=== PATIENT | male | born 1950 | race Caucasian/White ===

== ENCOUNTER → 2022-03-12 | Outpatient (CLI) | payer MEDICARE, SELFPAY ==
--- NOTE | 2022-03-12 12:45 | CDU_ITS ---
Reason For Study: Carotid Stenosis Rt. Velocities/BP Lt. Velocities/BP Prox CCA 102.3/26.2 cm/sec. Prox CCA 83.1/21.5 cm/sec. Mid CCA 81.4/20.0 cm/sec. Mid CCA 73.2/21.5 cm/sec. Dist CCA 83.9/22.5 cm/sec. Dist CCA 50.1/19.3 cm/sec. Prox ICA 40.7/15.4 cm/sec. Prox ICA 34.6/13.2 cm/sec. Mid ICA 57.2/24.2 cm/sec. Mid ICA 72.4/29.9 cm/sec. Dist ICA 77.1/28.9 cm/sec. Dist ICA 76.5/34.7 cm/sec. Rt. ICA/CCA = 0.9. Lt. ICA/CCA = 1.0. Prox ECA 96.1/20.0 cm/sec. Prox ECA 87.5/19.5 cm/sec. Rt. Vert. 18.5/5.9 cm/sec. Lt. Vert. 36.6/12.4 cm/sec. Right Extracranial There is intimal thickening but no significant atherosclerotic plaque noted in the right common carotid artery. There is heterogeneous, irregular atherosclerotic plaque noted in the right internal carotid artery. There is intimal thickening but no significant atherosclerotic plaque noted in the right external carotid artery. Antegrade flow is noted in the right vertebral artery. Left Extracranial There is intimal thickening but no significant atherosclerotic plaque noted in the left common carotid artery. There is heterogeneous, irregular atherosclerotic plaque noted in the left internal carotid artery. There is intimal thickening but no significant atherosclerotic plaque noted in the left external carotid artery. Antegrade flow is noted in the left vertebral artery. Procedure Carotid Duplex [id number]. This is a Carotid Duplex examination using B-mode, color flow and specral Doppler. The exam was diagnostic. Exam performed in department. VL/Carotid Duplex Ultrasound Interpretation Summary Mild (<50%) stenosis right extracranial internal carotid. Mild (<50%) stenosis left extracranial internal carotid. Patent and antegrade vertebrals bilaterally. Ordering Physician: Lyn Vance Referring Physician: Nori Valenzuela D.O. Performed By: Pacheco Constantino RVT
== END | disposition home or self-care (01) ==
PROVIDERS: PCP Internal Medicine; Referring Provider Nurse Practitioner Family; Visit Provider Nurse Practitioner Family
DX: I65.23 Occlusion and stenosis of bilateral carotid arteries (principal)
CPT/HCPCS: 93880

== ENCOUNTER → 2022-07-22 | Outpatient (CLI) | payer MEDICARE, SELFPAY ==
--- NOTE | 2022-07-22 14:25 | RAD_ITS ---
EXAM: XR RIGHT KNEE COMPLETE, 4 OR MORE VIEWS CLINICAL INDICATION: right knee pain TECHNIQUE: Four or more views of the right knee. This report was created using [employer] report generation technology. COMPARISON: None. FINDINGS: BONES/JOINTS: Moderate narrowing of the medial joint compartment, and mild subchondral sclerosis at the superior margin of the medial tibial plateau. Narrowing of the lateral patellofemoral joint compartment and mild lateral subluxation of the patella on the sunrise view. No acute fracture. No obviously acute-appearing subluxation. Normal alignment. No joint effusion. SOFT TISSUES: Unremarkable. No soft tissue swelling or gas. No radiopaque foreign body. RAD/Knee 4 or More Views IMPRESSION: Degenerative changes involving the medial joint compartment. Narrowing of the lateral patellofemoral joint compartment and mild lateral subluxation of the patella. Electronically Signed: Mela Og MD at 8:03 EST ,
== END | disposition home or self-care (01) ==
PROVIDERS: PCP Internal Medicine; Referring Provider Nurse Practitioner Family; Visit Provider Nurse Practitioner Family
DX: M25.561 Pain in right knee (principal)
CPT/HCPCS: 73564

== ENCOUNTER → 2025-03-06 | Outpatient (CLI) | payer MEDICARE, SELFPAY | END | disposition home or self-care (01) | LOC: LABSPEC 16:02 | PROVIDERS: PCP Internal Medicine; Referring Provider Urology; Visit Provider Urology | DX: N39.0 Urinary tract infection, site not specified (principal) | CPT/HCPCS: 87077; 87086; 87088; 87186 ==

== ENCOUNTER 2025-03-28 07:37 | Observation (INO) | payer MEDICARE, SELFPAY ==
--- NOTE | 2025-03-08 10:17 | EKG12_ITS ---
Test Reason : PREOP Blood Pressure : */* mmHG Vent. Rate : 59 BPM Atrial Rate : 59 BPM P-R Int : 196 ms QRS Dur : 94 ms QT Int : 432 ms P-R-T Axes : 53 3 57 degrees QTcB Int : 427 ms Sinus bradycardia with occasional Premature ventricular complexes and Premature atrial complexes Otherwise normal ECG Confirmed by Shadi Starr ([id number]), story editor ZHANNA ESPINAL ([id number]) on 03/09/2025 7:07:57 AM Referred By: JACKIE Confirmed By: Shadi Starr
[2025-03-08 11:04] LABS: Hematocrit 44.1 % (40-54); Hemoglobin 14.8 g/dL (13.0-16.5); Mean Corp Hgb Conc 33.6 g/dL (32-36); Mean Corpuscular Volume 91.9 fL (80-94); Mean Platelet Vol. 9.5 fl (6.2-12.0); Platelet Count 246 K/mm3 (150-450); RBC Distribution Width CV 13.2 % (11.6-14.6); RBC Distribution Width SD 44.9 fl (35.1-43.9); Red Blood Count 4.80 M/mm3 (4.6-6.2); White Blood Count 4.9 K/mm3 (4.4-11.0)
[2025-03-08 12:00] LABS: Anion Gap 10 (5-15); BUN 21 mg/dL (4-19); BUN/Creat Ratio 22.3 RATIO (10-20); Calcium,Total 9.4 mg/dL (7.6-11.0); Carbon Dioxide 24.9 mmol/L (21.0-32.0); Chloride 105 mmol/L (98-108); Glucose 102 mg/dL (70-99); Potassium 4.4 mmol/L (3.3-5.1)
[2025-03-28] VITALS (16 sets, daily range): BP systolic 103–172; BP diastolic 71–92; PULSE 56–74; RESP 16–166; TEMP 36.2–36.7; O2SAT 95–100; BMI 23.9
--- OUTSIDE RECORDS SUMMARY | 2025-03-28 06:17 | XMS RPT_ITS | CCD ---
Author Organization [facility] Care Team Providers Care Teacher Of The Hearing Impaired Name Role Phone Fast, Nori A Unavailable Unavailable Fast, Nori A Unavailable Unavailable Fast, Nori A Unavailable Unavailable Fast, Nori A Unavailable Unavailable Fast, Nori A Unavailable Unavailable Fast, Nori A Unavailable Unavailable Fast, Nori A Unavailable Unavailable Fast, Nori A Unavailable Unavailable Fast, Nori A Unavailable Unavailable Ciesa, Leola Unavailable Daljit Montano Unavailable Gmóez Harrell Unavailable Juan José Hodge Unavailable Unavailable Elva Carver Unavailable Unavailable Neila Awan Unavailable Unavailable Unavailable Unavailable Jayleena, Leola Unavailable Daljit Montano Unavailable Gómez Harrell Unavailable Nelia Awan Unavailable Unavailable Wen, Elva Unavailable Unavailable Unavailable Unavailable Juan Jsoé Hodge Unavailable Unavailable Susanna Talbot Unavailable Unavailable Juan José Hodge Unavailable Unavailable eNlia Awan Unavailable Unavailable Juan José Collazo Unavailable Unavailable Olga SEGOVIA, Leola Unavailable Charmaine , Dr. Bocanegra Unavailable Dr. Gómez Harrell MD Unavailable [phone] Gonzalez Carter Unavailable Faith Sepulveda LPN Unavailable Unavailable Juan José Collazo LPN Unavailable Unavailable Chasity Huff LPN Unavailable Unavailable Wen, Elva Unavailable Unavailable Unavailable Unavailable Ciesa, Lucille Unavailable Lyn Vance CNP Unavailable Rajiv OFFICE REP, Lyn Unavailable Slarb INSURANCE BROKER, Meseret Unavailable Unavailable Ciesa, Lucille Unavailable Unavailable Unavailable Dr. Nori Valenzuela Primary Care Provider Dr. Gonzalez Edouard Attending Provider RaulCharlieic Unavailable Rajiv OFFICE REP, Lyn Attending Unavailable Ciesa, Lucille Referring Unavailable Rajiv OFFICE REP, Lyn Consulting Unavailable Rajiv OFFICE REP, Lyn Unavailable Rajiv OFFICE REP, Lyn Unavailable Charmaine , Dr. Bocanegra Unavailable [phone] Julio Cesar BENÍTEZ, Dr. Gómez George Unavailable RaulCharlieic Unavailable Coco INSURANCE BROKER, Faith Unavailable Unavailable Slarb INSURANCE BROKER, Meseret Unavailable Unavailable Zay INSURANCE BROKER, Juan José Unavailable Unavailable Elva Carver Unavailable Unavailable Ciesa, Lucille Unavailable Unavailable Unavailable Boston Urbano Attending Unavailable Fast, Nori Primary Care Unavailable Jackie, Wild Referring Unavailable Jackie, Wild Referring Unavailable Jackie, Wild Attending Unavailable Fast, Nori Primary Care Unavailable Jackie, Wild Attending Unavailable Jackie, Wild Admitting Unavailable Fast, Nori Primary Care Unavailable Jackie, Wild Referring Unavailable Allergies Allergy Classification Reported Allergen(s) Allergy Type Date of Onset Reaction(s) Facility (20 sources) Latex; Translations: [Latex] allergy to substance [facility] Work Phone: (1 source) allergy to substance [facility] Work Phone: (1 source) allergy to substance [facility] Work Phone: (1 source) allergy to substance [facility] Work Phone: (1 source) allergy to substance [facility] Work Phone: (1 source) allergy to substance [facility] Work Phone: (1 source) allergy to substance [facility] Work Phone: (1 source) allergy to substance [facility] Work Phone: (1 source) allergy to substance [facility] Work Phone: (1 source) allergy to substance [facility] Work Phone: (1 source) allergy to substance [facility] Work Phone: (1 source) allergy to substance [facility] Work Phone: (1 source) allergy to substance [facility] Work Phone: (1 source) allergy to substance [facility] Work Phone: (1 source) allergy to substance [facility] Work Phone: (17 sources) Seasonal allergy Allergy to substance (finding) [facility] Work Phone: (17 sources) News paper ink Allergy to substance (finding) [facility] Work Phone: (1 source) Allergy to substance (finding) [facility]; [facility] Work Phone: (1 source) Allergy to substance (finding) [facility]; [facility] Work Phone: (1 source) Allergy to substance (finding) [facility]; [facility] Work Phone: (1 source) Allergy to substance (finding) [facility]; [facility] Work Phone: (1 source) Allergy to substance (finding) [facility]; [facility] Work Phone: (1 source) Allergy to substance (finding) [facility]; [facility] Work Phone: (1 source) Allergy to substance (finding) [facility]; [facility] Work Phone: (1 source) Allergy to substance (finding) [facility]; [facility] Work Phone: Medications Current Medications Medication Drug Class(es) Dates Sig (Normalized) Sig (Original) tamsulosin hydrochloride 0.4 mg oral capsule (20 sources) alpha-Adrenergic Juan Start: 03-09-2023 Start: 03-09-2023 Start: 07-22-2022 Start: 12-17-2021 take 1 capsule by mo uth once daily Tamsulosin HCl 0.4 MG Oral Capsule 1 cap Capsule qd for 90 days Quantity: 90 {Capsule} Refills: 3 Ordered: 17-Dec-2021 Rajiv JULIETTELyn Start : 17-Dec-2021 Active Start: 12-17-2020 take 1 capsule by mo uth once daily Tamsulosin HCl 0.4 MG Oral Capsule 1 cap Capsule qd for 90 days Quantity: 90 {Capsule} Refills: 3 Ordered: 17-Dec-2020 Giulianaradha JULIETTE Lucille Espinoza JULIETTE Lucille Robledo Start : 17-Dec-2020 Active Start: 07-10-2020 take 1 capsule by mo uth once daily Tamsulosin HCl 0.4 MG Oral Capsule 1 cap Capsule qd for 90 days Quantity: 90 {Capsule} Refills: 3 Ordered: 10-Jul-2020 Juan José Collazo LPN Start : 10-Jul-2020 Active Start: 11-14-2019 take 1 capsule by mo uth once daily Tamsulosin HCl 0.4 MG Oral Capsule 1 cap Capsule qd for 90 days Quantity: 90 {Capsule} Refills: 3 Ordered: 14-Nov-2019 Giulianadionneashleigh SEGOVIA Lucille Espinoza JULIETTE Lucille Robledo Start : 14-Nov-2019 Active Start: 12-13-2017 take 1 capsule by mo uth once daily Tamsulosin HCl 0.4 MG Oral Capsule 1 cap Capsule qd for 90 days Quantity: 90 {Capsule} Refills: 3 Ordered: 19-Oct-2018 Jayleenashleigh SEGOVIA Lucille Espinoza JULIETTE Lucille Robledo Start : 19-Oct-2018 Active Start: 10-22-2009 End: 09-24-2015 Start: 10-22-2009 End: 09-24-2015 take 1 capsule by mouth once daily FLOMAX, 0.4MG (Oral Capsule Extended Release 24 Hour) 1 Capsule ER 24HR qd for 0 days Quantity: 90 {Capsule_ER_24HR} Refills: 3 Ordered: 22-Oct-2009 Amy Zhou Start : 22-Oct-2009 End : 24-Sep-2015 Discontinued Comments: This order discontinued per [facility]. Comment on above: This order discontin ued per [facility]. Completed/Discontinued Medications Medication Drug Class(es) Dates Sig (Normalized) Sig (Original) [id number] 200 actuat albuterol 0.09 mg/actuat metered dose inhaler (20 sources) beta2-Adrenergic Agonist Start: 05-06-2011 End: 09-24-2015 Start: 05-06-2011 End: 09-24-2015 PROAIR HFA, 108 (90 Base)MCG /ACT (Inhalation Aerosol Solution) 2 puffs Aerosol Soln qid, prn for 0 days Quantity: 1 {Aerosol_Soln} Refills: 3 Ordered: 24-Sep-2015 Amy Zhou Start : 06-May-2011 End : 24-Sep-2015 Discontinued Start: 05-06-2011 End: 09-24-2015 PROAIR HFA, 108 (90 Base)MCG /ACT (Inhalation Aerosol Solution) 2 puffs Aerosol Soln qid, prn for 0 days Quantity: 1 {Aerosol_Soln} Refills: 3 Ordered: 24-Sep-2015 Amy Zhou Start : 06-May-2011 End : 24-Sep-2015 Discontinued End: 06-28-2007 End: 06-28-2007 take 2 puff(s) by inhalation four times daily as needed ALBUTEROL SULFATE HFA, 108MCG/ACT (Inhalation Aerosol Soln) 2 puffs qid,prn for 0 days Refills: 0 Ordered: 21-Feb-2007 Amy Zhou End : 28-Jun-2007 Discontinued End: 06-28-2007 take 2 puff(s) by inhalation four times daily as needed ALBUTEROL SULFATE HFA, 108MCG/ACT (Inhalation Aerosol Soln) 2 puffs qid,prn for 0 days Refills: 0 Ordered: 21-Feb-2007 Amy Zhou End : 28-Jun-2007 Discontinued End: 06-28-2007 take 2 puff(s) by inhalation four times daily as needed ALBUTEROL SULFATE HFA, 108MCG/ACT (Inhalation Aerosol Soln) 2 puffs qid,prn for 0 days Refills: 0 Ordered: 21-Feb-2007 Amy Zhou End : 28-Jun-2007 Discontinued End: 06-28-2007 ALBUTEROL SULFATE HFA, 108MC G/ACT (Inhalation Aerosol Soln) 2 puffs qid,prn for 0 days Refills: 0 Ordered: 21-Feb-2007 Amy Zhou End : 28-Jun-2007 Discontinued ALBUTEROL SULFATE HFA, 108MCG/ACT (Inhalation Aerosol Soln) (6 sources) End: 06-28-2007 take 2 puff(s) by inhalation four times daily as needed ALBUTEROL SULFATE HFA, 108MCG/ACT (Inhalation Aerosol Soln) 2 puffs qid,prn for 0 days Refills: 0 Ordered: 21-Feb-2007 Amy Zhou End : 28-Jun-2007 Discontinued amoxicillin 875 mg / clavulanate 125 mg oral tablet (20 sources) Penicillin-class Antibacterial Start: 05-14-2010 End: 10-28-2010 Start: 05-14-2010 End: 10-28-2010 take 1 tablet by mouth twice daily AUGMENTIN, 875-125MG (Oral Tablet) 1 Tablet bid for 0 days Quantity: 20 {Tablet} Refills: 0 Ordered: 28-Oct-2010 Mast Fallon PATRICIA Start : 14-May-2010 End : 28-Oct-2010 Discontinued cholecalciferol 0.025 mg oral capsule (20 sources) Vitamin D Start: 01-03-2020 take 1 capsule by mouth every other day Vitamin D3 25 MCG (1000 UT) Oral Capsule 1 (one) Capsule qod for 0 days Quantity: 30 {Capsule} Refills: 0 Ordered: 03-Jan-2020 Lucille Espinoza Start : 03-Jan-2020 Active Start: 10-19-2018 End: 01-12-2023 chondroitin sulfates 400 mg / glucosamine hydrochloride 500 mg oral tablet (6 sources) Start: 07-22-2022 Start: 07-22-2022 take 1 tablet by aren th once daily glucosamine-chondroitin 500-400 mg oral tablet 1 (one) tablet daily for 90 days Quantity: 90 {Tablet} Refills: 3 Ordered: 22-Jul-2022 Meseret Bender LPN Start : 22-Jul-2022 Active citalopram 20 mg oral tablet (20 sources) Serotonin Reuptake Inhibitor Start: 07-22-2022 Start: 12-17-2021 take 1 tablet by aren th once daily CeleXA 20 MG Oral Tablet 1 (one) Tablet Tablet daily for 0 days Quantity: 90 {Tablet} Refills: 3 Ordered: 17-Dec-2021 Lyn Vance CNP Start : 17-Dec-2021 Active Start: 12-17-2020 take 1 tablet by aren th once daily CeleXA 20 MG Oral Tablet 1 (one) Tablet Tablet daily for 0 days Quantity: 90 {Tablet} Refills: 3 Ordered: 17-Dec-2020 Jayleenashleigh SEGOVIA Lucille Espinoza JULIETTE Lucille Robledo Start : 17-Dec-2020 Active Start: 07-10-2020 take 1 tablet by aren th once daily CeleXA 20 MG Oral Tablet 1 (one) Tablet Tablet daily for 0 days Quantity: 90 {Tablet} Refills: 3 Ordered: 10-Jul-2020 Juan José Collazo LPN Start : 10-Jul-2020 Active Start: 11-14-2019 take 1 tablet by aren th once daily CeleXA 20 MG Oral Tablet 1 (one) Tablet Tablet daily for 0 days Quantity: 90 {Tablet} Refills: 3 Ordered: 14-Nov-2019 Giulianadionneashleigh SEGOVIA Lucille Espinoza JULIETTE Lucille Robledo Start : 14-Nov-2019 Active Start: 12-13-2017 take 1 tablet by aren th once daily CeleXA 20 MG Oral Tablet 1 (one) Tablet Tablet daily for 0 days Quantity: 90 {Tablet} Refills: 3 Ordered: 19-Oct-2018 Olga JULIETTE Lucille Angel CNP Start : 19-Oct-2018 Active Start: 04-07-2016 End: 04-07-2016 Comment on above: generic okay cyclobenzaprine hydrochlorid e 10 mg oral tablet (20 sources) Muscle Relaxant Start: 10-16-2016 End: 12-28-2016 cycloSPORINE 0.5 mg/ml ophthalmic suspension (20 sources) Calcineurin Inhibitor Immunosuppressant Start: 02-03-2018 End: 09-05-2019 Comment on above: Dr. White fexofenadine hydrochloride 1 80 mg oral tablet (20 sources) Histamine-1 Receptor Antagonist Start: 04-13-2018 End: 09-05-2019 Comment on above: This order discontin ued per [facility]. fluticasone propionate 0.05 mg/actuat metered dose nasal spray (20 sources) Corticosteroid Start: 03-10-2006 End: 03-12-2009 Start: 03-10-2006 End: 03-12-2009 FLONASE, 50MCG/ACT (Nasal Adams spension) 1 spray Suspension qd prn for 0 days Quantity: 1 {Suspension} Refills: 3 Ordered: 10-Mar-2006 Amy Zhou Start : 10-Mar-2006 End : 12-Mar-2009 Inactive lifitegrast 50 mg/ml ophthalmic solution (20 sources) Lymphocyte Function-Associated Antigen-1 Antagonist Start: 07-16-2017 End: 02-03-2018 Start: 07-16-2017 End: 02-03-2018 Xiidra 5 % Ophthalmic Soluti on 1 (one) Metric Drop both eyes daily for 30 days Quantity: 30 {Milliliter} Refills: 4 Ordered: 03-Feb-2018 Marybeth Dye Start : 16-Jul-2017 End : 03-Feb-2018 Inactive lisinopril 10 mg oral tablet (20 sources) Angiotensin Converting Enzyme Inhibitor Start: 07-22-2022 Start: 12-17-2021 take 1 tablet by aren th once daily Lisinopril 10 MG Oral Tablet 1 (one) Tablet qd for 90 days Quantity: 90 {Tablet} Refills: 3 Ordered: 17-Dec-2021 Lyn Vance CNP Start : 17-Dec-2021 Active Start: 12-17-2020 take 1 tablet by aren th once daily Lisinopril 10 MG Oral Tablet 1 (one) Tablet qd for 90 days Quantity: 90 {Tablet} Refills: 3 Ordered: 17-Dec-2020 Lucille Espinoza CNP, CNP, Mary E Start : 17-Dec-2020 Active Start: 07-10-2020 take 1 tablet by aren th once daily Lisinopril 10 MG Oral Tablet 1 (one) Tablet qd for 90 days Quantity: 90 {Tablet} Refills: 3 Ordered: 10-Jul-2020 Juan José Collazo LPN Start : 10-Jul-2020 Active Start: 11-14-2019 take 1 tablet by aren th once daily Lisinopril 10 MG Oral Tablet 1 (one) Tablet qd for 90 days Quantity: 90 {Tablet} Refills: 3 Ordered: 14-Nov-2019 Lucille Espinoza CNP, CNP, Mary E Start : 14-Nov-2019 Active Start: 12-13-2017 take 1 tablet by aren th once daily Lisinopril 10 MG Oral Tablet 1 (one) Tablet qd for 90 days Quantity: 90 {Tablet} Refills: 3 Ordered: 19-Oct-2018 Olga SEGOVIA, Lucille Espinoza CNP, Lucille Robledo Start : 19-Oct-2018 Active LORazepam 0.5 mg oral tablet (20 sources) Benzodiazepine Start: 06-28-2007 End: 03-12-2009 meclizine hydrochloride 25 m g oral tablet (15 sources) Antiemetic Start: 08-22-2020 End: 07-15-2021 mometasone furoate 0.05 mg/a ctuat metered dose nasal spray (20 sources) Corticosteroid Start: 05-04-2012 End: 05-04-2012 Start: 05-04-2012 End: 05-04-2012 NASONEX, 50MCG/ACT (Nasal Adams spension) 2 (two) Suspension qd for 0 days Quantity: 1 {Suspension} Refills: 3 Ordered: 04-May-2012 Nicolas DO, Nori A Start : 04-May-2012 End : 04-May-2012 Discontinued nabumetone 750 mg oral tablet (20 sources) Nonsteroidal Anti-inflammatory Drug Start: 03-12-2008 End: 10-28-2010 ondansetron 4 mg oral tablet (15 sources) Serotonin-3 Receptor Antagonist Start: 08-22-2020 End: 07-15-2021 ramipril 5 mg oral capsule (20 sources) Angiotensin Converting Enzyme Inhibitor Start: 03-10-2006 End: 05-27-2006 Restasis 0.05 % Ophthalmic Emulsion (7 sources) Start: 02-03-2018 End: 09-05-2019 Restasis 0.05 % Ophthalmic Emulsion 1 (one) Emulsion each eye q 12hrs for 0 days Quantity: 1 {Emulsion} Refills: 0 Ordered: 05-Sep-2019 Juan José Collazo LPN Start : 03-Feb-2018 End : 05-Sep-2019 Inactive Comments: Dr. White Comment on above: Dr. White rizatriptan 5 mg oral tablet (20 sources) Serotonin-1b and Serotonin-1d Receptor Agonist Start: 07-22-2022 Start: 03-17-2022 take 1 tablet by aren th every two hours Rizatriptan Benzoate 5 MG Oral Tablet 1 (one) Tablet at onset of MARI, may repeat q2h x2 for 90 days Quantity: 30 {Tablet} Refills: 3 Ordered: 17-Mar-2022 Lyn Vance CNP Start : 17-Mar-2022 Active Start: 07-10-2020 End: 01-20-2022 Start: 11-14-2019 Rizatriptan Be nzoate 5 MG Oral Tablet 1 Tablet PRN for 0 days Quantity: 10 {Tablet} Refills: 3 Ordered: 14-Nov-2019 Lucille Espinoza CNP, CNP, Mary E Start : 14-Nov-2019 Active Start: 12-13-2017 End: 10-19-2018 take 1 tablet by mouth every two hours Rizatriptan Benzoate 5 MG Oral Tablet 1 (one) Tablet at onset of , september repeat q2h x2 for 90 days Quantity: 27 {Tablet} Refills: 0 Ordered: 19-Oct-2018 Daniel Talbotssica Start : 25-Aug-2018 End : 19-Oct-2018 Inactive simvastatin 20 mg oral table t (20 sources) HMG-CoA Reductase Inhibitor Start: 07-22-2022 Start: 12-17-2021 take 1 tablet by aren th once daily Simvastatin 20 MG Oral Tablet 1 Tablet qd for 0 days Quantity: 90 {Tablet} Refills: 3 Ordered: 17-Dec-2021 Lyn Vance CNP Start : 17-Dec-2021 Active Start: 12-17-2020 take 1 tablet by aren th once daily Simvastatin 20 MG Oral Tablet 1 Tablet qd for 0 days Quantity: 90 {Tablet} Refills: 3 Ordered: 17-Dec-2020 Lucille Espinoza CNP, CNP, Mary E Start : 17-Dec-2020 Active Start: 07-10-2020 take 1 tablet by aren th once daily Simvastatin 20 MG Oral Tablet 1 Tablet qd for 0 days Quantity: 90 {Tablet} Refills: 3 Ordered: 10-Jul-2020 Juan José Collazo LPN Start : 10-Jul-2020 Active Start: 11-14-2019 take 1 tablet by aren th once daily Simvastatin 20 MG Oral Tablet 1 Tablet qd for 0 days Quantity: 90 {Tablet} Refills: 3 Ordered: 14-Nov-2019 Lucille Espinoza CNP, CNP, Mary E Start : 14-Nov-2019 Active Start: 12-13-2017 take 1 tablet by aren th once daily Simvastatin 20 MG Oral Tablet 1 Tablet qd for 0 days Quantity: 90 {Tablet} Refills: 3 Ordered: 19-Oct-2018 Olga JULIETTE, Lucille Espinoza JULIETTE, Lucille Robledo Start : 19-Oct-2018 Active tadalafil 10 mg oral tablet (20 sources) Phosphodiesterase 5 Inhibitor Start: 09-15-2013 End: 07-15-2021 Problems Active Problems Problem Classification Problem Date Documented Date Episodic/Chronic Allergic reactions (20 sources) Eczema; Translations: [Eczema] 04-13-2018 Episodic Anxiety disorders (20 sources) Anxiety; Translations: [Anxiety] 04-13-2018 Chronic Comment on above: he feels controlled he feels in good con trol, he feels in good con trol, just having a bad day today. no recent panic attacks. Conditions associated with dizziness or vertigo (20 sources) Benign paroxysmal positional vertigo; Translations: [BPV (benign positional vertigo)] 01-07-2021 Episodic Diabetes mellitus without complication (20 sources) Impaired fasting glucose; Translations: [Abnormal glucose level] 04-13-2018 Episodic Comment on above: diet and ex would consider metfo rmin in future diet and ex, plan he will continue diet, etc consider metformin A1c 6.0%, no medicat ion indicated at this time, continue diet and exercisewould consider metformin in future Diseases of white blood cells (20 sources) Leukopenia; Translations: [Leukopenia] 01-27-2022 Chronic Comment on above: could be transient, will recheck cbc today. if normal, yearly is appropriate Disorders of lipid metabolism (20 sources) Other and unspecified hyperlipidemia; Translations: [Hyperlipidemia] 04-13-2018 Chronic Comment on above: he needs to get back down under 70- his ldl-- he not exercising so encourage- reviewed diet on simvastatin levels are good, con tinue current medicationon simvastatin Essential hypertension (20 sources) Benign essential hypertension; Translations: [Benign essential hypertension] 04-13-2018 Chronic Comment on above: stable on lisinopril stable on lisinopril , Goal BP<130/80, at home BP 143/81 stable on lisinopril , Goal BP<130/80, at [id number] or less stable on lisinopril , Goal BP<130/80, at home 127/89 and 113/74 stable on lisinopril , Goal BP<130/80, at home diary excellent, in offie elevated stable on lisinopril , no changes stable on lisinopril , no changesBP high today but high anxiety today. Genitourinary symptoms and ill-defined conditions (20 sources) Increased frequency of urination; Translations: [Urinary frequency] Resolved: 8 10-19-2017 Episodic Headache; including migraine (20 sources) Migraine; Translations: [Migraine] 04-13-2018 Chronic Comment on above: controlled uses Maxa lt prn averaging maybe one per month, puts ice bag on his head and takes rizatriptan which is effective Hemorrhoids (20 sources) Hemorrhoids; Translations: [Hemorrhoids] 04-13-2018 Episodic Hyperplasia of prostate (20 sources) Benign prostatic hyperplasia; Translations: [Hyperplasia of prostate] 04-13-2018 Chronic Comment on above: stable on tamsulosin , psa stable Immunizations and screening for infectious disease (20 sources) Encounter for immunization; Translations: [Need for prophylactic vaccination and inoculation against influenza] Resolved: 5 04-13-2018 Episodic Nausea and vomiting (20 sources) Nausea; Translations: [Nausea] Resolved: 2 01-07-2021 Episodic Nutritional deficiencies (20 sources) Vitamin D deficiency; Translations: [Vitamin D deficiency] 04-13-2018 Chronic Occlusion or stenosis of precerebral arteries (20 sources) Occlusion and stenosis of bilateral carotid arteries; Translations: [Bilateral stenosis of carotid arteries] 04-13-2018 Chronic Comment on above: risk factor modifica tion risk factor modifica tionlast carotids 2017. some dizziness. repeat Other connective tissue disease (20 sources) Spasm; Translations: [Muscle spasm] Resolved: 8 10-19-2017 Episodic Other ear and sense organ disorders (20 sources) Hearing loss; Translations: [Hearing loss] 01-07-2021 Chronic Other ear and sense organ disorders (20 sources) Impacted cerumen; Translations: [Cerumen impaction] Resolved: 5 03-20-2015 Episodic Other eye disorders (20 sources) Dry eyes; Translations: [Dry eyes, bilateral] Resolved: 9 04-13-2018 Episodic Comment on above: on restasis Other gastrointestinal disorders (20 sources) Constipation; Translations: [Constipation] 09-05-2019 Episodic Other non-traumatic joint disorders (20 sources) Knee pain; Translations: [Pain in unspecified knee] Resolved: 9 12-02-2012 Episodic Comment on above: improved Other non-traumatic joint disorders (12 sources) Pain in right knee; Translations: [Right knee pain] 07-22-2022 Episodic Comment on above: get baseline xrays, nsaids, ice, conservative mgmt for now. high anxiety so won't do MRI ever. if conservative measures fail, do PT and send for knee injectionmedial, doubt meniscus. Other screening for suspected conditions (not mental disorders or infectious disease) (20 sources) Viral screening status; Translations: [Thyroid function tests abnormal] Resolved: 6 04-13-2018 Episodic Comment on above: will assess Tsh in 6 weeks Colonoscopy in 2016- which was normal. PSA drawn 08/18/17-2.3 WNL Other skin disorders (20 sources) Other seborrheic keratosis; Translations: [Seborrheic keratosis] Resolved: 8 10-19-2018 Episodic Comment on above: reassurance - benign - sunscreen daily Other upper respiratory disease (20 sources) Allergic rhinitis; Translations: [Allergic rhinitis] 04-13-2018 Chronic Other upper respiratory disease (20 sources) Nasal discharge; Translations: [Nasal congestion with rhinorrhea] Resolved: 8 04-13-2018 Episodic Other upper respiratory infections (15 sources) Sinusitis; Translations: [Sinusitis] 01-07-2021 Chronic Other upper respiratory infections (20 sources) Sinusitis; Translations: [Common cold] Resolved: 1 04-13-2018 Episodic Elise-; endo-; and myocarditis; cardiomyopathy (except that caused by tuberculosis or sexually transmitted disease) (20 sources) Cardiomyopathy; Translations: [Other primary cardiomyopathies] 04-13-2018 Chronic Residual codes; unclassified (20 sources) Needs influenza immunization; Translations: [Need for prophylactic vaccination and inoculation against influenza] Resolved: 5 03-20-2015 Episodic Residual codes; unclassified (20 sources) Body Mass Index between 19-24, adult; Translations: [Finding of body mass index] Resolved: 8 10-19-2017 Episodic Residual codes; unclassified (20 sources) Body mass index (BMI) 23.0-23.9, adult; Translations: [Body mass index (BMI) 22.0-22.9, adult] Resolved: 3 10-19-2017 Episodic Comment on above: Based on weight repo rted by pt due to COVID-19 pandemic Residual codes; unclassified (6 sources) Requires diphtheria, tetanus and pertussis vaccination; Translations: [Need for Tdap vaccination (Renamed from Need for [id number]-bsrm ussis (Tdap) vaccine, adult/adolescent)] 09-05-2019 Episodic Residual codes; unclassified (20 sources) Influenza vaccination declined; Translations: [Influenza vaccination declined (Renamed from Refused influenza vaccine)] 01-07-2021 Episodic Comment on above: Pneumococcal vaccina tion declined Residual codes; unclassified (20 sources) Non-smoker; Translations: [Nonsmoker] 07-10-2020 Episodic Syncope (20 sources) Syncope; Translations: [Syncope] Resolved: 9 12-02-2012 Episodic Comment on above: no more spells-- we did check his blood sugars and only one abnormal at one hour- this doesnt give him the diagnsois of dm- but needs yearly check and discussed aproppriate diagnoisis and exercise Unclassified (20 sources) Unclassified (20 sources) Carotid stenosis (433.10) Unclassified (20 sources) SCREENING FOR CANCER OF THE PROSTATE (V76.44) Unclassified (20 sources) elevating psa 04-13-2018 Unclassified (20 sources) Screening status; Translations: [Encounter for screening for malignant neoplasm of colon (Renamed from Special screening for malignant neoplasms, colon)] Resolved: 6 04-13-2018 Comment on above: Colonoscopy in 2016- which was normal. PSA drawn 08/18/17-2.3 WNL Unclassified (20 sources) Influenza vaccination declined; Translations: [Influenza vaccination declined (Renamed from Refused influenza vaccine)] 04-13-2018 Comment on above: Pneumococcal vaccina tion declined Unclassified (20 sources) Non-smoker; Translations: [Nonsmoker] 04-13-2018 Unclassified (20 sources) NONSPECIFIC FINDINGS ON EXAMINATION OF BLOOD, OTHER ABNORMAL GLUCOSE (790.29) Unclassified (20 sources) BMI 23.0-23.9, adult; Translations: [Body mass index 20-24 - normal] Resolved: 8 04-19-2019 Unclassified (20 sources) Encounter for screening for malignant neoplasm of prostate (Renamed from Screening for prostate cancer) Unclassified (20 sources) Dry eyes, bilateral Unclassified (20 sources) BMI 22.0-22.9, adult; Translations: [Body mass index 20-24 - normal] 09-05-2019 Unclassified (20 sources) 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 Unclassified (20 sources) Cerumen impaction (380.4) Unclassified (20 sources) BMI between 19-24,adult; Translations: [Finding of body mass index] Resolved: 8 10-19-2017 Unclassified (20 sources) Bilateral carotid artery stenosis Unclassified (18 sources) Screening for prostate cancer Unclassified (20 sources) Hypercholesteremia Unclassified (20 sources) BMI 24.0-24.9, adult; Translations: [Body mass index 20-24 - normal] 09-05-2019 Comment on above: Based on weight repo rted by pt due to COVID-19 pandemic Unclassified (11 sources) Abnormal TSH Unclassified (11 sources) Pre-diabetes Urinary tract infections (1 source) Urinary tract infection, site not specified; Translations: [Urinary tract infection, site not specified] Onset: 5 Episodic Past or Other Problems Problem Classification Problem Date Documented Da te Episodic/Chronic Deficiency and other anemia (11 sources) Deficiency and other anemia Occlusion or stenosis of precerebral arteries (3 sources) Bilateral carotid artery stenosis; Translations: [Bilateral carotid artery stenosis] 09-05-2019 Comment on above: risk factor modifica tion Other non-traumatic joint disorders (15 sources) Pain in unspecified knee; Translations: [Knee pain] Resolved: 03-12-2009 12-02-2012 Episodic Comment on above: improved Other skin disorders (10 sources) Senile hyperkeratosis; Translations: [Seborrheic keratosis] Resolved: 04-20-2018 04-13-2018 Episodic Comment on above: reassurance - benign - sunscreen daily Residual codes; unclassified (7 sources) Vaccination required; Translations: [Encounter for immunization] Resolved: 03-20-2015 04-02-2015 Episodic Unclassified (18 sources) SHINGLES,NEED FOR PROPHYLACTIC VACCINATION AND INOCULATION AGAINST (V05.8) Unclassified (20 sources) Family hx of CAD 04-13-2018 Unclassified (20 sources) [facility] 04-13-2018 Unclassified (20 sources) Rt leg paresthesias 04-13-2018 Unclassified (18 sources) Head cold Unclassified (18 sources) Nasal congestion with rhinorrhea Unclassified (20 sources) Annual Medicare Phyiscal WITHOUT abnormal findings (Renamed from Encounter for general adult medical examination without abnormal findings); Translations: [Patient encounter status] 04-13-2018 Unclassified (18 sources) Need for Tdap vaccination (Renamed from Need for diphtheria-tetanus- pertussis (Tdap) vaccine, adult/adolescent) Unclassified (18 sources) Seborrheic keratosis Unclassified (18 sources) Muscle spasm Unclassified (20 sources) Encounter for hepatitis C virus screening test for high risk patient; Translations: [Patient encounter status] 04-20-2018 Unclassified (20 sources) Unspecified Diagnosis 08-25-2018 Unclassified (20 sources) Patient encounter status; Translations: [Annual Medicare Phyiscal WITHOUT abnormal findings (Renamed from Encntr for general adult medical exam w/o abnormal findings)] Resolved: 03-20-2015 09-05-2019 Unclassified (11 sources) Encounter for screening for lipid disorder Unclassified (11 sources) Screening for endocrine disorder Unclassified (5 sources) BPV (benign positional vertigo) Results Test Name Value Interpretation Reference Range Facility Urine Cultureon 03-10-2025 [facility] Staphylococcus homin is hominis [place] Count >100,000 Staphylococcus hominis hominis: REACTION cefOXitin Susc Islt Doxycycline Islt URSULA <=0.5 S Clindamycin.induced Susc Islt NEG Gentamicin Islt URSULA <=0.5 S Linezolid Islt URSULA 1 S Nitrofurantoin Islt URSULA <=16 S Oxacillin Susc Islt >=4 R Tetracycline Islt URSULA 2 S TMP SMX Islt URSULA <=10 S Vancomycin Islt URSULA 1 S Normal [facility] Comment on above: Performed By: #### M 100.2200 #### [facility] [address] [place], [address] 12 Lead EKGon 03-08-2025 12 Lead EKG [facility] [address] [place] [address] 12 Lead EKG 03/08/25 1037 MR#: [id number] Acct: [id number] Name: QUEENIE ESPINOZA Rep #: [id number] : 1950 74 From: Shadi Starr MD Attending Dr: Dr. Boston Urbano MD Status: PRE IN Ordering Dr: Boston Urbano MD Date: 03/08/25 Location: [facility] Sex: M C Admitted: Test Reason : PREOP Blood Pressure : */* mmHG Vent. Rate : 59 BPM Atrial Rate : 59 BPM P-R Int : 196 ms QRS Dur : 94 ms QT Int : 432 ms P-R-T Axes : 53 3 57 degrees QTcB Int : 427 ms Sinus bradycardia with occasional Premature ventricular complexes and Premature atrial complexes Otherwise normal ECG Confirmed by Shadi Starr ([id number]), editorial assistant ZHANNA ESPINAL ([id number]) on 03/09/2025 7:07:57 AM Referred By: JACKIE Confirmed By: Shadi Starr 03/09/25 0708 Date Shadi Starr MD CC: Dr. Nori Valenzuela DO; Dr. Boston Urbano MD Signed Normal [facility] Basic Metabolic Profile (BMP )on 03-08-2025 BUN/CRE 22.3 RATIO High 03-05 [facility] Comment on above: Performed By: #### L 500.2500, L100.0500 #### [facility] [address] [place], [address] Calcium [Mass/Vol] 9.4 mg/dL Normal 7.6-11.0 [facility] Comment on above: Performed By: #### L 500.2500, L100.0500 #### [facility] [address] [place], [address] Chloride [Moles/Vol] 105 mmol/L Normal 98-108 [facility] Comment on above: Performed By: #### L 500.2500, L100.0500 #### [facility] [address] [place], [address] CO2 [Moles/Vol] 24.9 mmol/L Normal 21.0-32.0 [facility] Comment on above: Performed By: #### L 500.2500, L100.0500 #### [facility] [address] [place], [address] Creatinine [Mass/Vol] 0.92 mg/dL Normal 0.70-1.20 [facility] Comment on above: Performed By: #### L 500.2500, L100.0500 #### [facility] [address] [place], [address] GAP 10 Normal 5-15 [facility] Comment on above: Performed By: #### L 500.2500, L100.0500 #### [facility] [address] [place], [address] GFR/1.73 sq M.predicted among non-blacks MDRD (S/P/Bld) [Vol rate/Area] 89 mL/min/{1.73_m2} Normal >60 [facility] Comment on above: Result Comment: mL/m in/1.73m2 CKD-EPI Creatinine Equation (2020) Performed By: #### L 500.2500, L100.0500 #### [facility] [address] [place], [address] Glucose [Mass/Vol] 102 mg/dL High 70-99 [facility] Comment on above: Performed By: #### L 500.2500, L100.0500 #### [facility] [address] [place], [address] Potassium [Moles/Vol] 4.4 mmol/L Normal 3.3-5.1 [facility] Comment on above: Performed By: #### L 500.2500, L100.0500 #### [facility] [address] [place], [address] Sodium [Moles/Vol] 141 mmol/L Normal 133-145 [facility] Comment on above: Performed By: #### L 500.2500, L100.0500 #### [facility] [address] [place], [address] Urea nitrogen [Mass/Vol] 21 mg/dL High 4-19 [facility] Comment on above: Performed By: #### L 500.2500, L100.0500 #### [facility] [address] [place], [address] CBC-Complete Blood Cnt No Di ffon 03-08-2025 Erythrocyte distribution width (RBC) [Ratio] 13.2 % Normal 11.6-14.6 [facility] Comment on above: Performed By: #### L 500.2500, L100.0500 #### [facility] [address] [place], [address] Hematocrit (Bld) [Volume fraction] 44.1 % Normal 40-54 [facility] Comment on above: Performed By: #### L 500.2500, L100.0500 #### [facility] [address] [place], [address] Hemoglobin (Bld) [Mass/Vol] 14.8 g/dL Normal 13.0-16.5 [facility] Comment on above: Performed By: #### L 500.2500, L100.0500 #### [facility] [address] [place], [address] MCH (RBC) [Entitic mass] 30.8 pg Normal 27.0-32.0 [facility] Comment on above: Performed By: #### L 500.2500, L100.0500 #### [facility] [address] [place], [address] MCHC (RBC) [Mass/Vol] 33.6 g/dL Normal 32-36 [facility] Comment on above: Performed By: #### L 500.2500, L100.0500 #### [facility] [address] [place], [address] MCV (RBC) [Entitic vol] 91.9 fL Normal 80-94 [facility] Comment on above: Performed By: #### L 500.2500, L100.0500 #### [facility] [address] [place], [address] Platelet mean volume (Bld) [Entitic vol] 9.5 fL Normal 6.2-12.0 [facility] Comment on above: Performed By: #### L 500.2500, L100.0500 #### [facility] [address] [place], [address] Platelets (Bld) [#/Vol] 246 10*3/uL Normal 150-450 [facility] Comment on above: Performed By: #### L 500.2500, L100.0500 #### [facility] [address] [place], [address] RBC (Bld) [#/Vol] 4.80 10*6/uL Normal 4.6-6.2 [facility] Comment on above: Performed By: #### L 500.2500, L100.0500 #### [facility] [address] [place], [address] RDW SD 44.9 fl High 35.1-43.9 [facility] Comment on above: Performed By: #### L 500.2500, L100.0500 #### [facility] [address] [place], [address] WBC (Bld) [#/Vol] 4.9 10*3/uL Normal 4.4-11.0 [facility] Comment on above: Performed By: #### L 500.2500, L100.0500 #### [facility] [address] [place], [address] CALCIFEDIOL ([id number])Ordered B y: Airway Controller on 01-06-2023 25-hydroxyvitamin D [Mass/Vol] 43.7 ng/mL Normal 30.0-100.0 [facility]; [facility] Work Phone: CBC, PLATELETS & AUT DIFF ([phone])Ordered By: Airway Controller on 01-06-2023 Basophils (Bld) [#/Vol] 0.0 10*3/uL Normal 0.0-0.2 [facility]; [facility] Work Phone: Basophils/100 WBC (Bld) 1 % Normal [facility]; [facility] Work Phone: Eosinophils (Bld) [#/Vol] 0.1 10*3/uL Normal 0.0-0.4 [facility]; [facility] Work Phone: Eosinophils/100 WBC (Bld) 2 % Normal [facility]; [facility] Work Phone: Erythrocyte distribution width (RBC) [Ratio] 13.1 % Normal 11.6-15.4 [facility]; [facility] Work Phone: Hematocrit (Bld) [Volume fraction] 44.5 % Normal 37.5-51.0 [facility]; [facility] Work Phone: Hemoglobin (Bld) [Mass/Vol] 15.1 g/dL Normal 13.0-17.7 [facility]; [facility] Work Phone: Immature granulocytes (Bld) [#/Vol] 0.0 10*3/uL Normal 0.0-0.1 [facility]; [facility] Work Phone: Immature granulocytes/100 WBC (Bld) 0 % Normal [facility]; [facility] Work Phone: Lymphocytes (Bld) [#/Vol] 1.0 10*3/uL Normal 0.7-3.1 [facility]; [facility] Work Phone: Lymphocytes/100 WBC (Bld) 25 % Normal [facility]; [facility] Work Phone: MCH (RBC) [Entitic mass] 31.1 pg Normal 26.6-33.0 [facility]; [facility] Work Phone: MCHC (RBC) [Mass/Vol] 33.9 g/dL Normal 31.5-35.7 [facility] prehensive [facility]; [facility] Work Phone: MCV (RBC) [Entitic vol] 92 fL Normal 79-97 [facility]; [facility] Work Phone: Monocytes (Bld) [#/Vol] 0.4 10*3/uL Normal 0.1-0.9 [facility]; [facility] Work Phone: Monocytes/100 WBC (Bld) 9 % Normal [facility]; [facility] Work Phone: Neutrophils (Bld) [#/Vol] 2.6 10*3/uL Normal 1.4-7.0 [facility]; [facility] Work Phone: Neutrophils/100 WBC (Bld) 63 % Normal [facility]; [facility] Work Phone: Platelets (Bld) [#/Vol] 206 10*3/uL Normal 150-450 [facility]; [facility] Work Phone: RBC (Bld) [#/Vol] 4.86 10*6/uL Normal 4.14-5.80 [facility] ehensive [facility]; [facility] Work Phone: WBC (Bld) [#/Vol] 4.0 10*3/uL Normal 3.4-10.8 [facility]; [facility] Work Phone: HGB A1C ([id number])Ordered By: Ceasar ystem Bench Molder Apprentice on 01-06-2023 HbA1c (Bld) [Mass fraction] 5.8 % Abnormal 4.8-5.6 [facility]; [facility] Work Phone: LIPID PANEL ([id number])Ordered B y: Airway Controller on 01-06-2023 Cholesterol [Mass/Vol] 154 mg/dL Normal 100-199 [facility]; [facility] Work Phone: Cholesterol in HDL [Mass/Vol] 55 mg/dL Normal [facility]; [facility] Work Phone: Triglyceride [Mass/Vol] 69 mg/dL Normal 0-149 [facility]; [facility] Work Phone: LIPID PANEL ([id number]) 14 mg/dL Normal 5-40 [facility]; [facility] Work Phone: LIPID PANEL ([id number]) 85 mg/dL Normal 0-99 [facility]; [facility] Work Phone: LIPID PANEL ([id number]) 1.5 {ratio} Normal 0.0-3.6 [facility]; [facility] Work Phone: METABOLIC PANEL, COMPREHENSI VE ([phone])Ordered By: Airway Controller on 01-06-2023 Albumin [Mass/Vol] 4.7 g/dL Normal 3.9-4.9 [facility]; [facility] Work Phone: Albumin/Globulin [Mass ratio] 2.1 {ratio} Normal 1.2-2.2 [facility]; [facility] Work Phone: ALP [Catalytic activity/Vol] 42 U/L Abnormal 44-121 [facility]; [facility] Work Phone: ALT [Catalytic activity/Vol] 21 U/L Normal 0-44 [facility]; [facility] Work Phone: AST [Catalytic activity/Vol] 19 U/L Normal 0-40 [facility]; [facility] Work Phone: Bilirubin [Mass/Vol] 0.5 mg/dL Normal 0.0-1.2 [facility]; [facility] Work Phone: Calcium [Mass/Vol] 9.1 mg/dL Normal 8.6-10.2 [facility]; [facility] Work Phone: Chloride [Moles/Vol] 101 mmol/L Normal 96-106 [facility] rehensive Internal Medicine; [facility] Work Phone: CO2 [Moles/Vol] 24 mmol/L Normal 20-29 [facility]; [facility] Work Phone: Creatinine [Mass/Vol] 0.95 mg/dL Normal 0.76-1.27 [facility]; [facility] Work Phone: Globulin (S) [Mass/Vol] 2.2 g/dL Normal 1.5-4.5 [facility]; [facility] Work Phone: Glucose [Mass/Vol] 102 mg/dL Abnormal 70-99 [facility]; [facility] Work Phone: Potassium [Moles/Vol] 4.4 mmol/L Normal 3.5-5.2 [facility]; [facility] Work Phone: Protein [Mass/Vol] 6.9 g/dL Normal 6.0-8.5 [facility]; [facility] Work Phone: Sodium [Moles/Vol] 139 mmol/L Normal 134-144 [facility]; [facility] Work Phone: Urea nitrogen [Mass/Vol] 19 mg/dL Normal 8-27 [facility]; [facility] Work Phone: Urea nitrogen/Creatinine [Mass ratio] 20 mg/mg Normal 10-24 [facility]; [facility] Work Phone: METABOLIC PANEL, COMPREHENSIVE ([id number]) 86 mL/min/1.73 Normal [facility]; [facility] Work Phone: PSA (Medicare - [id number]) ([phone])Ordered By: Airway Controller on 01-06-2023 Prostate specific Ag [Mass/Vol] 3.7 ng/mL Normal 0.0-4.0 [facility]; [facility] Work Phone: TSH (THYROID STIMULATING HOR TJ) ([id number])Ordered By: Airway Controller on 01-06-2023 TSH Qn 3.430 {uIU/mL} Normal 0.450-4.500 [facility]; [facility] Work Phone: CALCIFEDIOL ([phone])Ordered B y: Airway Controller on 07-13-2022 25-hydroxyvitamin D [Mass/Vol] 46.3 ng/mL Normal 30.0-100.0 [facility]; [facility] Work Phone: Comment on above: Vitamin D deficiency has been defined by the [place] ofMedicine and an Endocrine Society practice guideline as alevel of serum 25-OH vitamin D less than 20 ng/mL (1,2).The Endocrine Society went on to further define vitamin Dinsufficiency as a level between 21 and 29 ng/mL (2).1. IOM ([place] of Medicine). 2010. Dietary reference intakes for calcium and D. [place]: The National Academies Press.2. Haider MF, Jody WAHL, Sheron MARI, et al. Evaluation, treatment, and prevention of vitamin D deficiency: an Endocrine Society clinical practice guideline. JCEM. 2010; 96(7):1911-30. PATIENT WAS FASTINGP ERFORMED BY: [employer] Systemsblin [place] [id number] CBC, PLATELETS & MANUAL DIFF ([id number])Ordered By: Airway Controller on 07-13-2022 Basophils (Bld) [#/Vol] 0.0 10*3/uL Normal 0.0-0.2 [facility]; [facility] Work Phone: Comment on above: PATIENT WAS FASTINGP ERFORMED BY: [employer] LabJackBe[address] LabsDublin [place] [id number] Basophils/100 WBC (Bld) 1 % Normal [facility]; [facility] Work Phone: Comment on above: PATIENT WAS FASTINGP ERFORMED BY: [employer] [place] [id number] Eosinophils (Bld) [#/Vol] 0.1 10*3/uL Normal 0.0-0.4 [facility]; [facility] Work Phone: Comment on above: PATIENT WAS FASTINGP ERFORMED BY: WHIT [facility] [id number] Road[address]ublin [place] [id number] Eosinophils/100 WBC (Bld) 2 % Normal [facility]; [facility] Work Phone: Comment on above: PATIENT WAS FASTINGP ERFORMED BY: CB [facility] [id number] Road[address] [place] [id number] Erythrocyte distribution width (RBC) [Ratio] 13.3 % Normal 11.6-15.4 [facility]; [facility] Work Phone: Comment on above: PATIENT WAS FASTINGP ERFORMED BY: CB [facility] [id number] Road[address]ublin [place] [id number] Hematocrit (Bld) [Volume fraction] 44.1 % Normal 37.5-51.0 [facility]; [facility] Work Phone: Comment on above: PATIENT WAS FASTINGP ERFORMED BY: CB [facility] [id number] Road[address] [place] [id number] Hemoglobin (Bld) [Mass/Vol] 14.7 g/dL Normal 13.0-17.7 [facility]; [facility] Work Phone: Comment on above: PATIENT WAS FASTINGP ERFORMED BY: CB [facility] [id number] [place] [id number] Immature granulocytes (Bld) [#/Vol] 0.0 10*3/uL Normal 0.0-0.1 [facility]; [facility] Work Phone: Comment on above: PATIENT WAS FASTINGP ERFORMED BY: CB [facility] [id number] [place] [id number] Immature granulocytes/100 WBC (Bld) 0 % Normal [facility]; [facility] Work Phone: Comment on above: PATIENT WAS FASTINGP ERFORMED BY: CB [facility] [id number]Dublin [place] [id number] Lymphocytes (Bld) [#/Vol] 0.9 10*3/uL Normal 0.7-3.1 [facility]; [facility] Work Phone: Comment on above: PATIENT WAS FASTINGP ERFORMED BY: WHIT Marc Gomez[address] [place] [id number] Lymphocytes/100 WBC (Bld) 27 % Normal [facility]; [facility] Work Phone: Comment on above: PATIENT WAS FASTINGP ERFORMED BY: WHIT [facility] Genorm[address] [place] [id number] MCH (RBC) [Entitic mass] 30.8 pg Normal 26.6-33.0 [facility]; [facility] Work Phone: Comment on above: PATIENT WAS FASTINGP ERFORMED BY: WHIT Labcoamanda PennLqkxpf[address] [facility] [place] [id number] MCHC (RBC) [Mass/Vol] 33.3 g/dL Normal 31.5-35.7 [facility] prehensive [facility]; [facility] Work Phone: Comment on above: PATIENT WAS FASTINGP ERFORMED BY: WHIT [facility] [id number] [facility] Hospital[facility] [place] [id number] MCV (RBC) [Entitic vol] 92 fL Normal 79-97 [facility]; [facility] Work Phone: Comment on above: PATIENT WAS FASTINGP ERFORMED BY: WHIT Labco[facility] PennDqiefb[address] [facility] [place] [id number] Monocytes (Bld) [#/Vol] 0.3 10*3/uL Normal 0.1-0.9 [facility]; [facility] Work Phone: Comment on above: PATIENT WAS FASTINGP ERFORMED BY: WHIT [facility] [id number] [place] [id number] Monocytes/100 WBC (Bld) 9 % Normal [facility]; [facility] Work Phone: Comment on above: PATIENT WAS FASTINGP ERFORMED BY: WHIT [facility] [id number] [place] [id number] Neutrophils (Bld) [#/Vol] 2.1 10*3/uL Normal 1.4-7.0 [facility]; [facility] Work Phone: Comment on above: PATIENT WAS FASTINGP ERFORMED BY: WHIT [facility] [id number] Road[address] [place] [id number] Neutrophils/100 WBC (Bld) 61 % Normal [facility]; [facility] Work Phone: Comment on above: PATIENT WAS FASTINGP ERFORMED BY: WHIT [facility] [id number] [place] [id number] Platelets (Bld) [#/Vol] 213 10*3/uL Normal 150-450 [facility]; [facility] Work Phone: Comment on above: PATIENT WAS FASTINGP ERFORMED BY: WHIT [facility] [id number] RoadDublin [place] [id number] RBC (Bld) [#/Vol] 4.78 10*6/uL Normal 4.14-5.80 Compr ehensive [facility]; [facility] Work Phone: Comment on above: PATIENT WAS FASTINGP ERFORMED BY: WHIT [facility] Bvuehn6584 [address] RoadDublin [place] [id number] WBC (Bld) [#/Vol] 3.5 10*3/uL Normal 3.4-10.8 [facility]pre [facility]; [facility] Work Phone: Comment on above: PATIENT WAS FASTINGP ERFORMED BY: [facility] Haffgz4650 [address] RoadDublin [place] [id number] HGB A1C (79828)Ordered By: S ystem Bench Molder Apprentice on 07-13-2022 HbA1c (Bld) [Mass fraction] 5.8 % Abnormal 4.8-5.6 [facility]; [facility] Work Phone: Comment on above: . Prediabetes: 5.7 - 6.4 Diabetes: >6.4 Glycemic control for adults with diabetes: <7.0 PATIENT WAS FASTINGP ERFORMED BY: WHIT [facility] Ityxut3367 [address] RoadDublin [place] [id number] LIPID PANEL (90907)Ordered B y: Airway Controller on 07-13-2022 Cholesterol [Mass/Vol] 160 mg/dL Normal 100-199 [facility]; [facility] Work Phone: Comment on above: PATIENT WAS FASTINGP ERFORMED BY: WHIT [facility] Afhmyk8144 [address] RoadDublin [place] [id number]; OV 3/8 Cholesterol in HDL [Mass/Vol] 53 mg/dL Normal [facility]; [facility] Work Phone: Comment on above: PATIENT WAS FASTINGP ERFORMED BY: CB [facility] Lijyzp4560 [address] RoadDublin [place] [id number]; OV 3/8 Triglyceride [Mass/Vol] 67 mg/dL Normal 0-149 [facility]; [facility] Work Phone: Comment on above: PATIENT WAS FASTINGP ERFORMED BY: WHIT [facility] Zjshea3135 [address] RoadNovant Health [facility] Centerin [place] [id number]; OV 3/8 LIPID PANEL (76967) 13 mg/dL Normal 5-40 Compr ehensive Internal Medicine; [facility] Work Phone: Comment on above: PATIENT WAS FASTINGP ERFORMED BY: WHIT [facility] Axzhhs9576 [address] Roadblin [place] [id number]; OV 3/8 LIPID PANEL (85315) 94 mg/dL Normal 0-99 Compr ensive Internal Medicine; [facility] Work Phone: Comment on above: PATIENT WAS FASTINGP ERFORMED BY: CB [facility] Afekec4786 [address] Roadblin [place] [id number]; OV 3/8 LIPID PANEL (20475) 1.8 {ratio} Normal 0.0-3.6 [facility]; [facility] Work Phone: Comment on above: LDL/HDL Ratio Men Wo men 1/2 Avg.Risk 1.0 1.5 Avg.Risk 3.6 3.2 2X Avg.Risk 6.2 5.0 3X Avg.Risk 8.0 6.1 PATIENT WAS FASTINGP ERFORMED BY: CB [facility] Ympdkk4082 [address] RoadNovant Health Franklin Medical Centerin [place] [id number]; OV 3 TSH (THYROID STIMULATING HOR TJ) (79848)Ordered By: Airway Controller on 07-13-2022 TSH Qn 3.270 {uIU/mL} Normal 0.450-4.500 [facility] Internal Medicine; [facility] Work Phone: Comment on above: PATIENT WAS FASTINGP ERFORMED BY: CB [facility] Apnjlc2204 [address] RoadNovant Health Franklin Medical Centerin [place] [id number] CBC, PLATELETS & AUT DIFF ([id number] 0578)Ordered By: Airway Controller on 01-20-2022 Basophils (Bld) [#/Vol] 0.0 10*3/uL Normal 0.0-0.2 [facility]; [facility] Work Phone: Comment on above: today; PATIENT NOT F ASTINGPERFORMED BY: WHIT [facility] Lltaok3052 Mercedes RoadNovant Health [facility] [id number] Basophils/100 WBC (Bld) 0 % Normal [facility]; [facility] Work Phone: Comment on above: today; PATIENT NOT F ASTINGPERFORMED BY: CB [facility] Xivnnp0925 [address] [facility] [id number] Eosinophils (Bld) [#/Vol] 0.1 10*3/uL Normal 0.0-0.4 [facility]; [facility] Work Phone: Comment on above: today; PATIENT NOT F ASTINGPERFORMED BY: CB [facility] Kxwqns8166 [address] RoadNovant Health Franklin [facility] Centerin [place] [id number] Eosinophils/100 WBC (Bld) 2 % Normal [facility]; [facility] Work Phone: Comment on above: today; PATIENT NOT F ASTINGPERFORMED BY: CB [facility] Ghxmmd3853 [address] [facility]in [place] [id number] Erythrocyte distribution width (RBC) [Ratio] 12.7 % Normal 11.6-15.4 [facility]; [facility] Work Phone: Comment on above: today; PATIENT NOT F ASTINGPERFORMED BY: CB [facility] Pqquqx9271 [address] RoadDublin [place] [id number] Hematocrit (Bld) [Volume fraction] 45.6 % Normal 37.5-51.0 [facility]; [facility] Work Phone: Comment on above: today; PATIENT NOT F ASTINGPERFORMED BY: CB [facility] Kkpswn4815 [address] RoadDublin [place] [id number] Hemoglobin (Bld) [Mass/Vol] 15.0 g/dL Normal 13.0-17.7 [facility]; [facility] Work Phone: Comment on above: today; PATIENT NOT F ASTINGPERFORMED BY: CB [facility] Nvsrfm9052 [address] RoadDublin [place] [id number] Immature granulocytes (Bld) [#/Vol] 0.0 10*3/uL Normal 0.0-0.1 [facility]; [facility] Work Phone: Comment on above: today; PATIENT NOT F ASTINGPERFORMED BY: CB [facility] Zwqhyo9713 [address] RoadDublin [place] [id number] Immature granulocytes/100 WBC (Bld) 0 % Normal [facility]; [facility] Work Phone: Comment on above: today; PATIENT NOT F ASTINGPERFORMED BY: CB [facility] Qqhffx7252 [address] RoadDublin [place] [id number] Lymphocytes (Bld) [#/Vol] 0.8 10*3/uL Normal 0.7-3.1 [facility]; [facility] Work Phone: Comment on above: today; PATIENT NOT F ASTINGPERFORMED BY: CB [facility] Ltipby7030 [address] RoadDublin [place] [id number] Lymphocytes/100 WBC (Bld) 16 % Normal [facility]; [facility] Work Phone: Comment on above: today; PATIENT NOT F ASTINGPERFORMED BY: CB [facility] Naznhi8432 [address] RoadDublin [place] [id number] MCH (RBC) [Entitic mass] 30.6 pg Normal 26.6-33.0 [facility]; [facility] Work Phone: Comment on above: today; PATIENT NOT F ASTINGPERFORMED BY: CB [facility] Lfhamy2261 [address] RoadDublin [place] [id number] MCHC (RBC) [Mass/Vol] 32.9 g/dL Normal 31.5-35.7 [facility] prehensive Internal Medicine; [facility] Work Phone: Comment on above: today; PATIENT NOT F ASTINGPERFORMED BY: CB [facility] Aobhoh2617 [address] RoadDublin [place] [id number] MCV (RBC) [Entitic vol] 93 fL Normal 79-97 [facility]; [facility] Work Phone: Comment on above: today; PATIENT NOT F ASTINGPERFORMED BY: CB [facility] Rnhxzr0070 [address] RoadDublin [place] [id number] Monocytes (Bld) [#/Vol] 0.4 10*3/uL Normal 0.1-0.9 [facility]; [facility] Work Phone: Comment on above: today; PATIENT NOT F ASTINGPERFORMED BY: CB [facility] Gsddny5548 [address] RoadDublin [place] [id number] Monocytes/100 WBC (Bld) 8 % Normal [facility]; [facility] Work Phone: Comment on above: today; PATIENT NOT F ASTINGPERFORMED BY: CB [facility] Pgxskd2046 [address] RoadDublin [place] [id number] Neutrophils (Bld) [#/Vol] 3.6 10*3/uL Normal 1.4-7.0 [facility]; [facility] Work Phone: Comment on above: today; PATIENT NOT F ASTINGPERFORMED BY: CB [facility] Dagrxk3823 [address] RoadDublin [place] [id number] Neutrophils/100 WBC (Bld) 74 % Normal [facility]; [facility] Work Phone: Comment on above: today; PATIENT NOT F ASTINGPERFORMED BY: CB [facility] Fwzjtt6419 [address] RoadDublin [place] [id number] Platelets (Bld) [#/Vol] 236 10*3/uL Normal 150-450 [facility]; [facility] Work Phone: Comment on above: today; PATIENT NOT F ASTINGPERFORMED BY: CB [facility] Seeyfr4027 [address] RoadDublin [place] [id number] RBC (Bld) [#/Vol] 4.90 10*6/uL Normal 4.14-5.80 Compr ensive Internal Medicine; [facility] Work Phone: Comment on above: today; PATIENT NOT F ASTINGPERFORMED BY: CB [facility] Djcokr9970 [address] RoadDuin [place] [id number] WBC (Bld) [#/Vol] 4.9 10*3/uL Normal 3.4-10.8 [facility] Internal [facility]; [facility] Work Phone: Comment on above: today; PATIENT NOT F ASTINGPERFORMED BY: CB [facility] Lpgqgj9849 Mercedes RoadDuNovant Health [facility] [id number] CBC, Platelets & Auto Diff ( [id number])Ordered By: Airway Controller on 01-06-2022 Basophils (Bld) [#/Vol] 0.0 10*3/uL Normal 0.0-0.2 [facility]; [facility] Work Phone: Comment on above: Jan 2022; PATIENT W FASTINGPERFORMED BY: CB [facility] Lujovt7898 [address] RoadDuin [place] [id number] Basophils/100 WBC (Bld) 1 % Normal [facility]; [facility] Work Phone: Comment on above: Jan 2022; PATIENT W FASTINGPERFORMED BY: CB [facility] Suyiyx8317 [address] RoadDublin [place] [id number] Eosinophils (Bld) [#/Vol] 0.1 10*3/uL Normal 0.0-0.4 [facility]; [facility] Work Phone: Comment on above: Jan 2022; PATIENT W FASTINGPERFORMED BY: CB [facility] Llepio2024 [address] RoadDublin [place] [id number] Eosinophils/100 WBC (Bld) 3 % Normal [facility]; [facility] Work Phone: Comment on above: Jan 2022; PATIENT W FASTINGPERFORMED BY: WHIT [facility] Qtsqvp9014 [address] Roadblin [place] [id number] Erythrocyte distribution width (RBC) [Ratio] 12.8 % Normal 11.6-15.4 [facility]; [facility] Work Phone: Comment on above: Jan 2022; PATIENT W FASTINGPERFORMED BY: CB [facility] Whezqk4443 [address] [facility] [place] [id number] Hematocrit (Bld) [Volume fraction] 46.2 % Normal 37.5-51.0 [facility]; [facility] Work Phone: Comment on above: Jan 2022; PATIENT W FASTINGPERFORMED BY: [facility] Hacvqq1844 [address] [facility] [id number] Hemoglobin (Bld) [Mass/Vol] 15.1 g/dL Normal 13.0-17.7 [facility]; [facility] Work Phone: Comment on above: Jan 2022; PATIENT W FASTINGPERFORMED BY: [facility] Edaxxg0204 [address] [facility] [id number] Immature granulocytes (Bld) [#/Vol] 0.0 10*3/uL Normal 0.0-0.1 [facility]; [facility] Work Phone: Comment on above: Jan 2022; PATIENT W FASTINGPERFORMED BY: [facility] Nntbkn5691 [address] RoadNovant Health [facility] Centerin [place] [id number] Immature granulocytes/100 WBC (Bld) 0 % Normal [facility]; [facility] Work Phone: Comment on above: Jan 2022; PATIENT W FASTINGPERFORMED BY: CB [facility] Xnkzrr2614 [address] [facility]in [place] [id number] Lymphocytes (Bld) [#/Vol] 0.9 10*3/uL Normal 0.7-3.1 [facility]; [facility] Work Phone: Comment on above: Jan 2022; PATIENT W FASTINGPERFORMED BY: CB [facility] Clxrnh4809 [address] RoadDublin [place] [id number] Lymphocytes/100 WBC (Bld) 29 % Normal [facility]; [facility] Work Phone: Comment on above: Jan 2022; PATIENT W FASTINGPERFORMED BY: CB [facility] Tgrlxf6210 [address] RoadDublin [place] [id number] MCH (RBC) [Entitic mass] 30.5 pg Normal 26.6-33.0 [facility] Internal Medicine; [facility] Work Phone: Comment on above: Jan 2022; PATIENT W FASTINGPERFORMED BY: CB [facility] Lhmxiq4251 [address] RoadDublin [place] [id number] MCHC (RBC) [Mass/Vol] 32.7 g/dL Normal 31.5-35.7 [facility] Internal Medicine; [facility] Work Phone: Comment on above: Jan 2022; PATIENT W FASTINGPERFORMED BY: CB [facility] Beftnh4881 [address] RoadDublin [place] [id number] MCV (RBC) [Entitic vol] 93 fL Normal 79-97 [facility]; [facility] Work Phone: Comment on above: Jan 2022; PATIENT W FASTINGPERFORMED BY: CB [facility] Lnisan4913 [address] RoadDublin [place] [id number] Monocytes (Bld) [#/Vol] 0.3 10*3/uL Normal 0.1-0.9 [facility]; [facility] Work Phone: Comment on above: Jan 2022; PATIENT W FASTINGPERFORMED BY: CB [facility] Zfldog5642 [address] RoadDublin [place] [id number] Monocytes/100 WBC (Bld) 10 % Normal [facility]; [facility] Work Phone: Comment on above: Jan 2022; PATIENT W FASTINGPERFORMED BY: CB [facility] Ytxfdh8715 [address] RoadDublin [place] [id number] Neutrophils (Bld) [#/Vol] 1.9 10*3/uL Normal 1.4-7.0 [facility]; [facility] Work Phone: Comment on above: Jan 2022; PATIENT W FASTINGPERFORMED BY: [facility] Frwnpr5025 [address] RoadDublin [place] [id number] Neutrophils/100 WBC (Bld) 57 % Normal [facility]; [facility] Work Phone: Comment on above: Jan 2022; PATIENT W FASTINGPERFORMED BY: CB [facility] Nbymhw9402 [address] RoadDublin [place] [id number] Platelets (Bld) [#/Vol] 208 10*3/uL Normal 150-450 [facility]; [facility] Work Phone: Comment on above: Jan 2022; PATIENT W FASTINGPERFORMED BY: CB [facility] Osqkgo6208 [address] RoadDublin [place] [id number] RBC (Bld) [#/Vol] 4.95 10*6/uL Normal 4.14-5.80 Compr [facility] Internal Medicine; [facility] Work Phone: Comment on above: Jan 2022; PATIENT W FASTINGPERFORMED BY: CB [facility] Ulchln0896 [address] RoadDublin [place] [id number] WBC (Bld) [#/Vol] 3.2 10*3/uL Abnormal 3.4-10.8 [facility] Internal Medicine; [facility] Work Phone: Comment on above: Jan 2022; PATIENT W FASTINGPERFORMED BY: [facility] Tqeofj[address] [facility] Hospitalbl[facility] [place] [id number] HGB A1C ([id number])Ordered By: Ceasar ystem Bench Molder Apprentice on 01-06-2022 HbA1c (Bld) [Mass fraction] 6.0 % Abnormal 4.8-5.6 [facility]; [facility] Work Phone: Comment on above: . Prediabetes: 5.7 - 6.4 Diabetes: >6.4 Glycemic control for adults with diabetes: <7.0 jan 2022; PATIENT W FASTINGPERFORMED BY: CB [facility] Xnjynr8723 [address] RoadDublin [place] [id number] LIPID PANEL (67833)Ordered B y: Airway Controller on 01-06-2022 Cholesterol [Mass/Vol] 154 mg/dL Normal 100-199 [facility]; [facility] Work Phone: Comment on above: Jan 2022; PATIENT W FASTINGPERFORMED BY: CB [facility] Ofbfta4972 [address] RoadDublin [place] [id number] Cholesterol in HDL [Mass/Vol] 56 mg/dL Normal [facility]; [facility] Work Phone: Comment on above: Jan 2022; PATIENT W FASTINGPERFORMED BY: CB [facility] Acgmqw0875 [address] RoadDublin [place] [id number] Triglyceride [Mass/Vol] 54 mg/dL Normal 0-149 [facility]; [facility] Work Phone: Comment on above: Jan 2022; PATIENT W FASTINGPERFORMED BY: CB [facility] Tathsh6724 [address] RoadDublin [place] [id number] LIPID PANEL (82949) 11 mg/dL Normal 5-40 [facility]erens[facility]; [facility] Work Phone: Comment on above: Jan 2022; PATIENT W FASTINGPERFORMED BY: CB [facility] Dwnyph4729 [address] RoadDublin [place] [id number] LIPID PANEL (06784) 87 mg/dL Normal 0-99 [facility]erens[facility]; [facility] Work Phone: Comment on above: Jan 2022; PATIENT W FASTINGPERFORMED BY: CB [facility] Fbvmis4639 [address] RoadDublin [place] [id number] LIPID PANEL (80463) 1.6 {ratio} Normal 0.0-3.6 [facility]ensive [facility]; [facility] Work Phone: Comment on above: LDL/HDL Ratio Men Wo men 1/2 Avg.Risk 1.0 1.5 Avg.Risk 3.6 3.2 2X Avg.Risk 6.2 5.0 3X Avg.Risk 8.0 6.1 Jan 2022; PATIENT W FASTINGPERFORMED BY: [employer]6370 [employer] Systemsin [place] [id number] PSA (PROSTATE SPECIFIC ANTIG EN) (V76.44)Ordered By: Airway Controller on 01-06-2022 Prostate specific Ag [Mass/Vol] 3.2 ng/mL Normal 0.0-4.0 [facility]; [facility] Work Phone: Comment on above: Cherelle ECLIA methodol ogy. .According to the [place] [employer], Serum PSA shoulddecrease and remain at undetectable levels after radicalprostatectomy. The AUA defines biochemical recurrence as an initialPSA value 0.2 ng/mL or greater followed by a subsequent confirmatoryPSA value 0.2 ng/mL or greater.Values obtained with different assay methods or kits cannot be usedinterchangeably. Results cannot be interpreted as absolute evidenceof the presence or absence of malignant disease. Jan 2022; PATIENT W FASTINGPERFORMED BY: [employer]6370 ITN Energy SystemsNovant Health [facility] [id number] TSH (THYROID STIMULATING HOR TJ) ([id number])Ordered By: Airway Controller on 01-06-2022 TSH Qn 3.240 {uIU/mL} Normal 0.450-4.500 Comprehen [facility] Internal Medicine; [facility] Work Phone: Comment on above: Jan 2022; PATIENT W FASTINGPERFORMED BY: [employer]6370 Local LabsNovant Health [facility] [id number] HGB A1C ([id number])Ordered By: S ystem Bench Molder Apprentice on 07-09-2021 HbA1c (Bld) [Mass fraction] 5.8 % Abnormal 4.8-5.6 [facility]; [facility] Work Phone: Comment on above: . Prediabetes: 5.7 - 6.4 Diabetes: >6.4 Glycemic control for adults with diabetes: <7.0 PATIENT WAS FASTINGP ERFORMED BY: [employer]6370 ITN Energy SystemsNovant Health [facility] [id number] Metabolic Panel, Comprehensi ve (30048)Ordered By: Airway Controller on 07-09-2021 Albumin [Mass/Vol] 4.7 g/dL Normal 3.8-4.8 [facility] Internal Medicine; [facility] Work Phone: Comment on above: PATIENT WAS FASTINGP ERFORMED BY: CB [facility] Sviamh7207 [address] RoadDublin [place] [id number] Albumin/Globulin [Mass ratio] 2.0 {ratio} Normal 1.2-2.2 [facility]; [facility] Work Phone: Comment on above: PATIENT WAS FASTINGP ERFORMED BY: CB [facility] Gwomjj7130 [address] RoadDublin [place] [id number] ALP [Catalytic activity/Vol] 49 U/L Normal 44-121 [facility]; [facility] Work Phone: Comment on above: PATIENT WAS FASTINGP ERFORMED BY: CB [facility] Ifxgem9691 [address] RoadDublin [place] [id number] ALT [Catalytic activity/Vol] 17 U/L Normal 0-44 [facility]; [facility] Work Phone: Comment on above: PATIENT WAS FASTINGP ERFORMED BY: CB [facility] Spgsrd8061 [address] RoadDublin [place] [id number] AST [Catalytic activity/Vol] 15 U/L Normal 0-40 [facility]; [facility] Work Phone: Comment on above: PATIENT WAS FASTINGP ERFORMED BY: CB [facility] Yeekvi6057 [address] RoadDublin [place] [id number] Bilirubin [Mass/Vol] 0.6 mg/dL Normal 0.0-1.2 [facility] Internal Medicine; [facility] Work Phone: Comment on above: PATIENT WAS FASTINGP ERFORMED BY: CB [facility] Bstbjz9383 [address] RoadDublin [place] [id number] Calcium [Mass/Vol] 9.5 mg/dL Normal 8.6-10.2 [facility] Internal Medicine; [facility] Work Phone: Comment on above: PATIENT WAS FASTINGP ERFORMED BY: CB [facility] Nxtbtl5041 [address] RoadDublin [place] [id number] Chloride [Moles/Vol] 100 mmol/L Normal 96-106 Comp rehensive Internal Medicine; [facility] Work Phone: Comment on above: PATIENT WAS FASTINGP ERFORMED BY: [facility]6370 [facility] [id number] CO2 [Moles/Vol] 25 mmol/L Normal 20-29 [facility] Internal Medicine; [facility] Work Phone: Comment on above: PATIENT WAS FASTINGP ERFORMED BY: [facility]6370 [facility] [id number] Creatinine [Mass/Vol] 0.93 mg/dL Normal 0.76-1.27 [facility] prehensive Internal Medicine; [facility] Work Phone: Comment on above: Effective July 14, 2021 [facility] will begin reporting the 2020 CKD-EPI creatinine equation that estimates kidney function without a race variable. PATIENT WAS FASTINGP ERFORMED BY: [facility]6370 [facility] [id number] GFR/1.73 sq M.predicted among blacks CKD-EPI (S/P/Bld) [Vol rate/Area] 97 mL/min/1.73 Normal [facility]; [facility] Work Phone: Comment on above: In accordance with recommendations from the NKF-ASN Task force, [facility] is in the process of updating its eGFR calculation to the 2020 CKD-EPI creatinine equation that estimates kidney function without a race variable. PATIENT WAS FASTINGP ERFORMED BY: [facility]6370 [facility] [id number] GFR/1.73 sq M.predicted among non-blacks CKD-EPI (S/P/Bld) [Vol rate/Area] 84 mL/min/1.73 Normal [facility]; [facility] Work Phone: Comment on above: PATIENT WAS FASTINGP ERFORMED BY: [facility]6370 [facility] [id number] Globulin (S) [Mass/Vol] 2.4 g/dL Normal 1.5-4.5 [facility] Internal Medicine; [facility] Work Phone: Comment on above: PATIENT WAS FASTINGP ERFORMED BY: WHIT [facility] Dyqnkq3032 [address] RoadDublin [place] [id number] Glucose [Mass/Vol] 109 mg/dL Abnormal 65-99 [facility] Internal Medicine; [facility] Work Phone: Comment on above: PATIENT WAS FASTINGP ERFORMED BY: CB [facility] Bagwxa6158 [address] RoadDublin [place] [id number] Potassium [Moles/Vol] 4.5 mmol/L Normal 3.5-5.2 [facility]ensive [facility]; [facility] Work Phone: Comment on above: PATIENT WAS FASTINGP ERFORMED BY: WHIT [facility] Oklkhb8347 [address] RoadDublin [place] [id number] Protein [Mass/Vol] 7.1 g/dL Normal 6.0-8.5 [facility] Internal Medicine; [facility] Work Phone: Comment on above: PATIENT WAS FASTINGP ERFORMED BY: WHIT [facility] Gavtbh7886 [address] RoadDublin [place] [id number] Sodium [Moles/Vol] 141 mmol/L Normal 134-144 [facility] Internal Medicine; [facility] Work Phone: Comment on above: PATIENT WAS FASTINGP ERFORMED BY: CB [facility] Zbneey9383 [address] RoadDublin [place] [id number] Urea nitrogen [Mass/Vol] 16 mg/dL Normal 8-27 [facility] Internal Medicine; [facility] Work Phone: Comment on above: PATIENT WAS FASTINGP ERFORMED BY: CB [facility] Fsfoew8658 [address] RoadDublin [place] [id number] Urea nitrogen/Creatinine [Mass ratio] 17 mg/mg Normal 10-24 [facility] Internal Medicine; [facility] Work Phone: Comment on above: PATIENT WAS FASTINGP ERFORMED BY: CB [facility] Qhxqsi4723 [address] RoadDublin [place] [id number] CBC & PLATELETS (AUTO) ([id number])Ordered By: Airway Controller on 12-18-2020 Erythrocyte distribution width (RBC) [Ratio] 12.8 % Normal 11.6-15.4 [facility]; [facility] Work Phone: Comment on above: PATIENT WAS FASTINGP ERFORMED BY: WHIT [facility] Gfhigy1554 [address] RoadDublin [place] [id number] Hematocrit (Bld) [Volume fraction] 45.5 % Normal 37.5-51.0 [facility]; [facility] Work Phone: Comment on above: PATIENT WAS FASTINGP ERFORMED BY: [facility] Ojwxkj3667 [address] RoadDublin [place] [id number] Hemoglobin (Bld) [Mass/Vol] 15.3 g/dL Normal 13.0-17.7 [facility]; [facility] Medicine Work Phone: Comment on above: PATIENT WAS FASTINGP ERFORMED BY: [facility] Rgqfmy1098 [address] Roadblin [place] [id number] MCH (RBC) [Entitic mass] 31.2 pg Normal 26.6-33.0 [facility]; [facility] Work Phone: Comment on above: PATIENT WAS FASTINGP ERFORMED BY: [facility]Co Lbtrvl5138 [address] RoadDublin [place] [id number] MCHC (RBC) [Mass/Vol] 33.6 g/dL Normal 31.5-35.7 [facility] prehensive Internal Medicine; [facility] Work Phone: Comment on above: PATIENT WAS FASTINGP ERFORMED BY: [facility] Ydjqwq3047 [address] RoadDublin [place] [id number] MCV (RBC) [Entitic vol] 93 fL Normal 79-97 [facility]; [facility] Work Phone: Comment on above: PATIENT WAS FASTINGP ERFORMED BY: [facility] Hheuce6773 [address] RoadDublin [place] [id number] Platelets (Bld) [#/Vol] 220 10*3/uL Normal 150-450 [facility]; [facility] Work Phone: Comment on above: PATIENT WAS FASTINGP ERFORMED BY: WHIT [facility] Utqqpt0846 [address] RoadDublin [place] [id number] RBC (Bld) [#/Vol] 4.90 10*6/uL Normal 4.14-5.80 [facility] Internal Medicine; [facility] Work Phone: Comment on above: PATIENT WAS FASTINGP ERFORMED BY: CB [facility] Plwaoa3[address] RoadDublin [place] [id number] WBC (Bld) [#/Vol] 5.1 10*3/uL Normal 3.4-10.8 [facility] Internal Medicine; [facility] Work Phone: Comment on above: PATIENT WAS FASTINGP ERFORMED BY: WHIT LabFred PennTrkqbd2616 [address] RoadDublin [place] [id number] LIPID PANEL (02107)Ordered B y: Airway Controller on 12-18-2020 Cholesterol [Mass/Vol] 149 mg/dL Normal 100-199 [facility]; [facility] Work Phone: Comment on above: PATIENT WAS FASTINGP ERFORMED BY: WHIT [facility] Qhqpng6015 [address] RoadDublin [place] [id number] Cholesterol in HDL [Mass/Vol] 54 mg/dL Normal [facility]; [facility] Work Phone: Comment on above: PATIENT WAS FASTINGP ERFORMED BY: WHIT [facility] Jnrqea5899 [address] RoadDublin [place] [id number] Triglyceride [Mass/Vol] 71 mg/dL Normal 0-149 [facility]; [facility] Work Phone: Comment on above: PATIENT WAS FASTINGP ERFORMED BY: WHIT [facility] Tbohvv1485 [address] RoadDublin [place] [id number] LIPID PANEL (43466) 14 mg/dL Normal 5-40 [facility]; [facility] Work Phone: Comment on above: PATIENT WAS FASTINGP ERFORMED BY: WHIT [facility] Vkxjln5441 Mercdees RoadDublin [place] [id number] LIPID PANEL (97720) 81 mg/dL Normal 0-99 Compr ehensive Internal Medicine; [facility] Work Phone: Comment on above: PATIENT WAS FASTINGP ERFORMED BY: WHIT LabCoamanda Hlbdfg1918 [address] RoadDublin [place] [id number] LIPID PANEL (56175) 1.5 {ratio} Normal 0.0-3.6 [facility] Internal Medicine; [facility] Work Phone: Comment on above: LDL/HDL Ratio Men Wo men 1/2 Avg.Risk 1.0 1.5 Avg.Risk 3.6 3.2 2X Avg.Risk 6.2 5.0 3X Avg.Risk 8.0 6.1 PATIENT WAS FASTINGP ERFORMED BY: WHIT LabCoamanda Mjwikt6119 [address] RoadDublin [place] [id number] Metabolic Panel, Comprehensi ve (40098)Ordered By: Airway Controller on 12-18-2020 Albumin [Mass/Vol] 4.4 g/dL Normal 3.8-4.8 [facility] Internal Medicine; [facility] Work Phone: Comment on above: PATIENT WAS FASTINGP ERFORMED BY: WHIT [facility] Fpcxqo0274 [address] RoadDublin [place] [id number] Albumin/Globulin [Mass ratio] 1.7 {ratio} Normal 1.2-2.2 [facility]; [facility] Work Phone: Comment on above: PATIENT WAS FASTINGP ERFORMED BY: WHIT [facility] Uczath8697 [address] RoadDublin [place] [id number] ALP [Catalytic activity/Vol] 47 U/L Abnormal 48-121 [facility]; [facility] Work Phone: Comment on above: PATIENT WAS FASTINGP ERFORMED BY: WHIT [facility] Mgzsnu6872 [address] RoadDublin [place] [id number] ALT [Catalytic activity/Vol] 11 U/L Normal 0-44 [facility]; [facility] Work Phone: Comment on above: PATIENT WAS FASTINGP ERFORMED BY: WHIT [facility] Iathgs2697 [address] RoadDublin [place] [id number] AST [Catalytic activity/Vol] 10 U/L Normal 0-40 [facility]; [facility] Work Phone: Comment on above: PATIENT WAS FASTINGP ERFORMED BY: Stephane Trxrox1510 [address] RoadNovant Health Franklin Medical Centerin [place] [id number] Bilirubin [Mass/Vol] 0.6 mg/dL Normal 0.0-1.2 [facility] rehensive Internal Medicine; [facility] Work Phone: Comment on above: PATIENT WAS FASTINGP ERFORMED BY: [facility]6[address] RoadNovant Health Franklin Medical Centerin [place] [id number] Calcium [Mass/Vol] 9.3 mg/dL Normal 8.6-10.2 [facility] Internal Medicine; [facility] Work Phone: Comment on above: PATIENT WAS FASTINGP ERFORMED BY: [facility]6[address] RoadNovant Health [facility] [id number] Chloride [Moles/Vol] 102 mmol/L Normal 96-106 [facility] rehensive Internal Medicine; [facility] Work Phone: Comment on above: PATIENT WAS FASTINGP ERFORMED BY: [facility] RoadNovant Health Franklin Medical Centerin [place] [id number] CO2 [Moles/Vol] 24 mmol/L Normal 20-29 [facility] Internal Medicine; [facility] Work Phone: Comment on above: PATIENT WAS FASTINGP ERFORMED BY: [facility]6370 [facility] [id number] Creatinine [Mass/Vol] 0.90 mg/dL Normal 0.76-1.27 [facility]ensive [facility]; [facility] Work Phone: Comment on above: PATIENT WAS FASTINGP ERFORMED BY: [facility] [facility]in [place] [id number] GFR/1.73 sq M.predicted among blacks CKD-EPI (S/P/Bld) [Vol rate/Area] 101 mL/min/1.73 Normal [facility]; [facility] Work Phone: Comment on above: [facility] currently reports eGFR in compliance with the current recommendations of the National Kidney Foundation. [facility] will update reporting as new guidelines are published from the NKF-ASN Task force. PATIENT WAS FASTINGP ERFORMED BY: [facility]6370 [facility] [id number] GFR/1.73 sq M.predicted among non-blacks CKD-EPI (S/P/Bld) [Vol rate/Area] 87 mL/min/1.73 Normal [facility]; [facility] Work Phone: Comment on above: PATIENT WAS FASTINGP ERFORMED BY: [facility]6370 [facility] [id number] Globulin (S) [Mass/Vol] 2.6 g/dL Normal 1.5-4.5 [facility]; [facility] Work Phone: Comment on above: PATIENT WAS FASTINGP ERFORMED BY: [facility]6370 [facility] [id number] Glucose [Mass/Vol] 101 mg/dL Abnormal 65-99 [facility] Internal Medicine; [facility] Work Phone: Comment on above: PATIENT WAS FASTINGP ERFORMED BY: [facility]6370 [facility] [id number] Potassium [Moles/Vol] 4.4 mmol/L Normal 3.5-5.2 [facility] prehensive Internal Medicine; [facility] Work Phone: Comment on above: PATIENT WAS FASTINGP ERFORMED BY: [facility]6370 [facility] [id number] Protein [Mass/Vol] 7.0 g/dL Normal 6.0-8.5 [facility] Internal Medicine; [facility] Work Phone: Comment on above: PATIENT WAS FASTINGP ERFORMED BY: [facility]6370 [facility] [id number] Sodium [Moles/Vol] 139 mmol/L Normal 134-144 [facility]ive [facility]; [facility] Work Phone: Comment on above: PATIENT WAS FASTINGP ERFORMED BY: [facility]allin6[address] [facility]in [place] [id number] Urea nitrogen [Mass/Vol] 16 mg/dL Normal 8-27 [facility]; [facility] Work Phone: Comment on above: PATIENT WAS FASTINGP ERFORMED BY: [facility] Kjnwkd0782 [facility] [id number] Urea nitrogen/Creatinine [Mass ratio] 18 mg/mg Normal 10-24 [facility]; [facility] Work Phone: Comment on above: PATIENT WAS FASTINGP ERFORMED BY: [facility] Rhroee4565 [facility] [id number] PSA, TOTAL - DIAGNOSTIC (841 20)Ordered By: Airway Controller on 12-18-2020 Prostate specific Ag [Mass/Vol] 3.3 ng/mL Normal 0.0-4.0 [facility] Internal Medicine; [facility] Work Phone: Comment on above: Cherelle ECLIA methodol ogy. .According to the [place] [employer], Serum PSA shoulddecrease and remain at undetectable levels after radicalprostatectomy. The AUA defines biochemical recurrence as an initialPSA value 0.2 ng/mL or greater followed by a subsequent confirmatoryPSA value 0.2 ng/mL or greater.Values obtained with different assay methods or kits cannot be usedinterchangeably. Results cannot be interpreted as absolute evidenceof the presence or absence of malignant disease. PATIENT WAS FASTINGP ERFORMED BY: [facility] Uinoem0571 [facility] [id number] TSH (THYROID STIMULATING HOR TJ) ([id number])Ordered By: Airway Controller on 12-18-2020 TSH Qn 3.040 {uIU/mL} Normal 0.450-4.500 [facility] Internal Medicine; [facility] Work Phone: Comment on above: PATIENT WAS FASTINGP ERFORMED BY: [facility] Giarzn1764 [facility] [id number] HGB A1C (43761)Ordered By: S ystem Bench Molder Apprentice on 07-03-2020 HbA1c (Bld) [Mass fraction] 5.7 % Abnormal 4.8-5.6 [facility]; [facility] Work Phone: Comment on above: . Prediabetes: 5.7 - 6.4 Diabetes: >6.4 Glycemic control for adults with diabetes: <7.Jun; PATIENT NO T FASTINGPERFORMED BY: WHIT [facility] Gzmxty28[address] pace Intelligent Technologyblin [place] [id number]; fu 2-24 [facility] CALCIFEDIOL (78743)Ordered B y: Airway Controller on 12-19-2019 25-Hydroxyvitamin D2+25-Hydroxyvitamin D3 [Mass/Vol] 65.9 ng/mL Normal 30.0-100.0 [facility] Work Phone: Comment on above: Vitamin D deficiency has been defined by the [place] ofMedicine and an Endocrine Society practice guideline as alevel of serum 25-OH vitamin D less than 20 ng/mL (1,2).The Endocrine Society went on to further define vitamin Dinsufficiency as a level between 21 and 29 ng/mL (2).1. IOM ([place] of Medicine). 2010. Dietary reference intakes for calcium and D. [place]: The National Academies Press.2. Haider MF, Jody NC, Sheron MARI, et al. Evaluation, treatment, and prevention of vitamin D deficiency: an Endocrine Society clinical practice guideline. JCEM. 2010; 96(7):1911-30. PATIENT WAS FASTINGP ERFORMED BY: Dejamor Acorlx9524 ITN Energy Systemsblin [place] [id number] CBC & PLATELETS (AUTO) (8502 7)Ordered By: Airway Controller on 12-19-2019 Erythrocyte distribution width (RBC) [Ratio] 13.2 % Normal 11.6-15.4 [facility] Work Phone: Comment on above: PATIENT WAS FASTINGP ERFORMED BY: Dejamor Xanepb6[address] pace Intelligent Technologyblin [place] [id number] Hematocrit (Bld) [Volume fraction] 46.1 % Normal 37.5-51.0 [facility] Work Phone: Comment on above: PATIENT WAS FASTINGP ERFORMED BY: [facility]6370 [address] RoadNovant [facility] [id number] Hemoglobin (Bld) [Mass/Vol] 14.9 g/dL Normal 13.0-17.7 [facility] Work Phone: Comment on above: PATIENT WAS FASTINGP ERFORMED BY: WHIT [facility] Qrttdd2204 [address] Roadblin [place] [id number] MCH (RBC) [Entitic mass] 30.8 pg Normal 26.6-33.0 [facility] Internal Medicine Work Phone: Comment on above: PATIENT WAS FASTINGP ERFORMED BY: CB [facility] Layvcv9787 [address] RoadDublin [place] [id number] MCHC (RBC) [Mass/Vol] 32.3 g/dL Normal 31.5-35.7 [facility] Internal Medicine Work Phone: Comment on above: PATIENT WAS FASTINGP ERFORMED BY: WHIT [facility] Pzwihm3910 [address] RoadDuin [place] [id number] MCV (RBC) [Entitic vol] 95 fL Normal 79-97 [facility] Internal Medicine Work Phone: Comment on above: PATIENT WAS FASTINGP ERFORMED BY: [facility] Glcteo4886 [address] RoadDublin [place] [id number] Platelets (Bld) [#/Vol] 220 {x10E3/uL} Normal 150-450 [facility] Work Phone: Comment on above: PATIENT WAS FASTINGP ERFORMED BY: [facility] Dcherw3337 [address] Roadblin [place] [id number] Platelets (Bld) [#/Vol] 220 10*3/uL Normal 150-450 [facility]; [facility] Work Phone: Comment on above: PATIENT WAS FASTINGP ERFORMED BY: CB [facility] Tfjfed3475 [address] RoadDublin [place] [id number] RBC (Bld) [#/Vol] 4.84 {x10E6/uL} Normal 4.14-5.80 [facility] Internal Medicine Work Phone: Comment on above: PATIENT WAS FASTINGP ERFORMED BY: [facility] Hcqjzh4807 [facility] [id number] RBC (Bld) [#/Vol] 4.84 10*6/uL Normal 4.14-5.80 [facility] Internal Medicine; [facility] Work Phone: Comment on above: PATIENT WAS FASTINGP ERFORMED BY: WHIT Calderón Rxbpfg1686 [facility] [id number] WBC (Bld) [#/Vol] 3.5 {x10E3/uL} Normal 3.4-10.8 [facility] Internal Medicine Work Phone: Comment on above: PATIENT WAS FASTINGP ERFORMED BY: WHIT LabMitchell Doyfoc6614 [facility] [id number] WBC (Bld) [#/Vol] 3.5 10*3/uL Normal 3.4-10.8 [facility] Internal Medicine; [facility] Work Phone: Comment on above: PATIENT WAS FASTINGP ERFORMED BY: WHIT LabFred PennHpijos0511 [facility] [id number] HGB A1C (65162)Ordered By: S ystem Bench Molder Apprentice on 12-19-2019 HbA1c (Bld) [Mass fraction] 5.7 % Abnormal 4.8-5.6 [facility] Internal Medicine Work Phone: Comment on above: . Prediabetes: 5.7 - 6.4 Diabetes: >6.4 Glycemic control for adults with diabetes: <7.0 PATIENT WAS FASTINGP ERFORMED BY: WHIT Calderón Ysrjap6218 [facility] [id number] LIPID PANEL (68070)Ordered B y: Airway Controller on 12-19-2019 Cholesterol [Mass/Vol] 167 mg/dL Normal 100-199 [facility] Work Phone: Comment on above: PATIENT WAS FASTINGP ERFORMED BY: WHIT LabMitchell Plfuqs7233 [facility] [id number] Cholesterol in HDL [Mass/Vol] 56 mg/dL Normal [facility] Work Phone: Comment on above: PATIENT WAS FASTINGP ERFORMED BY: WHIT [facility] Gnmwqx9100 [address] RoadDublin [place] [id number] Cholesterol in LDL [Mass/Vol] 97 mg/dL Normal 0-99 [facility] Work Phone: Comment on above: PATIENT WAS FASTINGP ERFORMED BY: WHIT [facility] Ulwzfl4123 [address] RoadDublin [place] [id number] Cholesterol in LDL/Cholesterol in HDL [Mass ratio] 1.7 {ratio} Normal 0.0-3.6 [facility] Work Phone: Comment on above: LDL/HDL Ratio Men Wo men 1/2 Avg.Risk 1.0 1.5 Avg.Risk 3.6 3.2 2X Avg.Risk 6.2 5.0 3X Avg.Risk 8.0 6.1 PATIENT WAS FASTINGP ERFORMED BY: WHIT LabCoamanda Fazkfg0366 [address] RoadDublin [place] [id number] Cholesterol in VLDL [Mass/Vol] 14 mg/dL Normal 5-40 [facility] Work Phone: Comment on above: PATIENT WAS FASTINGP ERFORMED BY: WHIT LabCoamanda Mittad1501 [address] RoadDublin [place] [id number] Triglyceride [Mass/Vol] 71 mg/dL Normal 0-149 [facility] Work Phone: Comment on above: PATIENT WAS FASTINGP ERFORMED BY: WHIT [facility] Lkeawt4689 [address] RoadDublin [place] [id number] Metabolic Panel, Comprehensi ve (78545)Ordered By: Airway Controller on 12-19-2019 Albumin [Mass/Vol] 4.5 g/dL Normal 3.8-4.8 [facility] Internal Medicine Work Phone: Comment on above: PATIENT WAS FASTINGP ERFORMED BY: WHIT [facility] Vdfkvl1639 [address] RoadDublin [place] [id number] Albumin/Globulin [Mass ratio] 1.9 {ratio} Normal 1.2-2.2 [facility] Work Phone: Comment on above: PATIENT WAS FASTINGP ERFORMED BY: WHIT [facility] Kgaxwm8198 [address] RoadDublin [place] [id number] ALP [Catalytic activity/Vol] 40 [iU]/L Normal 39-117 [facility] Work Phone: Comment on above: PATIENT WAS FASTINGP ERFORMED BY: [facility] Ljzknt7809 [address] RoadDublin [place] [id number] ALP [Catalytic activity/Vol] 40 U/L Normal 39-117 [facility]; [facility] Work Phone: Comment on above: PATIENT WAS FASTINGP ERFORMED BY: CB [facility] Hotcta4264 [address] RoadDublin [place] [id number] ALT [Catalytic activity/Vol] 16 [iU]/L Normal 0-44 [facility] Work Phone: Comment on above: PATIENT WAS FASTINGP ERFORMED BY: [facility] Sybrln2040 [address] RoadDublin [place] [id number] ALT [Catalytic activity/Vol] 16 U/L Normal 0-44 [facility]; [facility] Work Phone: Comment on above: PATIENT WAS FASTINGP ERFORMED BY: Lab[facility] Mkfwoj8429 [address] RoadDublin [place] [id number] AST [Catalytic activity/Vol] 14 [iU]/L Normal 0-40 [facility] Work Phone: Comment on above: PATIENT WAS FASTINGP ERFORMED BY: [facility] Fmpyvq6795 [address] RoadDublin [place] [id number] AST [Catalytic activity/Vol] 14 U/L Normal 0-40 [facility]; [facility] Work Phone: Comment on above: PATIENT WAS FASTINGP ERFORMED BY: [facility] Dfrsqk4213 [address] RoadDublin [place] [id number] Bilirubin [Mass/Vol] 0.6 mg/dL Normal 0.0-1.2 [facility] Work Phone: Comment on above: PATIENT WAS FASTINGP ERFORMED BY: [facility] Rzxtpi8034 [address] RoadDublin [place] [id number] Calcium [Mass/Vol] 9.3 mg/dL Normal 8.6-10.2 [facility] Internal Medicine Work Phone: Comment on above: PATIENT WAS FASTINGP ERFORMED BY: WHIT [facility] Xnsvbm5308 [address] RoadDublin [place] [id number] Chloride [Moles/Vol] 103 mmol/L Normal 96-106 [facility] Work Phone: Comment on above: PATIENT WAS FASTINGP ERFORMED BY: CB [facility] Dxmunl5251 [address] RoadDublin [place] [id number] CO2 [Moles/Vol] 26 mmol/L Normal 20-29 [facility] Internal Medicine Work Phone: Comment on above: PATIENT WAS FASTINGP ERFORMED BY: CB [facility] Saoyjc8254 [address] RoadDublin [place] [id number] Creatinine [Mass/Vol] 0.93 mg/dL Normal 0.76-1.27 [facility] Internal Medicine Work Phone: Comment on above: PATIENT WAS FASTINGP ERFORMED BY: CB [facility] Ritcny9490 [address] RoadDublin [place] [id number] GFR/1.73 sq M predicted among blacks CKD-EPI (S/P/Bld) [Vol rate/Area] 98 mL/min/1.73 Normal [facility] Work Phone: Comment on above: PATIENT WAS FASTINGP ERFORMED BY: WHIT [facility] Dspdtv8588 [address] RoadDublin [place] [id number] GFR/1.73 sq M predicted among non-blacks CKD-EPI (S/P/Bld) [Vol rate/Area] 85 mL/min/1.73 Normal [facility] Work Phone: Comment on above: PATIENT WAS FASTINGP ERFORMED BY: CB [facility] Rwzeoa1432 [address] RoadDublin [place] [id number] Globulin (S) [Mass/Vol] 2.4 g/dL Normal 1.5-4.5 [facility] Work Phone: Comment on above: PATIENT WAS FASTINGP ERFORMED BY: CB [facility] Lusopz0849 [address] RoadDublin [place] [id number] Glucose [Mass/Vol] 105 mg/dL Abnormal 65-99 [facility] Internal Medicine Work Phone: Comment on above: PATIENT WAS FASTINGP ERFORMED BY: CB [facility] Okrywa4094 [address] RoadDublin [place] [id number] Potassium [Moles/Vol] 4.9 mmol/L Normal 3.5-5.2 [facility] Internal Medicine Work Phone: Comment on above: PATIENT WAS FASTINGP ERFORMED BY: CB [facility] Rccfdz5205 [address] Roadblin [place] [id number] Protein [Mass/Vol] 6.9 g/dL Normal 6.0-8.5 [facility] Internal Medicine Work Phone: Comment on above: PATIENT WAS FASTINGP ERFORMED BY: CB [facility] Fkobbc2633 [address] RoadDublin [place] [id number] Sodium [Moles/Vol] 141 mmol/L Normal 134-144 [facility] Internal Medicine Work Phone: Comment on above: PATIENT WAS FASTINGP ERFORMED BY: [facility] Ewreqg8875 [address] RoadNovant Health Franklin Medical Centerin [place] [id number] Urea nitrogen [Mass/Vol] 13 mg/dL Normal 8-27 [facility] Internal Medicine Work Phone: Comment on above: PATIENT WAS FASTINGP ERFORMED BY: [facility] Fvfqgl3769 [address] [facility]in [place] [id number] Urea nitrogen/Creatinine [Mass ratio] 14 mg/mg Normal 10-24 [facility] Internal Medicine Work Phone: Comment on above: PATIENT WAS FASTINGP ERFORMED BY: [facility] Rvgoqf4163 [address] [facility]in [place] [id number] PSA (PROSTATE SPECIFIC ANTIG EN) (V76.44)Ordered By: Airway Controller on 12-19-2019 Prostate specific Ag [Mass/Vol] 2.8 ng/mL Normal 0.0-4.0 [facility] Internal Medicine Work Phone: Comment on above: Cherelle ECLIA methodol ogy. .According to the [place] U[employer], Serum PSA shoulddecrease and remain at undetectable levels after radicalprostatectomy. The AUA defines biochemical recurrence as an initialPSA value 0.2 ng/mL or greater followed by a subsequent confirmatoryPSA value 0.2 ng/mL or greater.Values obtained with different assay methods or kits cannot be usedinterchangeably. Results cannot be interpreted as absolute evidenceof the presence or absence of malignant disease. PATIENT WAS FASTINGP ERFORMED BY: [employer] Heaven6370 [employer] Systemsin [place] [id number] TSH (THYROID STIMULATING HOR TJ) (79022)Ordered By: Airway Controller on 12-19-2019 TSH Qn 3.880 {uIU/mL} Normal 0.450-4.500 [facility] Internal Medicine Work Phone: Comment on above: PATIENT WAS FASTINGP ERFORMED BY: [facility]Social Fearyd7268 Local LabsNovant [facility] [id number] CALCIFEDIOL (37460)Ordered B y: Airway Controller on 04-04-2019 25-Hydroxyvitamin D2+25-Hydroxyvitamin D3 [Mass/Vol] 57.3 ng/mL Normal 30.0-100.0 [facility] Work Phone: Comment on above: Vitamin D deficiency has been defined by the [place] ofMedicine and an Endocrine Society practice guideline as alevel of serum 25-OH vitamin D less than 20 ng/mL (1,2).The Endocrine Society went on to further define vitamin Dinsufficiency as a level between 21 and 29 ng/mL (2).1. IOM ([place] of Medicine). 2010. Dietary reference intakes for calcium and D. [place]: The National Academies Press.2. Haider MF, Jody WAHL, Sheron MARI, et al. Evaluation, treatment, and prevention of vitamin D deficiency: an Endocrine Society clinical practice guideline. JCEM. 2010; 96(7):1911-30. PATIENT WAS FASTINGP ERFORMED BY: Dejamor Etjiki5763 MercedesGrant Memorial Hospitalin [place] [id number] CBC, Platelets & Auto Diff ( 19749)Ordered By: Airway Controller on 04-04-2019 Basophils (Bld) [#/Vol] 0.0 {x10E3/uL} Normal 0.0-0.2 [facility] Work Phone: Comment on above: PATIENT WAS FASTINGP ERFORMED BY: [facility] Lpyoby6995 [address] RoadDublin [place] [id number] Basophils (Bld) [#/Vol] 0.0 10*3/uL Normal 0.0-0.2 [facility] Medicine; [facility] Work Phone: Comment on above: PATIENT WAS FASTINGP ERFORMED BY: CB [facility] Valmcf0595 [address] RoadDublin [place] [id number] Basophils/100 WBC (Bld) 0 % Normal [facility] Work Phone: Comment on above: PATIENT WAS FASTINGP ERFORMED BY: [facility] Plfbgj0453 [address] RoadDublin [place] [id number] Eosinophils (Bld) [#/Vol] 0.1 {x10E3/uL} Normal 0.0-0.4 [facility] Work Phone: Comment on above: PATIENT WAS FASTINGP ERFORMED BY: [facility] Rolffv4524 [address] RoadDublin [place] [id number] Eosinophils (Bld) [#/Vol] 0.1 10*3/uL Normal 0.0-0.4 [facility]; [facility] Work Phone: Comment on above: PATIENT WAS FASTINGP ERFORMED BY: [facility] Twozrc0212 [address] RoadDublin [place] [id number] Eosinophils/100 WBC (Bld) 1 % Normal [facility] Work Phone: Comment on above: PATIENT WAS FASTINGP ERFORMED BY: [facility] Qkeqjs9458 [address] RoadDublin [place] [id number] Erythrocyte distribution width (RBC) [Ratio] 13.9 % Normal 12.3-15.4 [facility] Work Phone: Comment on above: PATIENT WAS FASTINGP ERFORMED BY: CB [facility] Cmixkp1358 [address] RoadDublin [place] [id number] Hematocrit (Bld) [Volume fraction] 44.7 % Normal 37.5-51.0 [facility] Work Phone: Comment on above: PATIENT WAS FASTINGP ERFORMED BY: [facility] Idndqj9998 [address] RoadDublin [place] [id number] Hemoglobin (Bld) [Mass/Vol] 15.1 g/dL Normal 13.0-17.7 [facility] Work Phone: Comment on above: PATIENT WAS FASTINGP ERFORMED BY: [facility] Ffukyx0213 [address] RoadDublin [place] [id number] Immature granulocytes (Bld) [#/Vol] 0.0 {x10E3/uL} Normal 0.0-0.1 [facility] Work Phone: Comment on above: PATIENT WAS FASTINGP ERFORMED BY: [facility] Gnofzk9066 [address] RoadDublin [place] [id number] Immature granulocytes (Bld) [#/Vol] 0.0 10*3/uL Normal 0.0-0.1 [facility]; [facility] Work Phone: Comment on above: PATIENT WAS FASTINGP ERFORMED BY: [facility] Zqllxm5878 [address] RoadDublin [place] [id number] Immature granulocytes/100 WBC (Bld) 0 % Normal [facility] Work Phone: Comment on above: PATIENT WAS FASTINGP ERFORMED BY: [facility] Ygvgaj6257 [address] RoadDublin [place] [id number] Lymphocytes (Bld) [#/Vol] 1.5 {x10E3/uL} Normal 0.7-3.1 [facility] Work Phone: Comment on above: PATIENT WAS FASTINGP ERFORMED BY: [facility] Wnkhsj1923 [address] RoadDublin [place] [id number] Lymphocytes (Bld) [#/Vol] 1.5 10*3/uL Normal 0.7-3.1 [facility]; [facility] Work Phone: Comment on above: PATIENT WAS FASTINGP ERFORMED BY: [facility] Pqzdbf6109 [address] RoadD[address] [place] [id number] Lymphocytes/100 WBC (Bld) 35 % Normal [facility] Work Phone: Comment on above: PATIENT WAS FASTINGP ERFORMED BY: WHIT [facility] Isjkxj2382 [address] RoadD[address] [place] [id number] MCH (RBC) [Entitic mass] 31.5 pg Normal 26.6-33.0 [facility] Internal Medicine Work Phone: Comment on above: PATIENT WAS FASTINGP ERFORMED BY: CB [facility] Kxeurp5920 [address]blin [place] [id number] MCHC (RBC) [Mass/Vol] 33.8 g/dL Normal 31.5-35.7 [facility] Internal Medicine Work Phone: Comment on above: PATIENT WAS FASTINGP ERFORMED BY: [facility] Segzgo2239 [address] RoadDublin [place] [id number] MCV (RBC) [Entitic vol] 93 fL Normal 79-97 [facility] Internal Medicine Work Phone: Comment on above: PATIENT WAS FASTINGP ERFORMED BY: [facility] Wwavjh8346 [address] Roadblin [place] [id number] Monocytes (Bld) [#/Vol] 0.5 {x10E3/uL} Normal 0.1-0.9 [facility] Work Phone: Comment on above: PATIENT WAS FASTINGP ERFORMED BY: [facility] Ohxhoq5252 [address] RoadDublin [place] [id number] Monocytes (Bld) [#/Vol] 0.5 10*3/uL Normal 0.1-0.9 [facility] Internal Medicine; [facility] Work Phone: Comment on above: PATIENT WAS FASTINGP ERFORMED BY: [facility] Rdfzvm5425 [address] RoadDublin [place] [id number] Monocytes/100 WBC (Bld) 11 % Normal [facility] Work Phone: Comment on above: PATIENT WAS FASTINGP ERFORMED BY: [facility] Xlqyjy5928 [address] RoadDublin [place] [id number] Neutrophils (Bld) [#/Vol] 2.2 {x10E3/uL} Normal 1.4-7.0 [facility] Work Phone: Comment on above: PATIENT WAS FASTINGP ERFORMED BY: CB [facility] Efyycg8011 [address] RoadDublin [place] [id number] Neutrophils (Bld) [#/Vol] 2.2 10*3/uL Normal 1.4-7.0 [facility]; [facility] Work Phone: Comment on above: PATIENT WAS FASTINGP ERFORMED BY: CB [facility] Aolanq1807 [address] RoadDublin [place] [id number] Neutrophils/100 WBC (Bld) 53 % Normal [facility] Work Phone: Comment on above: PATIENT WAS FASTINGP ERFORMED BY: CB [facility] Paphng7438 [address] RoadDublin [place] [id number] Platelets (Bld) [#/Vol] 206 {x10E3/uL} Normal 150-450 [facility] Work Phone: Comment on above: PATIENT WAS FASTINGP ERFORMED BY: CB [facility] Fwokay5044 [address] RoadD[address] [place] [id number] Platelets (Bld) [#/Vol] 206 10*3/uL Normal 150-450 [facility]; [facility] Work Phone: Comment on above: PATIENT WAS FASTINGP ERFORMED BY: CB [facility] Feesvj3651 [address] RoadDublin [place] [id number] RBC (Bld) [#/Vol] 4.79 {x10E6/uL} Normal 4.14-5.80 [facility] Internal Medicine Work Phone: Comment on above: PATIENT WAS FASTINGP ERFORMED BY: CB [facility] Ntxyap3570 [address] RoadD[address] [place] [id number] RBC (Bld) [#/Vol] 4.79 10*6/uL Normal 4.14-5.80 [facility] Internal Medicine; [facility] Work Phone: Comment on above: PATIENT WAS FASTINGP ERFORMED BY: CB [facility] Tvwnut9936 [address] RoadDublin [place] [id number] WBC (Bld) [#/Vol] 4.2 {x10E3/uL} Normal 3.4-10.8 [facility] prehensive Internal Medicine Work Phone: Comment on above: PATIENT WAS FASTINGP ERFORMED BY: CB [facility] Cypbtc8965 [address] RoadD[address] [place] [id number] WBC (Bld) [#/Vol] 4.2 10*3/uL Normal 3.4-10.8 [facility] Internal Medicine; [facility] Work Phone: Comment on above: PATIENT WAS FASTINGP ERFORMED BY: CB [facility] Nlvfzy5745 [address] RoadD[address] [place] [id number] HGB A1C ([id number])Ordered By: S ystem Bench Molder Apprentice on 04-04-2019 HbA1c (Bld) [Mass fraction] 5.6 % Normal 4.8-5.6 [facility] Work Phone: Comment on above: . Prediabetes: 5.7 - 6.4 Diabetes: >6.4 Glycemic control for adults with diabetes: <7.0 PATIENT WAS FASTINGP ERFORMED BY: CB [facility] Grrnzk4013 [address] RoadD[address] [place] [id number] Lipid Panel ([id number])Ordered B y: Airway Controller on 04-04-2019 Cholesterol [Mass/Vol] 142 mg/dL Normal 100-199 [facility] Work Phone: Comment on above: PATIENT WAS FASTINGP ERFORMED BY: CB [facility] Tjukyq4200 [address] RoadD[address] [place] [id number] Cholesterol in HDL [Mass/Vol] 54 mg/dL Normal [facility] Work Phone: Comment on above: PATIENT WAS FASTINGP ERFORMED BY: CB [facility] Rsilfv0746 [address] RoadDublin [place] [id number] Cholesterol in LDL [Mass/Vol] 76 mg/dL Normal 0-99 [facility] Work Phone: Comment on above: PATIENT WAS FASTINGP ERFORMED BY: CB [facility] Gxrcax4603 [address] RoadD[address] [place] [id number] Cholesterol in LDL/Cholesterol in HDL [Mass ratio] 1.4 {ratio} Normal 0.0-3.6 [facility] Work Phone: Comment on above: LDL/HDL Ratio Men Wo men 1/2 Avg.Risk 1.0 1.5 Avg.Risk 3.6 3.2 2X Avg.Risk 6.2 5.0 3X Avg.Risk 8.0 6.1 PATIENT WAS FASTINGP ERFORMED BY: WHIT [facility] Brgnsc9250 [address] RoadDublin [place] [id number] Cholesterol in VLDL [Mass/Vol] 12 mg/dL Normal 5-40 [facility] Work Phone: Comment on above: PATIENT WAS FASTINGP ERFORMED BY: WHIT [facility] Uxwztz5564 [address] RoadDublin [place] [id number] Triglyceride [Mass/Vol] 58 mg/dL Normal 0-149 [facility] Work Phone: Comment on above: PATIENT WAS FASTINGP ERFORMED BY: WHIT [facility] Fjypqj6077 [address] RoadDublin [place] [id number] Metabolic Panel, Comprehensi ve ([id number])Ordered By: Airway Controller on 04-04-2019 Albumin [Mass/Vol] 4.5 g/dL Normal 3.6-4.8 [facility] Internal Medicine Work Phone: Comment on above: PATIENT WAS FASTINGP ERFORMED BY: WHIT [facility] Ngpitc3735 [address] RoadD[address] [place] [id number] Albumin/Globulin [Mass ratio] 1.9 {ratio} Normal 1.2-2.2 [facility] Work Phone: Comment on above: PATIENT WAS FASTINGP ERFORMED BY: WHIT [facility] Zwbumv7145 [address] RoadDublin [place] [id number] ALP [Catalytic activity/Vol] 40 [iU]/L Normal 39-117 [facility] Work Phone: Comment on above: PATIENT WAS FASTINGP ERFORMED BY: WHIT [facility] Kmwvrs1305 [address] RoadD[address] [place] [id number] ALP [Catalytic activity/Vol] 40 U/L Normal 39-117 [facility]; [facility] Work Phone: Comment on above: PATIENT WAS FASTINGP ERFORMED BY: WHIT [facility] Katcuz9274 [address] RoadD[place] [id number] ALT [Catalytic activity/Vol] 17 [iU]/L Normal 0-44 [facility] Work Phone: Comment on above: PATIENT WAS FASTINGP ERFORMED BY: WHIT [facility] Twjvmx4608 [address] RoadD[address] [place] [id number] ALT [Catalytic activity/Vol] 17 U/L Normal 0-44 [facility]; [facility] Work Phone: Comment on above: PATIENT WAS FASTINGP ERFORMED BY: WHIT [facility] Ppuepz7215 [address] RoadDublin [place] [id number] AST [Catalytic activity/Vol] 15 [iU]/L Normal 0-40 [facility] Work Phone: Comment on above: PATIENT WAS FASTINGP ERFORMED BY: WHIT LabFred PennDdknzw3037 [address] RoadDublin [place] [id number] AST [Catalytic activity/Vol] 15 U/L Normal 0-40 [facility]; [facility] Work Phone: Comment on above: PATIENT WAS FASTINGP ERFORMED BY: WHIT Lab[facility] PennQwytgx1079 [address] RoadD[address] [place] [id number] Bilirubin [Mass/Vol] 0.5 mg/dL Normal 0.0-1.2 [facility] Work Phone: Comment on above: PATIENT WAS FASTINGP ERFORMED BY: WHIT [facility] Quhcac6261 [address] RoadD[address] [place] [id number] Calcium [Mass/Vol] 9.4 mg/dL Normal 8.6-10.2 [facility] Internal Medicine Work Phone: Comment on above: PATIENT WAS FASTINGP ERFORMED BY: WHIT [facility] Jszglx6937 [address] RoadD[address] [place] [id number] Chloride [Moles/Vol] 103 mmol/L Normal 96-106 [facility] Work Phone: Comment on above: PATIENT WAS FASTINGP ERFORMED BY: WHIT [facility] Sxgwbs5535 [address] RoadD[address] [place] [id number] CO2 [Moles/Vol] 22 mmol/L Normal 20-29 [facility] Internal Medicine Work Phone: Comment on above: PATIENT WAS FASTINGP ERFORMED BY: [facility] Xdyqtu4000 [address] RoadD[address] [place] [id number] Creatinine [Mass/Vol] 0.95 mg/dL Normal 0.76-1.27 [facility] Internal Medicine Work Phone: Comment on above: PATIENT WAS FASTINGP ERFORMED BY: [facility] Fnanou1942 [address] RoadD[address] [place] [id number] GFR/1.73 sq M predicted among blacks CKD-EPI (S/P/Bld) [Vol rate/Area] 96 mL/min/1.73 Normal [facility] Work Phone: Comment on above: PATIENT WAS FASTINGP ERFORMED BY: [facility] Dvmwjr8037 [address] RoadDublin [place] [id number] GFR/1.73 sq M predicted among non-blacks CKD-EPI (S/P/Bld) [Vol rate/Area] 83 mL/min/1.73 Normal [facility] Work Phone: Comment on above: PATIENT WAS FASTINGP ERFORMED BY: [facility] Clubdc[address] [facility] Hospitalbl[facility] [place] [id number] Globulin (S) [Mass/Vol] 2.4 g/dL Normal 1.5-4.5 [facility] Internal Medicine Work Phone: Comment on above: PATIENT WAS FASTINGP ERFORMED BY: [facility] Bquchg[address]93 [address] [facility] ServicesDublin [place] [id number] Glucose [Mass/Vol] 104 mg/dL Abnormal 65-99 [facility] Internal Medicine Work Phone: Comment on above: PATIENT WAS FASTINGP ERFORMED BY: [facility] Flazru[address] [facility] Hospitalbl[facility] [place] [id number] Potassium [Moles/Vol] 4.9 mmol/L Normal 3.5-5.2 [facility] Internal Medicine Work Phone: Comment on above: PATIENT WAS FASTINGP ERFORMED BY: CB [facility] Rneqwf0930 [address] RoadD[address] [place] [id number] Protein [Mass/Vol] 6.9 g/dL Normal 6.0-8.5 [facility] Internal Medicine Work Phone: Comment on above: PATIENT WAS FASTINGP ERFORMED BY: CB [facility] Vkktts7094 [address] RoadDublin [place] [id number] Sodium [Moles/Vol] 141 mmol/L Normal 134-144 [facility] Internal Medicine Work Phone: Comment on above: PATIENT WAS FASTINGP ERFORMED BY: CB [facility] Lfcmvs1325 [address] RoadD[address] [place] [id number] Urea nitrogen [Mass/Vol] 16 mg/dL Normal 8-27 [facility] Internal Medicine Work Phone: Comment on above: PATIENT WAS FASTINGP ERFORMED BY: CB [facility] Pzewdz9029 [address] RoadD[address] [place] [id number] Urea nitrogen/Creatinine [Mass ratio] 17 mg/mg Normal 10-24 [facility] Work Phone: Comment on above: PATIENT WAS FASTINGP ERFORMED BY: CB [facility] Mxxchr8407 [address] RoadD[address] [place] [id number] TSH ([id number])Ordered By: Ray m Bench Molder Apprentice on 04-04-2019 TSH Qn 4.880 {uIU/mL} Abnormal 0.450-4.500 [facility] Internal Medicine Work Phone: Comment on above: PATIENT WAS FASTINGP ERFORMED BY: CB [facility] Rupyaj1587 [address] RoadD[address] [place] [id number] CALCIFEDIOL ([id number])Ordered B y: Airway Controller on 09-27-2018 25-Hydroxyvitamin D2+25-Hydroxyvitamin D3 mass conc 72.0 ng/mL Normal 30.0-100.0 [facility] Internal Medicine Work Phone: Comment on above: Vitamin D deficiency has been defined by the [place] ofMedicine and an Endocrine Society practice guideline as alevel of serum 25-OH vitamin D less than 20 ng/mL (1,2).The Endocrine Society went on to further define vitamin Dinsufficiency as a level between 21 and 29 ng/mL (2).1. IOM ([place] of Medicine). 2010. Dietary reference intakes for calcium and D. [place]: The National Academies Press.2. Haider MF, Jody WAHL, Sheron MARI, et al. Evaluation, treatment, and prevention of vitamin D deficiency: an Endocrine Society clinical practice guideline. JCEM. 2010; 96(7):1911-30. PATIENT WAS FASTINGP ERFORMED BY: [facility] Axmshr9662 [address]bl[address] [place] [id number] CBC, PLATELETS & MANUAL DIFF (00019)Ordered By: Airway Controller on 09-27-2018 Basophils #/vol (Bld) 0.0 {x10E3/uL} Normal 0.0-0.2 [facility] Work Phone: Comment on above: PATIENT WAS FASTINGP ERFORMED BY: [facility] Gihlcg7275 [address] RoadDublin [place] [id number] Basophils (Bld) [#/Vol] 0.0 10*3/uL Normal 0.0-0.2 [facility]; [facility] Work Phone: Comment on above: PATIENT WAS FASTINGP ERFORMED BY: [facility] Hzxjqx7016 [address] [facility] ServicesD[place] [id number] Basophils/100 WBC (Bld) 0 % Normal [facility] Work Phone: Comment on above: PATIENT WAS FASTINGP ERFORMED BY: [facility] Xaghrq[address] [facility] Hospitalblin [place] [id number] Eosinophils #/vol (Bld) 0.1 {x10E3/uL} Normal 0.0-0.4 [facility] Work Phone: Comment on above: PATIENT WAS FASTINGP ERFORMED BY: [facility] Kbetdg7702 [address] RoadD[address] [place] [id number] Eosinophils (Bld) [#/Vol] 0.1 10*3/uL Normal 0.0-0.4 [facility]; [facility] Work Phone: Comment on above: PATIENT WAS FASTINGP ERFORMED BY: WHIT [facility] Mijwfv4129 [address] [facility] [id number] Eosinophils/100 WBC (Bld) 2 % Normal [facility] Work Phone: Comment on above: PATIENT WAS FASTINGP ERFORMED BY: WHIT [facility] Zxdirx2680 [address] [facility] [id number] Erythrocyte distribution width Ratio (RBC) 14.2 % Normal 12.3-15.4 [facility] Work Phone: Comment on above: PATIENT WAS FASTINGP ERFORMED BY: WHIT [facility] Mdusny1569 [address] [facility] [id number] Hematocrit Volume Fraction (Bld) 46.3 % Normal 37.5-51.0 [facility] Work Phone: Comment on above: PATIENT WAS FASTINGP ERFORMED BY: WHIT [facility] Rbvhix4133 [address] [facility] [id number] Hemoglobin mass conc (Bld) 15.3 g/dL Normal 13.0-17.7 [facility] Work Phone: Comment on above: PATIENT WAS FASTINGP ERFORMED BY: WHIT [facility] Dklyov9882 [address] [facility] [id number] Immature granulocytes #/vol (Bld) 0.0 {x10E3/uL} Normal 0.0-0.1 [facility] Work Phone: Comment on above: PATIENT WAS FASTINGP ERFORMED BY: [facility] Vacwkc6218 [address] [facility] [id number] Immature granulocytes (Bld) [#/Vol] 0.0 10*3/uL Normal 0.0-0.1 [facility]; [facility] Work Phone: Comment on above: PATIENT WAS FASTINGP ERFORMED BY: WHIT [facility] Mfqfpd7548 [address] [facility] [id number] Immature granulocytes/100 WBC (Bld) 1 % Normal [facility] Work Phone: Comment on above: PATIENT WAS FASTINGP ERFORMED BY: WHIT [facility]6[address] [facility] [id number] Lymphocytes #/vol (Bld) 1.4 {x10E3/uL} Normal 0.7-3.1 [facility] Work Phone: Comment on above: PATIENT WAS FASTINGP ERFORMED BY: WHIT [facility] Jzpqkj6352 [facility] [id number] Lymphocytes (Bld) [#/Vol] 1.4 10*3/uL Normal 0.7-3.1 [facility]; [facility] Work Phone: Comment on above: PATIENT WAS FASTINGP ERFORMED BY: WHIT [facility] Pqvdkq7622 [facility] [id number] Lymphocytes/100 WBC (Bld) 28 % Normal [facility] Work Phone: Comment on above: PATIENT WAS FASTINGP ERFORMED BY: WHIT [facility] Jbwnfm4287 [facility] [id number] MCH Entitic mass (RBC) 31.2 pg Normal 26.6-33.0 [facility] Work Phone: Comment on above: PATIENT WAS FASTINGP ERFORMED BY: WHIT [facility] Ozeiva6651 [facility] [id number] MCHC mass conc (RBC) 33.0 g/dL Normal 31.5-35.7 [facility] Internal Medicine Work Phone: Comment on above: PATIENT WAS FASTINGP ERFORMED BY: WHIT [facility]6370 [facility] [id number] MCV Entitic volume (RBC) 94 fL Normal 79-97 [facility] Work Phone: Comment on above: PATIENT WAS FASTINGP ERFORMED BY: WHIT [facility] Oizfeu6486 [address] [facility]in [place] [id number] Monocytes #/vol (Bld) 0.4 {x10E3/uL} Normal 0.1-0.9 [facility] Work Phone: Comment on above: PATIENT WAS FASTINGP ERFORMED BY: [facility] Yxyefb1302 [facility] [id number] Monocytes (Bld) [#/Vol] 0.4 10*3/uL Normal 0.1-0.9 [facility]; [facility] Work Phone: Comment on above: PATIENT WAS FASTINGP ERFORMED BY: WHIT [facility] Bnxgnv6037 [address] RoadDublin [place] [id number] Monocytes/100 WBC (Bld) 8 % Normal [facility] Work Phone: Comment on above: PATIENT WAS FASTINGP ERFORMED BY: WHIT [facility] Uzpnca[address] [facility] Hospitalbl[facility] [place] [id number] Neutrophils #/vol (Bld) 3.2 {x10E3/uL} Normal 1.4-7.0 [facility] Work Phone: Comment on above: PATIENT WAS FASTINGP ERFORMED BY: WHIT [facility]Coam[facility] PennUsyexi3617 [address] [facility] [id number] Neutrophils (Bld) [#/Vol] 3.2 10*3/uL Normal 1.4-7.0 [facility]; [facility] Work Phone: Comment on above: PATIENT WAS FASTINGP ERFORMED BY: WHIT LabCoamanda PennRgegzm2135 [address] [facility]in [place] [id number] Neutrophils/100 WBC (Bld) 61 % Normal [facility] Work Phone: Comment on above: PATIENT WAS FASTINGP ERFORMED BY: WHIT [facility] Joyuay6772 [address] [facility] [id number] Platelets #/vol (Bld) 209 {x10E3/uL} Normal 150-379 [facility] Work Phone: Comment on above: Effective October 03, 2018 the reference interval for Platelets will be changing to: 0 - 7 d 140 - 396 x10E3/uL 8 - 30 d 139 - 531 x10E3/uL 31 d - 999 yrs 150 - 450 x10E3/uL PATIENT WAS FASTINGP ERFORMED BY: WHIT [facility] Jerftq6235 [address] [facility]in [place] [id number] Platelets (Bld) [#/Vol] 209 10*3/uL Normal 150-379 [facility]; [facility] Work Phone: Comment on above: Effective October 03, 2018 the reference interval for Platelets will be changing to: 0 - 7 d 140 - 396 x10E3/uL 8 - 30 d 139 - 531 x10E3/uL 31 d - 999 yrs 150 - 450 x10E3/uL PATIENT WAS FASTINGP ERFORMED BY: CB [facility] Lzuunc8210 [address] RoadD[address] [place] [id number] RBC #/vol (Bld) 4.91 {x10E6/uL} Normal 4.14-5.80 [facility] Work Phone: Comment on above: PATIENT WAS FASTINGP ERFORMED BY: CB [facility] Swlage6962 [address] RoadD[address] [place] [id number] RBC (Bld) [#/Vol] 4.91 10*6/uL Normal 4.14-5.80 [facility] Internal Medicine; [facility] Work Phone: Comment on above: PATIENT WAS FASTINGP ERFORMED BY: CB [facility] Urjjgi0951 [address] RoadD[address] [place] [id number] WBC #/vol (Bld) 5.2 {x10E3/uL} Normal 3.4-10.8 [facility] Internal Medicine Work Phone: Comment on above: PATIENT WAS FASTINGP ERFORMED BY: CB [facility] Ghinrb3326 [address] RoadD[address] [place] [id number] WBC (Bld) [#/Vol] 5.2 10*3/uL Normal 3.4-10.8 [facility]; [facility] Work Phone: Comment on above: PATIENT WAS FASTINGP ERFORMED BY: CB [facility] Fivjdi3782 [address] RoadDublin [place] [id number] LIPID PANEL ([id number])Ordered B y: Airway Controller on 09-27-2018 Cholesterol in HDL mass conc 54 mg/dL Normal [facility] Work Phone: Comment on above: PATIENT WAS FASTINGP ERFORMED BY: CB [facility] Wntycv8011 [address] RoadD[address] [place] [id number] Cholesterol in LDL mass conc 96 mg/dL Normal 0-99 [facility] Work Phone: Comment on above: PATIENT WAS FASTINGP ERFORMED BY: WHIT Gomez6370 [facility] [id number] Cholesterol in LDL/Cholesterol in HDL mass ratio 1.8 {ratio} Normal 0.0-3.6 [facility] Work Phone: Comment on above: LDL/HDL Ratio Men Wo men 1/2 Avg.Risk 1.0 1.5 Avg.Risk 3.6 3.2 2X Avg.Risk 6.2 5.0 3X Avg.Risk 8.0 6.1 PATIENT WAS FASTINGP ERFORMED BY: WHIT Gomez6370 [facility] [id number] Cholesterol in VLDL mass conc 17 mg/dL Normal 5-40 [facility] Work Phone: Comment on above: PATIENT WAS FASTINGP ERFORMED BY: WHIT Pennlin6370 [facility] [id number] Cholesterol mass conc 167 mg/dL Normal 100-199 Com prehensive Internal Medicine Work Phone: Comment on above: PATIENT WAS FASTINGP ERFORMED BY: WHIT Gomez6370 [facility] [id number] Triglyceride mass conc 86 mg/dL Normal 0-149 [facility] Work Phone: Comment on above: PATIENT WAS FASTINGP ERFORMED BY: WHIT Gomez6370 [facility] [id number] METABOLIC PANEL, COMPREHENSI VE (99206)Ordered By: Airway Controller on 09-27-2018 Albumin mass conc 4.4 g/dL Normal 3.6-4.8 Compreh ensive Internal Medicine Work Phone: Comment on above: PATIENT WAS FASTINGP ERFORMED BY: WHIT Pennlin6370 [facility] [facility] [id number] Albumin/Globulin mass ratio 1.6 {ratio} Normal 1.2-2.2 [facility] Work Phone: Comment on above: PATIENT WAS FASTINGP ERFORMED BY: WHIT [facility] Iaqwud2642 [address] RoadDublin [place] [id number] ALP [Catalytic activity/Vol] 42 U/L Normal 39-117 [facility]; [facility] Internal Medicine Work Phone: Comment on above: PATIENT WAS FASTINGP ERFORMED BY: WHIT [facility] Jreycm3346 [address] RoadDublin [place] [id number] ALP enzyme act/vol 42 [iU]/L Normal 39-117 [facility] Internal Medicine Work Phone: Comment on above: PATIENT WAS FASTINGP ERFORMED BY: WHIT [facility] Bludtc1475 [address] RoadDublin [place] [id number] ALT [Catalytic activity/Vol] 16 U/L Normal 0-44 [facility] Internal Medicine; [facility] Internal Medicine Work Phone: Comment on above: PATIENT WAS FASTINGP ERFORMED BY: WHIT [facility] Qpkbbu9679 [address] RoadDublin [place] [id number] ALT enzyme act/vol 16 [iU]/L Normal 0-44 [facility] Internal Medicine Work Phone: Comment on above: PATIENT WAS FASTINGP ERFORMED BY: WHIT [facility] Flwwzy1241 [address] RoadDublin [place] [id number] AST [Catalytic activity/Vol] 14 U/L Normal 0-40 [facility] Internal Medicine; [facility] Internal Medicine Work Phone: Comment on above: PATIENT WAS FASTINGP ERFORMED BY: WHIT [facility] Hmpfka3816 [address] RoadDublin [place] [id number] AST enzyme act/vol 14 [iU]/L Normal 0-40 [facility] Internal Medicine Work Phone: Comment on above: PATIENT WAS FASTINGP ERFORMED BY: WHIT [facility] Llbhea7679 [address] RoadDublin [place] [id number] Bilirubin mass conc 0.5 mg/dL Normal 0.0-1.2 [facility] Internal Medicine Work Phone: Comment on above: PATIENT WAS FASTINGP ERFORMED BY: CB [facility] Ideoor5[address] RoadDublin [place] [id number] Calcium mass conc 9.1 mg/dL Normal 8.6-10.2 Compreh ensive Internal Medicine Work Phone: Comment on above: PATIENT WAS FASTINGP ERFORMED BY: WHIT LabCoamanda Jhxuro0130 [address] [facility] [id number] Chloride molar conc 104 mmol/L Normal 96-106 Compr ehensive Internal Medicine Work Phone: Comment on above: PATIENT WAS FASTINGP ERFORMED BY: WHIT [facility] Jkwlqv2987 [address] [facility] [id number] CO2 molar conc 23 mmol/L Normal 20-29 Comprehens liam Internal Medicine Work Phone: Comment on above: PATIENT WAS FASTINGP ERFORMED BY: WHIT LabFred PennXvsynt9816 [facility] [id number] Creatinine mass conc 0.86 mg/dL Normal 0.76-1.27 Comp rehensive Internal Medicine Work Phone: Comment on above: PATIENT WAS FASTINGP ERFORMED BY: WHIT LabFred PennWkpqep0958 [address] [facility] [id number] GFR/1.73 sq M predicted among blacks CKD-EPI vol rate/area (S/P/Bld) 105 mL/min/1.73 Normal Comprehensiv e Internal Medicine Work Phone: Comment on above: PATIENT WAS FASTINGP ERFORMED BY: WHIT [facility] Kgbjfq4440 [address] [facility] [id number] GFR/1.73 sq M predicted among non-blacks CKD-EPI vol rate/area (S/P/Bld) 91 mL/min/1.73 Normal [facility] Work Phone: Comment on above: PATIENT WAS FASTINGP ERFORMED BY: WHIT [facility] Dhsovr1508 [address] [facility] [id number] Globulin mass conc (S) 2.7 g/dL Normal 1.5-4.5 [facility] Work Phone: Comment on above: PATIENT WAS FASTINGP ERFORMED BY: WHIT [facility] Pcemvf8919 [facility] [id number] Glucose mass conc 103 mg/dL Abnormal 65-99 Compreh ensive Internal Medicine Work Phone: Comment on above: PATIENT WAS FASTINGP ERFORMED BY: WHIT [facility] Esnwam6315 [facility] [id number] Potassium molar conc 4.3 mmol/L Normal 3.5-5.2 Comp rehensive Internal Medicine Work Phone: Comment on above: PATIENT WAS FASTINGP ERFORMED BY: LabCoRutgers - University Behavioral HealthCareUneubn7124 [facility] [id number] Protein mass conc 7.1 g/dL Normal 6.0-8.5 Compreh ensive Internal Medicine Work Phone: Comment on above: PATIENT WAS FASTINGP ERFORMED BY: [facility]6370 [facility] [id number] Sodium molar conc 142 mmol/L Normal 134-144 Compreh ensive Internal Medicine Work Phone: Comment on above: PATIENT WAS FASTINGP ERFORMED BY: [facility]6370 [facility] [id number] Urea nitrogen mass conc 15 mg/dL Normal 8-27 [facility] Work Phone: Comment on above: PATIENT WAS FASTINGP ERFORMED BY: [facility] Iqkrgf0628 [facility] [id number] Urea nitrogen/Creatinine mass ratio 17 mg/mg Normal 10-24 [facility] Work Phone: Comment on above: PATIENT WAS FASTINGP ERFORMED BY: [facility]6370 [facility] [id number] PSA (PROSTATE SPECIFIC ANTIG EN) ([id number])Ordered By: Airway Controller on 09-27-2018 Prostate specific Ag mass conc 3.2 ng/mL Normal 0.0-4.0 [facility] Work Phone: Comment on above: Cherelle ECLIA methodol ogy. .According to the [place] [employer], Serum PSA shoulddecrease and remain at undetectable levels after radicalprostatectomy. The AUA defines biochemical recurrence as an initialPSA value 0.2 ng/mL or greater followed by a subsequent confirmatoryPSA value 0.2 ng/mL or greater.Values obtained with different assay methods or kits cannot be usedinterchangeably. Results cannot be interpreted as absolute evidenceof the presence or absence of malignant disease. PATIENT WAS FASTINGP ERFORMED BY: WHIT [facility] Ndvaus6608 [address] RoadDublin [place] [id number] TSH (THYROID STIMULATING HOR TJ) ([id number])Ordered By: Airway Controller on 09-27-2018 Thyrotropin Qn 4.310 {uIU/mL} Normal 0.450-4.500 Compr ehensive Internal Medicine Work Phone: Comment on above: PATIENT WAS FASTINGP ERFORMED BY: [facility] Guwuim6541 [address] RoadDublin [place] [id number] URINALYSIS ([id number])Ordered By : Airway Controller on 09-27-2018 Appearance Nom (U) Clear Normal Compre hensive Internal Medicine Work Phone: Comment on above: PATIENT WAS FASTINGP ERFORMED BY: [facility] Ameixd0050 [address] RoadDublin [place] [id number] Bilirubin Ql (U) Negative Normal Comprehe nsive Internal Medicine Work Phone: Comment on above: PATIENT WAS FASTINGP ERFORMED BY: [facility] Yowdbr1664 [address] RoadDublin [place] [id number] Bilirubin Ql (U) Negative Normal Comprehe nsive Internal Medicine; [facility] Work Phone: Comment on above: PATIENT WAS FASTINGP ERFORMED BY: [facility] Rdflpb2024 [address] RoadDublin [place] [id number] Color Nom (U) Yellow Normal Comprehensi ve Internal Medicine Work Phone: Comment on above: PATIENT WAS FASTINGP ERFORMED BY: CB [facility] Trequf2138 [address] RoadDublin [place] [id number] Glucose Ql (U) Negative Normal Comprehens liam Internal Medicine Work Phone: Comment on above: PATIENT WAS FASTINGP ERFORMED BY: CB [facility] Ypnfyz4422 [address] RoadDublin [place] [id number] Glucose Ql (U) Negative Normal Comprehens liam Internal Medicine; [facility] Work Phone: Comment on above: PATIENT WAS FASTINGP ERFORMED BY: WHIT Gomez6370 [address]bl[address] [place] [id number] Hemoglobin Ql (U) Negative Normal Compreh ensive Internal Medicine Work Phone: Comment on above: PATIENT WAS FASTINGP ERFORMED BY: WHIT Gomez6370 [address] RoadNov[facility] Centerin [place] [id number] Hemoglobin Ql (U) Negative Normal Compreh ensive Internal Medicine; [facility] Work Phone: Comment on above: PATIENT WAS FASTINGP ERFORMED BY: WHIT Gomez6370 [address] RoadNovant Health Franklin [facility] Centerin [place] [id number] Ketones Ql (U) Negative Normal Comprehens liam Internal Medicine Work Phone: Comment on above: PATIENT WAS FASTINGP ERFORMED BY: WHIT Gomez[address] [facility]in [place] [id number] Ketones Ql (U) Negative Normal Comprehens liam Internal Medicine; [facility] Work Phone: Comment on above: PATIENT WAS FASTINGP ERFORMED BY: WHIT Gomez6[address] [facility] [id number] Leukocyte esterase Test strip Ql (U) Negative Normal [facility] Work Phone: Comment on above: PATIENT WAS FASTINGP ERFORMED BY: WHIT Gomez6[address] [facility]in [place] [id number] Leukocyte esterase Test strip Ql (U) Negative Normal [facility]; [facility] Work Phone: Comment on above: PATIENT WAS FASTINGP ERFORMED BY: WHIT Pennlin[address] [facility] Hospitalblin [place] [id number] Microscopic observation LM Nom (Urine sed) MICNIP Normal [facility] Work Phone: Comment on above: Microscopic not kayden cated and not performed. PATIENT WAS FASTINGP ERFORMED BY: WHIT Pennlin6[address] [facility] [id number] Nitrite Ql (U) Negative Normal Comprehens liam Internal Medicine Work Phone: Comment on above: PATIENT WAS FASTINGP ERFORMED BY: WHIT Stephaneamanda PennQrpetl2874 [address] [facility]in [place] [id number] Nitrite Ql (U) Negative Normal Comprehens liam Internal Medicine; [facility] Work Phone: Comment on above: PATIENT WAS FASTINGP ERFORMED BY: WHIT WillisFred PennTjazhz5105 [facility] [id number] pH (U) 7.0 [pH] Normal 5.0-7.5 [facility] Work Phone: Comment on above: PATIENT WAS FASTINGP ERFORMED BY: WHIT Pennlin6370 [facility] [id number] Protein Ql (U) Negative Normal Comprehens liam Internal Medicine Work Phone: Comment on above: PATIENT WAS FASTINGP ERFORMED BY: WHIT Pennlin6370 [facility] [id number] Protein Ql (U) Negative Normal Comprehens liam Internal Medicine; [facility] Work Phone: Comment on above: PATIENT WAS FASTINGP ERFORMED BY: WHIT Pennlin6370 [facility] [id number] Specific gravity Relative Density (U) 1.014 1 Normal 1.005-1.030 Comprehensi Internal Medicine Work Phone: Comment on above: PATIENT WAS FASTINGP ERFORMED BY: WHIT Pennlin6370 [facility] [id number] Urobilinogen (U) [Mass/Vol] 0.2 mg/dL Normal 0.2-1.0 [facility]; [facility] Work Phone: Comment on above: PATIENT WAS FASTINGP ERFORMED BY: WHIT Pennlin6370 [facility] [id number] Urobilinogen Test strip mass conc (U) 0.2 mg/dL Normal 0.2-1.0 Comprehensiv e Internal Medicine Work Phone: Comment on above: PATIENT WAS FASTINGP ERFORMED BY: WHIT [facility] Mcdccz9900 Mago [facility] [id number] Blood Glucose , Office ([phone])Ordered By: Nelia Awan on 04-20-2018 Glucose Glucometer molar conc (BldC) 133 1 Normal [facility] Work Phone: HgA1C , Office ([phone])Ordere d By: Elva Carver on 04-20-2018 Hemoglobin A1c/Hemoglobin.total mass fraction (Bld) 5.4 % Normal 4.6 - 7.1 Comprehensiv e Internal Medicine Work Phone: Blood Glucose , Office ([phone])Ordered By: Meseret Bender on 10-19-2017 Glucose Glucometer molar conc (BldC) 111 1 Normal [facility] Work Phone: Comment on above: 111 HgA1C , Office ([phone])Ordere d By: Meseret Bender on 10-19-2017 Hemoglobin A1c/Hemoglobin.total mass fraction (Bld) 5.3 % Normal 4.6 - 7.1 Comprehensiv e Internal Medicine Work Phone: CALCIFEDIOL ([phone])Ordered B y: Airway Controller on 08-18-2017 25-Hydroxyvitamin D2+25-Hydroxyvitamin D3 mass conc 48.0 ng/mL Normal 30.0-100.0 [facility] Work Phone: Comment on above: Vitamin D deficiency has been defined by the [place] ofMedicine and an Endocrine Society practice guideline as alevel of serum 25-OH vitamin D less than 20 ng/mL (1,2).The Endocrine Society went on to further define vitamin Dinsufficiency as a level between 21 and 29 ng/mL (2).1. IOM ([place] of Medicine). 2010. Dietary reference intakes for calcium and D. [place]: The National Academies Press.2. Haider MF, Jody WAHL, Sheron MARI, et al. Evaluation, treatment, and prevention of vitamin D deficiency: an Endocrine Society clinical practice guideline. JCEM. 2010; 96(7):1911-30. PATIENT WAS FASTINGP ERFORMED BY: CB [facility] Hfajql2489 [facility] [id number] CBC & PLATELETS (AUTO) (8502 [id number])Ordered By: Airway Controller on 08-18-2017 Erythrocyte distribution width Auto Ratio (RBC) 14.1 % Normal 12.3-15.4 [facility] Work Phone: Erythrocyte distribution width Ratio (RBC) 14.1 % Normal 12.3-15.4 [facility] Internal Medicine Work Phone: Comment on above: PATIENT WAS FASTINGP ERFORMED BY: WHIT [facility]6370 [facility] [id number] Hematocrit Auto Volume Fraction (Bld) 43.4 % Normal 37.5-51.0 [facility] Internal Medicine Work Phone: Hematocrit Volume Fraction (Bld) 43.4 % Normal 37.5-51.0 [facility] Internal Medicine Work Phone: Comment on above: PATIENT WAS FASTINGP ERFORMED BY: WHIT [facility] Ngsavh5551 [facility] [id number] Hemoglobin mass conc (Bld) 14.1 g/dL Normal 13.0-17.7 [facility] Work Phone: Comment on above: PATIENT WAS FASTINGP ERFORMED BY: WHIT Pennlin6370 [facility] [id number] MCH Auto Entitic mass (RBC) 30.3 pg Normal 26.6-33.0 [facility] Work Phone: MCH Entitic mass (RBC) 30.3 pg Normal 26.6-33.0 [facility] Internal Medicine Work Phone: Comment on above: PATIENT WAS FASTINGP ERFORMED BY: WHIT [place] [id number] [facility] [id number] MCHC Auto mass conc (RBC) 32.5 g/dL Normal 31.5-35.7 [facility] Work Phone: MCHC mass conc (RBC) 32.5 g/dL Normal 31.5-35.7 Comp [facility] Internal Medicine Work Phone: Comment on above: PATIENT WAS FASTINGP ERFORMED BY: WHIT [facility] Lcxthr5077 [facility] [id number] MCV Auto Entitic volume (RBC) 93 fL Normal 79-97 [facility] Work Phone: MCV Entitic volume (RBC) 93 fL Normal 79-97 [facility] Work Phone: Comment on above: PATIENT WAS FASTINGP ERFORMED BY: WHIT [facility] Nswhoy6870 [facility] [id number] Platelets #/vol (Bld) 205 {x10E3/uL} Normal 150-379 [facility] Work Phone: Comment on above: PATIENT WAS FASTINGP ERFORMED BY: [facility]6370 [facility] [id number] Platelets (Bld) [#/Vol] 205 10*3/uL Normal 150-379 [facility]; [facility] Work Phone: Comment on above: PATIENT WAS FASTINGP ERFORMED BY: WHIT [facility] Zibwla9432 [facility] [id number] Platelets Auto #/vol (Bld) 205 {x10E3/uL} Normal 150-379 [facility] Work Phone: RBC #/vol (Bld) 4.65 {x10E6/uL} Normal 4.14-5.80 [facility] Internal Medicine Work Phone: Comment on above: PATIENT WAS FASTINGP ERFORMED BY: [place] [id number] [facility] [id number] RBC (Bld) [#/Vol] 4.65 10*6/uL Normal 4.14-5.80 [facility]; [facility] Work Phone: Comment on above: PATIENT WAS FASTINGP ERFORMED BY: [facility]6370 [facility] [id number] RBC Auto #/vol (Bld) 4.65 {x10E6/uL} Normal 4.14-5.80 [facility] Work Phone: WBC #/vol (Bld) 5.2 {x10E3/uL} Normal 3.4-10.8 Compr [facility] Internal Medicine Work Phone: Comment on above: PATIENT WAS FASTINGP ERFORMED BY: WHIT LabFred Gomez[address] [facility]in [place] [id number] WBC (Bld) [#/Vol] 5.2 10*3/uL Normal 3.4-10.8 Compre [facility] Internal Medicine; [facility] Work Phone: Comment on above: PATIENT WAS FASTINGP ERFORMED BY: WHIT Gomez6370 [facility] [id number] WBC Auto #/vol (Bld) 5.2 {x10E3/uL} Normal 3.4-10.8 [facility] Work Phone: Lipid Panel ([id number])Ordered B y: Airway Controller on 08-18-2017 Cholesterol in HDL mass conc 54 mg/dL Normal [facility] Work Phone: Comment on above: PATIENT WAS FASTINGP ERFORMED BY: WHIT Pennlin6370 [facility] [id number] Cholesterol in LDL mass conc 74 mg/dL Normal 0-99 [facility] Work Phone: Comment on above: PATIENT WAS FASTINGP ERFORMED BY: WHIT Gomez6370 [facility] [id number] Cholesterol in LDL/Cholesterol in HDL mass ratio 1.4 {ratio} Normal 0.0-3.6 [facility] Work Phone: Comment on above: LDL/HDL Ratio Men Wo men 1/2 Avg.Risk 1.0 1.5 Avg.Risk 3.6 3.2 2X Avg.Risk 6.2 5.0 3X Avg.Risk 8.0 6.1 PATIENT WAS FASTINGP ERFORMED BY: WHIT LabFred Tnsyaf6020 [facility] [id number] Cholesterol in VLDL mass conc 12 mg/dL Normal 5-40 [facility] Work Phone: Comment on above: PATIENT WAS FASTINGP ERFORMED BY: WHIT Stephane Bkqxtv8054 [address] [facility] [id number] Cholesterol mass conc 140 mg/dL Normal 100-199 [facility] prehensive Internal Medicine Work Phone: Comment on above: PATIENT WAS FASTINGP ERFORMED BY: WHIT Gomez6370 [address] [facility] [id number] Triglyceride mass conc 60 mg/dL Normal 0-149 [facility] Work Phone: Comment on above: PATIENT WAS FASTINGP ERFORMED BY: WHIT Stephane Ntaidv8626 [address] [facility] [id number] Metabolic Panel, Comprehensi ve (49926)Ordered By: Airway Controller on 08-18-2017 Albumin mass conc 4.6 g/dL Normal 3.6-4.8 Compreh [facility]ive [facility] Work Phone: Comment on above: PATIENT WAS FASTINGP ERFORMED BY: WHIT Stephane Foajxa4653 [facility] [id number] Albumin/Globulin mass ratio 2.1 {ratio} Normal 1.2-2.2 [facility] Work Phone: Comment on above: PATIENT WAS FASTINGP ERFORMED BY: WHIT Stephane Pbjhzp6453 [facility] [id number] ALP [Catalytic activity/Vol] 45 U/L Normal 39-117 [facility]; [facility] Work Phone: Comment on above: PATIENT WAS FASTINGP ERFORMED BY: WHIT Stephane Jegmzv4936 [facility] [id number] ALP enzyme act/vol 45 [iU]/L Normal 39-117 Compre [facility] Internal Medicine Work Phone: Comment on above: PATIENT WAS FASTINGP ERFORMED BY: WHIT LabMit[facility] Tkxnxo7971 [facility] [id number] ALT [Catalytic activity/Vol] 16 U/L Normal 0-44 [facility]; [facility] Work Phone: Comment on above: PATIENT WAS FASTINGP ERFORMED BY: WHIT [facility] Mnaigj6611 [facility] [id number] ALT enzyme act/vol 16 [iU]/L Normal 0-44 [facility] Internal Medicine Work Phone: Comment on above: PATIENT WAS FASTINGP ERFORMED BY: CB [facility] Wppqth0235 [address] RoadDublin [place] [id number] AST [Catalytic activity/Vol] 11 U/L Normal 0-40 [facility]; [facility] Work Phone: Comment on above: PATIENT WAS FASTINGP ERFORMED BY: CB [facility] Xojbmz0795 [address] RoadDublin [place] [id number] AST enzyme act/vol 11 [iU]/L Normal 0-40 [facility] Internal Medicine Work Phone: Comment on above: PATIENT WAS FASTINGP ERFORMED BY: CB [facility] Plvewj5971 [address] RoadDublin [place] [id number] Bilirubin mass conc 0.5 mg/dL Normal 0.0-1.2 Compr ensive Internal Medicine Work Phone: Comment on above: PATIENT WAS FASTINGP ERFORMED BY: CB [facility] Rmlyhz5873 [address] RoadDublin [place] [id number] Calcium mass conc 9.4 mg/dL Normal 8.6-10.2 Compreh ensive Internal Medicine Work Phone: Comment on above: PATIENT WAS FASTINGP ERFORMED BY: CB [facility] Osypzf5302 [address] RoadDublin [place] [id number] Chloride molar conc 101 mmol/L Normal 96-106 Compr ensive Internal Medicine Work Phone: Comment on above: PATIENT WAS FASTINGP ERFORMED BY: CB [facility] Aeazwg7634 [address] RoadDublin [place] [id number] CO2 molar conc 25 mmol/L Normal 18-29 Comprehens liam Internal Medicine Work Phone: Comment on above: PATIENT WAS FASTINGP ERFORMED BY: CB [facility] Eupqls3416 [address] RoadDublin [place] [id number] Creatinine mass conc 0.92 mg/dL Normal 0.76-1.27 Comp [facility] Work Phone: Comment on above: PATIENT WAS FASTINGP ERFORMED BY: WHIT WillisFred PennNnznaj5269 [address] Roadblin [place] [id number] GFR/1.73 sq M predicted among blacks CKD-EPI vol rate/area (S/P/Bld) 101 mL/min/1.73 Normal Comprehensiv e Internal Medicine Work Phone: Comment on above: PATIENT WAS FASTINGP ERFORMED BY: WHIT Pennlin[address] [place] [id number] GFR/1.73 sq M predicted among non-blacks CKD-EPI vol rate/area (S/P/Bld) 88 mL/min/1.73 Normal [facility] Work Phone: Comment on above: PATIENT WAS FASTINGP ERFORMED BY: WHIT Pennlin6370 [address] [facility] [id number] Globulin Calculated mass conc (S) 2.2 g/dL Normal 1.5-4.5 [facility] Work Phone: Globulin mass conc (S) 2.2 g/dL Normal 1.5-4.5 [facility] Work Phone: Comment on above: PATIENT WAS FASTINGP ERFORMED BY: WHIT Pennlin6370 [facility] [id number] Glucose mass conc 94 mg/dL Normal 65-99 Compreh ensive Internal Medicine Work Phone: Comment on above: PATIENT WAS FASTINGP ERFORMED BY: WHIT Pennlin6370 [facility] [id number] Potassium molar conc 4.2 mmol/L Normal 3.5-5.2 Comp rehensive Internal Medicine Work Phone: Comment on above: PATIENT WAS FASTINGP ERFORMED BY: WHIT WillisFred PennKqcuou5948 [address] [facility] [id number] Protein mass conc 6.8 g/dL Normal 6.0-8.5 Compreh ensive Internal Medicine Work Phone: Comment on above: PATIENT WAS FASTINGP ERFORMED BY: WHIT Pennlin6370 [address] [facility] [id number] Sodium molar conc 142 mmol/L Normal 134-144 Compreh ensive Internal Medicine Work Phone: Comment on above: PATIENT WAS FASTINGP ERFORMED BY: WHIT [facility] Xhtefi0562 [facility] [id number] Urea nitrogen mass conc 16 mg/dL Normal 8-27 [facility] Work Phone: Comment on above: PATIENT WAS FASTINGP ERFORMED BY: [facility] Vjsghb7219 [facility] [id number] Urea nitrogen/Creatinine mass ratio 17 mg/mg Normal 10-24 [facility] Work Phone: Comment on above: PATIENT WAS FASTINGP ERFORMED BY: WHIT [facility] Fbofkd0035 [facility] [id number] Microscopic ExaminationOrder ed By: Airway Controller on 08-18-2017 Bacteria LM.HPF #/area (Urine sed) Few Normal [facility] Work Phone: Comment on above: PATIENT WAS FASTINGP ERFORMED BY: [facility] Sdqkzp5544 [facility] [id number] Epithelial cells LM.HPF #/area (Urine sed) None seen Normal 0 - 10 [facility] Work Phone: Comment on above: PATIENT WAS FASTINGP ERFORMED BY: WHIT [facility] Izvksm2971 [facility] [id number] Mucus LM Ql (Urine sed) Present Normal [facility] Work Phone: Mucus Ql (Urine sed) Present Normal Comp rehensive Internal Medicine Work Phone: Comment on above: PATIENT WAS FASTINGP ERFORMED BY: [facility] Krrzzx8631 [facility] [id number] RBC LM.HPF #/area (Urine sed) 0-2 Normal 0 - 2 [facility] Work Phone: Comment on above: PATIENT WAS FASTINGP ERFORMED BY: [facility] Kmdraj3285 [facility] [id number] WBC LM.HPF #/area (Urine sed) None seen Normal 0 - 5 [facility] Work Phone: Comment on above: PATIENT WAS FASTINGP ERFORMED BY: CB [facility] Kaptej6117 [address] RoadDublin [place] [id number] PSA (PROSTATE SPECIFIC ANTIG EN) (V76.44)Ordered By: Airway Controller on 08-18-2017 Prostate specific Ag mass conc 2.3 ng/mL Normal 0.0-4.0 [facility] Work Phone: Comment on above: Radiance ECLIA methodol ogy. .According to the [employer], Serum PSA shoulddecrease and remain at undetectable levels after radicalprostatectomy. The AUA defines biochemical recurrence as an initialPSA value 0.2 ng/mL or greater followed by a subsequent confirmatoryPSA value 0.2 ng/mL or greater.Values obtained with different assay methods or kits cannot be usedinterchangeably. Results cannot be interpreted as absolute evidenceof the presence or absence of malignant disease. PATIENT WAS FASTINGP ERFORMED BY: [employer] [facility] Dzzzet3457 Mercedes RoadDublin [place] [id number] TSH ([id number])Ordered By: blogTVe m Bench Molder Apprentice on 08-18-2017 Thyrotropin Qn 4.200 {uIU/mL} Normal 0.450-4.500 [facility] Work Phone: Comment on above: PATIENT WAS FASTINGP ERFORMED BY: CB [facility] Okxlpb9935 [address] RoadDublin [place] [id number] URINALYSIS, W/ MICRO ([id number]) Ordered By: Airway Controller on 08-18-2017 Appearance Nom (U) Clear Normal Compre hensive Internal Medicine Work Phone: Comment on above: PATIENT WAS FASTINGP ERFORMED BY: CB [facility] Telvof4558 [address] RoadDublin [place] [id number] Bilirubin Ql (U) Negative Normal Comprehe nsive Internal Medicine Work Phone: Comment on above: PATIENT WAS FASTINGP ERFORMED BY: CB [facility] Cisjoh5738 [address] RoadDublin [place] [id number] Bilirubin Ql (U) Negative Normal Comprehe nsive Internal Medicine; [facility] Work Phone: Comment on above: PATIENT WAS FASTINGP ERFORMED BY: WHIT [facility] Jddzbp4833 [address] RoadDublin [place] [id number] Color Nom (U) Yellow Normal Comprehensi ve Internal Medicine Work Phone: Comment on above: PATIENT WAS FASTINGP ERFORMED BY: WHIT [facility] Luqhpu1910 [address] RoadDublin [place] [id number] Glucose Ql (U) Negative Normal Comprehens liam Internal Medicine Work Phone: Comment on above: PATIENT WAS FASTINGP ERFORMED BY: WHIT [facility] Crnrws1704 [address] RoadDublin [place] [id number] Glucose Ql (U) Negative Normal Comprehens liam Internal Medicine; [facility] Work Phone: Comment on above: PATIENT WAS FASTINGP ERFORMED BY: WHIT [facility] Puhfpn7[address] RoadDublin [place] [id number] Hemoglobin Ql (U) Negative Normal Compreh ensive Internal Medicine Work Phone: Comment on above: PATIENT WAS FASTINGP ERFORMED BY: WHIT [facility] Eitldb6935 [address] RoadDublin [place] [id number] Hemoglobin Ql (U) Negative Normal Compreh ensive Internal Medicine; [facility] Work Phone: Comment on above: PATIENT WAS FASTINGP ERFORMED BY: WHIT [facility] Cfsuol9527 [address] RoadDublin [place] [id number] Hemoglobin Test strip Ql (U) Negative Normal [facility] Work Phone: Ketones Ql (U) Negative Normal Comprehens liam Internal Medicine Work Phone: Comment on above: PATIENT WAS FASTINGP ERFORMED BY: WHIT [facility] Desuex9567 [address] RoadDublin [place] [id number] Ketones Ql (U) Negative Normal Comprehens liam Internal Medicine; [facility] Work Phone: Comment on above: PATIENT WAS FASTINGP ERFORMED BY: WHIT [facility] Utktcn5029 [address] RoadDublin [place] [id number] Leukocyte esterase Test strip Ql (U) Negative Normal [facility] Work Phone: Comment on above: PATIENT WAS FASTINGP ERFORMED BY: WHIT Gomez6370 [address] Roadblin [place] [id number] Leukocyte esterase Test strip Ql (U) Negative Normal [facility]; [facility] Work Phone: Comment on above: PATIENT WAS FASTINGP ERFORMED BY: WHIT Gomez6370 [address]blin [place] [id number] Microscopic observation LM Nom (Urine sed) See below: Normal [facility] Work Phone: Comment on above: Microscopic was kayden cated and was performed. PATIENT WAS FASTINGP ERFORMED BY: WHIT Gomez[address] [facility] [place] [id number] Microscopic observation LM Nom (Urine sed) MICRON Normal [facility] Work Phone: Comment on above: Microscopic follows if indicated. PATIENT WAS FASTINGP ERFORMED BY: WHIT Gomez[address] [facility] [id number] Nitrite Ql (U) Negative Normal Comprehens liam Internal Medicine Work Phone: Comment on above: PATIENT WAS FASTINGP ERFORMED BY: WHIT Gomez[address] [facility]in [place] [id number] Nitrite Ql (U) Negative Normal Comprehens liam Internal Medicine; [facility] Work Phone: Comment on above: PATIENT WAS FASTINGP ERFORMED BY: WHIT Gomez[address] [facility] [id number] Nitrite Test strip Ql (U) Negative Normal [facility] Work Phone: pH (U) 7.5 [pH] Normal 5.0-7.5 [facility] Work Phone: Comment on above: PATIENT WAS FASTINGP ERFORMED BY: WHIT Pennlin[address] [place] [id number] pH Test strip (U) 7.5 [pH] Normal 5.0-7.5 Compreh ensive Internal Medicine Work Phone: Protein Ql (U) Negative Normal Comprehens liam Internal Medicine Work Phone: Comment on above: PATIENT WAS FASTINGP ERFORMED BY: WHIT [facility] Epfzqt7305 [address] RoadDublin [place] [id number] Protein Ql (U) Negative Normal Comprehens liam [facility] Medicine; [facility] Work Phone: Comment on above: PATIENT WAS FASTINGP ERFORMED BY: CB [facility] Goxopk3242 [address] RoadDublin [place] [id number] Protein Test strip Ql (U) Negative Normal [facility] Work Phone: Specific gravity Relative Density (U) 1.018 1 Normal 1.005-1.030 Comprehensi ve Internal Medicine Work Phone: Comment on above: PATIENT WAS FASTINGP ERFORMED BY: WHIT [facility] Lrptcc9415 [address] RoadDublin [place] [id number] Urobilinogen (U) [Mass/Vol] 0.2 mg/dL Normal 0.2-1.0 [facility]; [facility] Work Phone: Comment on above: PATIENT WAS FASTINGP ERFORMED BY: CB [facility] Ritxje5599 [address] RoadDublin [place] [id number] Urobilinogen Test strip mass conc (U) 0.2 mg/dL Normal 0.2-1.0 Comprehensiv e Internal Medicine Work Phone: Comment on above: PATIENT WAS FASTINGP ERFORMED BY: CB [facility] Mhnexn7146 [address] RoadDublin [place] [id number] [facility] 04-19-2017 BUN/Creatinine Ratio 20.0 ratio Normal 5.4-30.0 [facility] Comment on above: Performed By: #### 2 854324 ####ERICKA Benites5 [place] [address] Creatinine 1.0 mg/dL Normal 0.6-1.3 [facility] Comment on above: Performed By: #### 2 889753 ####ERICKA Ochoa1025 [place] [address] Urea nitrogen 20 mg/dL High 7-18 [facility] Comment on above: Performed By: #### 2 133027 ####ERICKA AguiarJrhDbwr7842 [place] [address] Calcium 9.2 mg/dL Normal 8.4-10.2 [facility] Comment on above: Performed By: #### 2 876660 ####ERICKA Ochoa1025 [place] [address] Chloride 104 mmol/L Normal 98-107 [facility] Comment on above: Performed By: #### 2 342863 ####ERICKA Ochoa10[address] [place] 1224605 CO2 27.8 mmol/L Normal 24.0-30.0 [facility] Comment on above: Performed By: #### 2 938090 ####ERICKA Ochoa1025 [place] 1224605 Glucose mass conc 86 mg/dL Normal 70-99 [facility] Comment on above: Performed By: #### 2 511611 ####ERICKA Ochoa1025 [place] 1224605 Potassium molar conc 4.0 mmol/L Normal 3.5-5.1 [facility] Comment on above: Performed By: #### 2 024195 ####ERICKA AguiarFmrBwhk3645 [place] 1224605 Sodium 140 mmol/L Normal 136-145 [facility] Comment on above: Performed By: #### 2 653735 ####ERICKA AguiarKkfLmju4985 [place] [address] eGFRon 04-19-2017 eGFR (non-black) mL/min/{1.73_m2} Normal [facility] Comment on above: Order Comment: Order added by Discern Expert. Performed By: #### 2 037349 ####ERICKA AguiarSocRjwv4974 [place] [address] Auto Diffon 01-20-2017 Basophils Auto #/vol (Bld) 0.0 E3/mcL Normal 0.0-0.2 [facility] Comment on above: Order Comment: Order Added by Discern Expert. Performed By: #### 2 605217 ####ERICKA KmmFoau9555 [place] [address] Basophils/100 WBC Auto (Bld) 0.6 % Normal 0.0-2.0 [facility] Comment on above: Order Comment: Order Added by Discern Expert. Performed By: #### 2 861194 ####ERICKA AguiarShiMbpc8540 [place] [address] Eos Absolute 0.1 E3/mcL Normal 0.0-0.7 [facility] Comment on above: Order Comment: Order Added by Discern Expert. Performed By: #### 2 218193 ####ERICKA AguiarHbjLkqb6120 [place] [address] Eosinophils/100 leukocytes 2.2 % Normal 0.0-11.0 [facility] Comment on above: Order Comment: Order Added by Discern Expert. Performed By: #### 2 213421 ####ERICKA AguiarUbbZpik7177 [place] [address] Lymphocytes 1.3 E3/mcL Normal 1.2-3.4 [facility] Comment on above: Order Comment: Order Added by Discern Expert. Performed By: #### 2 564329 ####ERICKA AguiarXwmQupm5756 [place] [address] Lymphocytes/100 leukocytes 27.3 % Normal 20.0-55.0 [facility] Comment on above: Order Comment: Order Added by Discern Expert. Performed By: #### 2 687234 ####ERICKA AguiarYlbNwva7092 [place] [address] Hood Absolute 0.4 E3/mcL Normal 0.0-0.7 [facility] Comment on above: Order Comment: Order Added by Discern Expert. Performed By: #### 2 067537 ####ERICKA AguiarPmmHdtt2461 [place] [address] Monocytes/100 leukocytes 7.7 % Normal 0.0-10.0 [facility] Comment on above: Order Comment: Order Added by Discern Expert. Performed By: #### 2 869049 ####ERICKA AguiarLwxPnkc2701 [place] [address] Neutro Absolute 3.0 E3/mcL Normal 1.4-6.5 [facility] Comment on above: Order Comment: Order Added by Discern Expert. Performed By: #### 2 346287 ####ERICKA AguiarPgkWayt3899 [place] [address] Neutro Auto 62.2 % Normal 37.0-75.0 [facility] Comment on above: Order Comment: Order Added by Discern Expert. Performed By: #### 2 734438 ####ERICKA Raineso1025 [place] [address] CBC w/ Auto Diffon 7 Erythrocyte distribution width Auto Ratio (RBC) 14.0 % Normal 11.5-14.5 [facility] Comment on above: Performed By: #### 2 969419 ####ERICKA Raineso1025 [place] [address] Erythrocytes (RBC) 4.58 E6/mcL Normal 3.90-6.[address] [facility] Comment on above: Performed By: #### 2 029782 ####ERICKA Raineso10[address] [place] 1224605 Hematocrit (HCT) 43.4 % Normal 42.0-52.0 [facility] Comment on above: Performed By: #### 2 069554 ####ERICKA Raineso1025 [place] [address] Hemoglobin mass conc (Bld) 14.4 g/dL Normal 13.5-18.0 [facility] Comment on above: Performed By: #### 2 661462 ####ERICKA Raineso1025 [place] [address] MCH 31.4 pg High 27.0-31.0 [facility] Comment on above: Performed By: #### 2 142636 ####ERICKA AguiarRxbCyup8520 [place] [address] MCHC mass conc (RBC) 33.2 g/dL Normal 33.0-37.0 [facility] Comment on above: Performed By: #### 2 296984 ####ERICKA AguiarNyyEmbk1536 [place] [address] MCV 94.6 fL Normal 78.0-100.0 [facility] Comment on above: Performed By: #### 2 923378 ####ERICKA AguiarOxgTvbi0883 [place] [address] Platelet mean volume (PMV) 8.0 fL Normal 7.4-11.0 [facility] Comment on above: Performed By: #### 2 907431 ####ERICKA Raineso1025 [place] [address] Platelets 212 E3/mcL Normal 130-400 [facility] Comment on above: Performed By: #### 2 434814 ####ERICKA Raineso1025 [place] [address] WBC (Leukocytes) 4.7 E3/mcL Normal 3.6-11.0 [facility] Comment on above: Performed By: #### 2 968844 ####ERICKA Raineso1025 [place] [address] CMPon 01-20-2017 Alanine aminotransferase (ALT) 15 Int._Unit/L Normal 10-40 [facility] Comment on above: Performed By: #### 2 636555 ####ERICKA PnlMipy0375 [place] [address] Albumin 4.3 g/dL Normal 3.2-5.0 [facility] Comment on above: Performed By: #### 2 581259 ####ERICKA UznHwdz1805 [place] [address] Albumin/Globulin Ratio 1.7 {ratio} Normal 1.1-1.9 [facility] Comment on above: Performed By: #### 2 876049 ####ERICKAAshleigh OchoaZxgJbug1966 [place] [address] Alk Phos 41 Int._Unit/L Low 42-121 [facility] Comment on above: Performed By: #### 2 420114 ####ERICKAAshleigh AguiarNlpKfuk7361 [place] [address] Aspartate aminotransferase (AST) 15 Int._Unit/L Normal 10-42 [facility] Comment on above: Performed By: #### 2 854480 ####ERICKA TtuSgnp2979 [place] [address] Bili Total 0.8 mg/dL Normal 0.2-1.0 [facility] Comment on above: Performed By: #### 2 948668 ####ERICKAAshleigh OchoaBzzBoeo[address] [place] [address] BUN/Creatinine Ratio 15.0 ratio Normal 5.4-30.0 [facility] Comment on above: Performed By: #### 2 590760 ####EIRCKA Ochoa1025 [place] [address] Creatinine 1.0 mg/dL Normal 0.6-1.3 [facility] Comment on above: Performed By: #### 2 655420 ####ERICKA IruLkeb0537 [place] [address] Globulin 2.5 g/dL Normal 2.0-4.0 [facility] Comment on above: Performed By: #### 2 027133 ####ERICKA IirFslt9727 [place] [address] Protein 6.8 g/dL Normal 6.4-8.3 [facility] Comment on above: Performed By: #### 2 046887 ####ERICKA EpjWalo6583 [place] [address] Urea nitrogen 15 mg/dL Normal 7-18 [facility] Comment on above: Performed By: #### 2 115460 ####ERICKA VbeTfbi3004 [place] [address] Calcium 9.4 mg/dL Normal 8.4-10.2 [facility] Comment on above: Performed By: #### 2 799113 ####ERICKA Ochoa1025 [place] [address] Chloride 104 mmol/L Normal 98-107 [facility] Comment on above: Performed By: #### 2 838928 ####ERICKA MpgMmcw7400 [place] [address] CO2 30.3 mmol/L High 24.0-30.0 [facility] Comment on above: Performed By: #### 2 325750 ####ERICKA Ochoa1025 [place] [address] Glucose mass conc 98 mg/dL Normal 70-99 [facility] Comment on above: Performed By: #### 2 669477 ####ERICKA AmeDgqq9086 [place] [address] Potassium molar conc 4.4 mmol/L Normal 3.5-5.1 [facility] Comment on above: Performed By: #### 2 536804 ####ERICKAAshleigh AguiarBqkOwjm3283 [place] [address] Sodium 139 mmol/L Normal 136-145 [facility] Comment on above: Performed By: #### 2 988048 ####ERICKA LzxKcsx3500 [place] [address] RzoR0fqa 01-20-2017 Hemoglobin A1c/Hemoglobin.total mass fraction (Bld) 5.7 % Normal 4.0-6.3 [facility] Comment on above: Performed By: #### 3 [id number] ####ERICKA Chemistry Manual Uwantzxaze8819 [place] [address] Lipid Profileon 01-20-2017 Cholesterol 156 mg/dL Normal 50-200 [facility] Comment on above: Result Comment: TOTA L CHOLEESTEROL: <200 NORMAL 200 - 239 BORDERLINE HIGH >240 HIGH Performed By: #### 3 3254726 ####ERICKA AguiarZbrTtix3148 [place] [address] Cholesterol in VLDL mass conc 17 mg/dL Normal [facility] Comment on above: Performed By: #### 3 3507901 ####ERICKA AguiarZleKxnp4712 [place] [address] HDL Cholesterol 49 mg/dL Normal >=41 [facility] Comment on above: Performed By: #### 3 6420189 ####ERICAK AguiarRplXkaj1165 [place] [address] LDL Cholesterol 90 mg/dL Normal 0-130 [facility] Comment on above: Result Comment: <100 SGDYZYW158-200 NEAR / ABOVE HCVSBNQ404- 159 BORDERLINE [id number] HIGH>190 VERY HIGHCALC LDL NOT VALID WHEN TRIGLYCERIDE IS >400 MG/DL Performed By: #### 3 0443029 ####ERICKA AguiarCgnYkgd7518 [place] [address] Triglyceride 87 mg/dL Normal 35-150 [facility] Comment on above: Result Comment: <150 VHBPMA678-667 BORDERLINE FAJH408-876 HIGH>500 VERY HIGH Performed By: #### 3 3740289 ####ERICKA AguiarLdoPzvk8075 [place] [address] eGFRon 01-20-2017 eGFR (non-black) mL/min/{1.73_m2} Normal [facility] Comment on above: Order Comment: Order added by Discern Expert. Performed By: #### 1 0356313 ####ERICKA CprHllh2590 [place] [address] Thyroid Perox.tpo Abon 11-25 TPO Ab 9 International_Unit/mL Normal 0-34 [facility] Comment on above: Result Comment: Perf ormed At: [facility] [address] [id number] Vincent PhD Ph:[phone] Performed By: #### 1 7501010 ####ERICKA [employer] Dtrcztjiyr8976 [place] [address] Free T3on 11-24-2016 Triiodothyronine (T3) free 2.9 pg/mL Normal 2.5-3.9 [facility] Comment on above: Performed By: #### 2 4832936 ####ERICKA LwtRfyy8740 [place] [address] Free T4on 11-24-2016 Thyroxine (T4) free 0.83 ng/dL Normal 0.58-1.[address] [facility] Comment on above: Result Comment: Lina ents receiving more than 5mg/day of biotin may have interference in test results. A sample should be taken no sooner than eight hours after previous dose. Performed By: #### 2 589839 ####ERICKA NhgWygz3472 [place] [address] TSHon 11-24-2016 Thyroid stimulating hormone (TSH) 5.46 mIU/m Normal 0.30-5.60 [facility] Comment on above: Performed By: #### 2 848956 ####ERICKA GwzLyki1494 [place] [address] HEPATITIS C ANTIBODY (10774) Ordered By: Airway Controller on 08-18-2016 HCV Ab Signal/Cutoff IA RelACnc 0.3 {s/co_ratio} Normal 0.0-0.9 [facility] Work Phone: Comment on above: Negative: < 0.8 Inde terminate: 0.8 - 0.9 Positive: > 0.9 . The CDC recommends that a positive HCV antibody result be followed up with a HCV Nucleic Acid Amplification test (771101). PERFORMED BY: [employer] [place] [id number] Metabolic Panel, Comprehensi ve (05934)Ordered By: Airway Controller on 08-18-2016 Albumin mass conc 4.5 g/dL Normal 3.6-4.8 Compreh ensive Internal Medicine Work Phone: Comment on above: PERFORMED BY: [facility] [id number] Albumin/Globulin mass ratio 2.0 {ratio} Normal 1.2-2.2 [facility] Work Phone: Comment on above: Please note refere nce interval change PERFORMED BY: [facility]Nov[facility] [id number] ALP [Catalytic activity/Vol] 45 U/L Normal 39-117 [facility]; [facility] Work Phone: Comment on above: PERFORMED BY: [employer]70 [employer] SystemsNovant Health [facility] Center [id number] ALP enzyme act/vol 45 [iU]/L Normal 39-117 [facility] Internal Medicine Work Phone: Comment on above: PERFORMED BY: [employer]70 [employer] SystemsNov[facility] [id number] ALT [Catalytic activity/Vol] 15 U/L Normal 0-44 [facility]; [facility] Work Phone: Comment on above: PERFORMED BY: [employer]70 [employer] SystemsNov[facility] [id number] ALT enzyme act/vol 15 [iU]/L Normal 0-44 [facility] Internal [facility] Work Phone: Comment on above: PERFORMED BY: [employer]70 [employer] SystemsNov[facility] [id number] AST [Catalytic activity/Vol] 16 U/L Normal 0-40 [facility]; [facility] Work Phone: Comment on above: PERFORMED BY: [facility]ishNov[facility] [id number] AST enzyme act/vol 16 [iU]/L Normal 0-40 Compre hensive Internal Medicine Work Phone: Comment on above: PERFORMED BY: [employer]6370 [facility] [id number] Bilirubin mass conc 0.6 mg/dL Normal 0.0-1.2 Compr ehensive Internal Medicine Work Phone: Comment on above: PERFORMED BY: [employer]6370 [facility] [id number] Calcium mass conc 9.3 mg/dL Normal 8.6-10.2 Compreh ensive Internal Medicine Work Phone: Comment on above: PERFORMED BY: [employer]6370 [facility] [id number] Chloride molar conc 100 mmol/L Normal 96-106 Compr ensive Internal Medicine Work Phone: Comment on above: PERFORMED BY: [employer]6370 [facility] [id number] CO2 molar conc 23 mmol/L Normal 18-29 Comprehens liam Internal Medicine Work Phone: Comment on above: PERFORMED BY: [employer]6370 [facility] [id number] Creatinine mass conc 1.00 mg/dL Normal 0.76-1.27 [facility] Work Phone: Comment on above: PERFORMED BY: [employer]6370 [facility] [id number] GFR/1.73 sq M predicted among blacks CKD-EPI vol rate/area (S/P/Bld) 92 mL/min/1.73 Normal Comprehensiv e Internal Medicine Work Phone: Comment on above: PERFORMED BY: [employer]6370 [facility] [id number] GFR/1.73 sq M predicted among non-blacks CKD-EPI vol rate/area (S/P/Bld) 80 mL/min/1.73 Normal [facility] Work Phone: Comment on above: PERFORMED BY: [employer]6370 [employer] [place] [id number] Globulin Calculated mass conc (S) 2.2 g/dL Normal 1.5-4.5 [facility] Work Phone: Globulin mass conc (S) 2.2 g/dL Normal 1.5-4.5 [facility] Work Phone: Comment on above: PERFORMED BY: [employer]70 [employer] Energy SystemsNov[facility] [id number] Glucose mass conc 102 mg/dL Abnormal 65-99 Compreh ensive Internal Medicine Work Phone: Comment on above: PERFORMED BY: [employer]70 [employer] SystemsNov[facility] [id number] Potassium molar conc 4.3 mmol/L Normal 3.5-5.2 Comp rehensive Internal Medicine Work Phone: Comment on above: PERFORMED BY: [employer]70 [employer] SystemsNov[facility] [id number] Protein mass conc 6.7 g/dL Normal 6.0-8.5 Compreh ensive Internal Medicine Work Phone: Comment on above: PERFORMED BY: [employer]70 [employer] SystemsAbout[employer] [place] [id number] Sodium molar conc 141 mmol/L Normal 134-144 Compreh ensive Internal Medicine Work Phone: Comment on above: PERFORMED BY: [email or web address] [employer] SystemsNov[facility] [id number] Urea nitrogen mass conc 15 mg/dL Normal 8-27 [facility] Work Phone: Comment on above: PERFORMED BY: [employer]70 [employer] SystemsNov[facility] [id number] Urea nitrogen/Creatinine mass ratio 15 mg/mg Normal 10-24 [facility] Work Phone: Comment on above: Please note refere nce interval change PERFORMED BY: [employer]70 [employer] SystemsNov[facility] [id number] PSA (Prostate Specific Antig en), Screening (17295)Ordered By: Airway Controller on 08-18-2016 Prostate specific Ag mass conc 3.0 ng/mL Normal 0.0-4.0 [facility] Work Phone: Comment on above: Cherelle ECLIA methodol ogy. .According to the [employer], Serum PSA shoulddecrease and remain at undetectable levels after radicalprostatectomy. The AUA defines biochemical recurrence as an initialPSA value 0.2 ng/mL or greater followed by a subsequent confirmatoryPSA value 0.2 ng/mL or greater.Values obtained with different assay methods or kits cannot be usedinterchangeably. Results cannot be interpreted as absolute evidenceof the presence or absence of malignant disease. PERFORMED BY: [employer] [id number] [facility] [id number] HgA1C , Office ([id number])Ordere d By: Amy Zhou on 03-20-2015 Hemoglobin A1c/Hemoglobin.total mass fraction (Bld) 5.7 % Normal 4.6 - 7.1 [facility] Work Phone: HgA1C , Office ([id number])Ordere d By: Amy Zhou on 09-17-2014 Hemoglobin A1c/Hemoglobin.total mass fraction (Bld) 5.7 % Normal 4.6 - 7.1 [facility] Work Phone: HgA1C , Office ([id number])Ordere d By: Nelia Awan on 04-11-2014 Hemoglobin A1c/Hemoglobin.total mass fraction (Bld) 5.8 % Normal 4.6 - 7.1 [facility] Work Phone: HgA1C , Office ([id number])Ordere d By: Amy Zhou on 09-15-2013 Hemoglobin A1c/Hemoglobin.total mass fraction (Bld) 5.7 % Normal 4.6 - 7.1 [facility] Work Phone: URINE LAVERNE CULTURE ([place] COL COUNT) ([id number])Ordered By: Airway Controller on 04-28-2013 Bacteria identified Cx Nom (U) Final report Normal [facility] Work Phone: Comment on above: PATIENT NOT FASTINGP ERFORMED BY: WHIT [facility] [id number] [facility] [id number] Information: SRC:UR [id number] Bacteria identified Cx Nom (U) [id number] Normal [facility] Work Phone: Comment on above: No growth in 36 - 48 hours. PATIENT NOT FASTINGP ERFORMED BY: [facility] [id number] [facility] [id number] Information: SRC:UR [id number] URINE LAVERNE CULTURE-IDENTIFICA [place] ([id number])Ordered By: Airway Controller on 04-12-2013 Bacteria identified Cx Nom (U) Alpha streptococcus Normal [facility] Work Phone: Comment on above: 1,000 Colonies/mLSus ceptibility not normally performed on this organism. PATIENT NOT FASTINGP ERFORMED BY: [facility] [id number] [facility] [id number] Information: [id number] Bacteria identified Cx Nom (U) Final report Normal [facility] Work Phone: Comment on above: PATIENT NOT FASTINGP ERFORMED BY: [facility] [id number] [facility] [id number] Information: [id number] Urinalysis, Office ([id number])Or dered By: Katy Conti on 04-12-2013 Bilirubin Ql (U) Negative Normal Comprehe nsive Internal Medicine Work Phone: Glucose Test strip mass conc (U) Negative Normal [facility] Work Phone: Hemoglobin Ql (U) Hemolyzed Trace Normal Co [facility] Work Phone: Hemoglobin Test strip Ql (U) Hemolyzed Trace Normal [facility] Work Phone: Ketones Ql (U) Negative Normal [facility] Work Phone: Leukocyte esterase Test strip Ql (U) Small Normal [facility] Work Phone: Nitrite Ql (U) Negative Normal [facility] Work Phone: Nitrite Test strip Ql (U) Negative Normal [facility] Work Phone: pH (U) 7.5 [pH] Normal [facility] Work Phone: pH Test strip (U) 7.5 [pH] Normal Compreh ensive [facility] Work Phone: Protein Ql (U) Negative Normal [facility] Work Phone: Protein Test strip Ql (U) Negative Normal [facility] Work Phone: Specific gravity Relative Density (U) 1.020 1 Normal Comprehensi ve Internal Medicine Work Phone: Urobilinogen mass/time (24H U) Normal Normal [facility] Work Phone: Urinalysis, Office ([phone])on 04-12-2013 Bilirubin Ql (U) Negative Normal Compre[facility] nsive [facility]; [facility] Work Phone: Glucose Test strip (U) [Mass/Vol] Negative Normal [facility]; [facility] Work Phone: Ketones Ql (U) Negative Normal [facility]; [facility] Work Phone: Nitrite Ql (U) Negative Normal [facility]; [facility] Work Phone: Protein Ql (U) Negative Normal [facility]; [facility] Work Phone: GLU GTT-1 HOUROrdered By: Deangelo Signix Bench Molder Apprentice on 09-30-2006 GLU GTT-1 HOUR 184 mg/dL Abnormal 120-170 [facility] Work Phone: Comment on above: 2HR GTT GLU 1 HR GLU GTT-1 HOUR from [id number]. GLU GTT-2 HOUROrdered By: Deangelo stem Bench Molder Apprentice on 09-30-2006 GLU GTT-2 HOUR 130 mg/dL Abnormal 70-120 [facility] Work Phone: Comment on above: 2HR GTT GLU 2 HR GLU GTT-2 HOUR from [id number]. GLU GTT-30 min.Ordered By: Ceasar ystem Bench Molder Apprentice on 09-30-2006 GLU GTT-30 min. 151 mg/dL Normal 110-170 [facility] Internal Medicine Work Phone: Comment on above: 2HR GTT GLU 1/2 HR G RICKEY GTT-30 min. from [id number]. GLU GTT-FASTINGOrdered By: Ceasar hammtem Bench Molder Apprentice on 09-30-2006 GLU GTT-FASTING 87 mg/dL Normal 70-110 [facility] Internal Medicine Work Phone: Comment on above: GLUCOSE TOLERANCE TE ST Reference Interval Non- Adults Fasting 70 - 110 30 minutes 110 - 170 1 hour 120 - 170 2 hour 70 - 120 3 hour 70 - 110 4 hour 70 - 110 5 hour 70 - 110 2HR GTT FASTING GLU GTT-FASTING from [id number]. LIPIDOrdered By: Phu brown on 09-30-2006 Cholesterol in HDL mass conc 48 mg/dL Normal [facility] Internal Medicine Work Phone: Comment on above: Reference Range HDL <40 mg/dL Low HDL Cholesterol HDL >or= 60 mg/dL High HDL Cholesterol Cholesterol in LDL mass conc 88 mg/dL Normal 0-130 [facility] Work Phone: Cholesterol in VLDL mass conc 8 mg/dL Normal 5-40 [facility] Work Phone: Cholesterol mass conc 144 mg/dL Normal Com prehensive [facility] Medicine Work Phone: Comment on above: <200 mg/dL Desirable 200-240 mg/dL Borderline >240 mg/dL High Risk Triglyceride mass conc 40 mg/dL Normal [facility] Work Phone: Comment on above: Serum Triglycerides Reference Interval Normal <150 mg/dL Borderline high 150 - 199 mg/dL High 200 - 499 mg/dL Very High > or = 500 mg/dL CBCDOrdered By: System Manag er on 05-14-2006 Basophils/100 WBC (Bld) 0.1 % Normal 0-1 [facility] Work Phone: Comment on above: Precautions*: FALL Basophils/100 WBC Auto (Bld) 0.1 % Normal 0-1 [facility] Work Phone: Eosinophils/100 WBC (Bld) 0.0 % Normal 0-5 [facility] Work Phone: Comment on above: Precautions*: FALL Eosinophils/100 WBC Auto (Bld) 0.0 % Normal 0-5 [facility] Work Phone: Erythrocyte distribution width Auto Ratio (RBC) 13.4 % Normal 11.6-14.6 [facility] Work Phone: Erythrocyte distribution width Ratio (RBC) 13.4 % Normal 11.6-14.6 [facility] Work Phone: Comment on above: Precautions*: FALL Hematocrit Auto Volume Fraction (Bld) 35.9 % Abnormal 40-54 [facility] Work Phone: Hematocrit Volume Fraction (Bld) 35.9 % Abnormal 40-54 [facility] Work Phone: Comment on above: Precautions*: FALL Hemoglobin mass conc (Bld) 12.5 g/dL Abnormal 14.0-18.0 [facility] Work Phone: Comment on above: Precautions*: FALL Lymphocytes/100 WBC (Bld) 3.7 % Abnormal 19-41 [facility] Work Phone: Comment on above: Precautions*: FALL Lymphocytes/100 WBC Auto (Bld) 3.7 % Abnormal 19-41 [facility] Work Phone: MCH Auto Entitic mass (RBC) 31.7 pg Normal 27.0-32.0 [facility] Work Phone: MCH Entitic mass (RBC) 31.7 pg Normal 27.0-32.0 [facility] Work Phone: Comment on above: Precautions*: FALL MCHC Auto mass conc (RBC) 34.9 g/dL Normal 32-36 [facility] Work Phone: MCHC mass conc (RBC) 34.9 g/dL Normal 32-36 [facility] Work Phone: Comment on above: Precautions*: FALL MCV Auto Entitic volume (RBC) 90.9 fL Normal 80-94 [facility] Work Phone: MCV Entitic volume (RBC) 90.9 fL Normal 80-94 [facility] Work Phone: Comment on above: Precautions*: FALL Monocytes/100 WBC (Bld) 1.2 % Normal 0-10 [facility] Work Phone: Comment on above: Precautions*: FALL Monocytes/100 WBC Auto (Bld) 1.2 % Normal 0-10 [facility] Work Phone: Neutrophils/100 WBC (Bld) 95.0 % Abnormal 47-70 [facility] Work Phone: Comment on above: Precautions*: FALL Neutrophils/100 WBC Auto (Bld) 95.0 % Abnormal 47-70 [facility] Work Phone: Platelet mean volume Auto Entitic volume (Bld) 7.8 fL Normal 6.5-12.0 [facility] Work Phone: Platelet mean volume Entitic volume (Bld) 7.8 fL Normal 6.5-12.0 Comprehensi [facility] Medicine Work Phone: Comment on above: Precautions*: FALL Platelets #/vol (Bld) 206 10*3/uL Normal 150-450 [facility] Work Phone: Comment on above: Precautions*: FALL Platelets Auto #/vol (Bld) 206 10*3/uL Normal 150-450 [facility] Work Phone: RBC #/vol (Bld) 3.95 {M/mm3} Abnormal 4.6-6.2 Compreh ensive [facility] Medicine Work Phone: Comment on above: Precautions*: FALL RBC Auto #/vol (Bld) 3.95 {M/mm3} Abnormal 4.6-6.2 [facility] Work Phone: WBC #/vol (Bld) 8.3 10*3/uL Normal 4.4-11.0 Comprehe nsive [facility] Medicine Work Phone: Comment on above: Precautions*: FALL WBC Auto #/vol (Bld) 8.3 10*3/uL Normal 4.4-11.0 Com prehensive [facility] Medicine Work Phone: CBCD ... Normal [facility] Work Phone: Comment on above: Few immature cells s een. (bands only) Precautions*: FALL COMP METABOLICOrdered By: Deangelo stem Bench Molder Apprentice on 05-14-2006 Albumin mass conc 3.3 g/dL Abnormal 3.4-5.0 [facility] Internal Medicine Work Phone: Comment on above: Precautions*: NOT AP PLICABLE Albumin/Globulin mass ratio 1.0 {RATIO} Normal 0.9-2.4 [facility] Internal Medicine Work Phone: Comment on above: Precautions*: NOT AP PLICABLE ALP enzyme act/vol 50 U/L Normal 50-136 [facility] Internal Medicine Work Phone: Comment on above: Precautions*: NOT AP PLICABLE ALT enzyme act/vol 47 [iU]/L Normal 30-65 [facility] Internal Medicine Work Phone: Comment on above: Precautions*: NOT AP PLICABLE Anion gap 3 molar conc 9 mmol/L Normal 5-15 [facility] Internal Medicine Work Phone: Anion gap molar conc 9 mmol/L Normal 5-15 [facility] Internal Medicine Work Phone: Comment on above: Precautions*: NOT AP PLICABLE AST enzyme act/vol 24 U/L Normal 15-37 [facility] Internal Medicine Work Phone: Comment on above: Precautions*: NOT AP PLICABLE Bilirubin mass conc 0.39 mg/dL Normal 0.00-1.00 [facility] Internal Medicine Work Phone: Comment on above: Precautions*: NOT AP PLICABLE Calcium mass conc 8.2 mg/dL Abnormal 8.5-10.1 [facility] Internal Medicine Work Phone: Comment on above: Precautions*: NOT AP PLICABLE Chloride molar conc 101 mmol/L Normal 98-107 [facility] Internal Medicine Work Phone: Comment on above: Precautions*: NOT AP PLICABLE CO2 molar conc 26.0 mmol/L Normal 22.0-29.0 [facility] Internal Medicine Work Phone: Comment on above: Precautions*: NOT AP PLICABLE Creatinine mass conc 1.1 mg/dL Normal 0.8-1.3 Comp rehensive Internal Medicine Work Phone: Comment on above: Precautions*: NOT AP PLICABLE Globulin Calculated mass conc (S) 3.2 g/dL Normal 2.3-3.5 [facility] Work Phone: Globulin mass conc (S) 3.2 g/dL Normal 2.3-3.5 [facility] Work Phone: Comment on above: Precautions*: NOT AP PLICABLE Glucose mass conc 165 mg/dL Abnormal 70-110 Compreh ensive [facility] Work Phone: Comment on above: Fasting Glucose resu lt greater than or equal to 126 mg/dL suggests DIABETES MELLITUS per A.D.A. criteria. Precautions*: NOT AP PLICABLE Potassium molar conc 4.0 mmol/L Normal 3.5-5.1 Comp rehensive [facility] Work Phone: Comment on above: Precautions*: NOT AP PLICABLE Protein mass conc 6.5 g/dL Normal 6.4-8.2 Compreh ensive [facility] Medicine Work Phone: Comment on above: Precautions*: NOT AP PLICABLE Sodium molar conc 136 mmol/L Normal 136-145 Compreh ensive [facility] Work Phone: Comment on above: Precautions*: NOT AP PLICABLE Urea nitrogen mass conc 10 mg/dL Normal 7-18 [facility] Work Phone: Comment on above: Precautions*: NOT AP PLICABLE Urea nitrogen/Creatinine mass ratio 9.1 {RATIO} Abnormal 10-20 [facility] Work Phone: Comment on above: Precautions*: NOT AP PLICABLE CPK TOTALOrdered By: Airway Controller on 05-14-2006 CPK TOTAL 236 U/L Abnormal 35-232 [facility] Work Phone: Comment on above: Precautions*: FALLIN DICATE CK '1', '2', '3', OR 'R' FOR RANDOM: 2 CPKMBOrdered By: System Mikaela brown on 05-14-2006 CK.MB mass conc 2.9 ng/mL Normal 0.0-5.0 [facility] Internal Medicine Work Phone: Comment on above: CK-MB and RI Interpr etation MB Relative Index Non-AMI 5 5 > 4 Precautions*: FALLIN DICATE CK '1', '2', '3', OR 'R' FOR RANDOM: 2 MGOrdered By: Airway Controller on 05-14-2006 Magnesium mass conc 1.6 mg/dL Normal 1.5-2.2 [facility] Internal Medicine Work Phone: Comment on above: Precautions*: NOT AP PLICABLE TROPONIN-IOrdered By: Airway Controller on 05-14-2006 Troponin I.cardiac mass conc 0.06 ng/mL Normal [facility] Internal Medicine Work Phone: Comment on above: TROPONIN-I EXPECTED VALUES < 0.50 NEGATIVE 0.50 - 1.49 INDETERMINANT > OR = 1.50 SUGGEST ME Precautions*: FALLIN DICATE CK '1', '2', '3', OR 'R' FOR RANDOM: 2 Troponin I.cardiac mass conc ng/mL Normal [facility] Internal Medicine Work Phone: Comment on above: TROPONIN-I EXPECTED VALUES < 0.50 NEGATIVE 0.50 - 1.49 INDETERMINANT > OR = 1.50 SUGGEST ME Precautions*: FALL BMPOrdered By: System Manage r on 05-13-2006 Anion gap 3 molar conc 12 mmol/L Normal 5-15 [facility] Internal Medicine Work Phone: Anion gap molar conc 12 mmol/L Normal 5-15 [facility] Internal Medicine Work Phone: Comment on above: COMMENTS: BED 2 DR. Olson*: NOT APPLICABLEINDICATE CK '1', '2', '3', OR 'R' FOR RANDOM: 1 Calcium mass conc 9.0 mg/dL Normal 8.5-10.1 [facility] Internal Medicine Work Phone: Comment on above: COMMENTS: BED 2 DR. Olson*: NOT APPLICABLEINDICATE CK '1', '2', '3', OR 'R' FOR RANDOM: 1 Chloride molar conc 101 mmol/L Normal 98-107 [facility] Internal Medicine Work Phone: Comment on above: COMMENTS: BED 2 DR. Olson*: NOT APPLICABLEINDICATE CK '1', '2', '3', OR 'R' FOR RANDOM: 1 CO2 molar conc 25.0 mmol/L Normal 22.0-29.0 [facility] Internal Medicine Work Phone: Comment on above: COMMENTS: BED 2 DR. Olson*: NOT APPLICABLEINDICATE CK '1', '2', '3', OR 'R' FOR RANDOM: 1 Creatinine mass conc 1.2 mg/dL Normal 0.8-1.3 [facility] Internal Medicine Work Phone: Comment on above: COMMENTS: BED 2 DR. Olson*: NOT APPLICABLEINDICATE CK '1', '2', '3', OR 'R' FOR RANDOM: 1 Glucose mass conc 133 mg/dL Abnormal 70-110 [facility] Internal Medicine Work Phone: Comment on above: Fasting Glucose resu lt greater than or equal to 126 mg/dL suggests DIABETES MELLITUS per A.D.A. criteria. COMMENTS: BED 2 DR. Olson*: NOT APPLICABLEINDICATE CK '1', '2', '3', OR 'R' FOR RANDOM: 1 Potassium molar conc 3.5 mmol/L Normal 3.5-5.1 [facility] Internal Medicine Work Phone: Comment on above: COMMENTS: BED 2 DR. Olson*: NOT APPLICABLEINDICATE CK '1', '2', '3', OR 'R' FOR RANDOM: 1 Sodium molar conc 138 mmol/L Normal 136-145 [facility] Internal Medicine Work Phone: Comment on above: COMMENTS: BED 2 DR. Olson*: NOT APPLICABLEINDICATE CK '1', '2', '3', OR 'R' FOR RANDOM: 1 Urea nitrogen mass conc 18 mg/dL Normal 7-18 [facility] Internal Medicine Work Phone: Comment on above: COMMENTS: BED 2 DR. Olson*: NOT APPLICABLEINDICATE CK '1', '2', '3', OR 'R' FOR RANDOM: 1 Urea nitrogen/Creatinine mass ratio 15.0 {RATIO} Normal 10-20 [facility] Work Phone: Comment on above: COMMENTS: BED 2 DR. Olson*: NOT APPLICABLEINDICATE CK '1', '2', '3', OR 'R' FOR RANDOM: 1 CBCDOrdered By: System Manag er on 05-13-2006 Basophils/100 WBC (Bld) 0.1 % Normal 0-1 [facility] Work Phone: Comment on above: COMMENTS: BED 2 DR. Olson*: NOT APPLICABLE Basophils/100 WBC Auto (Bld) 0.1 % Normal 0-1 [facility] Work Phone: Eosinophils/100 WBC (Bld) 0.7 % Normal 0-5 [facility] Work Phone: Comment on above: COMMENTS: BED 2 DR. Olson*: NOT APPLICABLE Eosinophils/100 WBC Auto (Bld) 0.7 % Normal 0-5 [facility] Work Phone: Erythrocyte distribution width Auto Ratio (RBC) 13.6 % Normal 11.6-14.6 [facility] Work Phone: Erythrocyte distribution width Ratio (RBC) 13.6 % Normal 11.6-14.6 [facility] Work Phone: Comment on above: COMMENTS: BED 2 DR. Olson*: NOT APPLICABLE Hematocrit Auto Volume Fraction (Bld) 41.6 % Normal 40-54 [facility] Internal Medicine Work Phone: Hematocrit Volume Fraction (Bld) 41.6 % Normal 40-54 [facility] Internal Medicine Work Phone: Comment on above: COMMENTS: BED 2 DR. Olson*: NOT APPLICABLE Hemoglobin mass conc (Bld) 14.1 g/dL Normal 14.0-18.0 [facility] Work Phone: Comment on above: COMMENTS: BED 2 DR. Olson*: NOT APPLICABLE Lymphocytes/100 WBC (Bld) 14.9 % Abnormal 19-41 [facility] Work Phone: Comment on above: COMMENTS: BED 2 DR. Olson*: NOT APPLICABLE Lymphocytes/100 WBC Auto (Bld) 14.9 % Abnormal 19-41 [facility] Work Phone: MCH Auto Entitic mass (RBC) 31.1 pg Normal 27.0-32.0 [facility] Work Phone: MCH Entitic mass (RBC) 31.1 pg Normal 27.0-32.0 [facility] Work Phone: Comment on above: COMMENTS: BED 2 DR. Olson*: NOT APPLICABLE MCHC Auto mass conc (RBC) 34.0 g/dL Normal 32-36 [facility] Work Phone: MCHC mass conc (RBC) 34.0 g/dL Normal 32-36 [facility] Internal Medicine Work Phone: Comment on above: COMMENTS: BED 2 DR. Olson*: NOT APPLICABLE MCV Auto Entitic volume (RBC) 91.6 fL Normal 80-94 [facility] Work Phone: MCV Entitic volume (RBC) 91.6 fL Normal 80-94 [facility] Work Phone: Comment on above: COMMENTS: BED 2 DR. Olson*: NOT APPLICABLE Monocytes/100 WBC (Bld) 6.2 % Normal 0-10 [facility] Work Phone: Comment on above: COMMENTS: BED 2 DR. Olson*: NOT APPLICABLE Monocytes/100 WBC Auto (Bld) 6.2 % Normal 0-10 [facility] Work Phone: Neutrophils/100 WBC (Bld) 78.1 % Abnormal 47-70 [facility] Work Phone: Comment on above: COMMENTS: BED 2 DR. Olson*: NOT APPLICABLE Neutrophils/100 WBC Auto (Bld) 78.1 % Abnormal 47-70 [facility] Work Phone: Platelet mean volume Auto Entitic volume (Bld) 7.7 fL Normal 6.5-12.0 [facility] Work Phone: Platelet mean volume Entitic volume (Bld) 7.7 fL Normal 6.5-12.0 [facility] Work Phone: Comment on above: COMMENTS: BED 2 DR. Olson*: NOT APPLICABLE Platelets #/vol (Bld) 224 10*3/uL Normal 150-450 [facility] Internal Medicine Work Phone: Comment on above: COMMENTS: BED 2 DR. Olson*: NOT APPLICABLE Platelets Auto #/vol (Bld) 224 10*3/uL Normal 150-450 [facility] Internal Medicine Work Phone: RBC #/vol (Bld) 4.54 {M/mm3} Abnormal 4.6-6.2 Compreh [facility] Internal [facility] Work Phone: Comment on above: COMMENTS: BED 2 DR. Olson*: NOT APPLICABLE RBC Auto #/vol (Bld) 4.54 {M/mm3} Abnormal 4.6-6.2 [facility] Internal Medicine Work Phone: WBC #/vol (Bld) 10.0 10*3/uL Normal 4.4-11.0 [facility] Internal Medicine Work Phone: Comment on above: COMMENTS: BED 2 DR. Olson*: NOT APPLICABLE WBC Auto #/vol (Bld) 10.0 10*3/uL Normal 4.4-11.0 [facility] Internal Medicine Work Phone: CPK TOTALOrdered By: Airway Controller on 05-13-2006 CPK TOTAL 181 U/L Normal 35-232 [facility] Internal Medicine Work Phone: Comment on above: Precautions*: FALLIN DICATE CK '1', '2', '3', OR 'R' FOR RANDOM: 1 CPK TOTAL 136 U/L Normal 35-232 [facility] Internal Medicine Work Phone: Comment on above: COMMENTS: BED 2 DR. Olson*: NOT APPLICABLEINDICATE CK '1', '2', '3', OR 'R' FOR RANDOM: 1 CPKMBOrdered By: System Mikaela brown on 05-13-2006 CK.MB mass conc ng/mL Normal 0.0-5.0 [facility] Internal Medicine Work Phone: Comment on above: CK-MB and RI Interpr etation MB Relative Index Non-AMI 5 5 > 4 COMMENTS: BED 2 DR. Olson*: NOT APPLICABLEINDICATE CK '1', '2', '3', OR 'R' FOR RANDOM: 1 CK.MB mass conc 2.8 ng/mL Normal 0.0-5.0 [facility] Internal Medicine Work Phone: Comment on above: CK-MB and RI Interpr etation MB Relative Index Non-AMI 5 5 > 4 Precautions*: FALLIN DICATE CK '1', '2', '3', OR 'R' FOR RANDOM: 1 MGOrdered By: Airway Controller on 05-13-2006 Magnesium mass conc 2.0 mg/dL Normal 1.5-2.2 [facility] Internal Medicine Work Phone: Comment on above: COMMENTS: PLEASE DO ON BLOOD IN LABPrecautions*: NOT APPLICABLE PTTOrdered By: System Manage r on 05-13-2006 aPTT Coag time (Bld) 24.7 s Normal 24.6-36.6 [facility] Internal Medicine Work Phone: Comment on above: COMMENTS: BED 2 DR. Olson*: NOT APPLICABLE TROPONIN-IOrdered By: Airway Controller on 05-13-2006 Troponin I.cardiac mass conc ng/mL Normal [facility] Internal Medicine Work Phone: Comment on above: TROPONIN-I EXPECTED VALUES < 0.50 NEGATIVE 0.50 - 1.49 INDETERMINANT > OR = 1.50 SUGGEST ME COMMENTS: BED 2 DR. Olson*: NOT APPLICABLEINDICATE CK '1', '2', '3', OR 'R' FOR RANDOM: 1 Precautions*: FALLIN DICATE CK '1', '2', '3', OR 'R' FOR RANDOM: 1 Vital Signs Date Time Vital Sign Value Performing Clinician Facility 01-12-2023 13:31-0400 Body height 177.8 cm Meseret Slarb [employer] [facility] Work Phone: 01-12-2023 13:31-0400 Body mass index (BMI) [Ratio] 24.54 kg/m2 Meseret Slarb [employer] [facility]; [facility] Work Phone: 01-12-2023 13:31-0400 Body surface area Derived from formula 1.95 m2 Meseret Slarb [employer] [facility] Work Phone: 01-12-2023 13:31-0400 Body temperature 97.5 [degF] Meseret Slarb [employer] [facility]; [facility] Work Phone: 01-12-2023 13:31-0400 Body weight 77.57 kg Meseret Slarb [employer] [facility] Work Phone: 01-12-2023 13:31-0400 Diastolic blood pressure 82 mm[Hg] Meseret Slarb [employer] [facility] Work Phone: 01-12-2023 13:31-0400 Heart rate 64 /min Meseret Slarb [employer] [facility] Work Phone: 01-12-2023 13:31-0400 Respiratory rate 16 /min Meseret Slarb [employer] [facility] Work Phone: 01-12-2023 13:31-0400 SaO2% (BldA) [Mass fraction] 99 % Meseret Slarb [employer] [facility]; [facility] Work Phone: 01-12-2023 13:31-0400 Systolic blood pressure 136 mm[Hg] Meseret Slarb [employer] [facility] Work Phone: 07-22-2022 13:26-0500 Body height 177.8 cm Meseret Slarb [employer] [facility] Work Phone: 07-22-2022 13:26-0500 Body mass index (BMI) [Ratio] 24.54 kg/m2 Meseret Slarb [employer] [facility] Work Phone: 07-22-2022 13:26-0500 Body surface area Derived from formula 1.95 m2 Meseret Yuanrb [employer] [facility] Work Phone: 07-22-2022 13:26-0500 Body temperature 98.4 [degF] Meseret Yuanrb [employer] [facility] Work Phone: Comment on above: Method: Temporal 07-22-2022 13:26-0500 Body weight 77.57 kg Meseret Yuanrb [employer] [facility] Work Phone: 07-22-2022 13:26-0500 Diastolic blood pressure 90 mm[Hg] Meseret Yuanrb [employer] [facility] Work Phone: Comment on above: Patient Position: Sitting; Cuff Location : Left Arm; Cuff Size: Standard 07-22-2022 13:26-0500 Heart rate 70 /min Meseret Yuanrb [employer] [facility] Work Phone: Comment on above: Pattern: Regular 07-22-2022 13:26-0500 Respiratory rate 17 /min Meseret Yuanrb [employer] [facility] Work Phone: Comment on above: Pattern: Unlabored 07-22-2022 13:26-0500 SaO2% (BldA) [Mass fraction] 99 % Meseret Slarb [employer] [facility] Work Phone: Comment on above: Room air 07-22-2022 13:26-0500 Systolic blood pressure 142 mm[Hg] Meseret Yuanrb [employer] [facility] Work Phone: Comment on above: Patient Position: Sitting; Cuff Location : Left Arm; Cuff Size: Standard 01-20-2022 14:02-0400 Body height 177.8 cm Meseret Yuanrb [employer] [facility] Work Phone: 01-20-2022 14:02-0400 Body mass index (BMI) [Ratio] 23.75 kg/m2 Meseret Yuanrb [employer] [facility] Work Phone: 01-20-2022 14:02-0400 Body surface area Derived from formula 1.93 m2 Meseret Lissyrb [employer] [facility] Work Phone: 01-20-2022 14:02-0400 Body temperature 97.6 [degF] Meseret Slarb [employer] [facility] Work Phone: 01-20-2022 14:02-0400 Body weight 75.07 kg Meseret Yuanrb [employer] [facility] Work Phone: 01-20-2022 14:02-0400 Diastolic blood pressure 82 mm[Hg] Meseret Slarb [employer] [facility] Work Phone: Comment on above: Patient Position: Sitting; Cuff Location : Left Arm; Cuff Size: Standard 01-20-2022 14:02-0400 Heart rate 67 /min Meseret Yuanrb [employer] [facility] Work Phone: Comment on above: Pattern: Regular 01-20-2022 14:02-0400 Respiratory rate 16 /min Meseret Yuanrb [employer] [facility] Work Phone: Comment on above: Pattern: Unlabored 01-20-2022 14:02-0400 SaO2% (BldA) [Mass fraction] 99 % Meseret Slarb [employer] [facility] Work Phone: Comment on above: Room air 01-20-2022 14:02-0400 Systolic blood pressure 132 mm[Hg] Meseret Slarb [employer] [facility] Work Phone: Comment on above: Patient Position: Sitting; Cuff Location : Left Arm; Cuff Size: Standard 07-15-2021 12:08-0500 Body height 177.8 cm Faith Sepulveda [employer] [facility] Work Phone: 07-15-2021 12:08-0500 Body mass index (BMI) [Ratio] 23.6 kg/m2 Faith Sepulveda LPN [facility] Work Phone: 07-15-2021 12:08-0500 Body surface area Derived from formula 1.92 m2 Faith Sepulveda LPN [facility] Work Phone: 07-15-2021 12:08-0500 Body temperature 97.1 [degF] Faith Sepulveda LPN [facility] Work Phone: Comment on above: Method: Temporal 07-15-2021 12:08-0500 Body weight 74.62 kg Faith Sepulveda LPN [facility] Work Phone: 07-15-2021 12:08-0500 Diastolic blood pressure 98 mm[Hg] Faith Sepulveda LPN [facility] Work Phone: Comment on above: Patient Position: Sitting; Cuff Location : Left Arm; Cuff Size: Standard 07-15-2021 12:08-0500 Heart rate 68 /min Faith Sepulveda LPN [facility] Work Phone: Comment on above: Pattern: Regular 07-15-2021 12:08-0500 Respiratory rate 16 /min Faith Sepulveda LPN [facility] Work Phone: Comment on above: Pattern: Unlabored 07-15-2021 12:08-0500 SaO2% (BldA) [Mass fraction] 98 % Faith Sepulveda LPN [facility] Work Phone: Comment on above: Room air 07-15-2021 12:08-0500 Systolic blood pressure 130 mm[Hg] Faith Sepulveda LPN [facility] Work Phone: Comment on above: Patient Position: Sitting; Cuff Location : Left Arm; Cuff Size: Standard 01-07-2021 13:11-0400 Body height 177.8 cm Faith Sepulveda LPN [facility] Work Phone: 01-07-2021 13:11-0400 Body mass index (BMI) [Ratio] 23.3 kg/m2 aFith Sepulveda [employer] [facility] Work Phone: 01-07-2021 13:040 Body surface area Derived from formula 1.91 m2 Faith Sepulveda LPN [facility] Work Phone: 01-07-2021 13:[id number] Body temperature 97.1 [degF] Faith Sepulveda LPN [facility] Work Phone: 01-07-2021 13:11040 Body weight 73.65 kg Faith Sepulveda LPN [facility]; [facility] Work Phone: 01-07-2021 13:[id number] Diastolic blood pressure 90 mm[Hg] Faith Sepulveda LPN [facility]; [facility] Work Phone: Comment on above: Patient Position: Sitting; Cuff Location : Left Arm; Cuff Size: Standard 01-07-2021 13:11-0400 Heart rate 63 /min Faith Seuplveda LPN [facility]; [facility] Work Phone: Comment on above: Pattern: Regular 01-07-2021 13:11-0400 Respiratory rate 16 /min Faith Sepulveda LPN [facility] Work Phone: Comment on above: Pattern: Unlabored 01-07-2021 13:11-0400 SaO2% (BldA) [Mass fraction] 98 % Faith Sepulveda LPN [facility] Work Phone: Comment on above: Room air 01-07-2021 13:11-0400 Systolic blood pressure 122 mm[Hg] Faith Sepulveda [employer] [facility] Work Phone: Comment on above: Patient Position: Sitting; Cuff Location : Left Arm; Cuff Size: Standard 08-22-2020 08:55-0400 Body height 177.8 cm Chasity Huff LPN [facility]; [facility] Work Phone: 08-22-2020 08:55-0400 Body mass index (BMI) [Ratio] 23.54 kg/m2 [facility] Work Phone: 08-22-2020 08:55-0400 Body surface area Derived from formula 1.92 m2 [facility] Work Phone: 08-22-2020 08:55-0400 Body weight 74.41 kg [facility] Work Phone: 08-22-2020 08:55-0400 Diastolic blood pressure 96 mm[Hg] [facility] Work Phone: Comment on above: Patient Position: Sitting; Cuff Location : Left Arm; Cuff Size: Standard 08-22-2020 08:55-0400 Systolic blood pressure 160 mm[Hg] [facility] Work Phone: Comment on above: Patient Position: Sitting; Cuff Location : Left Arm; Cuff Size: Standard 07-10-2020 10:01-0500 BMI (Body Mass Index) 23.54 kg/m2 Lucille Clemensashleigh [employer] Work Phone: [facility]; [facility] Work Phone: 07-10-2020 10:01-0500 Body weight 74.41 kg Lucille Clemensashleigh [employer]ICE REP Work Phone: [facility]; [facility] Work Phone: 07-10-2020 10:01-0500 BP Diastolic 82 mm[Hg] Lucille Clemensa OFFICE REP Work Phone: [facility]; [facility] Work Phone: Comment on above: Patient Position: Supine; Cuff Location: Right Arm; Cuff Size: Standard 07-10-2020 10:01-0500 BP Systolic 127 mm[Hg] Lucille Clemensa OFFICE REP Work Phone: [facility]; [facility] Work Phone: Comment on above: Patient Position: Supine; Cuff Location: Right Arm; Cuff Size: Standard 07-10-2020 10:01-0500 BSA (Body Surface Area) 1.92 m2 Lucille Espinoza OFFICE REP Work Phone: [facility]; [facility] Work Phone: 07-10-2020 10:01-0500 Height 177.8 cm Lucille Espinoza OFFICE REP Work Phone: [facility]; [facility] Work Phone: 01-03-2020 11:08-0400 BMI (Body Mass Index) 24.11 kg/m2 Lucille Espinoza [facility] Work Phone: 01-03-2020 11:08-0400 BMI (Body Mass Index) 23.97 kg/m2 Juan José Collazo LPN [facility] Work Phone: 01-03-2020 11:08-0400 Body Temperature 97.8 [degF] Juan José Collazo LPN [facility] Work Phone: Comment on above: Method: Infrared 01-03-2020 11:08-0400 Body weight 76.2 kg Lucille Olga [facility] Work Phone: 01-03-2020 11:08-0400 Body weight 75.77 kg Juan José Collazo LPN [facility] Work Phone: 01-03-2020 11:08-0400 BP Diastolic 100 mm[Hg] Juan José Collazo LPN [facility] Work Phone: Comment on above: Patient Position: Sitting; Cuff Location : Left Arm; Cuff Size: Standard 01-03-2020 11:08-0400 BP Systolic 148 mm[Hg] Juan José Collazo LPN [facility] Work Phone: Comment on above: Patient Position: Sitting; Cuff Location : Left Arm; Cuff Size: Standard 01-03-2020 11:08-0400 BSA (Body Surface Area) 1.94 m2 Lucille Olga [facility] Work Phone: 01-03-2020 11:08-0400 BSA (Body Surface Area) 1.93 m2 Juan José Collazo LPN [facility] Work Phone: 01-03-2020 11:08-0400 Height 177.8 cm Juan José Collazo LPN [facility] Work Phone: 01-03-2020 11:08-0400 Pulse (Heart Rate) 60 /min Juan José Collazo LPN [facility] Work Phone: Comment on above: Pattern: Regular 01-03-2020 11:08-0400 Pulse Oximetry 97 % Lucille Espinoza [facility] Work Phone: Comment on above: Room air 01-03-2020 11:08-0400 Respiratory Rate 16 /min Juan José Collazo [employer] [facility] Work Phone: Comment on above: Pattern: Unlabored 01-03-2020 11:08-0400 SaO2% (BldA) [Mass fraction] 97 % Juan José Collazo LPN [facility]; [facility] Work Phone: Comment on above: Room air 09-05-2019 08:11-0400 BMI (Body Mass Index) 24.11 kg/m2 Juan José Collazo LPN [facility] Work Phone: Comment on above: pt took vitals and reported 09-05-2019 08:11-0400 Body weight 76.2 kg Juan José Collazo LPN [facility] Work Phone: Comment on above: pt took vitals and reported 09-05-2019 08:11-0400 BP Diastolic 88 mm[Hg] Juan José Collazo LPN [facility] Work Phone: Comment on above: Patient Position: Sitting; Cuff Location : Left Arm; Cuff Size: Standard pt took vitals and r eported 09-05-2019 08:11-0400 BP Systolic 133 mm[Hg] [facility] Work Phone: Comment on above: Patient Position: Sitting; Cuff Location : Left Arm; Cuff Size: Standard pt took vitals and r eported 09-05-2019 08:11-0400 BSA (Body Surface Area) 1.94 m2 Juan José Collazo LPN [facility] Work Phone: Comment on above: pt took vitals and reported 09-05-2019 08:11-0400 Height 177.8 cm Juan José Zay CUE[employer] Work Phone: Comment on above: pt took vitals and reported 04-19-2019 09:21-0500 BMI (Body Mass Index) 24.54 kg/m2 Juan José Collazo LPN [facility] Work Phone: 04-19-2019 09:21-0500 Body Temperature 97.8 [degF] Juan José Collazo LPN [facility] Work Phone: Comment on above: Method: Temporal 04-19-2019 09:21-0500 Body weight 77.57 kg Juan José Collazo LPN [facility] Work Phone: 04-19-2019 09:21-0500 BP Diastolic 86 mm[Hg] Juan José Collazo LPN [facility] Work Phone: Comment on above: Patient Position: Sitting; Cuff Location : Left Arm; Cuff Size: Standard 04-19-2019 09:21-0500 BP Systolic 140 mm[Hg] Juan José Collazo LPN [facility] Work Phone: Comment on above: Patient Position: Sitting; Cuff Location : Left Arm; Cuff Size: Standard 04-19-2019 09:21-0500 BSA (Body Surface Area) 1.95 m2 Juan José Collazo LPN [facility] Work Phone: 04-19-2019 09:21-0500 Height 177.8 cm Juan José Collazo LPN [facility] Work Phone: 04-19-2019 09:21-0500 Pulse (Heart Rate) 64 /min Juan José Collazo LPN [facility] Work Phone: Comment on above: Pattern: Regular 04-19-2019 09:21-0500 Pulse Oximetry 98 % Lucille Espinoza [facility] Work Phone: Comment on above: Room air 04-19-2019 09:21-0500 Respiratory Rate 16 /min Juan José Collazo LPN [facility] Work Phone: Comment on above: Pattern: Unlabored 04-19-2019 09:21-0500 SaO2% (BldA) [Mass fraction] 98 % Juan José Collazo LPN [facility]; [facility] Work Phone: Comment on above: Room air 10-19-2018 10:05-0400 BMI (Body Mass Index) 23.96 kg/m2 Lucille Mcguire [facility] Work Phone: 10-19-2018 10:05-0400 BMI (Body Mass Index) 24.28 kg/m2 Susanna Mcguire [facility] Work Phone: 10-19-2018 10:05-0400 Body Temperature 98.2 [degF] Susanna Talbot [facility] Work Phone: Comment on above: Method: Temporal 10-19-2018 10:05-0400 Body weight 76.77 kg Susanna Talbot [facility] Work Phone: 10-19-2018 10:05-0400 BP Diastolic 84 mm[Hg] Susanna Talbot [facility] Work Phone: Comment on above: Patient Position: Sitting; Cuff Location : Left Arm; Cuff Size: Standard 10-19-2018 10:05-0400 BP Systolic 130 mm[Hg] Susanna Talbot [facility] Work Phone: Comment on above: Patient Position: Sitting; Cuff Location : Left Arm; Cuff Size: Standard 10-19-2018 10:05-0400 BSA (Body Surface Area) 1.93 m2 Lucille Espinoza [facility] Work Phone: 10-19-2018 10:05-0400 BSA (Body Surface Area) 1.94 m2 Susanna Talbot [facility] Work Phone: 10-19-2018 10:05-0400 Height 177.8 cm Susanna Talbot [facility] Work Phone: 10-19-2018 10:05-0400 Pulse (Heart Rate) 72 /min Susanna Talbot [facility] Work Phone: Comment on above: Pattern: Regular 10-19-2018 10:05-0400 Pulse Oximetry 98 % Lucille Espinoza [facility] Work Phone: Comment on above: Room air 10-19-2018 10:05-0400 Respiratory Rate 18 /min Susanna Talbot [facility] Work Phone: Comment on above: Pattern: Unlabored 10-19-2018 10:05-0400 SaO2% (BldA) [Mass fraction] 98 % Susanna Talbot [facility]; [facility] Work Phone: Comment on above: Room air 10-19-2018 10:05-0400 Weight 75.75 kg Lucille Espinoza [facility] Work Phone: 10-19-2018 10:05-0400 Weight 76.77 kg Lucille Espinoza [facility] Work Phone: 04-20-2018 13:43-0500 BMI (Body Mass Index) 23.96 kg/m2 Nelia Awan RN [facility] Work Phone: 04-20-2018 13:43-0500 Body Temperature 97.9 [degF] Nelia Awan RN [facility] Work Phone: Comment on above: Method: Temporal 04-20-2018 13:43-0500 Body weight 75.75 kg Nelia Awan RN [facility] Work Phone: 04-20-2018 13:43-0500 BP Diastolic 76 mm[Hg] Nelia Awan RN [facility] Work Phone: Comment on above: Patient Position: Sitting; Cuff Location : Left Arm; Cuff Size: Standard 04-20-2018 13:43-0500 BP Systolic 160 mm[Hg] Nelia Awan RN [facility] Work Phone: Comment on above: Patient Position: Sitting; Cuff Location : Left Arm; Cuff Size: Standard 04-20-2018 13:43-0500 BSA (Body Surface Area) 1.93 m2 Nelia Awan RN [facility] Work Phone: 04-20-2018 13:43-0500 Height 177.8 cm Nelia Awan RN [facility] Work Phone: 04-20-2018 13:43-0500 Pulse (Heart Rate) 82 /min Nelia Awan RN [facility] Work Phone: Comment on above: Pattern: Regular 04-20-2018 13:43-0500 Pulse Oximetry 98 % Lucille Clemensashleigh [facility] Work Phone: Comment on above: Room air 04-20-2018 13:43-0500 Respiratory Rate 17 /min Nelia Awan RN [facility] Work Phone: Comment on above: Pattern: Unlabored 04-20-2018 13:43-0500 SaO2% (BldA) [Mass fraction] 98 % Nelia Awan RN [facility]; [facility] Work Phone: Comment on above: Room air 04-20-2018 13:43-0500 Weight 75.75 kg Lucille Espinoza [facility] Work Phone: 04-13-2018 13:11-0500 BMI (Body Mass Index) 23.69 kg/m2 Juan José Collazo LPN [facility] Work Phone: 04-13-2018 13:11-0500 Body Temperature 97.8 [degF] Juan José Collazo LPN [facility] Work Phone: 04-13-2018 13:11-0500 Body weight 74.9 kg Juan José Collazo LPN [facility] Work Phone: 04-13-2018 13:11-0500 BP Diastolic 82 mm[Hg] Juan José Collazo LPN [facility] Work Phone: Comment on above: Patient Position: Sitting; Cuff Location : Left Arm; Cuff Size: Standard 04-13-2018 13:11-0500 BP Systolic 130 mm[Hg] Juan José Collazo LPN [facility] Work Phone: Comment on above: Patient Position: Sitting; Cuff Location : Left Arm; Cuff Size: Standard 04-13-2018 13:11-0500 BSA (Body Surface Area) 1.92 m2 Juan José Collazo LPN [facility] Work Phone: 04-13-2018 13:11-0500 Height 177.8 cm Juan José Collazo LPN [facility] Work Phone: 04-13-2018 13:11-0500 Pulse (Heart Rate) 68 /min Juan José Collazo LPN [facility] Work Phone: Comment on above: Pattern: Regular 04-13-2018 13:11-0500 Pulse Oximetry 99 % Lucille Espinoza [facility] Work Phone: Comment on above: Room air 04-13-2018 13:11-0500 Respiratory Rate 16 /min Juan José Collazo LPN [facility] Work Phone: Comment on above: Pattern: Unlabored 04-13-2018 13:11-0500 SaO2% (BldA) [Mass fraction] 99 % Juan José Collazo LPN [facility]; [facility] Work Phone: Comment on above: Room air 04-13-2018 13:11-0500 Weight 74.9 kg Lucille Espinoza [facility] Work Phone: 02-03-2018 13:29-0400 BMI (Body Mass Index) 23.69 kg/m2 Elva Carver [facility] Work Phone: 02-03-2018 13:29-0400 Body Temperature 98.8 [degF] Elva Carver [facility] Work Phone: Comment on above: Method: Temporal 02-03-2018 13:29-0400 Body weight 74.9 kg Elva Carver [facility] Work Phone: 02-03-2018 13:29-0400 BP Diastolic 84 mm[Hg] Elva Carver [facility] Work Phone: Comment on above: Patient Position: Sitting; Cuff Location : Left Arm; Cuff Size: Standard 02-03-2018 13:29-0400 BP Systolic 138 mm[Hg] Elva Carver [facility] Work Phone: Comment on above: Patient Position: Sitting; Cuff Location : Left Arm; Cuff Size: Standard 02-03-2018 13:29-0400 BSA (Body Surface Area) 1.92 m2 Elva Carver [facility] Work Phone: 02-03-2018 13:29-0400 Height 177.8 cm Elva Carver [facility] Work Phone: 02-03-2018 13:29-0400 Pulse (Heart Rate) 72 /min Elva Carver [facility] Work Phone: Comment on above: Pattern: Regular 02-03-2018 13:29-0400 Pulse Oximetry 98 % Lucille Espinoza [facility] Work Phone: Comment on above: Room air 02-03-2018 13:29-0400 Respiratory Rate 16 /min Elva Carver [facility] Work Phone: Comment on above: Pattern: Unlabored 02-03-2018 13:29-0400 SaO2% (BldA) [Mass fraction] 98 % Elva Carver [facility]; [facility] Work Phone: Comment on above: Room air 02-03-2018 13:29-0400 Weight 74.9 kg Lucille Espinoza [facility] Work Phone: 10-19-2017 13:28-0400 BMI (Body Mass Index) 22.67 kg/m2 Meseret Slarb [employer] [facility] Work Phone: 10-19-2017 13:28-0400 Body Temperature 97.8 [degF] Meseret Slarb [employer] [facility] Work Phone: 10-19-2017 13:28-0400 Body weight 71.67 kg Meseret Slarb [employer] [facility] Work Phone: 10-19-2017 13:28-0400 BP Diastolic 80 mm[Hg] Meseret Slarb [employer] [facility] Work Phone: Comment on above: Patient Position: Sitting; Cuff Location : Left Arm; Cuff Size: Standard 10-19-2017 13:28-0400 BP Systolic 130 mm[Hg] Meseret Slarb [employer] [facility] Work Phone: Comment on above: Patient Position: Sitting; Cuff Location : Left Arm; Cuff Size: Standard 10-19-2017 13:28-0400 BSA (Body Surface Area) 1.89 m2 Meseret Slarb [employer] [facility] Work Phone: 10-19-2017 13:28-0400 Height 177.8 cm Meseret Napoleon [facility] Work Phone: 10-19-2017 13:28-0400 Pulse (Heart Rate) 60 /min Meseret Napoleon [employer] Work Phone: Comment on above: Pattern: Regular 10-19-2017 13:28-0400 Pulse Oximetry 97 % Lucille Espinoza [facility] Work Phone: Comment on above: Room air 10-19-2017 13:28-0400 Respiratory Rate 18 /min Meseret Bender LPN [facility] Work Phone: Comment on above: Pattern: Unlabored 10-19-2017 13:28-0400 SaO2% (BldA) [Mass fraction] 97 % Meseret Bender LPN [facility]; [facility] Work Phone: Comment on above: Room air 10-19-2017 13:28-0400 Weight 71.67 kg Lucille [facility] Work Phone: 07-16-2017 13:32-0500 BMI (Body Mass Index) 23.39 kg/m2 Nelia Awan RN [facility] Work Phone: 07-16-2017 13:32-0500 Body Temperature 98.6 [degF] Nelia Awan RN [facility] Work Phone: Comment on above: Method: Temporal 07-16-2017 13:32-0500 Body weight 73.94 kg Nelia Awan RN [facility] Work Phone: 07-16-2017 13:32-0500 BP Diastolic 78 mm[Hg] Nelia Awan RN [facility] Work Phone: Comment on above: Patient Position: Sitting; Cuff Location : Left Arm; Cuff Size: Standard 07-16-2017 13:32-0500 BP Systolic 126 mm[Hg] Nelia Awan RN [facility] Work Phone: Comment on above: Patient Position: Sitting; Cuff Location : Left Arm; Cuff Size: Standard 07-16-2017 13:32-0500 BSA (Body Surface Area) 1.91 m2 Nelia Awan RN [facility] Work Phone: 07-16-2017 13:32-0500 Height 177.8 cm Nelia Awan RN [facility] Work Phone: 07-16-2017 13:32-0500 Pulse (Heart Rate) 72 /min Nelia Awan RN [facility] Internal Medicine Work Phone: Comment on above: Pattern: Regular 07-16-2017 13:32-0500 Pulse Oximetry 98 % Lucille Clemensashleigh [facility] Internal Medicine Work Phone: Comment on above: Room air 07-16-2017 13:32-0500 Respiratory Rate 16 /min Nelia Awan RN [facility] Work Phone: Comment on above: Pattern: Unlabored 07-16-2017 13:32-0500 SaO2% (BldA) [Mass fraction] 98 % Nelia Awan RN [facility] Internal Medicine; [facility] Work Phone: Comment on above: Room air 07-16-2017 13:32-0500 Weight 73.94 kg Lucille Espinoza [facility] Internal Medicine Work Phone: 04-05-2017 13:17-0500 BMI (Body Mass Index) 23.39 kg/m2 Amy Zhou [facility] Internal Medicine Work Phone: 04-05-2017 13:17-0500 Body Temperature 97.9 [degF] Amy Zhou [facility] Internal Medicine Work Phone: Comment on above: Method: Temporal 04-05-2017 13:17-0500 Body weight 73.94 kg Amy Zhou [facility] Internal Medicine Work Phone: 04-05-2017 13:17-0500 BP Diastolic 92 mm[Hg] Amy Zhou [facility] Internal Medicine Work Phone: Comment on above: Patient Position: Sitting; Cuff Location : Left Arm; Cuff Size: Standard 04-05-2017 13:17-0500 BP Systolic 136 mm[Hg] Amy Zhou [facility] Internal Medicine Work Phone: Comment on above: Patient Position: Sitting; Cuff Location : Left Arm; Cuff Size: Standard 04-05-2017 13:17-0500 BSA (Body Surface Area) 1.91 m2 Amy Yanceyabdelrahman [facility] Internal Medicine Work Phone: 04-05-2017 13:17-0500 Height 177.8 cm Amy Winnie [facility] Internal Medicine Work Phone: 04-05-2017 13:17-0500 Pulse (Heart Rate) 72 /min Amy Zhou [facility] Internal [facility] Work Phone: Comment on above: Pattern: Regular 04-05-2017 13:17-0500 Pulse Oximetry 98 % Lucille Espinoza [facility] Internal Medicine Work Phone: Comment on above: Room air 04-05-2017 13:17-0500 Respiratory Rate 16 /min Amy Winnie [facility] Internal Medicine Work Phone: Comment on above: Pattern: Unlabored 04-05-2017 13:17-0500 SaO2% (BldA) [Mass fraction] 98 % Amy Winnie [facility] Internal Medicine; [facility] Work Phone: Comment on above: Room air 04-05-2017 13:17-0500 Weight 73.94 kg Lucille Espinoza [facility] Internal Medicine Work Phone: 03-02-2017 13:03-0400 BMI (Body Mass Index) 23.24 kg/m2 Amy Winnie [facility] Work Phone: 03-02-2017 13:03-0400 Body Temperature 97.6 [degF] Amy Winnie [facility] Internal Medicine Work Phone: Comment on above: Method: Temporal 03-02-2017 13:03-0400 Body weight 73.48 kg Amy Winnie [facility] Internal Medicine Work Phone: 03-02-2017 13:03-0400 BP Diastolic 100 mm[Hg] Amy Winnie [facility] Internal Medicine Work Phone: Comment on above: Patient Position: Sitting; Cuff Location : Left Arm; Cuff Size: Standard 03-02-2017 13:03-0400 BP Systolic 156 mm[Hg] Amy Zhou [facility] Internal Medicine Work Phone: Comment on above: Patient Position: Sitting; Cuff Location : Left Arm; Cuff Size: Standard 03-02-2017 13:03-0400 BSA (Body Surface Area) 1.91 m2 Amy Zhou [facility] Internal Medicine Work Phone: 03-02-2017 13:03-0400 Height 177.8 cm Amy Zhou [facility] Internal Medicine Work Phone: 03-02-2017 13:03-0400 Pulse (Heart Rate) 64 /min Amy Zhou [facility] Internal Medicine Work Phone: Comment on above: Pattern: Regular 03-02-2017 13:03-0400 Pulse Oximetry 98 % Lucille Espinoza [facility] Internal Medicine Work Phone: Comment on above: Room air 03-02-2017 13:03-0400 Respiratory Rate 16 /min Amy Zhou [facility] Internal Medicine Work Phone: Comment on above: Pattern: Unlabored 03-02-2017 13:03-0400 SaO2% (BldA) [Mass fraction] 98 % Amy Zhou [facility]; [facility] Work Phone: Comment on above: Room air 03-02-2017 13:03-0400 Weight 73.48 kg Lucille Espinoza [facility] Internal Medicine Work Phone: 12-28-2016 13:08-0400 BMI (Body Mass Index) 22.96 kg/m2 Desiree Valentino [facility] Internal Medicine Work Phone: 12-28-2016 13:08-0400 Body Temperature 98.2 [degF] Desiree Valentino [facility] Internal Medicine Work Phone: Comment on above: Method: Temporal 12-28-2016 13:08-0400 Body weight 72.58 kg Desiree Valentino [facility] Internal Medicine Work Phone: 12-28-2016 13:08-0400 BP Diastolic 80 mm[Hg] Desiree Valentino [facility] Work Phone: Comment on above: Patient Position: Sitting; Cuff Location : Left Arm; Cuff Size: Standard 12-28-2016 13:08-0400 BP Systolic 140 mm[Hg] Desiree Valentino [facility] Work Phone: Comment on above: Patient Position: Sitting; Cuff Location : Left Arm; Cuff Size: Standard 12-28-2016 13:08-0400 BSA (Body Surface Area) 1.9 m2 Desiree Valentino [facility] Work Phone: 12-28-2016 13:08-0400 Height 177.8 cm Desiree Valentino [facility] Work Phone: 12-28-2016 13:08-0400 Pulse (Heart Rate) 59 /min Desiree Valentino [facility] Work Phone: Comment on above: Pattern: Regular 12-28-2016 13:08-0400 Respiratory Rate 16 /min Desiree Valentino [facility] Work Phone: Comment on above: Pattern: Unlabored 12-28-2016 13:08-0400 Weight 72.58 kg Lucille Espinoza [facility] Internal Medicine Work Phone: 09-01-2016 09:02-0400 BMI (Body Mass Index) 23.53 kg/m2 Nori A Fast DO Work Phone: [facility] Medicine Work Phone: 09-01-2016 09:02-0400 Body Temperature 97.1 [degF] Nori A Fast DO Work Phone: [facility] Work Phone: Comment on above: Method: Temporal 09-01-2016 09:02-0400 Body weight 74.39 kg Nori A Fast DO Work Phone: [facility] Work Phone: 09-01-2016 09:02-0400 BP Diastolic 80 mm[Hg] Nori A Fast DO Work Phone: [facility] Work Phone: Comment on above: Patient Position: Sitting; Cuff Location : Left Arm; Cuff Size: Standard 09-01-2016 09:02-0400 BP Systolic 140 mm[Hg] Nori A Fast DO Work Phone: [facility] Work Phone: Comment on above: Patient Position: Sitting; Cuff Location : Left Arm; Cuff Size: Standard 09-01-2016 09:02-0400 BSA (Body Surface Area) 1.92 m2 Nori A Fast DO Work Phone: [facility] Work Phone: 09-01-2016 09:02-0400 Height 177.8 cm Nori A Fast DO Work Phone: [facility] Work Phone: 09-01-2016 09:02-0400 Pulse (Heart Rate) 60 /min Nori A Fast DO Work Phone: [facility] Work Phone: Comment on above: Pattern: Regular 09-01-2016 09:02-0400 Pulse Oximetry 98 % Lucille Espinoza [facility] Medicine Work Phone: Comment on above: Room air 09-01-2016 09:02-0400 Respiratory Rate 16 /min Nori A Fast DO Work Phone: [facility] Work Phone: Comment on above: Pattern: Unlabored 09-01-2016 09:02-0400 SaO2% (BldA) [Mass fraction] 98 % Nori A Fast DO Work Phone: [facility]; [facility] Work Phone: Comment on above: Room air 09-01-2016 09:02-0400 Weight 74.39 kg Lucille Espinoza [facility] Medicine Work Phone: 04-07-2016 13:08-0500 BMI (Body Mass Index) 22.81 kg/m2 Amy ward Internal Medicine Work Phone: 04-07-2016 13:08-0500 Body Temperature 97.3 [degF] Amy Zhou [facility] Medicine Work Phone: Comment on above: Method: Temporal 04-07-2016 13:08-0500 Body weight 72.12 kg Amy Zhou [facility] Work Phone: 04-07-2016 13:08-0500 BP Diastolic 78 mm[Hg] Amy Zhou [facility] Work Phone: Comment on above: Patient Position: Sitting; Cuff Location : Left Arm; Cuff Size: Standard 04-07-2016 13:08-0500 BP Systolic 140 mm[Hg] Amy Zhou [facility] Medicine Work Phone: Comment on above: Patient Position: Sitting; Cuff Location : Left Arm; Cuff Size: Standard 04-07-2016 13:08-0500 BSA (Body Surface Area) 1.89 m2 Amy Yanceyabdelrahman [facility] Work Phone: 04-07-2016 13:08-0500 Height 177.8 cm Amy Zhou [facility] Medicine Work Phone: 04-07-2016 13:08-0500 Pulse (Heart Rate) 72 /min Amy Zhou [facility] Internal Medicine Work Phone: Comment on above: Pattern: Regular 04-07-2016 13:08-0500 Pulse Oximetry 99 % Lucille Espinoza [facility] Medicine Work Phone: Comment on above: Room air 04-07-2016 13:08-0500 Respiratory Rate 16 /min Amy Zhou [facility] Work Phone: Comment on above: Pattern: Unlabored 04-07-2016 13:08-0500 SaO2% (BldA) [Mass fraction] 99 % Amy Zhou [facility]; [facility] Work Phone: Comment on above: Room air 04-07-2016 13:08-0500 Weight 72.12 kg Lucille Espinoza [facility] Work Phone: 09-24-2015 13:05-0400 BMI (Body Mass Index) 23.1 kg/m2 Amy Couchterrellabdelrahman Greggen [facility] Internal Medicine Work Phone: 09-24-2015 13:05-0400 Body Temperature 98.4 [degF] Amy Couchblanca [facility] Medicine Work Phone: Comment on above: Method: Temporal 09-24-2015 13:05-0400 Body weight 73.03 kg Amy Couchblanca [facility] Medicine Work Phone: 09-24-2015 13:05-0400 BP Diastolic 94 mm[Hg] Amy Winnie [facility] Medicine Work Phone: Comment on above: Patient Position: Sitting; Cuff Location : Left Arm; Cuff Size: Standard 09-24-2015 13:05-0400 BP Systolic 146 mm[Hg] Amy Couchblanca [facility] Medicine Work Phone: Comment on above: Patient Position: Sitting; Cuff Location : Left Arm; Cuff Size: Standard 09-24-2015 13:05-0400 BSA (Body Surface Area) 1.9 m2 Amy Couchblanca [facility] Medicine Work Phone: 09-24-2015 13:05-0400 Height 177.8 cm Amy Couchblanca [facility] Medicine Work Phone: 09-24-2015 13:05-0400 Pulse (Heart Rate) 56 /min [facility] Work Phone: Comment on above: Pattern: Regular 09-24-2015 13:05-0400 Pulse Oximetry 98 % Lucille Espinoza [facility] Medicine Work Phone: Comment on above: Room air 09-24-2015 13:05-0400 Respiratory Rate 15 /min Amy Winnie [facility] Medicine Work Phone: Comment on above: Pattern: Unlabored 09-24-2015 13:05-0400 SaO2% (BldA) [Mass fraction] 98 % Amy Zhou [facility]; [facility] Work Phone: Comment on above: Room air 09-24-2015 13:05-0400 Weight 73.03 kg Lucille Espinoza [facility] Medicine Work Phone: 03-20-2015 13:06-0500 BMI (Body Mass Index) 24.25 kg/m2 Amy Winnie [facility] Work Phone: 03-20-2015 13:06-0500 Body Temperature 98.9 [degF] Amy Winnie [facility] Medicine Work Phone: Comment on above: Method: Oral 03-20-2015 13:06-0500 Body weight 76.66 kg Amy Winnie [facility] Medicine Work Phone: 03-20-2015 13:06-0500 BP Diastolic 96 mm[Hg] Amy Winnie [facility] Work Phone: Comment on above: Patient Position: Sitting; Cuff Location : Left Arm; Cuff Size: Standard 03-20-2015 13:06-0500 BP Systolic 152 mm[Hg] Amy Khoaterrellabdelrahman [facility] Medicine Work Phone: Comment on above: Patient Position: Sitting; Cuff Location : Left Arm; Cuff Size: Standard 03-20-2015 13:06-0500 BSA (Body Surface Area) 1.94 m2 Amy Winnie [facility] Work Phone: 03-20-2015 13:06-0500 Height 177.8 cm Amy Winnie [facility] Work Phone: 03-20-2015 13:06-0500 Pulse (Heart Rate) 68 /min Amy Winnie [facility] Work Phone: Comment on above: Pattern: Regular 03-20-2015 13:06-0500 Pulse Oximetry 96 % Lucille Espinoza [facility] Work Phone: Comment on above: Room air 03-20-2015 13:06-0500 Respiratory Rate 16 /min Amy Winnie [facility] Work Phone: Comment on above: Pattern: Unlabored 03-20-2015 13:06-0500 SaO2% (BldA) [Mass fraction] 96 % Amy Winnie [facility]; [facility] Work Phone: Comment on above: Room air 03-20-2015 13:06-0500 Weight 76.66 kg Lucille Espinoza [facility] Work Phone: 09-17-2014 13:09-0400 BMI (Body Mass Index) 24.68 kg/m2 Amy Winnie [facility] Work Phone: 09-17-2014 13:09-0400 Body Temperature 98.3 [degF] Amy Winnie [facility] Work Phone: Comment on above: Method: Oral 09-17-2014 13:09-0400 Body weight 78.02 kg Amy Winnie [facility] Work Phone: 09-17-2014 13:09-0400 BP Diastolic 78 mm[Hg] Amy Winnie [facility] Work Phone: Comment on above: Patient Position: Sitting; Cuff Location : Left Arm; Cuff Size: Standard 09-17-2014 13:09-0400 BP Systolic 146 mm[Hg] Amy Winnie [facility] Medicine Work Phone: Comment on above: Patient Position: Sitting; Cuff Location : Left Arm; Cuff Size: Standard 09-17-2014 13:09-0400 BSA (Body Surface Area) 1.96 m2 Amy Winnie [facility] Medicine Work Phone: 09-17-2014 13:09-0400 Height 177.8 cm Amy Winnie [facility] Medicine Work Phone: 09-17-2014 13:09-0400 Pulse (Heart Rate) 68 /min Amy Winnie [facility] Work Phone: Comment on above: Pattern: Regular 09-17-2014 13:09-0400 Respiratory Rate 16 /min Amy Zhou [facility] Medicine Work Phone: Comment on above: Pattern: Unlabored 09-17-2014 13:090400 Weight 78.02 kg Lucille Espinoza [facility] Medicine Work Phone: 04-11-2014 13:09-0500 BMI (Body Mass Index) 23.82 kg/m2 Nelia Awan RN [facility] Internal Medicine Work Phone: 04-11-2014 13:09-0500 Body Temperature 98.6 [degF] Nelia Awan RN [facility] Work Phone: Comment on above: Method: Temporal 04-11-2014 13:090500 Body weight 75.3 kg Nelia Awan RN [facility] Work Phone: 04-11-2014 13:09-0500 BP Diastolic 74 mm[Hg] Nelia Awan RN [facility] Work Phone: Comment on above: Patient Position: Sitting; Cuff Location : Left Arm; Cuff Size: Standard 04-11-2014 13:09-0500 BP Systolic 136 mm[Hg] Nelia Awan RN [facility] Work Phone: Comment on above: Patient Position: Sitting; Cuff Location : Left Arm; Cuff Size: Standard 04-11-2014 13:09-0500 BSA (Body Surface Area) 1.93 m2 Nelia Awan RN [facility] Work Phone: 04-11-2014 13:09-0500 Height 177.8 cm Nelia Awan RN [facility] Work Phone: 04-11-2014 13:09-0500 Pulse (Heart Rate) 16 /min Nelia Awan RN [facility] Work Phone: Comment on above: Pattern: Regular 04-11-2014 13:09-0500 Pulse Oximetry 98 % Lucille Espinoza [facility] Work Phone: Comment on above: Room air 04-11-2014 13:09-0500 Respiratory Rate 16 /min Nelia Awan RN [facility] Work Phone: Comment on above: Pattern: Unlabored 04-11-2014 13:09-0500 SaO2% (BldA) [Mass fraction] 98 % Nelia Awan RN [facility]; [facility] Work Phone: Comment on above: Room air 04-11-2014 13:0500 Weight 75.3 kg Lucille Espinoza [facility] Work Phone: 09-15-2013 13:130400 BMI (Body Mass Index) 24.11 kg/m2 Amy Zhou [facility] Work Phone: 09-15-2013 13:13-0400 Body Temperature 97.6 [degF] Amy Zhou [facility] Work Phone: 09-15-2013 13:130400 Body weight 76.2 kg Amy Winnie [facility] Medicine Work Phone: 09-15-2013 13:13-0400 BP Diastolic 82 mm[Hg] Amy Zhou [facility] Work Phone: Comment on above: Patient Position: Sitting; Cuff Location : Left Arm; Cuff Size: Large 09-15-2013 13:13-0400 BP Systolic 142 mm[Hg] Amy Winnie [facility] Work Phone: Comment on above: Patient Position: Sitting; Cuff Location : Left Arm; Cuff Size: Large 09-15-2013 13:130400 BSA (Body Surface Area) 1.94 m2 Amy Zhou [facility] Medicine Work Phone: 09-15-2013 13:130400 Height 177.8 cm Amy Zhou [facility] Medicine Work Phone: 09-15-2013 13:13-0400 Pulse (Heart Rate) 80 /min Amy Zhou [facility] Medicine Work Phone: Comment on above: Pattern: Regular 09-15-2013 13:13-0400 Respiratory Rate 16 /min Amy Zhou [facility] Medicine Work Phone: Comment on above: Pattern: Unlabored 09-15-2013 13:13-0400 Weight 76.2 kg Lucille Espinoza [facility] Medicine Work Phone: 04-12-2013 13:07-0500 BMI (Body Mass Index) 24.68 kg/m2 [facility] Work Phone: 04-12-2013 13:07-0500 Body Temperature 97.7 [degF] Amy Zhou [facility] Work Phone: 04-12-2013 13:07-0500 Body weight 78.02 kg Amy Zhou [facility] Work Phone: 04-12-2013 13:07-0500 BP Diastolic 66 mm[Hg] Amy Zhou [facility] Work Phone: Comment on above: Patient Position: Sitting; Cuff Location : Left Arm; Cuff Size: Large 04-12-2013 13:07-0500 BP Systolic 118 mm[Hg] Amy Zhou [facility] Work Phone: Comment on above: Patient Position: Sitting; Cuff Location : Left Arm; Cuff Size: Large 04-12-2013 13:07-0500 BSA (Body Surface Area) 1.96 m2 Amy Zhou [facility] Medicine Work Phone: 04-12-2013 13:07-0500 Height 177.8 cm Amy Zhou [facility] Work Phone: 04-12-2013 13:07-0500 Pulse (Heart Rate) 72 /min Amy Zhou [facility] Medicine Work Phone: Comment on above: Pattern: Regular 04-12-2013 13:07-0500 Respiratory Rate 16 /min Amy Zhou [facility] Work Phone: Comment on above: Pattern: Unlabored 04-12-2013 13:07-0500 Weight 78.02 kg Lucille Espinoza [facility] Work Phone: 12-02-2012 13:19-0400 BMI (Body Mass Index) 23.96 kg/m2 [facility] Work Phone: 12-02-2012 13:19-0400 Body Temperature 98.2 [degF] Amy Zhou [facility] Work Phone: 12-02-2012 13:040 Body weight 75.75 kg Amy Zhou [facility] Work Phone: 12-02-2012 13:-0400 BP Diastolic 92 mm[Hg] Amy Zhou [facility] Medicine Work Phone: Comment on above: Patient Position: Sitting; Cuff Location : Left Arm; Cuff Size: Standard 12-02-2012 13:0400 BP Systolic 130 mm[Hg] Amy Zhou [facility] Medicine Work Phone: Comment on above: Patient Position: Sitting; Cuff Location : Left Arm; Cuff Size: Standard 12-02-2012 13:0400 BSA (Body Surface Area) 1.93 m2 Amy Zhou [facility] Medicine Work Phone: 12-02-2012 13:040 Height 177.8 cm Amy Zhou [facility] Medicine Work Phone: 12-02-2012 13:0400 Pulse (Heart Rate) 72 /min Amy Zhou [facility] Internal Medicine Work Phone: Comment on above: Pattern: Regular 12-02-2012 13:0400 Respiratory Rate 16 /min Amy Zhou [facility] Medicine Work Phone: Comment on above: Pattern: Unlabored 12-02-2012 13:-0400 Weight 75.75 kg Lucille Espinoza [facility] Medicine Work Phone: 05-04-2012 13:120500 BMI (Body Mass Index) 24.97 kg/m2 Amy Zhou [facility] Internal Medicine Work Phone: 05-04-2012 13:12-0500 Body Temperature 96.6 [degF] Amy Zhou [facility] Work Phone: 05-04-2012 13:12-0500 Body weight 78.93 kg Amy Yanceyabdelrahman [facility] Work Phone: 05-04-2012 13:12-0500 BP Diastolic 80 mm[Hg] Amy Zhou [facility] Work Phone: Comment on above: Patient Position: Sitting; Cuff Location : Left Arm; Cuff Size: Large 05-04-2012 13:12-0500 BP Systolic 140 mm[Hg] Amy Zhou [facility] Work Phone: Comment on above: Patient Position: Sitting; Cuff Location : Left Arm; Cuff Size: Large 05-04-2012 13:12-0500 BSA (Body Surface Area) 1.97 m2 Amy Winnie [facility] Medicine Work Phone: 05-04-2012 13:12-0500 Height 177.8 cm Amy Winnie [facility] Work Phone: 05-04-2012 13:12-0500 Pulse (Heart Rate) 68 /min [facility] Work Phone: Comment on above: Pattern: Regular 05-04-2012 13:12-0500 Respiratory Rate 16 /min Amy Winnie [facility] Medicine Work Phone: Comment on above: Pattern: Unlabored 05-04-2012 13:12-0500 Weight 78.93 kg Lucille Espinoza [facility] Medicine Work Phone: 11-04-2011 12:55-0400 BMI (Body Mass Index) 24.25 kg/m2 Amy Winnie Ryder [facility] Internal Medicine Work Phone: 11-04-2011 12:55-0400 Body Temperature 98 [degF] Amy Winnie [facility] Work Phone: 11-04-2011 12:55-0400 Body weight 76.66 kg Amy Winnie [facility] Medicine Work Phone: 11-04-2011 12:55-0400 BP Diastolic 88 mm[Hg] Amy Winnie [facility] Medicine Work Phone: Comment on above: Patient Position: Sitting; Cuff Location : Left Arm; Cuff Size: Large 11-04-2011 12:55-0400 BP Systolic 136 mm[Hg] Amy Zhou [facility] Medicine Work Phone: Comment on above: Patient Position: Sitting; Cuff Location : Left Arm; Cuff Size: Large 11-04-2011 12:55-0400 BSA (Body Surface Area) 1.94 m2 Amy Zhou [facility] Medicine Work Phone: 11-04-2011 12:55-0400 Height 177.8 cm Amy Couchblanca [facility] Internal Medicine Work Phone: 11-04-2011 12:55-0400 Pulse (Heart Rate) 76 /min Amy Zhou [facility] Internal Medicine Work Phone: Comment on above: Pattern: Regular 11-04-2011 12:55-0400 Respiratory Rate 16 /min Amy Couchblanca [facility] Internal Medicine Work Phone: Comment on above: Pattern: Unlabored 11-04-2011 12:55-0400 Weight 76.66 kg Lucille Espinoza [facility] Internal Medicine Work Phone: 05-06-2011 12:56-0500 BMI (Body Mass Index) 24.68 kg/m2 Amy Couchterrellabdelrahman [facility] Internal Medicine Work Phone: 05-06-2011 12:56-0500 Body Temperature 97.8 [degF] Amy Couchblanca [facility] Internal Medicine Work Phone: 05-06-2011 12:56-0500 Body weight 78.02 kg Amy Couchblanca [facility] Internal Medicine Work Phone: 05-06-2011 12:56-0500 BP Diastolic 84 mm[Hg] Amy Winnie [facility] Internal Medicine Work Phone: Comment on above: Patient Position: Sitting; Cuff Location : Left Arm; Cuff Size: Large 05-06-2011 12:56-0500 BP Systolic 126 mm[Hg] Amy Couchblanca [facility] Internal Medicine Work Phone: Comment on above: Patient Position: Sitting; Cuff Location : Left Arm; Cuff Size: Large 05-06-2011 12:56-0500 BSA (Body Surface Area) 1.96 m2 Amy Winnie [facility] Internal Medicine Work Phone: 05-06-2011 12:56-0500 Height 177.8 cm Amy Winnie [facility] Internal Medicine Work Phone: 05-06-2011 12:56-0500 Pulse (Heart Rate) 66 /min Amy Zhou [facility] Internal Medicine Work Phone: Comment on above: Pattern: Regular 05-06-2011 12:56-0500 Respiratory Rate 16 /min Amy Winnie [facility] Internal Medicine Work Phone: Comment on above: Pattern: Unlabored 05-06-2011 12:56-0500 Weight 78.02 kg Lucille Espinoza [facility] Work Phone: 10-28-2010 13:07-0400 BMI (Body Mass Index) 23.67 kg/m2 Fallon Pastrana RN [facility] Internal Medicine Work Phone: 10-28-2010 13:07-0400 Body Temperature 97.9 [degF] Fallon Pastrana RN [facility] Work Phone: Comment on above: Method: Oral 10-28-2010 13:07-0400 Body weight 74.84 kg Fallon Pastrana RN [facility] Medicine Work Phone: 10-28-2010 13:07-0400 BP Diastolic 82 mm[Hg] Fallon Pastrana RN [facility] Work Phone: Comment on above: Patient Position: Sitting; Cuff Location : Left Arm; Cuff Size: Standard 10-28-2010 13:07-0400 BP Systolic 122 mm[Hg] Fallon Pastrana RN [facility] Work Phone: Comment on above: Patient Position: Sitting; Cuff Location : Left Arm; Cuff Size: Standard 10-28-2010 13:07-0400 BSA (Body Surface Area) 1.92 m2 Fallon Pastrana RN [facility] Work Phone: 10-28-2010 13:07-0400 Height 177.8 cm Fallon Mast RN [facility] Work Phone: 10-28-2010 13:07-0400 Pulse (Heart Rate) 64 /min Fallon Pastrana RN [facility] Work Phone: Comment on above: Pattern: Regular 10-28-2010 13:07-0400 Respiratory Rate 16 /min Fallon Pastrana RN [facility] Work Phone: Comment on above: Pattern: Unlabored 10-28-2010 13:07-0400 Weight 74.84 kg Lucille Espinoza [facility] Internal Medicine Work Phone: 05-14-2010 13:24-0500 Body Temperature 97.6 [degF] Amy Zhou [facility] Internal Medicine Work Phone: 05-14-2010 13:24-0500 Body weight 76.2 kg Amy Zhou [facility] Internal Medicine Work Phone: 05-14-2010 13:24-0500 BP Diastolic 80 mm[Hg] Amy Zhou [facility] Internal Medicine Work Phone: Comment on above: Patient Position: Sitting; Cuff Location : Left Arm; Cuff Size: Standard 05-14-2010 13:24-0500 BP Systolic 128 mm[Hg] Amy Zhou [facility] Internal Medicine Work Phone: Comment on above: Patient Position: Sitting; Cuff Location : Left Arm; Cuff Size: Standard 05-14-2010 13:24-0500 Pulse (Heart Rate) 80 /min Amy Zhou [facility] Internal Medicine Work Phone: Comment on above: Pattern: Regular 05-14-2010 13:24-0500 Respiratory Rate 18 /min Amy Zhou [facility] Internal Medicine Work Phone: Comment on above: Pattern: Unlabored 05-14-2010 13:24-0500 Weight 76.2 kg Lucille Espinoza [facility] Internal Medicine Work Phone: 10-22-2009 13:-0400 Body weight 73.94 kg Amy Zhou [facility] Internal Medicine Work Phone: 10-22-2009 13:01-0400 BP Diastolic 84 mm[Hg] Amy Zhou [facility] Internal Medicine Work Phone: Comment on above: Patient Position: Sitting; Cuff Location : Left Arm; Cuff Size: Standard 10-22-2009 13:01-0400 BP Systolic 140 mm[Hg] Amy Zhou [facility] Internal Medicine Work Phone: Comment on above: Patient Position: Sitting; Cuff Location : Left Arm; Cuff Size: Standard 10-22-2009 13:01-0400 Pulse (Heart Rate) 76 /min Amy Zhou [facility] Internal Medicine Work Phone: Comment on above: Pattern: Regular 10-22-2009 13:01-0400 Respiratory Rate 18 /min Amy Couchblanca [facility] Internal Medicine Work Phone: Comment on above: Pattern: Unlabored 10-22-2009 13:01-04[address] [facility] Internal Medicine Work Phone: 04-24-2009 13:13-0500 Body Temperature 97.3 [degF] Amy Zhou [facility] Internal Medicine Work Phone: Comment on above: Method: Undefined 04-24-2009 13:13-0500 Body weight 74.39 kg Amy Couchblanca [facility] Internal Medicine Work Phone: 04-24-2009 13:13-0500 BP Diastolic 86 mm[Hg] Amy Yanceyabdelrahman [facility] Internal Medicine Work Phone: Comment on above: Patient Position: Sitting; Cuff Location : Left Arm; Cuff Size: Large 04-24-2009 13:13-0500 BP Systolic 130 mm[Hg] Amy Zhou [facility] Internal Medicine Work Phone: Comment on above: Patient Position: Sitting; Cuff Location : Left Arm; Cuff Size: Large 04-24-2009 13:13-0500 Head Circumference 0 cm [facility] Internal Medicine Work Phone: 04-24-2009 13:13-0500 Head Occipital-frontal circumference 0 cm Amy Flblanca [facility] Internal Medicine; [facility] Internal Medicine Work Phone: 04-24-2009 13:130500 Height 0 cm Amy Zhou [facility] Internal Medicine Work Phone: 04-24-2009 13:130500 Pulse (Heart Rate) 84 /min Amy Zhou [facility] Internal Medicine Work Phone: Comment on above: Pattern: Regular 04-24-2009 13:-0500 Respiratory Rate 18 /min Amy Zhou [facility] Internal Medicine Work Phone: Comment on above: Pattern: Undefined 04-24-2009 13:13-0500 Weight 74.39 kg Lucille Espinoza [facility] Internal Medicine Work Phone: 03-12-2009 13:08-0400 Body Temperature 98.5 [degF] Amy Zhou [facility] Internal Medicine Work Phone: Comment on above: Method: Undefined 03-12-2009 13:0400 Body weight 73.03 kg Amy Zhou [facility] Internal Medicine Work Phone: 03-12-2009 13:08-0400 BP Diastolic 82 mm[Hg] Amy Zhou [facility] Internal Medicine Work Phone: Comment on above: Patient Position: Sitting; Cuff Location : Left Arm; Cuff Size: Standard 03-12-2009 13:08-0400 BP Systolic 138 mm[Hg] Amy Zhou [facility] Internal Medicine Work Phone: Comment on above: Patient Position: Sitting; Cuff Location : Left Arm; Cuff Size: Standard 03-12-2009 13:08-0400 Head Circumference 0 cm Lucille Espinoza [facility] Internal Medicine Work Phone: 03-12-2009 13:08-0400 Head Occipital-frontal circumference 0 cm Amy Zhou [facility] Internal Medicine; [facility] Work Phone: 03-12-2009 13:08-0400 Height 0 cm Amy Zhou [facility] Internal Medicine Work Phone: 03-12-2009 13:08-0400 Pulse (Heart Rate) 68 /min Amy Zhou [facility] Internal Medicine Work Phone: Comment on above: Pattern: Regular 03-12-2009 13:08-0400 Respiratory Rate 18 /min Amy Zhou [facility] Internal Medicine Work Phone: Comment on above: Pattern: Undefined 03-12-2009 13:08-0400 Weight 73.03 kg Lucille Espinoza [facility] Internal Medicine Work Phone: 09-10-2008 13:02-0400 BMI (Body Mass Index) 22.96 kg/m2 Amy Zhou [facility] Internal Medicine Work Phone: 09-10-2008 13:02-0400 Body Temperature 98.2 [degF] Amy Winnie [facility] Internal Medicine Work Phone: Comment on above: Method: Undefined 09-10-2008 13:02-0400 Body weight 72.58 kg Amy Winnie [facility] Internal Medicine Work Phone: 09-10-2008 13:02-0400 BP Diastolic 88 mm[Hg] Amy Couchblanca [facility] Internal Medicine Work Phone: Comment on above: Patient Position: Sitting; Cuff Location : Right Arm; Cuff Size: Standard 09-10-2008 13:02-0400 BP Systolic 122 mm[Hg] Amy Yanceyabdelrahman [facility] Internal Medicine Work Phone: Comment on above: Patient Position: Sitting; Cuff Location : Right Arm; Cuff Size: Standard 09-10-2008 13:02-0400 BSA (Body Surface Area) 1.9 m2 Amy Couchblanca [facility] Internal Medicine Work Phone: 09-10-2008 13:02-0400 Head Circumference 0 cm Lucille Espinoza [facility] Internal Medicine Work Phone: 09-10-2008 13:02-0400 Head Occipital-frontal circumference 0 cm Amy Winnie [facility] Medicine; [facility] Internal Medicine Work Phone: 09-10-2008 13:02-0400 Height 177.8 cm Amy Winnie [facility] Internal Medicine Work Phone: 09-10-2008 13:02-0400 Pulse (Heart Rate) 88 /min Amy Zhou [facility] Internal Medicine Work Phone: Comment on above: Pattern: Regular 09-10-2008 13:02-0400 Respiratory Rate 16 /min Amy Zhou [facility] Work Phone: Comment on above: Pattern: Undefined 09-10-2008 13:02-0400 Weight 72.58 kg Lucille Espinoza [facility] Internal Medicine Work Phone: 03-12-2008 12:55-0400 Body Temperature 97 [degF] Amy Zhou [facility] Internal Medicine Work Phone: Comment on above: Method: Undefined 03-12-2008 12:55-0400 Body weight 74.39 kg Amy Zhou [facility] Internal Medicine Work Phone: 03-12-2008 12:55-0400 BP Diastolic 90 mm[Hg] Amy hZou [facility] Internal Medicine Work Phone: Comment on above: Patient Position: Sitting; Cuff Location : Right Arm; Cuff Size: Standard 03-12-2008 12:55-0400 BP Systolic 142 mm[Hg] Amy Zhou [facility] Internal Medicine Work Phone: Comment on above: Patient Position: Sitting; Cuff Location : Right Arm; Cuff Size: Standard 03-12-2008 12:55-0400 Head Circumference 0 cm Lucille Espinoza [facility] Internal Medicine Work Phone: 03-12-2008 12:55-0400 Head Occipital-frontal circumference 0 cm Amy Zhou [facility] Internal Medicine; [facility] Work Phone: 03-12-2008 12:55-0400 Height 0 cm Amy Zhou [facility] Internal Medicine Work Phone: 03-12-2008 12:55-0400 Pulse (Heart Rate) 84 /min Amy Zhou [facility] Medicine Work Phone: Comment on above: Pattern: Regular 03-12-2008 12:55-0400 Respiratory Rate 18 /min Amy Zhou [facility] Work Phone: Comment on above: Pattern: Undefined 03-12-2008 12:55-0400 Weight 74.39 kg Lucille Espinoza [facility] Internal Medicine Work Phone: 10-28-2007 13:05-0400 BMI (Body Mass Index) 21.56 kg/m2 Amy Yanceyabdelrahman [facility] Internal Medicine Work Phone: 10-28-2007 13:05-0400 Body Temperature 97.9 [degF] Amy Winnie [facility] Internal Medicine Work Phone: Comment on above: Method: Undefined 10-28-2007 13:05-0400 Body weight 72.12 kg Amy Couchblanca [facility] Internal Medicine Work Phone: 10-28-2007 13:05-0400 BP Diastolic 94 mm[Hg] Amy Winnie [facility] Internal Medicine Work Phone: Comment on above: Patient Position: Sitting; Cuff Location : Right Arm; Cuff Size: Standard 10-28-2007 13:05-0400 BP Systolic 148 mm[Hg] Amy Winnie [facility] Internal Medicine Work Phone: Comment on above: Patient Position: Sitting; Cuff Location : Right Arm; Cuff Size: Standard 10-28-2007 13:05-0400 BSA (Body Surface Area) 1.93 m2 Amy Couchblanca [facility] Internal Medicine Work Phone: 10-28-2007 13:05-0400 Head Circumference 0 cm Lucille Espinoza [facility] Internal Medicine Work Phone: 10-28-2007 13:05-0400 Head Occipital-frontal circumference 0 cm Amy Winnie [facility] Internal Medicine; [facility] Internal Medicine Work Phone: 10-28-2007 13:05-0400 Height 182.88 cm Amy Winnie [facility] Internal Medicine Work Phone: 10-28-2007 13:05-0400 Pulse (Heart Rate) 72 /min Amy Winnie [facility] Medicine Work Phone: Comment on above: Pattern: Regular 10-28-2007 13:05-0400 Respiratory Rate 16 /min Amy Couchblanca [facility] Internal Medicine Work Phone: Comment on above: Pattern: Undefined 10-28-2007 13:05-0400 Weight 72.12 kg Lucille Espinoza [facility] Internal Medicine Work Phone: 06-28-2007 12:57-0500 BMI (Body Mass Index) 22.24 kg/m2 Amy Winnie [facility] Internal Medicine Work Phone: 06-28-2007 12:57-0500 Body Temperature 98.1 [degF] Amy Winnie [facility] Internal Medicine Work Phone: Comment on above: Method: Oral 06-28-2007 12:57-0500 Body weight 74.39 kg Amy Winnie [facility] Internal Medicine Work Phone: 06-28-2007 12:57-0500 BP Diastolic 90 mm[Hg] Amy Winnie [facility] Internal Medicine Work Phone: Comment on above: Patient Position: Sitting; Cuff Location : Right Arm; Cuff Size: Standard 06-28-2007 12:57-0500 BP Systolic 132 mm[Hg] Amy Winnie [facility] Internal Medicine Work Phone: Comment on above: Patient Position: Sitting; Cuff Location : Right Arm; Cuff Size: Standard 06-28-2007 12:57-0500 BSA (Body Surface Area) 1.96 m2 Amy Winnie [facility] Internal Medicine Work Phone: 06-28-2007 12:57-0500 Head Circumference 0 cm Lucille Espinoza [facility] Internal Medicine Work Phone: 06-28-2007 12:57-0500 Head Occipital-frontal circumference 0 cm Amy Winnie [facility] Internal Medicine; [facility] Work Phone: 06-28-2007 12:57-0500 Height 182.88 cm Amy Winnie [facility] Internal Medicine Work Phone: 06-28-2007 12:57-0500 Pulse (Heart Rate) 80 /min Amy Winnie [facility] Medicine Work Phone: Comment on above: Pattern: Regular 06-28-2007 12:57-0500 Respiratory Rate 16 /min Amy Zhou [facility] Internal Medicine Work Phone: Comment on above: Pattern: Unlabored 06-28-2007 12:57-0500 Weight 74.39 kg Lucille Espinoza [facility] Internal Medicine Work Phone: 02-21-2007 13:06-0400 BMI (Body Mass Index) 20.89 kg/m2 Amy Winnie [facility] Internal Medicine Work Phone: 02-21-2007 13:06-0400 Body Temperature 98 [degF] Amy Winnie [facility] Internal Medicine Work Phone: Comment on above: Method: Oral 02-21-2007 13:06-0400 Body weight 69.85 kg Amy Winnie [facility] Internal Medicine Work Phone: 02-21-2007 13:06-0400 BP Diastolic 90 mm[Hg] Amy Winnie [facility] Internal Medicine Work Phone: Comment on above: Patient Position: Sitting; Cuff Location : Right Arm; Cuff Size: Large 02-21-2007 13:06-0400 BP Systolic 132 mm[Hg] Amy Winnie [facility] Internal Medicine Work Phone: Comment on above: Patient Position: Sitting; Cuff Location : Right Arm; Cuff Size: Large 02-21-2007 13:06-0400 BSA (Body Surface Area) 1.91 m2 Amy Winnie [facility] Internal Medicine Work Phone: 02-21-2007 13:06-0400 Head Circumference 0 cm Lucille Espinoza [facility] Internal Medicine Work Phone: 02-21-2007 13:06-0400 Head Occipital-frontal circumference 0 cm Amy Winnie [facility] Internal Medicine; [facility] Internal Medicine Work Phone: 02-21-2007 13:06-0400 Height 182.88 cm Amy Winnie [facility] Internal Medicine Work Phone: 02-21-2007 13:06-0400 Pulse (Heart Rate) 76 /min Amy Zhou [facility] Internal Medicine Work Phone: Comment on above: Pattern: Regular 02-21-2007 13:06-0400 Respiratory Rate 16 /min Amy Zhou [facility] Internal Medicine Work Phone: Comment on above: Pattern: Unlabored 02-21-2007 13:06-0400 Weight 69.85 kg Lucille Espinoza [facility] Internal Medicine Work Phone: 10-18-2006 13:10-0400 BMI (Body Mass Index) 20.61 kg/m2 Amy Zhou [facility] Internal Medicine Work Phone: 10-18-2006 13:10-0400 Body Temperature 98.1 [degF] Amy Zhou [facility] Internal Medicine Work Phone: Comment on above: Method: Oral 10-18-2006 13:0400 Body weight 68.95 kg Amy Zhou [facility] Internal Medicine Work Phone: 10-18-2006 13:10-0400 BP Diastolic 70 mm[Hg] Amy Zhou [facility] Internal Medicine Work Phone: Comment on above: Patient Position: Sitting; Cuff Location : Left Arm; Cuff Size: Large 10-18-2006 13:10-0400 BP Systolic 128 mm[Hg] Amy Zhou [facility] Internal Medicine Work Phone: Comment on above: Patient Position: Sitting; Cuff Location : Left Arm; Cuff Size: Large 10-18-2006 13:10-0400 BSA (Body Surface Area) 1.9 m2 Amy Yanceyabdelrahman [facility] Internal Medicine Work Phone: 10-18-2006 13:10-0400 Head Circumference 0 cm Lucille Espinoza [facility] Internal Medicine Work Phone: 10-18-2006 13:10-0400 Head Occipital-frontal circumference 0 cm Amy Yanceyabdelrahman [facility] Internal Medicine; [facility] Work Phone: 10-18-2006 13:10-0400 Height 182.88 cm May Winnie [facility] Internal Medicine Work Phone: 10-18-2006 13:10-0400 Pulse (Heart Rate) 72 /min [facility] Work Phone: Comment on above: Pattern: Regular 10-18-2006 13:10-0400 Respiratory Rate 16 /min Amy Zhou [facility] Internal Medicine Work Phone: Comment on above: Pattern: Unlabored 10-18-2006 13:10-0400 Weight 68.95 kg Lucille Espinoza [facility] Internal Medicine Work Phone: 09-08-2006 09:37-0400 BMI (Body Mass Index) 20.81 kg/m2 Sydney Kaur [facility] Internal Medicine Work Phone: 09-08-2006 09:37-0400 Body weight 69.6 kg Sydney [facility] Internal Medicine Work Phone: 09-08-2006 09:37-0400 BP Diastolic 76 mm[Hg] Sydney [facility] Internal Medicine Work Phone: Comment on above: Patient Position: Sitting; Cuff Location : Left Arm; Cuff Size: Standard 09-08-2006 09:37-0400 BP Systolic 128 mm[Hg] Sydney [facility] Internal Medicine Work Phone: Comment on above: Patient Position: Sitting; Cuff Location : Left Arm; Cuff Size: Standard 09-08-2006 09:37-0400 BSA (Body Surface Area) 1.9 m2 Sydney [facility] Internal Medicine Work Phone: 09-08-2006 09:37-0400 Head Circumference 0 cm Lucille Espinoza [facility] Internal Medicine Work Phone: 09-08-2006 09:37-0400 Head Occipital-frontal circumference 0 cm Sydney [facility] Internal Medicine; [facility] Internal Medicine Work Phone: 09-08-2006 09:37-0400 Height 182.88 cm Sydney [facility] Internal Medicine Work Phone: 09-08-2006 09:37-0400 Pulse (Heart Rate) 60 /min Sydney [facility] Internal Medicine Work Phone: Comment on above: Pattern: Regular 09-08-2006 09:37-0400 Respiratory Rate 18 /min Sydney Kaur [facility] Internal Medicine Work Phone: Comment on above: Pattern: Unlabored 09-08-2006 09:37-0400 Weight 69.6 kg Lucille Espinoza [facility] Internal Medicine Work Phone: 05-27-2006 13:37-0500 Body Temperature 98.5 [degF] Shena Colunga [facility] Internal Medicine Work Phone: Comment on above: Method: Oral 05-27-2006 13:37-0500 Body weight 71.67 kg Shena Colunga [facility] Internal Medicine Work Phone: 05-27-2006 13:37-0500 BP Diastolic 78 mm[Hg] Shena Colunga [facility] Internal Medicine Work Phone: Comment on above: Patient Position: Sitting; Cuff Location : Undefined; Cuff Size: Undefined 05-27-2006 13:37-0500 BP Systolic 128 mm[Hg] [facility] Work [facility]: Comment on above: Patient Position: Sitting; Cuff Location : Undefined; Cuff Size: Undefined 05-27-2006 13:37-0500 Head Circumference 0 cm Lucille Espinoza [facility] Internal Medicine Work Phone: 05-27-2006 13:37-0500 Head Occipital-frontal circumference 0 cm Shena Colunga [facility] Internal Medicine; [facility] Work Phone: 05-27-2006 13:37-0500 Height 0 cm Shena Colunga [facility] Internal Medicine Work Phone: 05-27-2006 13:37-0500 Pulse (Heart Rate) 76 /min [facility] Work Phone: Comment on above: Pattern: Regular 05-27-2006 13:37-0500 Respiratory Rate 16 /min Shena Colunga [facility] Internal Medicine Work Phone: Comment on above: Pattern: Undefined 05-27-2006 13:37-0500 Weight 71.67 kg Lucille Espinoza [facility] Internal Medicine Work Phone: 03-10-2006 09:24-0400 BMI (Body Mass Index) 21.97 kg/m2 Fallon Pastrana RN [facility] Internal Medicine Work Phone: 03-10-2006 09:24-0400 Body Temperature 97.9 [degF] Fallon Pastrana RN [facility] Work Phone: Comment on above: Method: Oral 03-10-2006 09:24-0400 Body weight 73.48 kg Fallon Pastrana RN [facility] Work Phone: 03-10-2006 09:24-0400 BP Diastolic 76 mm[Hg] Fallon Pastrana RN [facility] Work Phone: Comment on above: Patient Position: Sitting; Cuff Location : Right Arm; Cuff Size: Standard 03-10-2006 09:24-0400 BP Systolic 124 mm[Hg] Fallon Pastrana RN [facility] Work Phone: Comment on above: Patient Position: Sitting; Cuff Location : Right Arm; Cuff Size: Standard 03-10-2006 09:24-0400 BSA (Body Surface Area) 1.95 m2 Fallon Pastrana RN [facility] Work Phone: 03-10-2006 09:24-0400 Head Circumference 0 cm Lucille Giordanoradha [facility] Work Phone: 03-10-2006 09:24-0400 Head Occipital-frontal circumference 0 cm Fallon Pastrana RN [facility]; [facility] Work Phone: 03-10-2006 09:24-0400 Height 182.88 cm Fallon Pastrana RN [facility] Work Phone: 03-10-2006 09:24-0400 Pulse (Heart Rate) 76 /min Fallon Pastrana RN [facility] Work Phone: Comment on above: Pattern: Regular 03-10-2006 09:24-0400 Respiratory Rate 16 /min Fallon Pastrana RN [facility] Work Phone: Comment on above: Pattern: Unlabored 03-10-2006 09:24-0400 Weight 73.48 kg Lucille Espinoza [facility] Internal Medicine Work Phone: Encounters Encounter Date Encounter Type Care Provider Facility Start: 03-28-2025 ambulatory [place] Faci lity:[facility] Start: 03-08-2025 ambulatory [place] Faci lity:[facility] Start: 03-07-2025 Encounter for other preprocedural examination [place] [facility] Start: 03-06-2025 End: 03-06-2025 ambulatory [place] Urbano Facility:[facility] Start: 01-12-2023 End: 01-22-2023 Office outpatient visit 15 minutes Lyn Vance CNP Work Phone: [facility] Start: 01-12-2023 Lyn Vance CNP Work Phone: [facility] Start: 01-05-2023 End: 01-05-2023 Lyn Vance CNP Work Phone: [facility] Start: 07-22-2022 ambulatory Lyn Vance CNP [facility] Start: 07-22-2022 End: 07-22-2022 Office outpatient visit 25 minutes Lyn Vance CNP Work Phone: [facility] Start: 07-13-2022 End: 07-13-2022 Lab Order Lyn Vance CNP Work Phone: [facility] Start: 07-13-2022 End: 07-13-2022 Lyn Vance CNP Work Phone: [facility] Start: 03-12-2022 Non-patient / Non-visit Dr. Yen Work Phone: [facility] Start: 03-12-2022 End: 03-12-[address] Nori Valenzuela Work Phone: [facility] Work Phone: Start: 03-12-2022 End: 03-12-[address] Nori Valenzuela Work Phone: [facility] Start: 01-20-2022 End: 01-27-2022 Office outpatient visit 25 minutes Lyn Vance CNP Work Phone: [facility] Start: 07-15-2021 End: 07-15-2021 Office outpatient visit 25 minutes Lucille Epsinoza OFFICE REP Work Phone: [facility] Start: 07-15-2021 Review Lucille Espinoza OFFICE REP Work Phone: [facility] Start: 07-10-2021 End: 07-10-2021 Patient encounter procedure Lucille Espinoza OFFICE REP Work Phone: [facility] Start: 07-10-2021 End: 07-10-2021 Lyn Vance OFFICE REP Work Phone: [facility] Start: 01-07-2021 End: 01-07-2021 Office outpatient visit 15 minutes Lucille Giulianaradha OFFICE REP Work Phone: [facility] Start: 08-22-2020 End: 08-22-2020 Office outpatient visit 15 minutes Lucille Giulianadionneashleigh OFFICE REP Work Phone: [facility] Start: 07-10-2020 End: 07-10-2020 Office outpatient visit 15 minutes Lucille Lambert [facility] Start: 01-03-2020 End: 01-03-2020 Office outpatient visit 25 minutes Lucille Espinoza [facility] Start: 01-03-2020 End: 01-03-2020 Office outpatient visit 25 minutes Lucille [facility] Start: 01-03-2020 Review Lucille Mcguire ive [facility] Start: 09-05-2019 End: 09-05-2019 Patient encounter procedure Juan José Collazo LPN [facility]; [facility] Work Phone: Start: 09-05-2019 End: 09-05-2019 Periodic preventive med est patient 65yrs& older Lucille Lambert [facility] Start: 04-19-2019 End: 04-19-2019 Office outpatient visit 25 minutes Lucille Lambert [facility] Start: 10-19-2018 End: 10-19-2018 Office outpatient visit 25 minutes Lucille Lambert [facility] Start: 10-19-2018 Review Lucille wheeler [facility] Start: 09-23-2018 End: 09-23-2018 Lab Order Lucille 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 Start: 09-23-2018 End: 09-23-2018 Lyn Vance CNP Work Phone: [facility] Start: 08-25-2018 End: 08-25-2018 Annotation/Addendum Lucille Espinoza [facility] Start: 08-25-2018 End: 08-25-2018 Lyn Vance CNP Work Phone: [facility] Start: 04-20-2018 End: 04-20-2018 Office outpatient visit 25 minutes Lucille Espinoza [facility] Start: 04-13-2018 End: 04-13-2018 Office outpatient visit 15 minutes Lucille Espinoza [facility] Start: 02-03-2018 End: 02-03-2018 Office outpatient visit 15 minutes Lucille Espinoza [facility] Start: 02-03-2018 End: 02-03-2018 Patient encounter procedure Lyn Vance CNP Work Phone: [facility] Start: 12-13-2017 [facility] Start: 10-19-2017 End: 10-19-2017 Office outpatient visit 25 minutes Lucille Espinoza [facility] Start: 07-16-2017 End: 07-16-2017 Office outpatient new 30 minutes Lucille Espinoza [facility] Start: 04-19-2017 End: 04-20-2017 Ambulatory Nori A Fast Facility:[facility] Start: 04-05-2017 End: 04-05-2017 Office outpatient visit 15 minutes Lucille Espinoza [facility] Start: 03-02-2017 End: 03-02-2017 Office outpatient visit 25 minutes Lucille Espinoza [facility] Start: 01-20-2017 End: 01-21-2017 Ambulatory Nori A Fast Facility:[facility] Start: 12-28-2016 End: 12-28-2016 Office outpatient visit 10 minutes Lucille Giordanoesashleigh [facility] Start: 11-24-2016 End: 11-25-2016 Ambulatory Nori A Fast Facility:[facility] Start: 10-16-2016 End: 10-16-2016 Phone Encounter Lucille 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 [facility] Start: 10-16-2016 End: 10-16-2016 Lyn Vance CNP Work Phone: [facility] Start: 10-16-2016 End: 10-16-2016 Office outpatient visit 5 minutes Lucille Ciesa [facility] Start: 09-01-2016 End: 09-16-2016 Office outpatient visit 25 minutes Lucille Clemensa [facility] Start: 08-18-2016 End: 08-18-2016 Lab Order Lucille Espinoza [facility] Start: 08-18-2016 End: 08-18-2016 Lyn Vance CNP Work Phone: [facility] Start: 08-18-2016 End: 08-18-2016 Lab Order Lucille Espinoza [facility] Start: 08-18-2016 End: 08-18-2016 Lyn Vance CNP Work Phone: [facility] Start: 04-07-2016 End: 04-07-2016 Office outpatient visit 25 minutes Lucille Clemensa [facility] Start: 09-24-2015 End: 09-24-2015 Office outpatient visit 25 minutes Lucille Espinoza [facility] Start: 03-20-2015 End: 03-21-2015 Office outpatient visit 25 minutes Lucille Clemensa [facility] Start: 09-17-2014 End: 09-18-2014 Office outpatient visit 25 minutes Lucille Espinoza [facility] Start: 04-11-2014 End: 04-11-2014 Office outpatient visit 25 minutes Lucille Espinoza [facility] Start: 10-26-2013 End: 10-27-2013 Patient encounter procedure Lucille Giordanoesa [facility] Start: 10-26-2013 End: 10-27-2013 Lyn Vance CNP Work Phone: [facility] Start: 09-15-2013 End: 09-17-2013 Patient encounter procedure Lucille Clemensa [facility] Start: 09-15-2013 End: 09-17-2013 Lyn Vance CNP Work Phone: [facility] Start: 09-11-2013 End: 09-11-2013 Phone Encounter Lucille Espinoza [facility] Start: 09-11-2013 End: 09-11-2013 Lyn Vance CNP Work Phone: [facility] Start: 04-17-2013 End: 04-17-2013 Phone Encounter Lucille Espinoza [facility] Start: 04-17-2013 End: 04-17-2013 Lyn Vance CNP Work Phone: [facility] Start: 04-12-2013 End: 04-12-2013 Patient encounter procedure Lucille Espinoza [facility] Start: 04-12-2013 End: 04-12-2013 Lyn Vance CNP Work Phone: [facility] Start: 12-02-2012 End: 12-05-2012 Patient encounter procedure Lucille Espinoza [facility] Start: 12-02-2012 End: 12-05-2012 Lyn Vance CNP Work Phone: [facility] Start: 05-04-2012 End: 05-05-2012 Patient encounter procedure Lucille Espinoza [facility] Start: 05-04-2012 End: 05-05-2012 Lyn Vance CNP Work Phone: [facility] Start: 11-04-2011 End: 11-04-2011 Patient encounter procedure Lucille Espinoza [facility] Start: 11-04-2011 End: 11-04-2011 Lyn Vance CNP Work Phone: [facility] Start: 05-06-2011 End: 05-06-2011 Patient encounter procedure Lucille Espinoza [facility] Start: 05-06-2011 End: 05-06-2011 Lyn Vance CNP Work Phone: [facility] Start: 10-28-2010 End: 10-28-2010 Patient encounter procedure Lucille Espinoza [facility] Start: 10-28-2010 End: 10-28-2010 Lyn Vance CNP Work Phone: [facility] Start: 05-14-2010 End: 05-14-2010 Patient encounter procedure Lucille Espinoza [facility] Start: 05-14-2010 End: 05-14-2010 Lyn Vance CNP Work Phone: [facility] Start: 10-22-2009 End: 10-22-2009 Patient encounter procedure Lucille Espinoza [facility] Start: 10-22-2009 End: 10-22-2009 Lyn Vance CNP Work Phone: [facility] Start: 04-24-2009 End: 04-25-2009 Patient encounter procedure Lucille Espinoza [facility] Start: 04-24-2009 End: 04-25-2009 Lyn Vance CNP Work Phone: [facility] Start: 03-12-2009 End: 03-12-2009 Patient encounter procedure Lucille Espinoza [facility] Start: 03-12-2009 End: 03-12-2009 Lyn Vance CNP Work Phone: [facility] Start: 09-10-2008 End: 09-10-2008 Patient encounter procedure Lucille Espinoza [facility] Start: 09-10-2008 End: 09-10-2008 Lyn Vance CNP Work Phone: [facility] Start: 03-12-2008 End: 03-12-2008 Patient encounter procedure Lucille Espinoza [facility] Start: 03-12-2008 End: 03-12-2008 Lyn Vance CNP Work Phone: [facility] Start: 10-28-2007 End: 10-28-2007 Patient encounter procedure Lucille Espinoza [facility] Start: 10-28-2007 End: 10-28-2007 Lyn Vance CNP Work Phone: [facility] Start: 06-28-2007 End: 06-28-2007 Office outpatient visit 40 minutes Lucille Espinoza [facility] Start: 02-21-2007 End: 02-21-2007 Patient encounter procedure Lucille Espinoza [facility] Start: 02-21-2007 End: 02-21-2007 Lyn Vance CNP Work Phone: [facility] Start: 10-18-2006 End: 10-18-2006 Patient encounter procedure Lucille Espinoza [facility] Start: 10-18-2006 End: 10-18-2006 Lyn Vance CNP Work Phone: [facility] Start: 09-08-2006 End: 09-08-2006 Patient encounter procedure Lucille Espinoza [facility] Start: 09-08-2006 End: 09-08-2006 Lyn Vance CNP Work Phone: [facility] Start: 05-27-2006 End: 05-27-2006 Office outpatient visit 40 minutes Lucille Espinoza [facility] Start: 03-10-2006 End: 03-11-2006 Patient encounter procedure Lucille Espinoza [facility] Start: 03-10-2006 End: 03-11-2006 Lyn Vance OFFICE REP Work Phone: [facility] Start: 03-09-2006 End: 03-09-2006 Historical Summary Lucille Espinoza [facility] Start: 03-09-2006 End: 03-09-2006 Lyn Lakeam OFFICE REP Work Phone: [facility] Patient encounter procedure Faith Sepulveda [employer] [facility]; [facility] Work Phone: Patient encounter procedure Faith Sepulveda [employer] [facility]; [facility] Work Phone: Patient encounter procedure Meseret Slarb [employer] [facility]; [facility] Work Phone: Patient encounter procedure Meseret Slarb [employer] [facility]; [facility] Work Phone: Patient encounter procedure Meseret Slarb [employer] [facility]; [facility] Work Phone: Procedures Date Procedure Procedure Detail Performing Clinician Start: 07-22-2022 End: 07-23-2022 Knee 4 or More Views Procedure Note: See Note; NOTES: [facility] Imaging Services [address] [place] [address] Knee 4 or More Views MR#: [id number] Acct: [id number] Name: QUEENIE ESPINOZA Rep #: [id number] : 1950 M 71 From: Mela Og MD PCP: Dr. Nori Valenzuela, DO Status: REG CLI Study: Knee 4 or More Views Date of Exam: 07/22/22 Exam# [id number] Ordering Dr: Lyn Vance ASSISTANT PROFESSOR OF ECONOMICS-C EXAM: XR RIGHT KNEE COMPLETE, 4 OR MORE VIEWS CLINICAL INDICATION: right knee pain TECHNIQUE: Four or more views of the right knee. This report was created using Insights report generation technology. COMPARISON: None. FINDINGS: BONES/JOINTS: Moderate narrowing of the medial joint compartment, and mild subchondral sclerosis at the superior margin of the medial tibial plateau. Narrowing of the lateral patellofemoral joint compartment and mild lateral subluxation of the patella on the sunrise view. No acute fracture. No obviously acute-appearing subluxation. Normal alignment. No joint effusion. SOFT TISSUES: Unremarkable. No soft tissue swelling or gas. No radiopaque foreign body. RAD/Knee 4 or More Views IMPRESSION: Degenerative changes involving the medial joint compartment. Narrowing of the lateral patellofemoral joint compartment and mild lateral subluxation of the patella. Electronically Signed: Mela Og MD at 8:03 EST , CC: ASSISTANT PROFESSOR OF ECONOMICS-C Lyn Vance; Dr. Nori Valenzuela DO Physiology Teacher: Signed Lyn Vance CNP Work Phone: Start: 03-12-2022 End: 03-12-2022 Carotid Duplex Ultrasound Procedure Note: See Note; NOTES: [facility] Cardiovascular Services [address] [place] [address] Carotid Duplex Ultrasound 03/12/22 1252 MR#: [id number] Acct: [id number] Name: QUEENIE ESPINOZA Rep #: [id number] : 1950 71 From: Gonzalez Edouard MD Attending Dr: BRITTNY Altamirano Status: REG CLI Ordering Dr: Lyn Vance Date: 03/12/22 Location: [facility] Sex: M C Admitted: Reason For Study: Carotid Stenosis Rt. Velocities/BP Lt. Velocities/BP Prox CCA 102.3/26.2 cm/sec. Prox CCA 83.1/21.5 cm/sec. Mid CCA 81.4/20.0 cm/sec. Mid CCA 73.2/21.5 cm/sec. Dist CCA 83.9/22.5 cm/sec. Dist CCA 50.1/19.3 cm/sec. Prox ICA 40.7/15.4 cm/sec. Prox ICA 34.6/13.2 cm/sec. Mid ICA 57.2/24.2 cm/sec. Mid ICA 72.4/29.9 cm/sec. Dist ICA 77.1/28.9 cm/sec. Dist ICA 76.5/34.7 cm/sec. Rt. ICA/CCA = 0.9. Lt. ICA/CCA = 1.0. Prox ECA 96.1/20.0 cm/sec. Prox ECA 87.5/19.5 cm/sec. Rt. Vert. 18.5/5.9 cm/sec. Lt. Vert. 36.6/12.4 cm/sec. Right Extracranial There is intimal thickening but no significant atherosclerotic plaque noted in the right common carotid artery. There is heterogeneous, irregular atherosclerotic plaque noted in the right internal carotid artery. There is intimal thickening but no significant atherosclerotic plaque noted in the right external carotid artery. Antegrade flow is noted in the right vertebral artery. Left Extracranial There is intimal thickening but no significant atherosclerotic plaque noted in the left common carotid artery. There is heterogeneous, irregular atherosclerotic plaque noted in the left internal carotid artery. There is intimal thickening but no significant atherosclerotic plaque noted in the left external carotid artery. Antegrade flow is noted in the left vertebral artery. Procedure Carotid Duplex 27553. This is a Carotid Duplex examination using B-mode, color flow and specral Doppler. The exam was diagnostic. Exam performed in department. VL/Carotid Duplex Ultrasound Interpretation Summary Mild (<50%) stenosis right extracranial internal carotid. Mild (<50%) stenosis left extracranial internal carotid. Patent and antegrade vertebrals bilaterally. ___ Ordering Physician: Lyn Vance Referring Physician: Nori Valenzuela D.O. Performed By: Pacheco Constantino, T 03/12/221726 Date Gonzalez Edouard MD CC: ASSISTANT PROFESSOR OF ECONOMICS-C Lyn Vance; Dr. Nori Valenzuela DO Date Dictated: 03/12/22 1252 Date Transcribed: 03/12/221726 Physiology Teacher: Olegario Vance CNP Work Phone: Start: 02-12-2017 End: 02-12-2017 Echocardiogram Complete Comments: See Note; NOTES: [facility] Cardiovascular Services [address] [place] [address] Echo Complete 02/12/17 1245 MR#: [id number] Acct: [id number] Name: QUEENIE ESPINOZA Rep #: [id number] : 1950 66 From: Abdulaziz Pacheco MD Attending Dr: Nori Valenzuela DO Status: REG CLI Ordering Dr: Nori Valenzuela DO Date: 02/12/17 Location: [facility] Sex: M C Admitted: Reason For Study: cardiomyopathy Procedure This was a 2D Doppler, Color Flow transthoracic echocardiogram. Exam performed in department. Left Ventricle Normal LV size. Left ventricular systolic function is normal. The estimated ejection fraction is 60 %. Transmitral and pulmonary venous doppler flow suggestive of impaired relaxation of left ventricle. No regional wall motion abnormalities noted. Right Ventricle Normal RV size. Normal systolic function. Atria The left atrium is mildly enlarged. Normal right atrium. Mitral Valve Normal mitral valve. Mild (1+) eccentric mitral valve insufficiency. Tricuspid Valve Normal tricuspid valve. Mild (1+) tricuspid valve insufficiency. Pulmonary artery systolic pressure is 29 mmHg. Aortic Valve Normal aortic valve. Trisinus/trileaflet aortic valve. Pulmonic Valve Normal pulmonic valve. Great Vessels Normal aortic root. The pulmonary artery is normal size. Normal inferior vena cava. Pericardium/Pleural No pericardial effusion. MMode/2D Measurements AND Calculations LVIDd: 5.1 cm IVSd: 0.89 cm Ao root diam: 3.2 cm LVIDs: 2.9 cm LVPWd: 1.0 cm LA dimension: 3.8 cm RVDd: 3.9 cm FS: 43.1 % LAV(MOD-bp): 61.4 ml LA A4 area: 18.5 cm2 RA A4 area: 22.9 cm2 LAV(MOD-bp) Indexed: 32.4 ml/m2 LAV(MOD-sp2): 64.1 ml LAV(MOD-sp4): 48.7 ml Doppler Measurements AND Calculations MV E max mone: 55.9 cm/sec Lat Peak E' Mone: 8.9 cm/sec Med Peak E' Mone: 9.2 cm/sec MV A max mone: 77.0 cm/sec E/E' lat: 6.3 E/E' med: 6.1 MV E/A: 0.73 Ao V2 max: 120.2 cm/sec LV V1 max: 110.8 cm/sec PA V2 max: 100.4 cm/sec Ao max P.8 mmHg LV V1 max P.9 mmHg TR max mone: 246.4 cm/sec TR max P.3 mmHg Interpretation Summary Normal LV size. Left ventricular systolic function is normal. The estimated ejection fraction is 60 %. Transmitral and pulmonary venous doppler flow suggestive of impaired relaxation of left ventricle Mild (1+) tricuspid valve insufficiency. Ordering Physician: Nori Valenzuela Performed By: Ana Gardner, RDCS, RVT 02/12/17 1445 Date Abdulaziz Pacheco MD CC: Nori Valenzuela DO Date Dictated: 02/12/17 1245 Date Transcribed: 02/12/17 144 Physiology Teacher: Signed Nori Valenzuela Work Phone: Start: 08-02-2016 End: 08-02-2016 Carotid Duplex Ultrasound Comments: See Note; NOTES: [facility] Cardiovascular Services [address] [place] [address] Carotid Duplex Ultrasound 07/29/16 1242 MR#: [id number] Acct: [id number] Name: QUEENIE ESPINOZA Rep #: [id number] : 1950 65 From: Corona Floyd MD Attending Dr: Nori Valenzuela DO Status: REG CLI Ordering Dr: Nori Valenzuela DO Date: 07/29/16 Location: [facility] Sex: M C Admitted: Reason For Study: CAROTID STENOSIS Rt. Velocities/BP Lt. Velocities/BP Prox CCA 107.0/28.7 cm/sec. Prox CCA 118.0/30.5 cm/sec. Mid CCA 98.5/27.6 cm/sec. Mid CCA 92.0/24.6 cm/sec. Dist CCA 80.9/21.7 cm/sec. Dist CCA 72.1/18.2 cm/sec. Prox ICA 62.5/14.9 cm/sec. Prox ICA 49.9/16.5 cm/sec. Mid ICA 51.5/15.7 cm/sec. Mid ICA 60.9/25.9 cm/sec. Dist ICA 73.1/32.2 cm/sec. Dist ICA 68.4/29.9 cm/sec. Rt. ICA/CCA = 73.1/98.5=0.74. Lt. ICA/CCA = 68.4/92.0=0.74. Prox ECA 96.2/20.5 cm/sec. Prox ECA 92.0/18.8 cm/sec. Rt. Vert. 33.2/10.4 cm/sec. Lt. Vert. 38.6/12.9 cm/sec. Right Extracranial There is intimal thickening but no significant atherosclerotic plaque noted in the right common carotid artery. There is homogeneous, smooth atherosclerotic plaque noted in the right internal carotid artery. There is intimal thickening but no significant atherosclerotic plaque noted in the right external carotid artery. Antegrade flow is noted in the right vertebral artery. There is homogeneous, smooth atherosclerotic plaque noted in the right bulb. Left Extracranial There is intimal thickening but no significant atherosclerotic plaque noted in the left common carotid artery. There is homogeneous, smooth atherosclerotic plaque noted in the left internal carotid artery. There is intimal thickening but no significant atherosclerotic plaque noted in the left external carotid artery. Antegrade flow is noted in the left vertebral artery. There is homogeneous, smooth atherosclerotic plaque noted in the left bulb. Procedure Carotid Duplex 52825. The exam was diagnostic. Exam performed in department. Interpretation Summary Normal right extracranial internal carotid. Mild (<50%) stenosis left extracranial internal carotid. Flow within the vertebral arteries is antegrade bilaterally. .rdering Physician: Nori Valenzuela D.O Performed By: Ana Gardner, ARMEN, RVT 08/02/16 0157 Date Corona Floyd MD CC: Nori Valenzuela DO Date Dictated: 07/29/16 1242 Date Transcribed: 08/02/161834 Physiology Teacher: Signed Nori A Fast Work Phone: Start: 11-30-2014 End: 11-30-2014 Emergency Department Summary Comments: See Note; NOTES: [facility] Medical Records Department [address] [place] [address] Emergency Department Summary MR#: [id number] Acct: [id number] Name: QUEENIE ESPINOZA Rep #: [id number] : 1950 64 From: Kamron Han MD PCP: Nori Valenzuela DO Status: DEP ER DATE OF SERVICE: 11/28/2014 CHIEF COMPLAINT: Cut my hand. HISTORY OF PRESENT ILLNESS: The patient states his hand clenched off in stationary drill bit causing a wound that bled moderately, mild discomfort. He is right-handed. He has had cuts in the left hand in the past but nothing significant. He does not feel any paresthesias, weakness. Good function. This happened just prior to arrival. Tetanus immunization is up-to-date. PHYSICAL EXAMINATION: VITAL SIGNS: Stable. EXTREMITIES: Left hand isolated area of concern, on the hypothenar eminence of the left hand, mid aspect in the axis of the hand, he has a long abrasion about 1.5 cm but the distal end is about 1 cm, is slight subcutaneous involved, minimal active bleeding. No obvious foreign bodies, fairly straight edged. Motor, sensory, vascular intact. No proximal discomfort. TREATMENT: X-rays not indicated. The patient had sterile preps and drapes, locally cleansed with Shur-Clens, locally infiltrated with 1 mL of 1% lidocaine with good anesthesia. The wound was irrigated with 100 mL of saline, explored with good light hemostasis and then closed with two 5-0 simple Ethilon sutures with good approximation and hemostasis. The patient ____ was wrapped in bandage and advised how to use twice daily antibiotics and follow up in 10 days with [facility] for suture removal. Recheck sooner for worse pain, redness, swelling, drainage, dehiscence, bleeding, numbness or tingling. He is agreeable and stable, voiced understanding. He is off now for the ____, will go back tomorrow with minimal limitations of just keeping the hand clean. Ibuprofen for discomfort as well as ice and elevation may help. DIAGNOSIS: Acute left hand laceration. MD Emil Hackett C: [facility] T: NTS JOB: [id number] 11/30/14 1454 <Electronically signed by Kamron Han MD> Date Kamron Han MD CC: Nori Valenzuela DO; [facility] Date Dictated: 11/29/1411 Date Transcribed: 11/29/1411 Physiology Teacher: Signed Lucille Espinoza Start: 11-28-2014 End: 11-28-2014 Discharge Instruction Comments: See Note; NOTES: [facility] Medical Records Department [address] [place] [address] Discharge Instruction 11/28/142342 MR#: [id number] Acct: [id number] Name: QUEENIE ESPINOZA Rep #: [id number] : 1950 64 From: Kamron Han MD PCP: Nori Valenzuela DO Status: REG ER ED Disposition - Plan for ED Patient: Chief Complaint: Laceration Instructions: ED Laceration, Hand Referrals: Nori Valenzuela DO [Primary Care Provider] - [facility] [GROUP OF PHYSICIANS] - 10 Day for suture removal What to do if you have Problems For any increased pain, shortness of breath, bleeding, nausea or vomiting, chest pain, or any unexpected problems, contact your doctor. Call [facility] ([phone]) or report to the closest Emergency Room. Call 911 if necessary. 11/28/14 2344 <Electronically signed by Kamron Han MD> Date Kamron Han MD Cosigner Signature (If Indicated): Date CC: Nori Cruz fractured jaw- repair Juan José Hodge fractured jaw- repair Nelia Awan fractured jaw- repair Juan José Hodge fractured jaw- repair Juan José Hodge fractured jaw- repair Juan José Hodge fractured jaw- repair Juan José Collazo fractured jaw- repair Faith Coco [employer] fractured jaw- repair Faith Coco [employer] fractured jaw- repair Meseret Slarb [employer] fractured jaw- repair Meseret Slarb [employer] Repair of inguinal hernia Juan José Hodge Comment on above: age 10 Repair of inguinal hernia Nelia L Long Comment on above: age 10 Repair of inguinal hernia Juan José Hodge Comment on above: age 10 Repair of inguinal hernia Juan José Hodge Comment on above: age 10 Repair of inguinal hernia Juan José Hodge Comment on above: age 10 Repair of inguinal hernia Juan José Collazo Comment on above: age 10 Repair of inguinal hernia Faith Coco [employer] Comment on above: age 10 Repair of inguinal hernia Fiath Coco [employer] Comment on above: age 10 Repair of inguinal hernia Meseret Slarb [employer] Comment on above: age 10 Repair of inguinal hernia Meseret Slarb [employer] Comment on above: age 10 Repair of inguinal hernia Meseret Slarb [employer] Vasectomy Juan José Hodge Vasectomy Nelia L Long Vasectomy Juan José Hodge Vasectomy Juan José Hodge Vasectomy Juan José Hodge Vasectomy Juan José Collazo Vasectomy Faith Coco L PN Vasectomy Faith Coco L PN Vasectomy Meseret Slarb LP N Vasectomy Meseret Slarb LP N Vasectomy Meseret Slarb LP N Meseret Slarb LP N Plan of Treatment Date Care Activity Detail Author Start: 01-12-2023 Urinalysis qual/semiquant except immunoassays [facility] Work Phone: Start: 01-12-2023 Lipid panel [facility] Work Phone: Start: 01-12-2023 Comprehensive metabolic panel [facility]; [facility] Work Phone: Start: 01-12-2023 Procedure Education [facility]; [facility] Work Phone: Start: 01-12-2023 Provider Instructions for Treatment [facility]; [facility] Work Phone: Start: 07-22-2022 Procedure Education [facility]; [facility] Work Phone: Start: 07-22-2022 Provider Instructions for Treatment [facility]; [facility] Work Phone: Start: 07-13-2022 25 hydroxy includes fractions if performed CALCIFEDIOL (74715) [facility]; [facility] Work Phone: Start: 07-13-2022 Assay of thyroid stimulating hormone tsh TSH (THYROID STIMULATING HORMONE) (75942) [facility]; [facility] Work Phone: Start: 07-13-2022 CBC, PLATELETS & MANUAL DIFF (04630) CBC, PLATELETS & MANUAL DIFF (28891) [facility]; [facility] Work Phone: Start: 07-13-2022 Hemoglobin glycosylated a1c HGB A1C (77263) [facility]; [facility] Work Phone: Start: 07-13-2022 Lipid panel LIPID PANEL (00765) [facility]; [facility] Work Phone: Start: 01-20-2022 Procedure Education [facility]; [facility] Work Phone: Start: 01-20-2022 Provider Instructions for Treatment [facility]; [facility] Work Phone: Start: 07-15-2021 Provider Instructions for Treatment [facility]; [facility] Work Phone: Start: 07-15-2021 Assay of thyroid stimulating hormone tsh TSH (THYROID STIMULATING HORMONE) (75650) [facility]; [facility] Work Phone: Comment on above: Jan 2022 Start: 07-15-2021 Lipid panel LIPID PANEL (56801) [facility]; [facility] Work Phone: Comment on above: Jan 2022 Start: 07-15-2021 Assay of prostate specific antigen total PSA (PROSTATE SPECIFIC ANTIGEN) (V76.44) [facility]; [facility] Work Phone: Comment on above: Jan 2022 Start: 07-15-2021 Blood count complete auto&auto difrntl wbc CBC, Platelets & Auto Diff (93428) [facility]; [facility] Work Phone: Comment on above: Jan 2022 Start: 07-15-2021 Hemoglobin glycosylated a1c HGB A1C (64112) [facility]; [facility] Work Phone: Comment on above: jan 2022 Start: 06-17-2021 Hemoglobin glycosylated a1c HGB A1C (42659) [facility]; [facility] Work Phone: Start: 06-17-2021 Comprehensive metabolic panel Metabolic Panel, [facility] (07359) [facility]; [facility] Work Phone: Start: 01-07-2021 Provider Instructions for Treatment [facility]; [facility] Work Phone: Start: 12-19-2020 TSH Qn TSH (THYROID STIMULATING HORMONE) (51370) [facility]; [facility] Work Phone: Start: 12-19-2020 Comprehensive metabolic panel Metabolic Panel, [facility] (21604) [facility]; [facility] Work Phone: Start: 12-19-2020 Lipid panel LIPID PANEL (02395) [facility]; [facility] Work Phone: Start: 12-19-2020 Blood count complete automated CBC & PLATELETS (AUTO) (50086) [facility]; [facility] Work Phone: Start: 12-19-2020 Assay of prostate specific antigen total PSA, TOTAL - DIAGNOSTIC (37236) [facility]; [facility] Work Phone: Start: 08-22-2020 Procedure Education [facility]; [facility] Work Phone: Start: 07-10-2020 Procedure Education [facility]; [facility] Work Phone: Start: 07-10-2020 Provider Instructions for Treatment [facility]; [facility] Work Phone: Start: 01-03-2020 HbA1c (Bld) [Mass fraction] HGB A1C (72631) [facility] Work Phone: Comment on above: Jun 2020 Start: 01-03-2020 Procedure Education [facility] Work Phone: Start: 01-03-2020 Provider Instructions for Treatment [facility] Work Phone: Start: 12-19-2019 25 hydroxy includes fractions if performed CALCIFEDIOL (29581) [facility] Work Phone: Start: 12-19-2019 HbA1c (Bld) [Mass fraction] HGB A1C (34108) [facility] Work Phone: Start: 12-19-2019 Blood occult fecal hgb deter ia qual feces 1-3 [facility] Work Phone: Start: 12-19-2019 Comprehensive metabolic panel Metabolic Panel, [facility] (74777) [facility] Work Phone: Start: 12-19-2019 TSH Qn TSH (THYROID STIMULATING HORMONE) (60473) [facility] Work Phone: Start: 12-19-2019 Lipid panel LIPID PANEL (93812) [facility] Work Phone: Start: 12-19-2019 Assay of prostate specific antigen total PSA (PROSTATE SPECIFIC ANTIGEN) (V76.44) [facility] Work Phone: Start: 12-19-2019 Blood count complete automated CBC & PLATELETS (AUTO) (32505) [facility] Work Phone: Start: 09-05-2019 Procedure Education [facility] Work Phone: Start: 09-05-2019 Provider Instructions for Treatment [facility] Work Phone: Start: 05-30-2019 Assay of thyroid stimulating hormone tsh [facility]; [facility] Work Phone: Start: 05-30-2019 TSH Qn TSH (THYROID STIMULATING HORMONE) (16222) [facility] Work Phone: Start: 04-19-2019 Procedure Education [facility] Work Phone: Start: 04-19-2019 Provider Instructions for Treatment [facility] Work Phone: Start: 04-17-2019 Thyrotropin Qn TSH (72600) [facility] Work Phone: Start: 04-17-2019 Blood count complete auto&auto difrntl wbc CBC, Platelets & Auto Diff (46739) [facility] Work Phone: Start: 04-17-2019 Lipid panel Lipid Panel (46463) [facility] Work Phone: Start: 04-17-2019 Hemoglobin A1c/Hemoglobin.total mass fraction (Bld) HGB A1C (71870) [facility] Work Phone: Start: 04-17-2019 Comprehensive metabolic panel Metabolic Panel, [facility] (75487) [facility] Work Phone: Start: 04-17-2019 25 hydroxy includes fractions if performed CALCIFEDIOL (68806) [facility] Work Phone: Start: 10-19-2018 Procedure Education [facility] Work Phone: Start: 10-19-2018 Provider Instructions for Treatment [facility] Work Phone: Start: 04-20-2018 Procedure Education [facility] Work Phone: Start: 04-20-2018 Provider Instructions for Treatment [facility] Work Phone: Start: 04-13-2018 Procedure Education [facility] Work Phone: Start: 04-13-2018 Provider Instructions for Treatment [facility] Work Phone: Start: 02-03-2018 Procedure Education [facility] Work Phone: Start: 02-03-2018 Provider Instructions for Treatment [facility] Work Phone: Start: 10-19-2017 Procedure Education [facility] Work Phone: Start: 10-19-2017 Provider Instructions for Treatment [facility] Work Phone: Start: 07-16-2017 Procedure Education [facility] Work Phone: Start: 07-16-2017 Provider Instructions for Treatment [facility] Work Phone: Start: 07-16-2017 Gluc bld gluc mntr dev cleared fda spec home use [facility]; [facility] Work Phone: Start: 07-16-2017 Glucose mass conc Blood Glucose , Office (35358) [facility] Work Phone: Start: 07-16-2017 Hemoglobin A1c/Hemoglobin.total mass fraction (Bld) HgA1C , Office (09125) [facility] Work Phone: Start: 07-16-2017 Hemoglobin glycosylated a1c [facility]; [facility] Work Phone: Start: 04-05-2017 Procedure Education [facility] Work Phone: Start: 04-05-2017 Basic metabolic panel calcium total [facility] Work Phone: Comment on above: 2 weeks Start: 03-02-2017 Procedure Education [facility] Work Phone: Start: 12-28-2016 Procedure Education [facility] Work Phone: Start: 09-01-2016 Procedure Education [facility] Work Phone: Start: 09-01-2016 Microsomal antibodies each [facility] Work Phone: Start: 09-01-2016 Assay of triiodothyronine t3 free [facility]; [facility] Work Phone: Start: 09-01-2016 T3 free mass conc T3, FREE (TRIDOTHYRONINE) (54561) [facility] Work Phone: Start: 09-01-2016 Assay of free thyroxine [facility] Work Phone: Start: 09-01-2016 T4 free mass conc T4, FREE (THYROXINE) (91848) [facility] Work Phone: Start: 09-01-2016 Assay of thyroid stimulating hormone tsh [facility]; [facility] Work Phone: Start: 09-01-2016 Thyrotropin Qn TSH (65202) [facility] Work Phone: Start: 08-18-2016 Hepatitis c antibody [facility] Work Phone: Start: 04-07-2016 Procedure Education [facility] Work Phone: Start: 04-07-2016 Assay of prostate specific antigen total [facility] Work Phone: Start: 04-07-2016 Protein mass conc PSA (PROSTATE SPECIFIC ANTIGEN) (V76.44) [facility] Work Phone: Start: 04-07-2016 Comprehensive metabolic panel [facility] Work Phone: Start: 09-24-2015 Procedure Education [facility] Work Phone: Start: 09-24-2015 Lipid panel [facility] Work Phone: Start: 09-24-2015 Hemoglobin A1c/Hemoglobin.total mass fraction (Bld) HGB A1C (00967) [facility] Work Phone: Start: 09-24-2015 Hemoglobin glycosylated a1c [facility]; [facility] Work Phone: Start: 09-24-2015 Blood count manual cell count each [facility] Work Phone: Start: 09-24-2015 Comprehensive metabolic panel [facility] Work Phone: Start: 03-20-2015 Procedure Education [facility] Work Phone: Start: 03-20-2015 Provider Instructions for Treatment [facility] Work Phone: Start: 03-20-2015 Assay of prostate specific antigen total [facility] Work Phone: Start: 03-20-2015 Protein mass conc PSA (PROSTATE SPECIFIC ANTIGEN) (V76.44) [facility] Work Phone: Start: 03-20-2015 Assay of thyroid stimulating hormone tsh [facility]; [facility] Work Phone: Start: 03-20-2015 Thyrotropin Qn TSH (36504) [facility] Work Phone: Start: 03-20-2015 Urine albumin quantitative [facility] Work Phone: Start: 03-20-2015 Blood count complete auto&auto difrntl wbc [facility] Work Phone: Start: 03-20-2015 Hemoglobin A1c/Hemoglobin.total mass fraction (Bld) Hemoglobin Glyclated (HGB A1C) (25549) [facility] Work Phone: Start: 03-20-2015 Hemoglobin glycosylated a1c [facility]; [facility] Work Phone: Start: 03-20-2015 Comprehensive metabolic panel [facility] Work Phone: Start: 03-20-2015 Lipid panel [facility] Work Phone: Start: 09-17-2014 Procedure Education [facility] Work Phone: Start: 09-17-2014 Blood count complete auto&auto difrntl wbc [facility] Work Phone: Start: 09-17-2014 Comprehensive metabolic panel [facility] Work Phone: Start: 09-17-2014 Lipid panel [facility] Work Phone: Start: 04-11-2014 Blood count complete auto&auto difrntl wbc [facility] Work Phone: Start: 04-11-2014 Comprehensive metabolic panel [facility] Work Phone: Start: 04-11-2014 Assay of prostate specific antigen total [facility] Work Phone: Start: 04-11-2014 Protein mass conc PSA (PROSTATE SPECIFIC ANTIGEN) (V76.44) [facility] Work Phone: Start: 04-11-2014 Lipid panel [facility] Work Phone: Start: 10-26-2013 Provider Instructions for Treatment [facility] Work Phone: Start: 09-15-2013 Urine albumin quantitative [facility] Work Phone: Start: 09-15-2013 Blood count manual cell count each [facility] Work Phone: Start: 09-15-2013 Comprehensive metabolic panel [facility] Work Phone: Start: 09-15-2013 Lipid panel [facility] Work Phone: Start: 09-15-2013 Provider Instructions for Treatment [facility] Work Phone: Start: 09-11-2013 Assay of prostate specific antigen total [facility] Work Phone: Start: 09-11-2013 Protein mass conc PSA (PROSTATE SPECIFIC ANTIGEN) (54832) [facility] Work Phone: Start: 04-12-2013 Blood count manual cell count each [facility] Work Phone: Start: 04-12-2013 Comprehensive metabolic panel [facility] Work Phone: Start: 04-12-2013 Lipid panel [facility] Work Phone: Start: 04-12-2013 Assay of prostate specific antigen total [facility] Work Phone: Start: 04-12-2013 Protein mass conc PSA (PROSTATE SPECIFIC ANTIGEN) (V76.44) [facility] Work Phone: Start: 12-02-2012 Patient Education [facility] Work Phone: Start: 12-02-2012 Provider Instructions for Treatment [facility] Work Phone: Start: 12-02-2012 Comprehensive metabolic panel [facility] Work Phone: Start: 12-02-2012 Lipid panel [facility] Work Phone: Start: 05-04-2012 Blood count manual cell count each [facility] Work Phone: Start: 05-04-2012 Comprehensive metabolic panel [facility] Work Phone: Start: 05-04-2012 Lipid panel [facility] Work Phone: Start: 05-04-2012 Assay of prostate specific antigen total [facility] Work Phone: Start: 05-04-2012 Protein mass conc PSA (PROSTATE SPECIFIC ANTIGEN) (V76.44) [facility] Work Phone: Start: 11-04-2011 Patient Education [facility] Work Phone: Start: 11-04-2011 Provider Instructions for Treatment [facility] Work Phone: Start: 11-04-2011 Assay of prostate specific antigen total [facility] Work Phone: Start: 11-04-2011 Protein mass conc PSA (PROSTATE SPECIFIC ANTIGEN) (V76.44) [facility] Work Phone: Start: 11-04-2011 Comprehensive metabolic panel [facility] Work Phone: Start: 11-04-2011 Lipid panel [facility] Work Phone: Start: 05-06-2011 Lipid panel [facility] Work Phone: Start: 05-06-2011 Blood count manual cell count each [facility] Work Phone: Start: 05-06-2011 Comprehensive metabolic panel [facility] Work Phone: Start: 10-28-2010 Lipid panel [facility] Work Phone: Start: 10-28-2010 Blood count manual cell count each [facility] Work Phone: Start: 10-28-2010 Comprehensive metabolic panel [facility] Work Phone: Start: 10-28-2010 Assay of prostate specific antigen total [facility] Work Phone: Start: 10-28-2010 Protein mass conc PSA (PROSTATE SPECIFIC ANTIGEN) (V76.44) [facility] Work Phone: Start: 05-14-2010 Provider Instructions for Treatment [facility] Work Phone: Start: 05-14-2010 Blood count manual cell count each [facility] Work Phone: Start: 05-14-2010 Comprehensive metabolic panel [facility] Work Phone: Start: 05-14-2010 Lipid panel [facility] Work Phone: Start: 10-22-2009 Assay of thyroid stimulating hormone tsh [facility]; [facility] Work Phone: Start: 10-22-2009 Thyrotropin Qn TSH (50519) [facility] Work Phone: Start: 10-22-2009 Lipid panel [facility] Work Phone: Start: 10-22-2009 Assay of prostate specific antigen total [facility] Work Phone: Start: 10-22-2009 Protein mass conc PSA (PROSTATE SPECIFIC ANTIGEN) (V76.44) [facility] Work Phone: Start: 04-24-2009 Lipid panel [facility] Work Phone: Start: 04-24-2009 Comprehensive metabolic panel [facility] Work Phone: Start: 03-12-2009 Provider Instructions for Treatment [facility] Work Phone: Start: 09-10-2008 Urnls dip stick/tablet rgnt auto w/o microscopy [facility] Work Phone: Start: 09-10-2008 Comprehensive metabolic panel [facility] Work Phone: Start: 09-10-2008 Blood count manual cell count each [facility] Work Phone: Start: 09-10-2008 Assay of prostate specific antigen total [facility] Work Phone: Start: 09-10-2008 Protein mass conc PSA (Prostate Specific Antigen), Screening (42651) [facility] Work Phone: Start: 09-10-2008 Hepatic function panel [facility] Work Phone: Start: 09-10-2008 Lipid panel [facility] Work Phone: Start: 10-28-2007 Comprehensive metabolic panel [facility] Work Phone: Start: 10-28-2007 Hepatic function panel [facility] Work Phone: Start: 10-28-2007 Lipid panel [facility] Work Phone: Start: 06-28-2007 Lipid panel [facility] Work Phone: Start: 06-28-2007 Hepatic function panel [facility] Work Phone: Start: 02-21-2007 Assay of prostate specific antigen total [facility] Work Phone: Start: 02-21-2007 Protein mass conc PSA (PROSTATE SPECIFIC ANTIGEN) (75191) [facility] Work Phone: Start: 02-21-2007 Assay of thyroid stimulating hormone tsh [facility]; [facility] Work Phone: Start: 02-21-2007 Thyrotropin Qn TSH (05378) [facility] Work Phone: Start: 02-21-2007 Comprehensive metabolic panel [facility] Work Phone: Start: 02-21-2007 Lipid panel [facility] Work Phone: Start: 02-21-2007 Blood count manual cell count each [facility] Work Phone: Start: 09-08-2006 Provider Instructions for Treatment [facility] Work Phone: Start: 09-08-2006 Lipid panel [facility] Work Phone: Start: 09-08-2006 Glucose tolerance test gtt 3 specimens [facility] Work Phone: Start: 05-27-2006 Provider Instructions for Treatment [facility] Work Phone: [facility] Work [facility]: [facility] Work [facility]: [facility] Work [facility]: [facility] Work [facility]: [facility] Work [facility]: [facility] Work [facility]: [facility] Work [facility]: [facility] Work [facility]: [facility]: [facility]: [facility] Work [facility]: [facility] Work [facility]: [facility]: [facility]: [facility] Work [facility]: [facility] Work [facility]: [facility] Work [facility]: [facility] Work [facility]: [facility] Work [facility]: [facility] Work [facility]: [facility] Work [facility]: [facility] Work [facility] Work Phone: [facility] Work Phone: [facility] Work Phone: [facility] Work Phone: Immunizations Immunization Date Immunization Notes Care Provider [facility] and [facility] 08-08-2020 COVID-Moderna (100 MCG/0.5 ML) Lucille Espinoza [facility] Work Phone: [facility]; [facility] Work Phone: 10-26-2013 varicella zoster immune globulin Lucille Espinoza [facility] Work Phone: Comment on above: Lot #:[id number] ion date:0-22-8876Skcspi given:1ml Route: SQSite given:left arm Given by: mateo Payers Date Payer Category Payer Self-pay 2025 Unknown [id number] 2021 Private Health Insurance [id number] 2017 Medicare [id number] 2016 Unknown 2016 Unknown [id number] 1950 Unknown [id number] Unknown [id number] Unknown [id number] Unknown [id number] Unknown [id number] Social History Date Type Detail Facility Alcohol Use Former smoker [facility] Work Phone: Comment on above: Occasional alcohol u se 2-4 QD Tobacco Use: Former smoker. [facility] Work Phone: Comment on above: Remotely quit tobacc o use - 26 yrs ago Tobacco Use: Tobacco Use: [facility] Work Phone: Comment on above: Remotely quit tobacc o use - 26 yrs ago Start: 11-29-2014 Tobacco smoking stat [facility] Unknown if ever smoked [facility] Work Phone: Start: 1950 Sex Assigned At Male W [facility] Work Phone: Clinical Notes Note Date & Type Note Facility Evaluation note No assessment information availa ble [facility] Work Phone: Instructions Name Patient Instructions Indication:Nonsmoker Start:08-Jan-20 Instruction Type:Provider Instructions for Treatment How to Access Health Information Online using Patient Portal and [employer] Apps Indication:Nonsmoker Start: Instruction Type:Patient Education Patient Instructions Indication:Nonsmoker Start: Instruction Type:Provider Instructions for Treatment Patient Instructions Indication:Nonsmoker Start:10-Jul-19 Instruction Type:Provider Instructions for Treatment How to Access Health Information Online using Patient Portal and [employer] Apps Indication:Nonsmoker Start:10-Jul-19 Instruction Type:Patient Education How to access health information online Indication:Nonsmoker Start:03-Jan-20 Instruction Type:Patient Education How to access health information online - Detail Indication:Nonsmoker Start:03-Jan-20 Instruction Type:Patient Education Patient Instructions Indication:Nonsmoker Start:03-Jan-20 Instruction Type:Provider Instructions for Treatment How to access health information online Indication:Nonsmoker Start:05-Sep-19 Instruction Type:Patient Education How to access health information online - Detail Indication:Nonsmoker Start:05-Sep-19 Instruction Type:Patient Education Patient Instructions Indication:Vitamin D deficiency Start:05-Sep-19 Instruction Type:Provider Instructions for Treatment How to access health information online Indication:Nonsmoker Start: Instruction Type:Patient Education How to access health information online - Detail Indication:Nonsmoker Start: Instruction Type:Patient Education Patient Instructions Indication:Nonsmoker Start: Instruction Type:Provider Instructions for Treatment How to access health information online Indication:Nonsmoker Start: Instruction Type:Patient Education How to access health information online - Detail Indication:Nonsmoker Start: Instruction Type:Patient Education Patient Instructions Indication:Impaired Fasting Glucose (Renamed from Elevated fasting blood sugar) Start: Instruction Type:Provider Instructions for Treatment How to access health information online Indication:Nonsmoker Start: Instruction Type:Patient Education How to access health information online - Detail Indication:Nonsmoker Start: Instruction Type:Patient Education Patient Instructions Indication:Migraine Start: Instruction Type:Provider Instructions for Treatment How to access health information online Indication:Head cold Start:13-Apr-20 Instruction Type:Patient Education How to access health information online - Detail Indication:Head cold Start:13-Apr-20 Instruction Type:Patient Education Patient Instructions Indication:Head cold Start:13-Apr-20 Instruction Type:Provider Instructions for Treatment How to access health information online Indication:BMI 23.0-23.9, adult Start:04-Feb-20 Instruction Type:Patient Education How to access health information online - Detail Indication:BMI 23.0-23.9, adult Start:04-Feb-20 Instruction Type:Patient Education Patient Instructions Indication:BMI 23.0-23.9, adult Start:04-Feb-20 Instruction Type:Provider Instructions for Treatment How to access health information online Indication:Benign essential hypertension Start: Instruction Type:Patient Education How to access health information online - Detail Indication:Benign essential hypertension Start:5-Cal-201 8 Instruction Type:Patient Education Patient Instructions Indication:Benign essential hypertension Start: 8 Instruction Type:Provider Instructions for Treatment DISCONTINUED - PSA, TOTAL - DIAGNOSTIC (18176) Indication:Vitamin D deficiency Start: Instruction Type:Patient Education DISCONTINUED - HGB A1C (33673) Indication:Impaired Fasting Glucose (Renamed from Elevated fasting blood sugar) Start: Instruction Type:Patient Education How to access health information online Indication:Impaired Fasting Glucose (Renamed from Elevated fasting blood sugar) Start: Instruction Type:Patient Education How to access health information online - Detail Indication:Impaired Fasting Glucose (Renamed from Elevated fasting blood sugar) Start: Instruction Type:Patient Education Patient Instructions Indication:Encounter for screening for malignant neoplasm of prostate (Renamed from Screening for prostate cancer) Start: Instruction Type:Provider Instructions for Treatment How to access health information online Indication:Benign essential hypertension Start:05-Apr-20 Instruction Type:Patient Education How to access health information online - Detail Indication:Benign essential hypertension Start:05-Apr-20 Instruction Type:Patient Education Patient Instructions Indication:Benign essential hypertension Start:05-Apr-20 Instruction Type:Provider Instructions for Treatment How to access health information online Indication:Impaired Fasting Glucose (Renamed from Elevated fasting blood sugar) Start:02-Mar-20 Instruction Type:Patient Education How to access health information online - Detail Indication:Impaired Fasting Glucose (Renamed from Elevated fasting blood sugar) Start:02-Mar-20 Instruction Type:Patient Education Patient Instructions Indication:Impaired Fasting Glucose (Renamed from Elevated fasting blood sugar) Start:02-Mar-20 Instruction Type:Provider Instructions for Treatment How to access health information online Indication:BMI between 19-24,adult Start:29-Dec-19 Instruction Type:Patient Education How to access health information online - Detail Indication:BMI between 19-24,adult Start:29-Dec-19 Instruction Type:Patient Education Patient Instructions Indication:BMI between 19-24,adult Start:29-Dec-19 Instruction Type:Provider Instructions for Treatment How to access health information online Indication:Migraine Start:02-Sep-19 Instruction Type:Patient Education How to access health information online - Detail Indication:Migraine Start:02-Sep-19 Instruction Type:Patient Education Patient Instructions Indication:Migraine Start:02-Sep-19 17 Instruction Type:Provider Instructions for Treatment How to access health information online Indication:Benign essential hypertension Start:07-Apr-20 16 Instruction Type:Patient Education How to access health information online - Detail Indication:Benign essential hypertension Start:07-Apr-20 16 Instruction Type:Patient Education Patient Instructions Indication:Benign essential hypertension Start:07-Apr-20 16 Instruction Type:Provider Instructions for Treatment How to access health information online Indication:Impaired Fasting Glucose (Renamed from Elevated fasting blood sugar) Start:24-Sep-19 Instruction Type:Patient Education How to access health information online - Detail Indication:Impaired Fasting Glucose (Renamed from Elevated fasting blood sugar) Start:24-Sep-19 Instruction Type:Patient Education Patient Instructions Indication:Impaired Fasting Glucose (Renamed from Elevated fasting blood sugar) Start:24-Sep-19 Instruction Type:Provider Instructions for Treatment How to access health information online Indication:Impaired Fasting Glucose (Renamed from Elevated fasting blood sugar) Start: Instruction Type:Patient Education How to access health information online - Detail Indication:Impaired Fasting Glucose (Renamed from Elevated fasting blood sugar) Start: Instruction Type:Patient Education Patient Instructions Indication:Impaired Fasting Glucose (Renamed from Elevated fasting blood sugar) Start: Instruction Type:Provider Instructions for Treatment Patient Instructions Indication:Impaired Fasting Glucose (Renamed from Elevated fasting blood sugar) Start: Instruction Type:Provider Instructions for Treatment How to access health information online Indication:Benign essential hypertension Start:11-Apr-20 14 Instruction Type:Patient Education How to access health information online - Detail Indication:Benign essential hypertension Start:11-Apr-20 14 Instruction Type:Patient Education Patient Instructions Indication:Benign essential hypertension Start:11-Apr-20 14 Instruction Type:Provider Instructions for Treatment Patient Instructions Indication:Other abnormal glucose Start: Instruction Type:Provider Instructions for Treatment Patient Instructions Indication:Other and unspecified hyperlipidemia Start:12-Apr-20 13 Instruction Type:Provider Instructions for Treatment Patient Instructions 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 Start:03-Dec-19 13 Instruction Type:Provider Instructions for Treatment Patient Instructions 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 Start:04-May-20 12 Instruction Type:Provider Instructions for Treatment [facility]; [facility] Work Phone: Instructions* Name Dates Details Patient Instructions Indication:Nonsmoker Start:07-Jan-2021 Instruction Type:Provider Instructions for Treatment How to Access Health Informa tion Online using Patient Portal and [employer] Apps Indication:Nonsmoker Start:22-Aug-2020 Instruction Type:Patient Education Patient Instructions Indication:Nonsmoker Start:22-Aug-2020 Instruction Type:Provider Instructions for Treatment Patient Instructions Indication:Nonsmoker Start:10-Jul-2020 Instruction Type:Provider Instructions for Treatment How to Access Health Informa tion Online using Patient Portal and [employer] Apps Indication:Nonsmoker Start:10-Jul-2020 Instruction Type:Patient Education How to access health informa tion online Indication:Nonsmoker Start:03-Jan-2020 Instruction Type:Patient Education How to access health informa tion online - Detail Indication:Nonsmoker Start:03-Jan-2020 Instruction Type:Patient Education Patient Instructions Indication:Nonsmoker Start:03-Jan-2020 Instruction Type:Provider Instructions for Treatment How to access health informa tion online Indication:Nonsmoker Start:05-Sep-2019 Instruction Type:Patient Education How to access health informa tion online - Detail Indication:Nonsmoker Start:05-Sep-2019 Instruction Type:Patient Education Patient Instructions Indication:Vitamin D deficiency Start:05-Sep-2019 Instruction Type:Provider Instructions for Treatment How to access health informa tion online Indication:Nonsmoker Start:19-Apr-2019 Instruction Type:Patient Education How to access health informa tion online - Detail Indication:Nonsmoker Start:19-Apr-2019 Instruction Type:Patient Education Patient Instructions Indication:Nonsmoker Start:19-Apr-2019 Instruction Type:Provider Instructions for Treatment How to access health informa tion online Indication:Nonsmoker Start:19-Oct-2018 Instruction Type:Patient Education How to access health informa tion online - Detail Indication:Nonsmoker Start:19-Oct-2018 Instruction Type:Patient Education Patient Instructions Indication:Impaired Fasting Glucose (Renamed from Elevated fasting blood sugar) Start:19-Oct-2018 Instruction Type:Provider Instructions for Treatment How to access health informa tion online Indication:Nonsmoker Start:20-Apr-2018 Instruction Type:Patient Education How to access health informa tion online - Detail Indication:Nonsmoker Start:20-Apr-2018 Instruction Type:Patient Education Patient Instructions Indication:Migraine Start:20-Apr-2018 Instruction Type:Provider Instructions for Treatment How to access health informa tion online Indication:Head cold Start:13-Apr-2018 Instruction Type:Patient Education How to access health informa tion online - Detail Indication:Head cold Start:13-Apr-2018 Instruction Type:Patient Education Patient Instructions Indication:Head cold Start:13-Apr-2018 Instruction Type:Provider Instructions for Treatment How to access health informa tion online Indication:BMI 23.0-23.9, adult Start:03-Feb-2018 Instruction Type:Patient Education How to access health informa tion online - Detail Indication:BMI 23.0-23.9, adult Start:03-Feb-2018 Instruction Type:Patient Education Patient Instructions Indication:BMI 23.0-23.9, adult Start:03-Feb-2018 Instruction Type:Provider Instructions for Treatment How to access health informa tion online Indication:Benign essential hypertension Start:19-Oct-2017 Instruction Type:Patient Education How to access health informa tion online - Detail Indication:Benign essential hypertension Start:19-Oct-2017 Instruction Type:Patient Education Patient Instructions Indication:Benign essential hypertension Start:19-Oct-2017 Instruction Type:Provider Instructions for Treatment DISCONTINUED - PSA, TOTAL - DIAGNOSTIC (92769) Indication:Vitamin D deficiency Start:16-Jul-2017 Instruction Type:Patient Education DISCONTINUED - HGB A1C (8303 6) Indication:Impaired Fasting Glucose (Renamed from Elevated fasting blood sugar) Start:16-Jul-2017 Instruction Type:Patient Education How to access health informa tion online Indication:Impaired Fasting Glucose (Renamed from Elevated fasting blood sugar) Start:16-Jul-2017 Instruction Type:Patient Education How to access health informa tion online - Detail Indication:Impaired Fasting Glucose (Renamed from Elevated fasting blood sugar) Start:16-Jul-2017 Instruction Type:Patient Education Patient Instructions Indication:Encounter for screening for malignant neoplasm of prostate (Renamed from Screening for prostate cancer) Start:16-Jul-2017 Instruction Type:Provider Instructions for Treatment How to access health informa tion online Indication:Benign essential hypertension Start:05-Apr-2017 Instruction Type:Patient Education How to access health informa tion online - Detail Indication:Benign essential hypertension Start:05-Apr-2017 Instruction Type:Patient Education Patient Instructions Indication:Benign essential hypertension Start:05-Apr-2017 Instruction Type:Provider Instructions for Treatment How to access health informa tion online Indication:Impaired Fasting Glucose (Renamed from Elevated fasting blood sugar) Start:02-Mar-2017 Instruction Type:Patient Education How to access health informa tion online - Detail Indication:Impaired Fasting Glucose (Renamed from Elevated fasting blood sugar) Start:02-Mar-2017 Instruction Type:Patient Education Patient Instructions Indication:Impaired Fasting Glucose (Renamed from Elevated fasting blood sugar) Start:02-Mar-2017 Instruction Type:Provider Instructions for Treatment How to access health informa tion online Indication:BMI between 19-24,adult Start:28-Dec-2016 Instruction Type:Patient Education How to access health informa tion online - Detail Indication:BMI between 19-24,adult Start:28-Dec-2016 Instruction Type:Patient Education Patient Instructions Indication:BMI between 19-24,adult Start:28-Dec-2016 Instruction Type:Provider Instructions for Treatment How to access health informa tion online Indication:Migraine Start:01-Sep-2016 Instruction Type:Patient Education How to access health informa tion online - Detail Indication:Migraine Start:01-Sep-2016 Instruction Type:Patient Education Patient Instructions Indication:Migraine Start:01-Sep-2016 Instruction Type:Provider Instructions for Treatment How to access health informa tion online Indication:Benign essential hypertension Start:07-Apr-2016 Instruction Type:Patient Education How to access health informa tion online - Detail Indication:Benign essential hypertension Start:07-Apr-2016 Instruction Type:Patient Education Patient Instructions Indication:Benign essential hypertension Start:07-Apr-2016 Instruction Type:Provider Instructions for Treatment How to access health informa tion online Indication:Impaired Fasting Glucose (Renamed from Elevated fasting blood sugar) Start:24-Sep-2015 Instruction Type:Patient Education How to access health informa tion online - Detail Indication:Impaired Fasting Glucose (Renamed from Elevated fasting blood sugar) Start:24-Sep-2015 Instruction Type:Patient Education Patient Instructions Indication:Impaired Fasting Glucose (Renamed from Elevated fasting blood sugar) Start:24-Sep-2015 Instruction Type:Provider Instructions for Treatment How to access health informa tion online Indication:Impaired Fasting Glucose (Renamed from Elevated fasting blood sugar) Start:20-Mar-2015 Instruction Type:Patient Education How to access health informa tion online - Detail Indication:Impaired Fasting Glucose (Renamed from Elevated fasting blood sugar) Start:20-Mar-2015 Instruction Type:Patient Education Patient Instructions Indication:Impaired Fasting Glucose (Renamed from Elevated fasting blood sugar) Start:20-Mar-2015 Instruction Type:Provider Instructions for Treatment Patient Instructions Indication:Impaired Fasting Glucose (Renamed from Elevated fasting blood sugar) Start:17-Sep-2014 Instruction Type:Provider Instructions for Treatment How to access health informa tion online Indication:Benign essential hypertension Start:11-Apr-2014 Instruction Type:Patient Education How to access health informa tion online - Detail Indication:Benign essential hypertension Start:11-Apr-2014 Instruction Type:Patient Education Patient Instructions Indication:Benign essential hypertension Start:11-Apr-2014 Instruction Type:Provider Instructions for Treatment Patient Instructions Indication:Other abnormal glucose Start:15-Sep-2013 Instruction Type:Provider Instructions for Treatment Patient Instructions Indication:Other and unspecified hyperlipidemia Start:12-Apr-2013 Instruction Type:Provider Instructions for Treatment Patient Instructions 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 Start:02-Dec-2012 Instruction Type:Provider Instructions for Treatment Patient Instructions 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 Start:04-May-2012 Instruction Type:Provider Instructions for Treatment [facility]; [facility] Work Phone: Instructions* Name Dates Details Patient Instructions Indication:Nonsmoker Start:07-Jan-2021 Instruction Type:Provider Instructions for Treatment How to Access Health Informa tion Online using Patient Portal and [employer] Apps Indication:Nonsmoker Start:22-Aug-2020 Instruction Type:Patient Education Patient Instructions Indication:Nonsmoker Start:22-Aug-2020 Instruction Type:Provider Instructions for Treatment Patient Instructions Indication:Nonsmoker Start:10-Jul-2020 Instruction Type:Provider Instructions for Treatment How to Access Health Informa tion Online using Patient Portal and [employer] Apps Indication:Nonsmoker Start:10-Jul-2020 Instruction Type:Patient Education How to access health informa tion online Indication:Nonsmoker Start:03-Jan-2020 Instruction Type:Patient Education How to access health informa tion online - Detail Indication:Nonsmoker Start:03-Jan-2020 Instruction Type:Patient Education Patient Instructions Indication:Nonsmoker Start:03-Jan-2020 Instruction Type:Provider Instructions for Treatment How to access health informa tion online Indication:Nonsmoker Start:05-Sep-2019 Instruction Type:Patient Education How to access health informa tion online - Detail Indication:Nonsmoker Start:05-Sep-2019 Instruction Type:Patient Education Patient Instructions Indication:Vitamin D deficiency Start:05-Sep-2019 Instruction Type:Provider Instructions for Treatment How to access health informa tion online Indication:Nonsmoker Start:19-Apr-2019 Instruction Type:Patient Education How to access health informa tion online - Detail Indication:Nonsmoker Start:19-Apr-2019 Instruction Type:Patient Education Patient Instructions Indication:Nonsmoker Start:19-Apr-2019 Instruction Type:Provider Instructions for Treatment How to access health informa tion online Indication:Nonsmoker Start:19-Oct-2018 Instruction Type:Patient Education How to access health informa tion online - Detail Indication:Nonsmoker Start:19-Oct-2018 Instruction Type:Patient Education Patient Instructions Indication:Impaired Fasting Glucose (Renamed from Elevated fasting blood sugar) Start:19-Oct-2018 Instruction Type:Provider Instructions for Treatment How to access health informa tion online Indication:Nonsmoker Start:20-Apr-2018 Instruction Type:Patient Education How to access health informa tion online - Detail Indication:Nonsmoker Start:20-Apr-2018 Instruction Type:Patient Education Patient Instructions Indication:Migraine Start:20-Apr-2018 Instruction Type:Provider Instructions for Treatment How to access health informa tion online Indication:Head cold Start:13-Apr-2018 Instruction Type:Patient Education How to access health informa tion online - Detail Indication:Head cold Start:13-Apr-2018 Instruction Type:Patient Education Patient Instructions Indication:Head cold Start:13-Apr-2018 Instruction Type:Provider Instructions for Treatment How to access health informa tion online Indication:BMI 23.0-23.9, adult Start:03-Feb-2018 Instruction Type:Patient Education How to access health informa tion online - Detail Indication:BMI 23.0-23.9, adult Start:03-Feb-2018 Instruction Type:Patient Education Patient Instructions Indication:BMI 23.0-23.9, adult Start:03-Feb-2018 Instruction Type:Provider Instructions for Treatment How to access health informa tion online Indication:Benign essential hypertension Start:19-Oct-2017 Instruction Type:Patient Education How to access health informa tion online - Detail Indication:Benign essential hypertension Start:19-Oct-2017 Instruction Type:Patient Education Patient Instructions Indication:Benign essential hypertension Start:19-Oct-2017 Instruction Type:Provider Instructions for Treatment DISCONTINUED - PSA, TOTAL - DIAGNOSTIC (55154) Indication:Vitamin D deficiency Start:16-Jul-2017 Instruction Type:Patient Education DISCONTINUED - HGB A1C (8303 6) Indication:Impaired Fasting Glucose (Renamed from Elevated fasting blood sugar) Start:16-Jul-2017 Instruction Type:Patient Education How to access health informa tion online Indication:Impaired Fasting Glucose (Renamed from Elevated fasting blood sugar) Start:16-Jul-2017 Instruction Type:Patient Education How to access health informa tion online - Detail Indication:Impaired Fasting Glucose (Renamed from Elevated fasting blood sugar) Start:16-Jul-2017 Instruction Type:Patient Education Patient Instructions Indication:Encounter for screening for malignant neoplasm of prostate (Renamed from Screening for prostate cancer) Start:16-Jul-2017 Instruction Type:Provider Instructions for Treatment How to access health informa tion online Indication:Benign essential hypertension Start:05-Apr-2017 Instruction Type:Patient Education How to access health informa tion online - Detail Indication:Benign essential hypertension Start:05-Apr-2017 Instruction Type:Patient Education Patient Instructions Indication:Benign essential hypertension Start:05-Apr-2017 Instruction Type:Provider Instructions for Treatment How to access health informa tion online Indication:Impaired Fasting Glucose (Renamed from Elevated fasting blood sugar) Start:02-Mar-2017 Instruction Type:Patient Education How to access health informa tion online - Detail Indication:Impaired Fasting Glucose (Renamed from Elevated fasting blood sugar) Start:02-Mar-2017 Instruction Type:Patient Education Patient Instructions Indication:Impaired Fasting Glucose (Renamed from Elevated fasting blood sugar) Start:02-Mar-2017 Instruction Type:Provider Instructions for Treatment How to access health informa tion online Indication:BMI between 19-24,adult Start:28-Dec-2016 Instruction Type:Patient Education How to access health informa tion online - Detail Indication:BMI between 19-24,adult Start:28-Dec-2016 Instruction Type:Patient Education Patient Instructions Indication:BMI between 19-24,adult Start:28-Dec-2016 Instruction Type:Provider Instructions for Treatment How to access health informa tion online Indication:Migraine Start:01-Sep-2016 Instruction Type:Patient Education How to access health informa tion online - Detail Indication:Migraine Start:01-Sep-2016 Instruction Type:Patient Education Patient Instructions Indication:Migraine Start:01-Sep-2016 Instruction Type:Provider Instructions for Treatment How to access health informa tion online Indication:Benign essential hypertension Start:07-Apr-2016 Instruction Type:Patient Education How to access health informa tion online - Detail Indication:Benign essential hypertension Start:07-Apr-2016 Instruction Type:Patient Education Patient Instructions Indication:Benign essential hypertension Start:07-Apr-2016 Instruction Type:Provider Instructions for Treatment How to access health informa tion online Indication:Impaired Fasting Glucose (Renamed from Elevated fasting blood sugar) Start:24-Sep-2015 Instruction Type:Patient Education How to access health informa tion online - Detail Indication:Impaired Fasting Glucose (Renamed from Elevated fasting blood sugar) Start:24-Sep-2015 Instruction Type:Patient Education Patient Instructions Indication:Impaired Fasting Glucose (Renamed from Elevated fasting blood sugar) Start:24-Sep-2015 Instruction Type:Provider Instructions for Treatment How to access health informa tion online Indication:Impaired Fasting Glucose (Renamed from Elevated fasting blood sugar) Start:20-Mar-2015 Instruction Type:Patient Education How to access health informa tion online - Detail Indication:Impaired Fasting Glucose (Renamed from Elevated fasting blood sugar) Start:20-Mar-2015 Instruction Type:Patient Education Patient Instructions Indication:Impaired Fasting Glucose (Renamed from Elevated fasting blood sugar) Start:20-Mar-2015 Instruction Type:Provider Instructions for Treatment Patient Instructions Indication:Impaired Fasting Glucose (Renamed from Elevated fasting blood sugar) Start:17-Sep-2014 Instruction Type:Provider Instructions for Treatment How to access health informa tion online Indication:Benign essential hypertension Start:11-Apr-2014 Instruction Type:Patient Education How to access health informa tion online - Detail Indication:Benign essential hypertension Start:11-Apr-2014 Instruction Type:Patient Education Patient Instructions Indication:Benign essential hypertension Start:11-Apr-2014 Instruction Type:Provider Instructions for Treatment Patient Instructions Indication:Other abnormal glucose Start:15-Sep-2013 Instruction Type:Provider Instructions for Treatment Patient Instructions Indication:Other and unspecified hyperlipidemia Start:12-Apr-2013 Instruction Type:Provider Instructions for Treatment Patient Instructions 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 Start:02-Dec-2012 Instruction Type:Provider Instructions for Treatment Patient Instructions 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 Start:04-May-2012 Instruction Type:Provider Instructions for Treatment [facility]; [facility] Work Phone: Instructions* Name Dates Details Patient Instructions Indication:Nonsmoker Start:07-Jan-2021 Instruction Type:Provider Instructions for Treatment How to Access Health Informa tion Online using Patient Portal and [employer] Indication:Nonsmoker Start:22-Aug-2020 Instruction Type:Patient Education Patient Instructions Indication:Nonsmoker Start:22-Aug-2020 Instruction Type:Provider Instructions for Treatment Patient Instructions Indication:Nonsmoker Start:10-Jul-2020 Instruction Type:Provider Instructions for Treatment How to Access Health Informa tion Online using Patient Portal and [employer] Indication:Nonsmoker Start:10-Jul-2020 Instruction Type:Patient Education How to access health informa tion online Indication:Nonsmoker Start:03-Jan-2020 Instruction Type:Patient Education How to access health informa tion online - Detail Indication:Nonsmoker Start:03-Jan-2020 Instruction Type:Patient Education Patient Instructions Indication:Nonsmoker Start:03-Jan-2020 Instruction Type:Provider Instructions for Treatment How to access health informa tion online Indication:Nonsmoker Start:05-Sep-2019 Instruction Type:Patient Education How to access health informa tion online - Detail Indication:Nonsmoker Start:05-Sep-2019 Instruction Type:Patient Education Patient Instructions Indication:Vitamin D deficiency Start:05-Sep-2019 Instruction Type:Provider Instructions for Treatment How to access health informa tion online Indication:Nonsmoker Start:19-Apr-2019 Instruction Type:Patient Education How to access health informa tion online - Detail Indication:Nonsmoker Start:19-Apr-2019 Instruction Type:Patient Education Patient Instructions Indication:Nonsmoker Start:19-Apr-2019 Instruction Type:Provider Instructions for Treatment How to access health informa tion online Indication:Nonsmoker Start:19-Oct-2018 Instruction Type:Patient Education How to access health informa tion online - Detail Indication:Nonsmoker Start:19-Oct-2018 Instruction Type:Patient Education Patient Instructions Indication:Impaired Fasting Glucose (Renamed from Elevated fasting blood sugar) Start:19-Oct-2018 Instruction Type:Provider Instructions for Treatment How to access health informa tion online Indication:Nonsmoker Start:20-Apr-2018 Instruction Type:Patient Education How to access health informa tion online - Detail Indication:Nonsmoker Start:20-Apr-2018 Instruction Type:Patient Education Patient Instructions Indication:Migraine Start:20-Apr-2018 Instruction Type:Provider Instructions for Treatment How to access health informa tion online Indication:Head cold Start:13-Apr-2018 Instruction Type:Patient Education How to access health informa tion online - Detail Indication:Head cold Start:13-Apr-2018 Instruction Type:Patient Education Patient Instructions Indication:Head cold Start:13-Apr-2018 Instruction Type:Provider Instructions for Treatment How to access health informa tion online Indication:BMI 23.0-23.9, adult Start:03-Feb-2018 Instruction Type:Patient Education How to access health informa tion online - Detail Indication:BMI 23.0-23.9, adult Start:03-Feb-2018 Instruction Type:Patient Education Patient Instructions Indication:BMI 23.0-23.9, adult Start:03-Feb-2018 Instruction Type:Provider Instructions for Treatment How to access health informa tion online Indication:Benign essential hypertension Start:19-Oct-2017 Instruction Type:Patient Education How to access health informa tion online - Detail Indication:Benign essential hypertension Start:19-Oct-2017 Instruction Type:Patient Education Patient Instructions Indication:Benign essential hypertension Start:19-Oct-2017 Instruction Type:Provider Instructions for Treatment DISCONTINUED - PSA, TOTAL - DIAGNOSTIC (92962) Indication:Vitamin D deficiency Start:16-Jul-2017 Instruction Type:Patient Education DISCONTINUED - HGB A1C (8303 6) Indication:Impaired Fasting Glucose (Renamed from Elevated fasting blood sugar) Start:16-Jul-2017 Instruction Type:Patient Education How to access health informa tion online Indication:Impaired Fasting Glucose (Renamed from Elevated fasting blood sugar) Start:16-Jul-2017 Instruction Type:Patient Education How to access health informa tion online - Detail Indication:Impaired Fasting Glucose (Renamed from Elevated fasting blood sugar) Start:16-Jul-2017 Instruction Type:Patient Education Patient Instructions Indication:Encounter for screening for malignant neoplasm of prostate (Renamed from Screening for prostate cancer) Start:16-Jul-2017 Instruction Type:Provider Instructions for Treatment How to access health informa tion online Indication:Benign essential hypertension Start:05-Apr-2017 Instruction Type:Patient Education How to access health informa tion online - Detail Indication:Benign essential hypertension Start:05-Apr-2017 Instruction Type:Patient Education Patient Instructions Indication:Benign essential hypertension Start:05-Apr-2017 Instruction Type:Provider Instructions for Treatment How to access health informa tion online Indication:Impaired Fasting Glucose (Renamed from Elevated fasting blood sugar) Start:02-Mar-2017 Instruction Type:Patient Education How to access health informa tion online - Detail Indication:Impaired Fasting Glucose (Renamed from Elevated fasting blood sugar) Start:02-Mar-2017 Instruction Type:Patient Education Patient Instructions Indication:Impaired Fasting Glucose (Renamed from Elevated fasting blood sugar) Start:02-Mar-2017 Instruction Type:Provider Instructions for Treatment How to access health informa tion online Indication:BMI between 19-24,adult Start:28-Dec-2016 Instruction Type:Patient Education How to access health informa tion online - Detail Indication:BMI between 19-24,adult Start:28-Dec-2016 Instruction Type:Patient Education Patient Instructions Indication:BMI between 19-24,adult Start:28-Dec-2016 Instruction Type:Provider Instructions for Treatment How to access health informa tion online Indication:Migraine Start:01-Sep-2016 Instruction Type:Patient Education How to access health informa tion online - Detail Indication:Migraine Start:01-Sep-2016 Instruction Type:Patient Education Patient Instructions Indication:Migraine Start:01-Sep-2016 Instruction Type:Provider Instructions for Treatment How to access health informa tion online Indication:Benign essential hypertension Start:07-Apr-2016 Instruction Type:Patient Education How to access health informa tion online - Detail Indication:Benign essential hypertension Start:07-Apr-2016 Instruction Type:Patient Education Patient Instructions Indication:Benign essential hypertension Start:07-Apr-2016 Instruction Type:Provider Instructions for Treatment How to access health informa tion online Indication:Impaired Fasting Glucose (Renamed from Elevated fasting blood sugar) Start:24-Sep-2015 Instruction Type:Patient Education How to access health informa tion online - Detail Indication:Impaired Fasting Glucose (Renamed from Elevated fasting blood sugar) Start:24-Sep-2015 Instruction Type:Patient Education Patient Instructions Indication:Impaired Fasting Glucose (Renamed from Elevated fasting blood sugar) Start:24-Sep-2015 Instruction Type:Provider Instructions for Treatment How to access health informa tion online Indication:Impaired Fasting Glucose (Renamed from Elevated fasting blood sugar) Start:20-Mar-2015 Instruction Type:Patient Education How to access health informa tion online - Detail Indication:Impaired Fasting Glucose (Renamed from Elevated fasting blood sugar) Start:20-Mar-2015 Instruction Type:Patient Education Patient Instructions Indication:Impaired Fasting Glucose (Renamed from Elevated fasting blood sugar) Start:20-Mar-2015 Instruction Type:Provider Instructions for Treatment Patient Instructions Indication:Impaired Fasting Glucose (Renamed from Elevated fasting blood sugar) Start:17-Sep-2014 Instruction Type:Provider Instructions for Treatment How to access health informa tion online Indication:Benign essential hypertension Start:11-Apr-2014 Instruction Type:Patient Education How to access health informa tion online - Detail Indication:Benign essential hypertension Start:11-Apr-2014 Instruction Type:Patient Education Patient Instructions Indication:Benign essential hypertension Start:11-Apr-2014 Instruction Type:Provider Instructions for Treatment Patient Instructions Indication:Other abnormal glucose Start:15-Sep-2013 Instruction Type:Provider Instructions for Treatment Patient Instructions Indication:Other and unspecified hyperlipidemia Start:12-Apr-2013 Instruction Type:Provider Instructions for Treatment Patient Instructions 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 Start:02-Dec-2012 Instruction Type:Provider Instructions for Treatment Patient Instructions 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 Start:04-May-2012 Instruction Type:Provider Instructions for Treatment [facility]; [facility] Work Phone: Instructions* Name Dates Details Patient Instructions Indication:Nonsmoker Start:07-Jan-2021 Instruction Type:Provider Instructions for Treatment How to Access Health Informa tion Online using Patient Portal and [employer] Indication:Nonsmoker Start:22-Aug-2020 Instruction Type:Patient Education Patient Instructions Indication:Nonsmoker Start:22-Aug-2020 Instruction Type:Provider Instructions for Treatment Patient Instructions Indication:Nonsmoker Start:10-Jul-2020 Instruction Type:Provider Instructions for Treatment How to Access Health Informa tion Online using Patient Portal and [employer] Indication:Nonsmoker Start:10-Jul-2020 Instruction Type:Patient Education How to access health informa tion online Indication:Nonsmoker Start:03-Jan-2020 Instruction Type:Patient Education How to access health informa tion online - Detail Indication:Nonsmoker Start:03-Jan-2020 Instruction Type:Patient Education Patient Instructions Indication:Nonsmoker Start:03-Jan-2020 Instruction Type:Provider Instructions for Treatment How to access health informa tion online Indication:Nonsmoker Start:05-Sep-2019 Instruction Type:Patient Education How to access health informa tion online - Detail Indication:Nonsmoker Start:05-Sep-2019 Instruction Type:Patient Education Patient Instructions Indication:Vitamin D deficiency Start:05-Sep-2019 Instruction Type:Provider Instructions for Treatment How to access health informa tion online Indication:Nonsmoker Start:19-Apr-2019 Instruction Type:Patient Education How to access health informa tion online - Detail Indication:Nonsmoker Start:19-Apr-2019 Instruction Type:Patient Education Patient Instructions Indication:Nonsmoker Start:19-Apr-2019 Instruction Type:Provider Instructions for Treatment How to access health informa tion online Indication:Nonsmoker Start:19-Oct-2018 Instruction Type:Patient Education How to access health informa tion online - Detail Indication:Nonsmoker Start:19-Oct-2018 Instruction Type:Patient Education Patient Instructions Indication:Impaired Fasting Glucose (Renamed from Elevated fasting blood sugar) Start:19-Oct-2018 Instruction Type:Provider Instructions for Treatment How to access health informa tion online Indication:Nonsmoker Start:20-Apr-2018 Instruction Type:Patient Education How to access health informa tion online - Detail Indication:Nonsmoker Start:20-Apr-2018 Instruction Type:Patient Education Patient Instructions Indication:Migraine Start:20-Apr-2018 Instruction Type:Provider Instructions for Treatment How to access health informa tion online Indication:Head cold Start:13-Apr-2018 Instruction Type:Patient Education How to access health informa tion online - Detail Indication:Head cold Start:13-Apr-2018 Instruction Type:Patient Education Patient Instructions Indication:Head cold Start:13-Apr-2018 Instruction Type:Provider Instructions for Treatment How to access health informa tion online Indication:BMI 23.0-23.9, adult Start:03-Feb-2018 Instruction Type:Patient Education How to access health informa tion online - Detail Indication:BMI 23.0-23.9, adult Start:03-Feb-2018 Instruction Type:Patient Education Patient Instructions Indication:BMI 23.0-23.9, adult Start:03-Feb-2018 Instruction Type:Provider Instructions for Treatment How to access health informa tion online Indication:Benign essential hypertension Start:19-Oct-2017 Instruction Type:Patient Education How to access health informa tion online - Detail Indication:Benign essential hypertension Start:19-Oct-2017 Instruction Type:Patient Education Patient Instructions Indication:Benign essential hypertension Start:19-Oct-2017 Instruction Type:Provider Instructions for Treatment DISCONTINUED - PSA, TOTAL - DIAGNOSTIC ([id number]) Indication:Vitamin D deficiency Start:16-Jul-2017 Instruction Type:Patient Education DISCONTINUED - HGB A1C (8303 6) Indication:Impaired Fasting Glucose (Renamed from Elevated fasting blood sugar) Start:16-Jul-2017 Instruction Type:Patient Education How to access health informa tion online Indication:Impaired Fasting Glucose (Renamed from Elevated fasting blood sugar) Start:16-Jul-2017 Instruction Type:Patient Education How to access health informa tion online - Detail Indication:Impaired Fasting Glucose (Renamed from Elevated fasting blood sugar) Start:16-Jul-2017 Instruction Type:Patient Education Patient Instructions Indication:Encounter for screening for malignant neoplasm of prostate (Renamed from Screening for prostate cancer) Start:16-Jul-2017 Instruction Type:Provider Instructions for Treatment How to access health informa tion online Indication:Benign essential hypertension Start:05-Apr-2017 Instruction Type:Patient Education How to access health informa tion online - Detail Indication:Benign essential hypertension Start:05-Apr-2017 Instruction Type:Patient Education Patient Instructions Indication:Benign essential hypertension Start:05-Apr-2017 Instruction Type:Provider Instructions for Treatment How to access health informa tion online Indication:Impaired Fasting Glucose (Renamed from Elevated fasting blood sugar) Start:02-Mar-2017 Instruction Type:Patient Education How to access health informa tion online - Detail Indication:Impaired Fasting Glucose (Renamed from Elevated fasting blood sugar) Start:02-Mar-2017 Instruction Type:Patient Education Patient Instructions Indication:Impaired Fasting Glucose (Renamed from Elevated fasting blood sugar) Start:02-Mar-2017 Instruction Type:Provider Instructions for Treatment How to access health informa tion online Indication:BMI between 19-24,adult Start:28-Dec-2016 Instruction Type:Patient Education How to access health informa tion online - Detail Indication:BMI between 19-24,adult Start:28-Dec-2016 Instruction Type:Patient Education Patient Instructions Indication:BMI between 19-24,adult Start:28-Dec-2016 Instruction Type:Provider Instructions for Treatment How to access health informa tion online Indication:Migraine Start:01-Sep-2016 Instruction Type:Patient Education How to access health informa tion online - Detail Indication:Migraine Start:01-Sep-2016 Instruction Type:Patient Education Patient Instructions Indication:Migraine Start:01-Sep-2016 Instruction Type:Provider Instructions for Treatment How to access health informa tion online Indication:Benign essential hypertension Start:07-Apr-2016 Instruction Type:Patient Education How to access health informa tion online - Detail Indication:Benign essential hypertension Start:07-Apr-2016 Instruction Type:Patient Education Patient Instructions Indication:Benign essential hypertension Start:07-Apr-2016 Instruction Type:Provider Instructions for Treatment How to access health informa tion online Indication:Impaired Fasting Glucose (Renamed from Elevated fasting blood sugar) Start:24-Sep-2015 Instruction Type:Patient Education How to access health informa tion online - Detail Indication:Impaired Fasting Glucose (Renamed from Elevated fasting blood sugar) Start:24-Sep-2015 Instruction Type:Patient Education Patient Instructions Indication:Impaired Fasting Glucose (Renamed from Elevated fasting blood sugar) Start:24-Sep-2015 Instruction Type:Provider Instructions for Treatment How to access health informa tion online Indication:Impaired Fasting Glucose (Renamed from Elevated fasting blood sugar) Start:20-Mar-2015 Instruction Type:Patient Education How to access health informa tion online - Detail Indication:Impaired Fasting Glucose (Renamed from Elevated fasting blood sugar) Start:20-Mar-2015 Instruction Type:Patient Education Patient Instructions Indication:Impaired Fasting Glucose (Renamed from Elevated fasting blood sugar) Start:20-Mar-2015 Instruction Type:Provider Instructions for Treatment Patient Instructions Indication:Impaired Fasting Glucose (Renamed from Elevated fasting blood sugar) Start:17-Sep-2014 Instruction Type:Provider Instructions for Treatment How to access health informa tion online Indication:Benign essential hypertension Start:11-Apr-2014 Instruction Type:Patient Education How to access health informa tion online - Detail Indication:Benign essential hypertension Start:11-Apr-2014 Instruction Type:Patient Education Patient Instructions Indication:Benign essential hypertension Start:11-Apr-2014 Instruction Type:Provider Instructions for Treatment Patient Instructions Indication:Other abnormal glucose Start:15-Sep-2013 Instruction Type:Provider Instructions for Treatment Patient Instructions Indication:Other and unspecified hyperlipidemia Start:12-Apr-2013 Instruction Type:Provider Instructions for Treatment Patient Instructions 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 Start:02-Dec-2012 Instruction Type:Provider Instructions for Treatment Patient Instructions 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 Start:04-May-2012 Instruction Type:Provider Instructions for Treatment [facility]; [facility] Work Phone: Instructions* Name Dates Details How to Access Health Informa tion Online using Patient Portal and [employer] Indication:Nonsmoker Start:20-Jan-2022 Instruction Type:Patient Education Patient Instructions Indication:Nonsmoker Start:20-Jan-2022 Instruction Type:Provider Instructions for Treatment Patient Instructions Indication:Nonsmoker Start:07-Jan-2021 Instruction Type:Provider Instructions for Treatment How to Access Health Informa tion Online using Patient Portal and [employer] Apps Indication:Nonsmoker Start:22-Aug-2020 Instruction Type:Patient Education Patient Instructions Indication:Nonsmoker Start:22-Aug-2020 Instruction Type:Provider Instructions for Treatment Patient Instructions Indication:Nonsmoker Start:10-Jul-2020 Instruction Type:Provider Instructions for Treatment How to Access Health Informa tion Online using Patient Portal and [employer] Apps Indication:Nonsmoker Start:10-Jul-2020 Instruction Type:Patient Education How to access health informa tion online Indication:Nonsmoker Start:03-Jan-2020 Instruction Type:Patient Education How to access health informa tion online - Detail Indication:Nonsmoker Start:03-Jan-2020 Instruction Type:Patient Education Patient Instructions Indication:Nonsmoker Start:03-Jan-2020 Instruction Type:Provider Instructions for Treatment How to access health informa tion online Indication:Nonsmoker Start:05-Sep-2019 Instruction Type:Patient Education How to access health informa tion online - Detail Indication:Nonsmoker Start:05-Sep-2019 Instruction Type:Patient Education Patient Instructions Indication:Vitamin D deficiency Start:05-Sep-2019 Instruction Type:Provider Instructions for Treatment How to access health informa tion online Indication:Nonsmoker Start:19-Apr-2019 Instruction Type:Patient Education How to access health informa tion online - Detail Indication:Nonsmoker Start:19-Apr-2019 Instruction Type:Patient Education Patient Instructions Indication:Nonsmoker Start:19-Apr-2019 Instruction Type:Provider Instructions for Treatment How to access health informa tion online Indication:Nonsmoker Start:19-Oct-2018 Instruction Type:Patient Education How to access health informa tion online - Detail Indication:Nonsmoker Start:19-Oct-2018 Instruction Type:Patient Education Patient Instructions Indication:Impaired Fasting Glucose (Renamed from Elevated fasting blood sugar) Start:19-Oct-2018 Instruction Type:Provider Instructions for Treatment How to access health informa tion online Indication:Nonsmoker Start:20-Apr-2018 Instruction Type:Patient Education How to access health informa tion online - Detail Indication:Nonsmoker Start:20-Apr-2018 Instruction Type:Patient Education Patient Instructions Indication:Migraine Start:20-Apr-2018 Instruction Type:Provider Instructions for Treatment How to access health informa tion online Indication:Head cold Start:13-Apr-2018 Instruction Type:Patient Education How to access health informa tion online - Detail Indication:Head cold Start:13-Apr-2018 Instruction Type:Patient Education Patient Instructions Indication:Head cold Start:13-Apr-2018 Instruction Type:Provider Instructions for Treatment How to access health informa tion online Indication:BMI 23.0-23.9, adult Start:03-Feb-2018 Instruction Type:Patient Education How to access health informa tion online - Detail Indication:BMI 23.0-23.9, adult Start:03-Feb-2018 Instruction Type:Patient Education Patient Instructions Indication:BMI 23.0-23.9, adult Start:03-Feb-2018 Instruction Type:Provider Instructions for Treatment How to access health informa tion online Indication:Benign essential hypertension Start:19-Oct-2017 Instruction Type:Patient Education How to access health informa tion online - Detail Indication:Benign essential hypertension Start:19-Oct-2017 Instruction Type:Patient Education Patient Instructions Indication:Benign essential hypertension Start:19-Oct-2017 Instruction Type:Provider Instructions for Treatment DISCONTINUED - PSA, TOTAL - DIAGNOSTIC (15689) Indication:Vitamin D deficiency Start:16-Jul-2017 Instruction Type:Patient Education DISCONTINUED - HGB A1C (8303 6) Indication:Impaired Fasting Glucose (Renamed from Elevated fasting blood sugar) Start:16-Jul-2017 Instruction Type:Patient Education How to access health informa tion online Indication:Impaired Fasting Glucose (Renamed from Elevated fasting blood sugar) Start:16-Jul-2017 Instruction Type:Patient Education How to access health informa tion online - Detail Indication:Impaired Fasting Glucose (Renamed from Elevated fasting blood sugar) Start:16-Jul-2017 Instruction Type:Patient Education Patient Instructions Indication:Encounter for screening for malignant neoplasm of prostate (Renamed from Screening for prostate cancer) Start:16-Jul-2017 Instruction Type:Provider Instructions for Treatment How to access health informa tion online Indication:Benign essential hypertension Start:05-Apr-2017 Instruction Type:Patient Education How to access health informa tion online - Detail Indication:Benign essential hypertension Start:05-Apr-2017 Instruction Type:Patient Education Patient Instructions Indication:Benign essential hypertension Start:05-Apr-2017 Instruction Type:Provider Instructions for Treatment How to access health informa tion online Indication:Impaired Fasting Glucose (Renamed from Elevated fasting blood sugar) Start:02-Mar-2017 Instruction Type:Patient Education How to access health informa tion online - Detail Indication:Impaired Fasting Glucose (Renamed from Elevated fasting blood sugar) Start:02-Mar-2017 Instruction Type:Patient Education Patient Instructions Indication:Impaired Fasting Glucose (Renamed from Elevated fasting blood sugar) Start:02-Mar-2017 Instruction Type:Provider Instructions for Treatment How to access health informa tion online Indication:BMI between 19-24,adult Start:28-Dec-2016 Instruction Type:Patient Education How to access health informa tion online - Detail Indication:BMI between 19-24,adult Start:28-Dec-2016 Instruction Type:Patient Education Patient Instructions Indication:BMI between 19-24,adult Start:28-Dec-2016 Instruction Type:Provider Instructions for Treatment How to access health informa tion online Indication:Migraine Start:01-Sep-2016 Instruction Type:Patient Education How to access health informa tion online - Detail Indication:Migraine Start:01-Sep-2016 Instruction Type:Patient Education Patient Instructions Indication:Migraine Start:01-Sep-2016 Instruction Type:Provider Instructions for Treatment How to access health informa tion online Indication:Benign essential hypertension Start:07-Apr-2016 Instruction Type:Patient Education How to access health informa tion online - Detail Indication:Benign essential hypertension Start:07-Apr-2016 Instruction Type:Patient Education Patient Instructions Indication:Benign essential hypertension Start:07-Apr-2016 Instruction Type:Provider Instructions for Treatment How to access health informa tion online Indication:Impaired Fasting Glucose (Renamed from Elevated fasting blood sugar) Start:24-Sep-2015 Instruction Type:Patient Education How to access health informa tion online - Detail Indication:Impaired Fasting Glucose (Renamed from Elevated fasting blood sugar) Start:24-Sep-2015 Instruction Type:Patient Education Patient Instructions Indication:Impaired Fasting Glucose (Renamed from Elevated fasting blood sugar) Start:24-Sep-2015 Instruction Type:Provider Instructions for Treatment How to access health informa tion online Indication:Impaired Fasting Glucose (Renamed from Elevated fasting blood sugar) Start:20-Mar-2015 Instruction Type:Patient Education How to access health informa tion online - Detail Indication:Impaired Fasting Glucose (Renamed from Elevated fasting blood sugar) Start:20-Mar-2015 Instruction Type:Patient Education Patient Instructions Indication:Impaired Fasting Glucose (Renamed from Elevated fasting blood sugar) Start:20-Mar-2015 Instruction Type:Provider Instructions for Treatment Patient Instructions Indication:Impaired Fasting Glucose (Renamed from Elevated fasting blood sugar) Start:17-Sep-2014 Instruction Type:Provider Instructions for Treatment How to access health informa tion online Indication:Benign essential hypertension Start:11-Apr-2014 Instruction Type:Patient Education How to access health informa tion online - Detail Indication:Benign essential hypertension Start:11-Apr-2014 Instruction Type:Patient Education Patient Instructions Indication:Benign essential hypertension Start:11-Apr-2014 Instruction Type:Provider Instructions for Treatment Patient Instructions Indication:Other abnormal glucose Start:15-Sep-2013 Instruction Type:Provider Instructions for Treatment Patient Instructions Indication:Other and unspecified hyperlipidemia Start:12-Apr-2013 Instruction Type:Provider Instructions for Treatment Patient Instructions 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 Start:02-Dec-2012 Instruction Type:Provider Instructions for Treatment Patient Instructions 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 Start:04-May-2012 Instruction Type:Provider Instructions for Treatment [facility]; [facility] Work Phone: Instructions* Name Dates Details How to Access [employer] using Patient Portal and [employer] Apps Indication:Nonsmoker Start:20-Jan-2022 Instruction Type:Patient Education Patient Instructions Indication:Nonsmoker Start:20-Jan-2022 Instruction Type:Provider Instructions for Treatment Patient Instructions Indication:Nonsmoker Start:07-Jan-2021 Instruction Type:Provider Instructions for Treatment How to Access Health [employer]a [employer] Online using Patient Portal and [employer] Apps Indication:Nonsmoker Start:22-Aug-2020 Instruction Type:Patient Education Patient Instructions Indication:Nonsmoker Start:22-Aug-2020 Instruction Type:Provider Instructions for Treatment Patient Instructions Indication:Nonsmoker Start:10-Jul-2020 Instruction Type:Provider Instructions for Treatment How to Access Health Informa tion Online using Patient Portal and [employer] Apps Indication:Nonsmoker Start:10-Jul-2020 Instruction Type:Patient Education How to access health informa tion online Indication:Nonsmoker Start:03-Jan-2020 Instruction Type:Patient Education How to access health informa tion online - Detail Indication:Nonsmoker Start:03-Jan-2020 Instruction Type:Patient Education Patient Instructions Indication:Nonsmoker Start:03-Jan-2020 Instruction Type:Provider Instructions for Treatment How to access health informa tion online Indication:Nonsmoker Start:05-Sep-2019 Instruction Type:Patient Education How to access health informa tion online - Detail Indication:Nonsmoker Start:05-Sep-2019 Instruction Type:Patient Education Patient Instructions Indication:Vitamin D deficiency Start:05-Sep-2019 Instruction Type:Provider Instructions for Treatment How to access health informa tion online Indication:Nonsmoker Start:19-Apr-2019 Instruction Type:Patient Education How to access health informa tion online - Detail Indication:Nonsmoker Start:19-Apr-2019 Instruction Type:Patient Education Patient Instructions Indication:Nonsmoker Start:19-Apr-2019 Instruction Type:Provider Instructions for Treatment How to access health informa tion online Indication:Nonsmoker Start:19-Oct-2018 Instruction Type:Patient Education How to access health informa tion online - Detail Indication:Nonsmoker Start:19-Oct-2018 Instruction Type:Patient Education Patient Instructions Indication:Impaired Fasting Glucose (Renamed from Elevated fasting blood sugar) Start:19-Oct-2018 Instruction Type:Provider Instructions for Treatment How to access health informa tion online Indication:Nonsmoker Start:20-Apr-2018 Instruction Type:Patient Education How to access health informa tion online - Detail Indication:Nonsmoker Start:20-Apr-2018 Instruction Type:Patient Education Patient Instructions Indication:Migraine Start:20-Apr-2018 Instruction Type:Provider Instructions for Treatment How to access health informa tion online Indication:Head cold Start:13-Apr-2018 Instruction Type:Patient Education How to access health informa tion online - Detail Indication:Head cold Start:13-Apr-2018 Instruction Type:Patient Education Patient Instructions Indication:Head cold Start:13-Apr-2018 Instruction Type:Provider Instructions for Treatment How to access health informa tion online Indication:BMI 23.0-23.9, adult Start:03-Feb-2018 Instruction Type:Patient Education How to access health informa tion online - Detail Indication:BMI 23.0-23.9, adult Start:03-Feb-2018 Instruction Type:Patient Education Patient Instructions Indication:BMI 23.0-23.9, adult Start:03-Feb-2018 Instruction Type:Provider Instructions for Treatment How to access health informa tion online Indication:Benign essential hypertension Start:19-Oct-2017 Instruction Type:Patient Education How to access health informa tion online - Detail Indication:Benign essential hypertension Start:19-Oct-2017 Instruction Type:Patient Education Patient Instructions Indication:Benign essential hypertension Start:19-Oct-2017 Instruction Type:Provider Instructions for Treatment DISCONTINUED - PSA, TOTAL - DIAGNOSTIC (33837) Indication:Vitamin D deficiency Start:16-Jul-2017 Instruction Type:Patient Education DISCONTINUED - HGB A1C (8303 6) Indication:Impaired Fasting Glucose (Renamed from Elevated fasting blood sugar) Start:16-Jul-2017 Instruction Type:Patient Education How to access health informa tion online Indication:Impaired Fasting Glucose (Renamed from Elevated fasting blood sugar) Start:16-Jul-2017 Instruction Type:Patient Education How to access health informa tion online - Detail Indication:Impaired Fasting Glucose (Renamed from Elevated fasting blood sugar) Start:16-Jul-2017 Instruction Type:Patient Education Patient Instructions Indication:Encounter for screening for malignant neoplasm of prostate (Renamed from Screening for prostate cancer) Start:16-Jul-2017 Instruction Type:Provider Instructions for Treatment How to access health informa tion online Indication:Benign essential hypertension Start:05-Apr-2017 Instruction Type:Patient Education How to access health informa tion online - Detail Indication:Benign essential hypertension Start:05-Apr-2017 Instruction Type:Patient Education Patient Instructions Indication:Benign essential hypertension Start:05-Apr-2017 Instruction Type:Provider Instructions for Treatment How to access health informa tion online Indication:Impaired Fasting Glucose (Renamed from Elevated fasting blood sugar) Start:02-Mar-2017 Instruction Type:Patient Education How to access health informa tion online - Detail Indication:Impaired Fasting Glucose (Renamed from Elevated fasting blood sugar) Start:02-Mar-2017 Instruction Type:Patient Education Patient Instructions Indication:Impaired Fasting Glucose (Renamed from Elevated fasting blood sugar) Start:02-Mar-2017 Instruction Type:Provider Instructions for Treatment How to access health informa tion online Indication:BMI between 19-24,adult Start:28-Dec-2016 Instruction Type:Patient Education How to access health informa tion online - Detail Indication:BMI between 19-24,adult Start:28-Dec-2016 Instruction Type:Patient Education Patient Instructions Indication:BMI between 19-24,adult Start:28-Dec-2016 Instruction Type:Provider Instructions for Treatment How to access health informa tion online Indication:Migraine Start:01-Sep-2016 Instruction Type:Patient Education How to access health informa tion online - Detail Indication:Migraine Start:01-Sep-2016 Instruction Type:Patient Education Patient Instructions Indication:Migraine Start:01-Sep-2016 Instruction Type:Provider Instructions for Treatment How to access health informa tion online Indication:Benign essential hypertension Start:07-Apr-2016 Instruction Type:Patient Education How to access health informa tion online - Detail Indication:Benign essential hypertension Start:07-Apr-2016 Instruction Type:Patient Education Patient Instructions Indication:Benign essential hypertension Start:07-Apr-2016 Instruction Type:Provider Instructions for Treatment How to access health informa tion online Indication:Impaired Fasting Glucose (Renamed from Elevated fasting blood sugar) Start:24-Sep-2015 Instruction Type:Patient Education How to access health informa tion online - Detail Indication:Impaired Fasting Glucose (Renamed from Elevated fasting blood sugar) Start:24-Sep-2015 Instruction Type:Patient Education Patient Instructions Indication:Impaired Fasting Glucose (Renamed from Elevated fasting blood sugar) Start:24-Sep-2015 Instruction Type:Provider Instructions for Treatment How to access health informa tion online Indication:Impaired Fasting Glucose (Renamed from Elevated fasting blood sugar) Start:20-Mar-2015 Instruction Type:Patient Education How to access health informa tion online - Detail Indication:Impaired Fasting Glucose (Renamed from Elevated fasting blood sugar) Start:20-Mar-2015 Instruction Type:Patient Education Patient Instructions Indication:Impaired Fasting Glucose (Renamed from Elevated fasting blood sugar) Start:20-Mar-2015 Instruction Type:Provider Instructions for Treatment Patient Instructions Indication:Impaired Fasting Glucose (Renamed from Elevated fasting blood sugar) Start:17-Sep-2014 Instruction Type:Provider Instructions for Treatment How to access health informa tion online Indication:Benign essential hypertension Start:11-Apr-2014 Instruction Type:Patient Education How to access health informa tion online - Detail Indication:Benign essential hypertension Start:11-Apr-2014 Instruction Type:Patient Education Patient Instructions Indication:Benign essential hypertension Start:11-Apr-2014 Instruction Type:Provider Instructions for Treatment Patient Instructions Indication:Other abnormal glucose Start:15-Sep-2013 Instruction Type:Provider Instructions for Treatment Patient Instructions Indication:Other and unspecified hyperlipidemia Start:12-Apr-2013 Instruction Type:Provider Instructions for Treatment Patient Instructions 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 Start:02-Dec-2012 Instruction Type:Provider Instructions for Treatment Patient Instructions 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 Start:04-May-2012 Instruction Type:Provider Instructions for Treatment [facility]; [facility] Work Phone: Instructions* Name Dates Details How to Access Health Informa tion Online using Patient Portal and [employer] Apps Indication:Nonsmoker Start:20-Jan-2022 Instruction Type:Patient Education Patient Instructions Indication:Nonsmoker Start:20-Jan-2022 Instruction Type:Provider Instructions for Treatment Patient Instructions Indication:Nonsmoker Start:07-Jan-2021 Instruction Type:Provider Instructions for Treatment How to Access Health Informa tion Online using Patient Portal and [employer] Apps Indication:Nonsmoker Start:22-Aug-2020 Instruction Type:Patient Education Patient Instructions Indication:Nonsmoker Start:22-Aug-2020 Instruction Type:Provider Instructions for Treatment Patient Instructions Indication:Nonsmoker Start:10-Jul-2020 Instruction Type:Provider Instructions for Treatment How to Access Health Informa tion Online using Patient Portal and [employer] Apps Indication:Nonsmoker Start:10-Jul-2020 Instruction Type:Patient Education How to access health informa tion online Indication:Nonsmoker Start:03-Jan-2020 Instruction Type:Patient Education How to access health informa tion online - Detail Indication:Nonsmoker Start:03-Jan-2020 Instruction Type:Patient Education Patient Instructions Indication:Nonsmoker Start:03-Jan-2020 Instruction Type:Provider Instructions for Treatment How to access health informa tion online Indication:Nonsmoker Start:05-Sep-2019 Instruction Type:Patient Education How to access health informa tion online - Detail Indication:Nonsmoker Start:05-Sep-2019 Instruction Type:Patient Education Patient Instructions Indication:Vitamin D deficiency Start:05-Sep-2019 Instruction Type:Provider Instructions for Treatment How to access health informa tion online Indication:Nonsmoker Start:19-Apr-2019 Instruction Type:Patient Education How to access health informa tion online - Detail Indication:Nonsmoker Start:19-Apr-2019 Instruction Type:Patient Education Patient Instructions Indication:Nonsmoker Start:19-Apr-2019 Instruction Type:Provider Instructions for Treatment How to access health informa tion online Indication:Nonsmoker Start:19-Oct-2018 Instruction Type:Patient Education How to access health informa tion online - Detail Indication:Nonsmoker Start:19-Oct-2018 Instruction Type:Patient Education Patient Instructions Indication:Impaired Fasting Glucose (Renamed from Elevated fasting blood sugar) Start:19-Oct-2018 Instruction Type:Provider Instructions for Treatment How to access health informa tion online Indication:Nonsmoker Start:20-Apr-2018 Instruction Type:Patient Education How to access health informa tion online - Detail Indication:Nonsmoker Start:20-Apr-2018 Instruction Type:Patient Education Patient Instructions Indication:Migraine Start:20-Apr-2018 Instruction Type:Provider Instructions for Treatment How to access health informa tion online Indication:Head cold Start:13-Apr-2018 Instruction Type:Patient Education How to access health informa tion online - Detail Indication:Head cold Start:13-Apr-2018 Instruction Type:Patient Education Patient Instructions Indication:Head cold Start:13-Apr-2018 Instruction Type:Provider Instructions for Treatment How to access health informa tion online Indication:BMI 23.0-23.9, adult Start:03-Feb-2018 Instruction Type:Patient Education How to access health informa tion online - Detail Indication:BMI 23.0-23.9, adult Start:03-Feb-2018 Instruction Type:Patient Education Patient Instructions Indication:BMI 23.0-23.9, adult Start:03-Feb-2018 Instruction Type:Provider Instructions for Treatment How to access health informa tion online Indication:Benign essential hypertension Start:19-Oct-2017 Instruction Type:Patient Education How to access health informa tion online - Detail Indication:Benign essential hypertension Start:19-Oct-2017 Instruction Type:Patient Education Patient Instructions Indication:Benign essential hypertension Start:19-Oct-2017 Instruction Type:Provider Instructions for Treatment DISCONTINUED - PSA, TOTAL - DIAGNOSTIC (89160) Indication:Vitamin D deficiency Start:16-Jul-2017 Instruction Type:Patient Education DISCONTINUED - HGB A1C (8303 6) Indication:Impaired Fasting Glucose (Renamed from Elevated fasting blood sugar) Start:16-Jul-2017 Instruction Type:Patient Education How to access health informa tion online Indication:Impaired Fasting Glucose (Renamed from Elevated fasting blood sugar) Start:16-Jul-2017 Instruction Type:Patient Education How to access health informa tion online - Detail Indication:Impaired Fasting Glucose (Renamed from Elevated fasting blood sugar) Start:16-Jul-2017 Instruction Type:Patient Education Patient Instructions Indication:Encounter for screening for malignant neoplasm of prostate (Renamed from Screening for prostate cancer) Start:16-Jul-2017 Instruction Type:Provider Instructions for Treatment How to access health informa tion online Indication:Benign essential hypertension Start:05-Apr-2017 Instruction Type:Patient Education How to access health informa tion online - Detail Indication:Benign essential hypertension Start:05-Apr-2017 Instruction Type:Patient Education Patient Instructions Indication:Benign essential hypertension Start:05-Apr-2017 Instruction Type:Provider Instructions for Treatment How to access health informa tion online Indication:Impaired Fasting Glucose (Renamed from Elevated fasting blood sugar) Start:02-Mar-2017 Instruction Type:Patient Education How to access health informa tion online - Detail Indication:Impaired Fasting Glucose (Renamed from Elevated fasting blood sugar) Start:02-Mar-2017 Instruction Type:Patient Education Patient Instructions Indication:Impaired Fasting Glucose (Renamed from Elevated fasting blood sugar) Start:02-Mar-2017 Instruction Type:Provider Instructions for Treatment How to access health informa tion online Indication:BMI between 19-24,adult Start:28-Dec-2016 Instruction Type:Patient Education How to access health informa tion online - Detail Indication:BMI between 19-24,adult Start:28-Dec-2016 Instruction Type:Patient Education Patient Instructions Indication:BMI between 19-24,adult Start:28-Dec-2016 Instruction Type:Provider Instructions for Treatment How to access health informa tion online Indication:Migraine Start:01-Sep-2016 Instruction Type:Patient Education How to access health informa tion online - Detail Indication:Migraine Start:01-Sep-2016 Instruction Type:Patient Education Patient Instructions Indication:Migraine Start:01-Sep-2016 Instruction Type:Provider Instructions for Treatment How to access health informa tion online Indication:Benign essential hypertension Start:07-Apr-2016 Instruction Type:Patient Education How to access health informa tion online - Detail Indication:Benign essential hypertension Start:07-Apr-2016 Instruction Type:Patient Education Patient Instructions Indication:Benign essential hypertension Start:07-Apr-2016 Instruction Type:Provider Instructions for Treatment How to access health informa tion online Indication:Impaired Fasting Glucose (Renamed from Elevated fasting blood sugar) Start:24-Sep-2015 Instruction Type:Patient Education How to access health informa tion online - Detail Indication:Impaired Fasting Glucose (Renamed from Elevated fasting blood sugar) Start:24-Sep-2015 Instruction Type:Patient Education Patient Instructions Indication:Impaired Fasting Glucose (Renamed from Elevated fasting blood sugar) Start:24-Sep-2015 Instruction Type:Provider Instructions for Treatment How to access health informa tion online Indication:Impaired Fasting Glucose (Renamed from Elevated fasting blood sugar) Start:20-Mar-2015 Instruction Type:Patient Education How to access health informa tion online - Detail Indication:Impaired Fasting Glucose (Renamed from Elevated fasting blood sugar) Start:20-Mar-2015 Instruction Type:Patient Education Patient Instructions Indication:Impaired Fasting Glucose (Renamed from Elevated fasting blood sugar) Start:20-Mar-2015 Instruction Type:Provider Instructions for Treatment Patient Instructions Indication:Impaired Fasting Glucose (Renamed from Elevated fasting blood sugar) Start:17-Sep-2014 Instruction Type:Provider Instructions for Treatment How to access health informa tion online Indication:Benign essential hypertension Start:11-Apr-2014 Instruction Type:Patient Education How to access health informa tion online - Detail Indication:Benign essential hypertension Start:11-Apr-2014 Instruction Type:Patient Education Patient Instructions Indication:Benign essential hypertension Start:11-Apr-2014 Instruction Type:Provider Instructions for Treatment Patient Instructions Indication:Other abnormal glucose Start:15-Sep-2013 Instruction Type:Provider Instructions for Treatment Patient Instructions Indication:Other and unspecified hyperlipidemia Start:12-Apr-2013 Instruction Type:Provider Instructions for Treatment Patient Instructions 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 Start:02-Dec-2012 Instruction Type:Provider Instructions for Treatment Patient Instructions 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 Start:04-May-2012 Instruction Type:Provider Instructions for Treatment [facility]; [facility] Work Phone: Instructions* Name Dates Details How to Access Health Informa tion Online using Patient Portal and [employer] Apps Indication:Nonsmoker Start:20-Jan-2022 Instruction Type:Patient Education Patient Instructions Indication:Nonsmoker Start:20-Jan-2022 Instruction Type:Provider Instructions for Treatment Patient Instructions Indication:Nonsmoker Start:07-Jan-2021 Instruction Type:Provider Instructions for Treatment How to Access Health Informa tion Online using Patient Portal and [employer] Apps Indication:Nonsmoker Start:22-Aug-2020 Instruction Type:Patient Education Patient Instructions Indication:Nonsmoker Start:22-Aug-2020 Instruction Type:Provider Instructions for Treatment Patient Instructions Indication:Nonsmoker Start:10-Jul-2020 Instruction Type:Provider Instructions for Treatment How to Access Health Informa tion Online using Patient Portal and [employer] Apps Indication:Nonsmoker Start:10-Jul-2020 Instruction Type:Patient Education How to access health informa tion online Indication:Nonsmoker Start:03-Jan-2020 Instruction Type:Patient Education How to access health informa tion online - Detail Indication:Nonsmoker Start:03-Jan-2020 Instruction Type:Patient Education Patient Instructions Indication:Nonsmoker Start:03-Jan-2020 Instruction Type:Provider Instructions for Treatment How to access health informa tion online Indication:Nonsmoker Start:05-Sep-2019 Instruction Type:Patient Education How to access health informa tion online - Detail Indication:Nonsmoker Start:05-Sep-2019 Instruction Type:Patient Education Patient Instructions Indication:Vitamin D deficiency Start:05-Sep-2019 Instruction Type:Provider Instructions for Treatment How to access health informa tion online Indication:Nonsmoker Start:19-Apr-2019 Instruction Type:Patient Education How to access health informa tion online - Detail Indication:Nonsmoker Start:19-Apr-2019 Instruction Type:Patient Education Patient Instructions Indication:Nonsmoker Start:19-Apr-2019 Instruction Type:Provider Instructions for Treatment How to access health informa tion online Indication:Nonsmoker Start:19-Oct-2018 Instruction Type:Patient Education How to access health informa tion online - Detail Indication:Nonsmoker Start:19-Oct-2018 Instruction Type:Patient Education Patient Instructions Indication:Impaired Fasting Glucose (Renamed from Elevated fasting blood sugar) Start:19-Oct-2018 Instruction Type:Provider Instructions for Treatment How to access health informa tion online Indication:Nonsmoker Start:20-Apr-2018 Instruction Type:Patient Education How to access health informa tion online - Detail Indication:Nonsmoker Start:20-Apr-2018 Instruction Type:Patient Education Patient Instructions Indication:Migraine Start:20-Apr-2018 Instruction Type:Provider Instructions for Treatment How to access health informa tion online Indication:Head cold Start:13-Apr-2018 Instruction Type:Patient Education How to access health informa tion online - Detail Indication:Head cold Start:13-Apr-2018 Instruction Type:Patient Education Patient Instructions Indication:Head cold Start:13-Apr-2018 Instruction Type:Provider Instructions for Treatment How to access health informa tion online Indication:BMI 23.0-23.9, adult Start:03-Feb-2018 Instruction Type:Patient Education How to access health informa tion online - Detail Indication:BMI 23.0-23.9, adult Start:03-Feb-2018 Instruction Type:Patient Education Patient Instructions Indication:BMI 23.0-23.9, adult Start:03-Feb-2018 Instruction Type:Provider Instructions for Treatment How to access health informa tion online Indication:Benign essential hypertension Start:19-Oct-2017 Instruction Type:Patient Education How to access health informa tion online - Detail Indication:Benign essential hypertension Start:19-Oct-2017 Instruction Type:Patient Education Patient Instructions Indication:Benign essential hypertension Start:19-Oct-2017 Instruction Type:Provider Instructions for Treatment DISCONTINUED - PSA, TOTAL - DIAGNOSTIC (97685) Indication:Vitamin D deficiency Start:16-Jul-2017 Instruction Type:Patient Education DISCONTINUED - HGB A1C (8303 6) Indication:Impaired Fasting Glucose (Renamed from Elevated fasting blood sugar) Start:16-Jul-2017 Instruction Type:Patient Education How to access health informa tion online Indication:Impaired Fasting Glucose (Renamed from Elevated fasting blood sugar) Start:16-Jul-2017 Instruction Type:Patient Education How to access health informa tion online - Detail Indication:Impaired Fasting Glucose (Renamed from Elevated fasting blood sugar) Start:16-Jul-2017 Instruction Type:Patient Education Patient Instructions Indication:Encounter for screening for malignant neoplasm of prostate (Renamed from Screening for prostate cancer) Start:16-Jul-2017 Instruction Type:Provider Instructions for Treatment How to access health informa tion online Indication:Benign essential hypertension Start:05-Apr-2017 Instruction Type:Patient Education How to access health informa tion online - Detail Indication:Benign essential hypertension Start:05-Apr-2017 Instruction Type:Patient Education Patient Instructions Indication:Benign essential hypertension Start:05-Apr-2017 Instruction Type:Provider Instructions for Treatment How to access health informa tion online Indication:Impaired Fasting Glucose (Renamed from Elevated fasting blood sugar) Start:02-Mar-2017 Instruction Type:Patient Education How to access health informa tion online - Detail Indication:Impaired Fasting Glucose (Renamed from Elevated fasting blood sugar) Start:02-Mar-2017 Instruction Type:Patient Education Patient Instructions Indication:Impaired Fasting Glucose (Renamed from Elevated fasting blood sugar) Start:02-Mar-2017 Instruction Type:Provider Instructions for Treatment How to access health informa tion online Indication:BMI between 19-24,adult Start:28-Dec-2016 Instruction Type:Patient Education How to access health informa tion online - Detail Indication:BMI between 19-24,adult Start:28-Dec-2016 Instruction Type:Patient Education Patient Instructions Indication:BMI between 19-24,adult Start:28-Dec-2016 Instruction Type:Provider Instructions for Treatment How to access health informa tion online Indication:Migraine Start:01-Sep-2016 Instruction Type:Patient Education How to access health informa tion online - Detail Indication:Migraine Start:01-Sep-2016 Instruction Type:Patient Education Patient Instructions Indication:Migraine Start:01-Sep-2016 Instruction Type:Provider Instructions for Treatment How to access health informa tion online Indication:Benign essential hypertension Start:07-Apr-2016 Instruction Type:Patient Education How to access health informa tion online - Detail Indication:Benign essential hypertension Start:07-Apr-2016 Instruction Type:Patient Education Patient Instructions Indication:Benign essential hypertension Start:07-Apr-2016 Instruction Type:Provider Instructions for Treatment How to access health informa tion online Indication:Impaired Fasting Glucose (Renamed from Elevated fasting blood sugar) Start:24-Sep-2015 Instruction Type:Patient Education How to access health informa tion online - Detail Indication:Impaired Fasting Glucose (Renamed from Elevated fasting blood sugar) Start:24-Sep-2015 Instruction Type:Patient Education Patient Instructions Indication:Impaired Fasting Glucose (Renamed from Elevated fasting blood sugar) Start:24-Sep-2015 Instruction Type:Provider Instructions for Treatment How to access health informa tion online Indication:Impaired Fasting Glucose (Renamed from Elevated fasting blood sugar) Start:20-Mar-2015 Instruction Type:Patient Education How to access health informa tion online - Detail Indication:Impaired Fasting Glucose (Renamed from Elevated fasting blood sugar) Start:20-Mar-2015 Instruction Type:Patient Education Patient Instructions Indication:Impaired Fasting Glucose (Renamed from Elevated fasting blood sugar) Start:20-Mar-2015 Instruction Type:Provider Instructions for Treatment Patient Instructions Indication:Impaired Fasting Glucose (Renamed from Elevated fasting blood sugar) Start:17-Sep-2014 Instruction Type:Provider Instructions for Treatment How to access health informa tion online Indication:Benign essential hypertension Start:11-Apr-2014 Instruction Type:Patient Education How to access health informa tion online - Detail Indication:Benign essential hypertension Start:11-Apr-2014 Instruction Type:Patient Education Patient Instructions Indication:Benign essential hypertension Start:11-Apr-2014 Instruction Type:Provider Instructions for Treatment Patient Instructions Indication:Other abnormal glucose Start:15-Sep-2013 Instruction Type:Provider Instructions for Treatment Patient Instructions Indication:Other and unspecified hyperlipidemia Start:12-Apr-2013 Instruction Type:Provider Instructions for Treatment Patient Instructions 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 Start:02-Dec-2012 Instruction Type:Provider Instructions for Treatment Patient Instructions 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 Start:04-May-2012 Instruction Type:Provider Instructions for Treatment [facility]; [facility] Work Phone: Instructions* Name Dates Details Patient Instructions Indication:Nonsmoker Start:22-Jul-2022 Instruction Type:Provider Instructions for Treatment How to Access Health Informa tion Online using Patient Portal and [employer] Indication:Nonsmoker Start:22-Jul-2022 Instruction Type:Patient Education How to Access Health Informa tion Online using Patient Portal and [employer] Apps Indication:Nonsmoker Start:20-Jan-2022 Instruction Type:Patient Education Patient Instructions Indication:Nonsmoker Start:20-Jan-2022 Instruction Type:Provider Instructions for Treatment Patient Instructions Indication:Nonsmoker Start:07-Jan-2021 Instruction Type:Provider Instructions for Treatment How to Access Health Informa tion Online using Patient Portal and [employer] Indication:Nonsmoker Start:22-Aug-2020 Instruction Type:Patient Education Patient Instructions Indication:Nonsmoker Start:22-Aug-2020 Instruction Type:Provider Instructions for Treatment Patient Instructions Indication:Nonsmoker Start:10-Jul-2020 Instruction Type:Provider Instructions for Treatment How to Access Health Informa tion Online using Patient Portal and [employer] Indication:Nonsmoker Start:10-Jul-2020 Instruction Type:Patient Education How to access health informa tion online Indication:Nonsmoker Start:03-Jan-2020 Instruction Type:Patient Education How to access health informa tion online - Detail Indication:Nonsmoker Start:03-Jan-2020 Instruction Type:Patient Education Patient Instructions Indication:Nonsmoker Start:03-Jan-2020 Instruction Type:Provider Instructions for Treatment How to access health informa tion online Indication:Nonsmoker Start:05-Sep-2019 Instruction Type:Patient Education How to access health informa tion online - Detail Indication:Nonsmoker Start:05-Sep-2019 Instruction Type:Patient Education Patient Instructions Indication:Vitamin D deficiency Start:05-Sep-2019 Instruction Type:Provider Instructions for Treatment How to access health informa tion online Indication:Nonsmoker Start:19-Apr-2019 Instruction Type:Patient Education How to access health informa tion online - Detail Indication:Nonsmoker Start:19-Apr-2019 Instruction Type:Patient Education Patient Instructions Indication:Nonsmoker Start:19-Apr-2019 Instruction Type:Provider Instructions for Treatment How to access health informa tion online Indication:Nonsmoker Start:19-Oct-2018 Instruction Type:Patient Education How to access health informa tion online - Detail Indication:Nonsmoker Start:19-Oct-2018 Instruction Type:Patient Education Patient Instructions Indication:Impaired Fasting Glucose (Renamed from Elevated fasting blood sugar) Start:19-Oct-2018 Instruction Type:Provider Instructions for Treatment How to access health informa tion online Indication:Nonsmoker Start:20-Apr-2018 Instruction Type:Patient Education How to access health informa tion online - Detail Indication:Nonsmoker Start:20-Apr-2018 Instruction Type:Patient Education Patient Instructions Indication:Migraine Start:20-Apr-2018 Instruction Type:Provider Instructions for Treatment How to access health informa tion online Indication:Head cold Start:13-Apr-2018 Instruction Type:Patient Education How to access health informa tion online - Detail Indication:Head cold Start:13-Apr-2018 Instruction Type:Patient Education Patient Instructions Indication:Head cold Start:13-Apr-2018 Instruction Type:Provider Instructions for Treatment How to access health informa tion online Indication:BMI 23.0-23.9, adult Start:03-Feb-2018 Instruction Type:Patient Education How to access health informa tion online - Detail Indication:BMI 23.0-23.9, adult Start:03-Feb-2018 Instruction Type:Patient Education Patient Instructions Indication:BMI 23.0-23.9, adult Start:03-Feb-2018 Instruction Type:Provider Instructions for Treatment How to access health informa tion online Indication:Benign essential hypertension Start:19-Oct-2017 Instruction Type:Patient Education How to access health informa tion online - Detail Indication:Benign essential hypertension Start:19-Oct-2017 Instruction Type:Patient Education Patient Instructions Indication:Benign essential hypertension Start:19-Oct-2017 Instruction Type:Provider Instructions for Treatment DISCONTINUED - PSA, TOTAL - DIAGNOSTIC (91315) Indication:Vitamin D deficiency Start:16-Jul-2017 Instruction Type:Patient Education DISCONTINUED - HGB A1C (8303 6) Indication:Impaired Fasting Glucose (Renamed from Elevated fasting blood sugar) Start:16-Jul-2017 Instruction Type:Patient Education How to access health informa tion online Indication:Impaired Fasting Glucose (Renamed from Elevated fasting blood sugar) Start:16-Jul-2017 Instruction Type:Patient Education How to access health informa tion online - Detail Indication:Impaired Fasting Glucose (Renamed from Elevated fasting blood sugar) Start:16-Jul-2017 Instruction Type:Patient Education Patient Instructions Indication:Encounter for screening for malignant neoplasm of prostate (Renamed from Screening for prostate cancer) Start:16-Jul-2017 Instruction Type:Provider Instructions for Treatment How to access health informa tion online Indication:Benign essential hypertension Start:05-Apr-2017 Instruction Type:Patient Education How to access health informa tion online - Detail Indication:Benign essential hypertension Start:05-Apr-2017 Instruction Type:Patient Education Patient Instructions Indication:Benign essential hypertension Start:05-Apr-2017 Instruction Type:Provider Instructions for Treatment How to access health informa tion online Indication:Impaired Fasting Glucose (Renamed from Elevated fasting blood sugar) Start:02-Mar-2017 Instruction Type:Patient Education How to access health informa tion online - Detail Indication:Impaired Fasting Glucose (Renamed from Elevated fasting blood sugar) Start:02-Mar-2017 Instruction Type:Patient Education Patient Instructions Indication:Impaired Fasting Glucose (Renamed from Elevated fasting blood sugar) Start:02-Mar-2017 Instruction Type:Provider Instructions for Treatment How to access health informa tion online Indication:BMI between 19-24,adult Start:28-Dec-2016 Instruction Type:Patient Education How to access health informa tion online - Detail Indication:BMI between 19-24,adult Start:28-Dec-2016 Instruction Type:Patient Education Patient Instructions Indication:BMI between 19-24,adult Start:28-Dec-2016 Instruction Type:Provider Instructions for Treatment How to access health informa tion online Indication:Migraine Start:01-Sep-2016 Instruction Type:Patient Education How to access health informa tion online - Detail Indication:Migraine Start:01-Sep-2016 Instruction Type:Patient Education Patient Instructions Indication:Migraine Start:01-Sep-2016 Instruction Type:Provider Instructions for Treatment How to access health informa tion online Indication:Benign essential hypertension Start:07-Apr-2016 Instruction Type:Patient Education How to access health informa tion online - Detail Indication:Benign essential hypertension Start:07-Apr-2016 Instruction Type:Patient Education Patient Instructions Indication:Benign essential hypertension Start:07-Apr-2016 Instruction Type:Provider Instructions for Treatment How to access health informa tion online Indication:Impaired Fasting Glucose (Renamed from Elevated fasting blood sugar) Start:24-Sep-2015 Instruction Type:Patient Education How to access health informa tion online - Detail Indication:Impaired Fasting Glucose (Renamed from Elevated fasting blood sugar) Start:24-Sep-2015 Instruction Type:Patient Education Patient Instructions Indication:Impaired Fasting Glucose (Renamed from Elevated fasting blood sugar) Start:24-Sep-2015 Instruction Type:Provider Instructions for Treatment How to access health informa tion online Indication:Impaired Fasting Glucose (Renamed from Elevated fasting blood sugar) Start:20-Mar-2015 Instruction Type:Patient Education How to access health informa tion online - Detail Indication:Impaired Fasting Glucose (Renamed from Elevated fasting blood sugar) Start:20-Mar-2015 Instruction Type:Patient Education Patient Instructions Indication:Impaired Fasting Glucose (Renamed from Elevated fasting blood sugar) Start:20-Mar-2015 Instruction Type:Provider Instructions for Treatment Patient Instructions Indication:Impaired Fasting Glucose (Renamed from Elevated fasting blood sugar) Start:17-Sep-2014 Instruction Type:Provider Instructions for Treatment How to access health informa tion online Indication:Benign essential hypertension Start:11-Apr-2014 Instruction Type:Patient Education How to access health informa tion online - Detail Indication:Benign essential hypertension Start:11-Apr-2014 Instruction Type:Patient Education Patient Instructions Indication:Benign essential hypertension Start:11-Apr-2014 Instruction Type:Provider Instructions for Treatment Patient Instructions Indication:Other abnormal glucose Start:15-Sep-2013 Instruction Type:Provider Instructions for Treatment Patient Instructions Indication:Other and unspecified hyperlipidemia Start:12-Apr-2013 Instruction Type:Provider Instructions for Treatment Patient Instructions 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 Start:02-Dec-2012 Instruction Type:Provider Instructions for Treatment Patient Instructions 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 Start:04-May-2012 Instruction Type:Provider Instructions for Treatment [facility]; [facility] Work Phone: Instructions* Name Dates Details Patient Instructions Indication:Nonsmoker Start:22-Jul-2022 Instruction Type:Provider Instructions for Treatment How to Access Health Informa tion Online using Patient Portal and [employer] Indication:Nonsmoker Start:22-Jul-2022 Instruction Type:Patient Education How to Access Health Informa tion Online using Patient Portal and [employer] Indication:Nonsmoker Start:20-Jan-2022 Instruction Type:Patient Education Patient Instructions Indication:Nonsmoker Start:20-Jan-2022 Instruction Type:Provider Instructions for Treatment Patient Instructions Indication:Nonsmoker Start:07-Jan-2021 Instruction Type:Provider Instructions for Treatment How to Access Health Informa tion Online using Patient Portal and [employer] Indication:Nonsmoker Start:22-Aug-2020 Instruction Type:Patient Education Patient Instructions Indication:Nonsmoker Start:22-Aug-2020 Instruction Type:Provider Instructions for Treatment Patient Instructions Indication:Nonsmoker Start:10-Jul-2020 Instruction Type:Provider Instructions for Treatment How to Access Health Informa tion Online using Patient Portal and [employer] Indication:Nonsmoker Start:10-Jul-2020 Instruction Type:Patient Education How to access health informa tion online Indication:Nonsmoker Start:03-Jan-2020 Instruction Type:Patient Education How to access health informa tion online - Detail Indication:Nonsmoker Start:03-Jan-2020 Instruction Type:Patient Education Patient Instructions Indication:Nonsmoker Start:03-Jan-2020 Instruction Type:Provider Instructions for Treatment How to access health informa tion online Indication:Nonsmoker Start:05-Sep-2019 Instruction Type:Patient Education How to access health informa tion online - Detail Indication:Nonsmoker Start:05-Sep-2019 Instruction Type:Patient Education Patient Instructions Indication:Vitamin D deficiency Start:05-Sep-2019 Instruction Type:Provider Instructions for Treatment How to access health informa tion online Indication:Nonsmoker Start:19-Apr-2019 Instruction Type:Patient Education How to access health informa tion online - Detail Indication:Nonsmoker Start:19-Apr-2019 Instruction Type:Patient Education Patient Instructions Indication:Nonsmoker Start:19-Apr-2019 Instruction Type:Provider Instructions for Treatment How to access health informa tion online Indication:Nonsmoker Start:19-Oct-2018 Instruction Type:Patient Education How to access health informa tion online - Detail Indication:Nonsmoker Start:19-Oct-2018 Instruction Type:Patient Education Patient Instructions Indication:Impaired Fasting Glucose (Renamed from Elevated fasting blood sugar) Start:19-Oct-2018 Instruction Type:Provider Instructions for Treatment How to access health informa tion online Indication:Nonsmoker Start:20-Apr-2018 Instruction Type:Patient Education How to access health informa tion online - Detail Indication:Nonsmoker Start:20-Apr-2018 Instruction Type:Patient Education Patient Instructions Indication:Migraine Start:20-Apr-2018 Instruction Type:Provider Instructions for Treatment How to access health informa tion online Indication:Head cold Start:13-Apr-2018 Instruction Type:Patient Education How to access health informa tion online - Detail Indication:Head cold Start:13-Apr-2018 Instruction Type:Patient Education Patient Instructions Indication:Head cold Start:13-Apr-2018 Instruction Type:Provider Instructions for Treatment How to access health informa tion online Indication:BMI 23.0-23.9, adult Start:03-Feb-2018 Instruction Type:Patient Education How to access health informa tion online - Detail Indication:BMI 23.0-23.9, adult Start:03-Feb-2018 Instruction Type:Patient Education Patient Instructions Indication:BMI 23.0-23.9, adult Start:03-Feb-2018 Instruction Type:Provider Instructions for Treatment How to access health informa tion online Indication:Benign essential hypertension Start:19-Oct-2017 Instruction Type:Patient Education How to access health informa tion online - Detail Indication:Benign essential hypertension Start:19-Oct-2017 Instruction Type:Patient Education Patient Instructions Indication:Benign essential hypertension Start:19-Oct-2017 Instruction Type:Provider Instructions for Treatment DISCONTINUED - PSA, TOTAL - DIAGNOSTIC (06761) Indication:Vitamin D deficiency Start:16-Jul-2017 Instruction Type:Patient Education DISCONTINUED - HGB A1C (8303 6) Indication:Impaired Fasting Glucose (Renamed from Elevated fasting blood sugar) Start:16-Jul-2017 Instruction Type:Patient Education How to access health informa tion online Indication:Impaired Fasting Glucose (Renamed from Elevated fasting blood sugar) Start:16-Jul-2017 Instruction Type:Patient Education How to access health informa tion online - Detail Indication:Impaired Fasting Glucose (Renamed from Elevated fasting blood sugar) Start:16-Jul-2017 Instruction Type:Patient Education Patient Instructions Indication:Encounter for screening for malignant neoplasm of prostate (Renamed from Screening for prostate cancer) Start:16-Jul-2017 Instruction Type:Provider Instructions for Treatment How to access health informa tion online Indication:Benign essential hypertension Start:05-Apr-2017 Instruction Type:Patient Education How to access health informa tion online - Detail Indication:Benign essential hypertension Start:05-Apr-2017 Instruction Type:Patient Education Patient Instructions Indication:Benign essential hypertension Start:05-Apr-2017 Instruction Type:Provider Instructions for Treatment How to access health informa tion online Indication:Impaired Fasting Glucose (Renamed from Elevated fasting blood sugar) Start:02-Mar-2017 Instruction Type:Patient Education How to access health informa tion online - Detail Indication:Impaired Fasting Glucose (Renamed from Elevated fasting blood sugar) Start:02-Mar-2017 Instruction Type:Patient Education Patient Instructions Indication:Impaired Fasting Glucose (Renamed from Elevated fasting blood sugar) Start:02-Mar-2017 Instruction Type:Provider Instructions for Treatment How to access health informa tion online Indication:BMI between 19-24,adult Start:28-Dec-2016 Instruction Type:Patient Education How to access health informa tion online - Detail Indication:BMI between 19-24,adult Start:28-Dec-2016 Instruction Type:Patient Education Patient Instructions Indication:BMI between 19-24,adult Start:28-Dec-2016 Instruction Type:Provider Instructions for Treatment How to access health informa tion online Indication:Migraine Start:01-Sep-2016 Instruction Type:Patient Education How to access health informa tion online - Detail Indication:Migraine Start:01-Sep-2016 Instruction Type:Patient Education Patient Instructions Indication:Migraine Start:01-Sep-2016 Instruction Type:Provider Instructions for Treatment How to access health informa tion online Indication:Benign essential hypertension Start:07-Apr-2016 Instruction Type:Patient Education How to access health informa tion online - Detail Indication:Benign essential hypertension Start:07-Apr-2016 Instruction Type:Patient Education Patient Instructions Indication:Benign essential hypertension Start:07-Apr-2016 Instruction Type:Provider Instructions for Treatment How to access health informa tion online Indication:Impaired Fasting Glucose (Renamed from Elevated fasting blood sugar) Start:24-Sep-2015 Instruction Type:Patient Education How to access health informa tion online - Detail Indication:Impaired Fasting Glucose (Renamed from Elevated fasting blood sugar) Start:24-Sep-2015 Instruction Type:Patient Education Patient Instructions Indication:Impaired Fasting Glucose (Renamed from Elevated fasting blood sugar) Start:24-Sep-2015 Instruction Type:Provider Instructions for Treatment How to access health informa tion online Indication:Impaired Fasting Glucose (Renamed from Elevated fasting blood sugar) Start:20-Mar-2015 Instruction Type:Patient Education How to access health informa tion online - Detail Indication:Impaired Fasting Glucose (Renamed from Elevated fasting blood sugar) Start:20-Mar-2015 Instruction Type:Patient Education Patient Instructions Indication:Impaired Fasting Glucose (Renamed from Elevated fasting blood sugar) Start:20-Mar-2015 Instruction Type:Provider Instructions for Treatment Patient Instructions Indication:Impaired Fasting Glucose (Renamed from Elevated fasting blood sugar) Start:17-Sep-2014 Instruction Type:Provider Instructions for Treatment How to access health informa tion online Indication:Benign essential hypertension Start:11-Apr-2014 Instruction Type:Patient Education How to access health informa tion online - Detail Indication:Benign essential hypertension Start:11-Apr-2014 Instruction Type:Patient Education Patient Instructions Indication:Benign essential hypertension Start:11-Apr-2014 Instruction Type:Provider Instructions for Treatment Patient Instructions Indication:Other abnormal glucose Start:15-Sep-2013 Instruction Type:Provider Instructions for Treatment Patient Instructions Indication:Other and unspecified hyperlipidemia Start:12-Apr-2013 Instruction Type:Provider Instructions for Treatment Patient Instructions 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 Start:02-Dec-2012 Instruction Type:Provider Instructions for Treatment Patient Instructions 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 Start:04-May-2012 Instruction Type:Provider Instructions for Treatment [facility]; [facility] Work Phone: Instructions* Name Dates Details Patient Instructions Indication:Nonsmoker Start:12-Jan-2023 Instruction Type:Provider Instructions for Treatment How to Access Health Informa tion Online using Patient Portal and 3rd [employer] Apps Indication:Nonsmoker Start:12-Jan-2023 Instruction Type:Patient Education Patient Instructions Indication:Nonsmoker Start:22-Jul-2022 Instruction Type:Provider Instructions for Treatment How to Access Health Informa tion Online using Patient Portal and [employer]rd [employer] Apps Indication:Nonsmoker Start:22-Jul-2022 Instruction Type:Patient Education How to Access Health Informa tion Online using Patient Portal and [employer]rd [employer] Apps Indication:Nonsmoker Start:20-Jan-2022 Instruction Type:Patient Education Patient Instructions Indication:Nonsmoker Start:20-Jan-2022 Instruction Type:Provider Instructions for Treatment Patient Instructions Indication:Nonsmoker Start:07-Jan-2021 Instruction Type:Provider Instructions for Treatment How to Access Health Informa tion Online using Patient Portal and [employer]rd [employer] Apps Indication:Nonsmoker Start:22-Aug-2020 Instruction Type:Patient Education Patient Instructions Indication:Nonsmoker Start:22-Aug-2020 Instruction Type:Provider Instructions for Treatment Patient Instructions Indication:Nonsmoker Start:10-Jul-2020 Instruction Type:Provider Instructions for Treatment How to Access Health Informa tion Online using Patient Portal and [employer]rd [employer] Apps Indication:Nonsmoker Start:10-Jul-2020 Instruction Type:Patient Education How to access health informa tion online Indication:Nonsmoker Start:03-Jan-2020 Instruction Type:Patient Education How to access health informa tion online - Detail Indication:Nonsmoker Start:03-Jan-2020 Instruction Type:Patient Education Patient Instructions Indication:Nonsmoker Start:03-Jan-2020 Instruction Type:Provider Instructions for Treatment How to access health informa tion online Indication:Nonsmoker Start:05-Sep-2019 Instruction Type:Patient Education How to access health informa tion online - Detail Indication:Nonsmoker Start:05-Sep-2019 Instruction Type:Patient Education Patient Instructions Indication:Vitamin D deficiency Start:05-Sep-2019 Instruction Type:Provider Instructions for Treatment How to access health informa tion online Indication:Nonsmoker Start:19-Apr-2019 Instruction Type:Patient Education How to access health informa tion online - Detail Indication:Nonsmoker Start:19-Apr-2019 Instruction Type:Patient Education Patient Instructions Indication:Nonsmoker Start:19-Apr-2019 Instruction Type:Provider Instructions for Treatment How to access health informa tion online Indication:Nonsmoker Start:19-Oct-2018 Instruction Type:Patient Education How to access health informa tion online - Detail Indication:Nonsmoker Start:19-Oct-2018 Instruction Type:Patient Education Patient Instructions Indication:Impaired Fasting Glucose (Renamed from Elevated fasting blood sugar) Start:19-Oct-2018 Instruction Type:Provider Instructions for Treatment How to access health informa tion online Indication:Nonsmoker Start:20-Apr-2018 Instruction Type:Patient Education How to access health informa tion online - Detail Indication:Nonsmoker Start:20-Apr-2018 Instruction Type:Patient Education Patient Instructions Indication:Migraine Start:20-Apr-2018 Instruction Type:Provider Instructions for Treatment How to access health informa tion online Indication:Head cold Start:13-Apr-2018 Instruction Type:Patient Education How to access health informa tion online - Detail Indication:Head cold Start:13-Apr-2018 Instruction Type:Patient Education Patient Instructions Indication:Head cold Start:13-Apr-2018 Instruction Type:Provider Instructions for Treatment How to access health informa tion online Indication:BMI 23.0-23.9, adult Start:03-Feb-2018 Instruction Type:Patient Education How to access health informa tion online - Detail Indication:BMI 23.0-23.9, adult Start:03-Feb-2018 Instruction Type:Patient Education Patient Instructions Indication:BMI 23.0-23.9, adult Start:03-Feb-2018 Instruction Type:Provider Instructions for Treatment How to access health informa tion online Indication:Benign essential hypertension Start:19-Oct-2017 Instruction Type:Patient Education How to access health informa tion online - Detail Indication:Benign essential hypertension Start:19-Oct-2017 Instruction Type:Patient Education Patient Instructions Indication:Benign essential hypertension Start:19-Oct-2017 Instruction Type:Provider Instructions for Treatment DISCONTINUED - PSA, TOTAL - DIAGNOSTIC (08828) Indication:Vitamin D deficiency Start:16-Jul-2017 Instruction Type:Patient Education DISCONTINUED - HGB A1C (8303 6) Indication:Impaired Fasting Glucose (Renamed from Elevated fasting blood sugar) Start:16-Jul-2017 Instruction Type:Patient Education How to access health informa tion online Indication:Impaired Fasting Glucose (Renamed from Elevated fasting blood sugar) Start:16-Jul-2017 Instruction Type:Patient Education How to access health informa tion online - Detail Indication:Impaired Fasting Glucose (Renamed from Elevated fasting blood sugar) Start:16-Jul-2017 Instruction Type:Patient Education Patient Instructions Indication:Encounter for screening for malignant neoplasm of prostate (Renamed from Screening for prostate cancer) Start:16-Jul-2017 Instruction Type:Provider Instructions for Treatment How to access health informa tion online Indication:Benign essential hypertension Start:05-Apr-2017 Instruction Type:Patient Education How to access health informa tion online - Detail Indication:Benign essential hypertension Start:05-Apr-2017 Instruction Type:Patient Education Patient Instructions Indication:Benign essential hypertension Start:05-Apr-2017 Instruction Type:Provider Instructions for Treatment How to access health informa tion online Indication:Impaired Fasting Glucose (Renamed from Elevated fasting blood sugar) Start:02-Mar-2017 Instruction Type:Patient Education How to access health informa tion online - Detail Indication:Impaired Fasting Glucose (Renamed from Elevated fasting blood sugar) Start:02-Mar-2017 Instruction Type:Patient Education Patient Instructions Indication:Impaired Fasting Glucose (Renamed from Elevated fasting blood sugar) Start:02-Mar-2017 Instruction Type:Provider Instructions for Treatment How to access health informa tion online Indication:BMI between 19-24,adult Start:28-Dec-2016 Instruction Type:Patient Education How to access health informa tion online - Detail Indication:BMI between 19-24,adult Start:28-Dec-2016 Instruction Type:Patient Education Patient Instructions Indication:BMI between 19-24,adult Start:28-Dec-2016 Instruction Type:Provider Instructions for Treatment How to access health informa tion online Indication:Migraine Start:01-Sep-2016 Instruction Type:Patient Education How to access health informa tion online - Detail Indication:Migraine Start:01-Sep-2016 Instruction Type:Patient Education Patient Instructions Indication:Migraine Start:01-Sep-2016 Instruction Type:Provider Instructions for Treatment How to access health informa tion online Indication:Benign essential hypertension Start:07-Apr-2016 Instruction Type:Patient Education How to access health informa tion online - Detail Indication:Benign essential hypertension Start:07-Apr-2016 Instruction Type:Patient Education Patient Instructions Indication:Benign essential hypertension Start:07-Apr-2016 Instruction Type:Provider Instructions for Treatment How to access health informa tion online Indication:Impaired Fasting Glucose (Renamed from Elevated fasting blood sugar) Start:24-Sep-2015 Instruction Type:Patient Education How to access health informa tion online - Detail Indication:Impaired Fasting Glucose (Renamed from Elevated fasting blood sugar) Start:24-Sep-2015 Instruction Type:Patient Education Patient Instructions Indication:Impaired Fasting Glucose (Renamed from Elevated fasting blood sugar) Start:24-Sep-2015 Instruction Type:Provider Instructions for Treatment How to access health informa tion online Indication:Impaired Fasting Glucose (Renamed from Elevated fasting blood sugar) Start:20-Mar-2015 Instruction Type:Patient Education How to access health informa tion online - Detail Indication:Impaired Fasting Glucose (Renamed from Elevated fasting blood sugar) Start:20-Mar-2015 Instruction Type:Patient Education Patient Instructions Indication:Impaired Fasting Glucose (Renamed from Elevated fasting blood sugar) Start:20-Mar-2015 Instruction Type:Provider Instructions for Treatment Patient Instructions Indication:Impaired Fasting Glucose (Renamed from Elevated fasting blood sugar) Start:17-Sep-2014 Instruction Type:Provider Instructions for Treatment How to access health informa tion online Indication:Benign essential hypertension Start:11-Apr-2014 Instruction Type:Patient Education How to access health informa tion online - Detail Indication:Benign essential hypertension Start:11-Apr-2014 Instruction Type:Patient Education Patient Instructions Indication:Benign essential hypertension Start:11-Apr-2014 Instruction Type:Provider Instructions for Treatment Patient Instructions Indication:Other abnormal glucose Start:15-Sep-2013 Instruction Type:Provider Instructions for Treatment Patient Instructions Indication:Other and unspecified hyperlipidemia Start:12-Apr-2013 Instruction Type:Provider Instructions for Treatment Patient Instructions 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 Start:02-Dec-2012 Instruction Type:Provider Instructions for Treatment Patient Instructions 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 Start:04-May-2012 Instruction Type:Provider Instructions for Treatment [facility]; [facility] Work Phone: Instructions* Name Dates Details Patient Instructions Indication:Nonsmoker Start:12-Jan-2023 Instruction Type:Provider Instructions for Treatment How to Access Health Informa tion Online using Patient Portal and [employer]rd [employer] Apps Indication:Nonsmoker Start:12-Jan-2023 Instruction Type:Patient Education Patient Instructions Indication:Nonsmoker Start:22-Jul-2022 Instruction Type:Provider Instructions for Treatment How to Access Health Informa tion Online using Patient Portal and [employer]rd [employer] Apps Indication:Nonsmoker Start:22-Jul-2022 Instruction Type:Patient Education How to Access Health Informa tion Online using Patient Portal and [employer]rd [employer] Apps Indication:Nonsmoker Start:20-Jan-2022 Instruction Type:Patient Education Patient Instructions Indication:Nonsmoker Start:20-Jan-2022 Instruction Type:Provider Instructions for Treatment Patient Instructions Indication:Nonsmoker Start:07-Jan-2021 Instruction Type:Provider Instructions for Treatment How to Access Health Informa tion Online using Patient Portal and [employer]rd [employer] Apps Indication:Nonsmoker Start:22-Aug-2020 Instruction Type:Patient Education Patient Instructions Indication:Nonsmoker Start:22-Aug-2020 Instruction Type:Provider Instructions for Treatment Patient Instructions Indication:Nonsmoker Start:10-Jul-2020 Instruction Type:Provider Instructions for Treatment How to Access Health Informa tion Online using Patient Portal and [employer]rd [employer] Apps Indication:Nonsmoker Start:10-Jul-2020 Instruction Type:Patient Education How to access health informa tion online Indication:Nonsmoker Start:03-Jan-2020 Instruction Type:Patient Education How to access health informa tion online - Detail Indication:Nonsmoker Start:03-Jan-2020 Instruction Type:Patient Education Patient Instructions Indication:Nonsmoker Start:03-Jan-2020 Instruction Type:Provider Instructions for Treatment How to access health informa tion online Indication:Nonsmoker Start:05-Sep-2019 Instruction Type:Patient Education How to access health informa tion online - Detail Indication:Nonsmoker Start:05-Sep-2019 Instruction Type:Patient Education Patient Instructions Indication:Vitamin D deficiency Start:05-Sep-2019 Instruction Type:Provider Instructions for Treatment How to access health informa tion online Indication:Nonsmoker Start:19-Apr-2019 Instruction Type:Patient Education How to access health informa tion online - Detail Indication:Nonsmoker Start:19-Apr-2019 Instruction Type:Patient Education Patient Instructions Indication:Nonsmoker Start:19-Apr-2019 Instruction Type:Provider Instructions for Treatment How to access health informa tion online Indication:Nonsmoker Start:19-Oct-2018 Instruction Type:Patient Education How to access health informa tion online - Detail Indication:Nonsmoker Start:19-Oct-2018 Instruction Type:Patient Education Patient Instructions Indication:Impaired Fasting Glucose (Renamed from Elevated fasting blood sugar) Start:19-Oct-2018 Instruction Type:Provider Instructions for Treatment How to access health informa tion online Indication:Nonsmoker Start:20-Apr-2018 Instruction Type:Patient Education How to access health informa tion online - Detail Indication:Nonsmoker Start:20-Apr-2018 Instruction Type:Patient Education Patient Instructions Indication:Migraine Start:20-Apr-2018 Instruction Type:Provider Instructions for Treatment How to access health informa tion online Indication:Head cold Start:13-Apr-2018 Instruction Type:Patient Education How to access health informa tion online - Detail Indication:Head cold Start:13-Apr-2018 Instruction Type:Patient Education Patient Instructions Indication:Head cold Start:13-Apr-2018 Instruction Type:Provider Instructions for Treatment How to access health informa tion online Indication:BMI 23.0-23.9, adult Start:03-Feb-2018 Instruction Type:Patient Education How to access health informa tion online - Detail Indication:BMI 23.0-23.9, adult Start:03-Feb-2018 Instruction Type:Patient Education Patient Instructions Indication:BMI 23.0-23.9, adult Start:03-Feb-2018 Instruction Type:Provider Instructions for Treatment How to access health informa tion online Indication:Benign essential hypertension Start:19-Oct-2017 Instruction Type:Patient Education How to access health informa tion online - Detail Indication:Benign essential hypertension Start:19-Oct-2017 Instruction Type:Patient Education Patient Instructions Indication:Benign essential hypertension Start:19-Oct-2017 Instruction Type:Provider Instructions for Treatment DISCONTINUED - PSA, TOTAL - DIAGNOSTIC (06690) Indication:Vitamin D deficiency Start:16-Jul-2017 Instruction Type:Patient Education DISCONTINUED - HGB A1C (8303 6) Indication:Impaired Fasting Glucose (Renamed from Elevated fasting blood sugar) Start:16-Jul-2017 Instruction Type:Patient Education How to access health informa tion online Indication:Impaired Fasting Glucose (Renamed from Elevated fasting blood sugar) Start:16-Jul-2017 Instruction Type:Patient Education How to access health informa tion online - Detail Indication:Impaired Fasting Glucose (Renamed from Elevated fasting blood sugar) Start:16-Jul-2017 Instruction Type:Patient Education Patient Instructions Indication:Encounter for screening for malignant neoplasm of prostate (Renamed from Screening for prostate cancer) Start:16-Jul-2017 Instruction Type:Provider Instructions for Treatment How to access health informa tion online Indication:Benign essential hypertension Start:05-Apr-2017 Instruction Type:Patient Education How to access health informa tion online - Detail Indication:Benign essential hypertension Start:05-Apr-2017 Instruction Type:Patient Education Patient Instructions Indication:Benign essential hypertension Start:05-Apr-2017 Instruction Type:Provider Instructions for Treatment How to access health informa tion online Indication:Impaired Fasting Glucose (Renamed from Elevated fasting blood sugar) Start:02-Mar-2017 Instruction Type:Patient Education How to access health informa tion online - Detail Indication:Impaired Fasting Glucose (Renamed from Elevated fasting blood sugar) Start:02-Mar-2017 Instruction Type:Patient Education Patient Instructions Indication:Impaired Fasting Glucose (Renamed from Elevated fasting blood sugar) Start:02-Mar-2017 Instruction Type:Provider Instructions for Treatment How to access health informa tion online Indication:BMI between 19-24,adult Start:28-Dec-2016 Instruction Type:Patient Education How to access health informa tion online - Detail Indication:BMI between 19-24,adult Start:28-Dec-2016 Instruction Type:Patient Education Patient Instructions Indication:BMI between 19-24,adult Start:28-Dec-2016 Instruction Type:Provider Instructions for Treatment How to access health informa tion online Indication:Migraine Start:01-Sep-2016 Instruction Type:Patient Education How to access health informa tion online - Detail Indication:Migraine Start:01-Sep-2016 Instruction Type:Patient Education Patient Instructions Indication:Migraine Start:01-Sep-2016 Instruction Type:Provider Instructions for Treatment How to access health informa tion online Indication:Benign essential hypertension Start:07-Apr-2016 Instruction Type:Patient Education How to access health informa tion online - Detail Indication:Benign essential hypertension Start:07-Apr-2016 Instruction Type:Patient Education Patient Instructions Indication:Benign essential hypertension Start:07-Apr-2016 Instruction Type:Provider Instructions for Treatment How to access health informa tion online Indication:Impaired Fasting Glucose (Renamed from Elevated fasting blood sugar) Start:24-Sep-2015 Instruction Type:Patient Education How to access health informa tion online - Detail Indication:Impaired Fasting Glucose (Renamed from Elevated fasting blood sugar) Start:24-Sep-2015 Instruction Type:Patient Education Patient Instructions Indication:Impaired Fasting Glucose (Renamed from Elevated fasting blood sugar) Start:24-Sep-2015 Instruction Type:Provider Instructions for Treatment How to access health informa tion online Indication:Impaired Fasting Glucose (Renamed from Elevated fasting blood sugar) Start:20-Mar-2015 Instruction Type:Patient Education How to access health informa tion online - Detail Indication:Impaired Fasting Glucose (Renamed from Elevated fasting blood sugar) Start:20-Mar-2015 Instruction Type:Patient Education Patient Instructions Indication:Impaired Fasting Glucose (Renamed from Elevated fasting blood sugar) Start:20-Mar-2015 Instruction Type:Provider Instructions for Treatment Patient Instructions Indication:Impaired Fasting Glucose (Renamed from Elevated fasting blood sugar) Start:17-Sep-2014 Instruction Type:Provider Instructions for Treatment How to access health informa tion online Indication:Benign essential hypertension Start:11-Apr-2014 Instruction Type:Patient Education How to access health informa tion online - Detail Indication:Benign essential hypertension Start:11-Apr-2014 Instruction Type:Patient Education Patient Instructions Indication:Benign essential hypertension Start:11-Apr-2014 Instruction Type:Provider Instructions for Treatment Patient Instructions Indication:Other abnormal glucose Start:15-Sep-2013 Instruction Type:Provider Instructions for Treatment Patient Instructions Indication:Other and unspecified hyperlipidemia Start:12-Apr-2013 Instruction Type:Provider Instructions for Treatment Patient Instructions 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 Start:02-Dec-2012 Instruction Type:Provider Instructions for Treatment Patient Instructions 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 Start:04-May-2012 Instruction Type:Provider Instructions for Treatment [facility]; [facility] Work Phone: Instructions* Name Dates Details Patient Instructions Indication:Nonsmoker Start:12-Jan-2023 Instruction Type:Provider Instructions for Treatment How to Access Health Informa tion Online using Patient Portal and [employer] Indication:Nonsmoker Start:12-Jan-2023 Instruction Type:Patient Education Patient Instructions Indication:Nonsmoker Start:22-Jul-2022 Instruction Type:Provider Instructions for Treatment How to Access Health Informa tion Online using Patient Portal and [employer] Indication:Nonsmoker Start:22-Jul-2022 Instruction Type:Patient Education How to Access Health Informa tion Online using Patient Portal and [employer] Indication:Nonsmoker Start:20-Jan-2022 Instruction Type:Patient Education Patient Instructions Indication:Nonsmoker Start:20-Jan-2022 Instruction Type:Provider Instructions for Treatment Patient Instructions Indication:Nonsmoker Start:07-Jan-2021 Instruction Type:Provider Instructions for Treatment How to Access Health Informa tion Online using Patient Portal and [employer] Indication:Nonsmoker Start:22-Aug-2020 Instruction Type:Patient Education Patient Instructions Indication:Nonsmoker Start:22-Aug-2020 Instruction Type:Provider Instructions for Treatment Patient Instructions Indication:Nonsmoker Start:10-Jul-2020 Instruction Type:Provider Instructions for Treatment How to Access Health Informa tion Online using Patient Portal and [employer] Indication:Nonsmoker Start:10-Jul-2020 Instruction Type:Patient Education How to access health informa tion online Indication:Nonsmoker Start:03-Jan-2020 Instruction Type:Patient Education How to access health informa tion online - Detail Indication:Nonsmoker Start:03-Jan-2020 Instruction Type:Patient Education Patient Instructions Indication:Nonsmoker Start:03-Jan-2020 Instruction Type:Provider Instructions for Treatment How to access health informa tion online Indication:Nonsmoker Start:05-Sep-2019 Instruction Type:Patient Education How to access health informa tion online - Detail Indication:Nonsmoker Start:05-Sep-2019 Instruction Type:Patient Education Patient Instructions Indication:Vitamin D deficiency Start:05-Sep-2019 Instruction Type:Provider Instructions for Treatment How to access health informa tion online Indication:Nonsmoker Start:19-Apr-2019 Instruction Type:Patient Education How to access health informa tion online - Detail Indication:Nonsmoker Start:19-Apr-2019 Instruction Type:Patient Education Patient Instructions Indication:Nonsmoker Start:19-Apr-2019 Instruction Type:Provider Instructions for Treatment How to access health informa tion online Indication:Nonsmoker Start:19-Oct-2018 Instruction Type:Patient Education How to access health informa tion online - Detail Indication:Nonsmoker Start:19-Oct-2018 Instruction Type:Patient Education Patient Instructions Indication:Impaired Fasting Glucose (Renamed from Elevated fasting blood sugar) Start:19-Oct-2018 Instruction Type:Provider Instructions for Treatment How to access health informa tion online Indication:Nonsmoker Start:20-Apr-2018 Instruction Type:Patient Education How to access health informa tion online - Detail Indication:Nonsmoker Start:20-Apr-2018 Instruction Type:Patient Education Patient Instructions Indication:Migraine Start:20-Apr-2018 Instruction Type:Provider Instructions for Treatment How to access health informa tion online Indication:Head cold Start:13-Apr-2018 Instruction Type:Patient Education How to access health informa tion online - Detail Indication:Head cold Start:13-Apr-2018 Instruction Type:Patient Education Patient Instructions Indication:Head cold Start:13-Apr-2018 Instruction Type:Provider Instructions for Treatment How to access health informa tion online Indication:BMI 23.0-23.9, adult Start:03-Feb-2018 Instruction Type:Patient Education How to access health informa tion online - Detail Indication:BMI 23.0-23.9, adult Start:03-Feb-2018 Instruction Type:Patient Education Patient Instructions Indication:BMI 23.0-23.9, adult Start:03-Feb-2018 Instruction Type:Provider Instructions for Treatment How to access health informa tion online Indication:Benign essential hypertension Start:19-Oct-2017 Instruction Type:Patient Education How to access health informa tion online - Detail Indication:Benign essential hypertension Start:19-Oct-2017 Instruction Type:Patient Education Patient Instructions Indication:Benign essential hypertension Start:19-Oct-2017 Instruction Type:Provider Instructions for Treatment DISCONTINUED - PSA, TOTAL - DIAGNOSTIC (45158) Indication:Vitamin D deficiency Start:16-Jul-2017 Instruction Type:Patient Education DISCONTINUED - HGB A1C (8303 [id number]) Indication:Impaired Fasting Glucose (Renamed from Elevated fasting blood sugar) Start:16-Jul-2017 Instruction Type:Patient Education How to access health informa tion online Indication:Impaired Fasting Glucose (Renamed from Elevated fasting blood sugar) Start:16-Jul-2017 Instruction Type:Patient Education How to access health informa tion online - Detail Indication:Impaired Fasting Glucose (Renamed from Elevated fasting blood sugar) Start:16-Jul-2017 Instruction Type:Patient Education Patient Instructions Indication:Encounter for screening for malignant neoplasm of prostate (Renamed from Screening for prostate cancer) Start:16-Jul-2017 Instruction Type:Provider Instructions for Treatment How to access health informa tion online Indication:Benign essential hypertension Start:05-Apr-2017 Instruction Type:Patient Education How to access health informa tion online - Detail Indication:Benign essential hypertension Start:05-Apr-2017 Instruction Type:Patient Education Patient Instructions Indication:Benign essential hypertension Start:05-Apr-2017 Instruction Type:Provider Instructions for Treatment How to access health informa tion online Indication:Impaired Fasting Glucose (Renamed from Elevated fasting blood sugar) Start:02-Mar-2017 Instruction Type:Patient Education How to access health informa tion online - Detail Indication:Impaired Fasting Glucose (Renamed from Elevated fasting blood sugar) Start:02-Mar-2017 Instruction Type:Patient Education Patient Instructions Indication:Impaired Fasting Glucose (Renamed from Elevated fasting blood sugar) Start:02-Mar-2017 Instruction Type:Provider Instructions for Treatment How to access health informa tion online Indication:BMI between 19-24,adult Start:28-Dec-2016 Instruction Type:Patient Education How to access health informa tion online - Detail Indication:BMI between 19-24,adult Start:28-Dec-2016 Instruction Type:Patient Education Patient Instructions Indication:BMI between 19-24,adult Start:28-Dec-2016 Instruction Type:Provider Instructions for Treatment How to access health informa tion online Indication:Migraine Start:01-Sep-2016 Instruction Type:Patient Education How to access health informa tion online - Detail Indication:Migraine Start:01-Sep-2016 Instruction Type:Patient Education Patient Instructions Indication:Migraine Start:01-Sep-2016 Instruction Type:Provider Instructions for Treatment How to access health informa tion online Indication:Benign essential hypertension Start:07-Apr-2016 Instruction Type:Patient Education How to access health informa tion online - Detail Indication:Benign essential hypertension Start:07-Apr-2016 Instruction Type:Patient Education Patient Instructions Indication:Benign essential hypertension Start:07-Apr-2016 Instruction Type:Provider Instructions for Treatment How to access health informa tion online Indication:Impaired Fasting Glucose (Renamed from Elevated fasting blood sugar) Start:24-Sep-2015 Instruction Type:Patient Education How to access health informa tion online - Detail Indication:Impaired Fasting Glucose (Renamed from Elevated fasting blood sugar) Start:24-Sep-2015 Instruction Type:Patient Education Patient Instructions Indication:Impaired Fasting Glucose (Renamed from Elevated fasting blood sugar) Start:24-Sep-2015 Instruction Type:Provider Instructions for Treatment How to access health informa tion online Indication:Impaired Fasting Glucose (Renamed from Elevated fasting blood sugar) Start:20-Mar-2015 Instruction Type:Patient Education How to access health informa tion online - Detail Indication:Impaired Fasting Glucose (Renamed from Elevated fasting blood sugar) Start:20-Mar-2015 Instruction Type:Patient Education Patient Instructions Indication:Impaired Fasting Glucose (Renamed from Elevated fasting blood sugar) Start:20-Mar-2015 Instruction Type:Provider Instructions for Treatment Patient Instructions Indication:Impaired Fasting Glucose (Renamed from Elevated fasting blood sugar) Start:17-Sep-2014 Instruction Type:Provider Instructions for Treatment How to access health informa tion online Indication:Benign essential hypertension Start:11-Apr-2014 Instruction Type:Patient Education How to access health informa tion online - Detail Indication:Benign essential hypertension Start:11-Apr-2014 Instruction Type:Patient Education Patient Instructions Indication:Benign essential hypertension Start:11-Apr-2014 Instruction Type:Provider Instructions for Treatment Patient Instructions Indication:Other abnormal glucose Start:15-Sep-2013 Instruction Type:Provider Instructions for Treatment Patient Instructions Indication:Other and unspecified hyperlipidemia Start:12-Apr-2013 Instruction Type:Provider Instructions for Treatment Patient Instructions 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 Start:02-Dec-2012 Instruction Type:Provider Instructions for Treatment Patient Instructions 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 Start:04-May-2012 Instruction Type:Provider Instructions for Treatment [facility] Work Phone: Summary Purpose Family History No Family History Records FoundUnknown Family Member Name Dates Details Brother 1 Comments:esophageal cancer Status:Active Brother 2 Comments:In good health Status:Active Father Comments:ME, smoker, drinker - at 51 Status:Active Mother Comments:Kidney Stones, skin [place],- age 87- old age- difficulty swallowing Status:Active Unknown Family Member Name Dates Details Brother 1 Comments:esophageal cancer Status:Active Brother 2 Comments:In good health Status:Active Father Comments:ME, smoker, drinker - at 51 Status:Active Mother Comments:Kidney Stones, skin [place],- age 87- old age- difficulty swallowing Status:Active Unknown Family Member Name Dates Details Brother 1 Comments:esophageal cancer Status:Active Brother 2 Comments:In good health Status:Active Father Comments:ME, smoker, drinker - at 51 Status:Active Mother Comments:Kidney Stones, skin [place],- age 87- old age- difficulty swallowing Status:Active Unknown Family Member Name Dates Details Brother 1 Comments:esophageal cancer Status:Active Brother 2 Comments:In good health Status:Active Father Comments:ME, smoker, drinker - at 51 Status:Active Mother Comments:Kidney Stones, skin [place],- age 87- old age- difficulty swallowing Status:Active Unknown Family Member Name Dates Details Brother 1 Comments:esophageal cancer Status:Active Brother 2 Comments:In good health Status:Active Father Comments:ME, smoker, drinker - at 51 Status:Active Mother Comments:Kidney Stones, skin [place],- age 87- old age- difficulty swallowing Status:Active Unknown Family Member Name Dates Details Brother 1 Comments:esophageal cancer Status:Active Brother 2 Comments:In good health Status:Active Father Comments:ME, smoker, drinker - at 51 Status:Active Mother Comments:Kidney Stones, skin [place],- age 87- old age- difficulty swallowing Status:Active Unknown Family Member Name Dates Details Brother 1 Comments:esophageal cancer Status:Active Brother 2 Comments:In good health Status:Active Father Comments:ME, smoker, drinker - at 51 Status:Active Mother Comments:Kidney Stones, skin [place],- age 87- old age- difficulty swallowing Status:Active Unknown Family Member Name Dates Details Brother 1 Comments:esophageal cancer Status:Active Brother 2 Comments:In good health Status:Active Father Comments:ME, smoker, drinker - at 51 Status:Active Mother Comments:Kidney Stones, skin [place],- age 87- old age- difficulty swallowing Status:Active Unknown Family Member Name Dates Details Brother 1 Comments:esophageal cancer Status:Active Brother 2 Comments:In good health Status:Active Father Comments:ME, smoker, drinker - at 51 Status:Active Mother Comments:Kidney Stones, skin [place],- age 87- old age- difficulty swallowing Status:Active Unknown Family Member Name Dates Details Brother 1 Comments:esophageal cancer Status:Active Brother 2 Comments:In good health Status:Active Father Comments:ME, smoker, drinker - at 51 Status:Active Mother Comments:Kidney Stones, skin [place],- age 87- old age- difficulty swallowing Status:Active Unknown Family Member Name Dates Details Brother 1 Comments:esophageal cancer Status:Active Brother 2 Comments:In good health Status:Active Father Comments:ME, smoker, drinker - at 51 Status:Active Mother Comments:Kidney Stones, skin [place],- age 87- old age- difficulty swallowing Status:Active Unknown Family Member Name Dates Details Brother 1 Comments:esophageal cancer Status:Active Brother 2 Comments:In good health Status:Active Father Comments:ME, smoker, drinker - at 51 Status:Active Mother Comments:Kidney Stones, skin [place],- age 87- old age- difficulty swallowing Status:Active Unknown Family Member Name Dates Details Brother 1 Comments:esophageal cancer Status:Active Brother 2 Comments:In good health Status:Active Father Comments:ME, smoker, drinker - at 51 Status:Active Mother Comments:Kidney Stones, skin [place],- age 87- old age- difficulty swallowing Status:Active Unknown Family Member Name Dates Details Brother 1 Comments:esophageal cancer Status:Active Brother 2 Comments:In good health Status:Active Father Comments:ME, smoker, drinker - at 51 Status:Active Mother Comments:Kidney Stones, skin [place],- age 87- old age- difficulty swallowing Status:Active Unknown Family Member Name Dates Details Brother 1 Comments:esophageal cancer Status:Active Brother 2 Comments:In good health Status:Active Father Comments:ME, smoker, drinker - at 51 Status:Active Mother Comments:Kidney Stones, skin [place],- age 87- old age- difficulty swallowing Status:Active Unknown Family Member Name Dates Details Brother 1 Comments:esophageal cancer Status:Active Brother 2 Comments:In good health Status:Active Father Comments:ME, smoker, drinker - at 51 Status:Active Mother Comments:Kidney Stones, skin [place],- age 87- old age- difficulty swallowing Status:Active Unknown Family Member Name Dates Details Brother 1 Comments:esophageal cancer Status:Active Brother 2 Comments:In good health Status:Active Father Comments:ME, smoker, drinker - at 51 Status:Active Mother Comments:Kidney Stones, skin [place],- age 87- old age- difficulty swallowing Status:Active Unknown Family Member Name Dates Details Brother 1 Comments:esophageal cancer Status:Active Brother 2 Comments:In good health Status:Active Father Comments:ME, smoker, drinker - at 51 Status:Active Mother Comments:Kidney Stones, skin [place],- age 87- old age- difficulty swallowing Status:Active Unknown Family Member Name Dates Details Brother 1 Comments:esophageal cancer Status:Active Brother 2 Comments:In good health Status:Active Father Comments:ME, smoker, drinker - at 51 Status:Active Mother Comments:Kidney Stones, skin [place],- age 87- old age- difficulty swallowing Status:Active Unknown Family Member Name Dates Details Brother 1 Comments:esophageal cancer Status:Active Brother 2 Comments:In good health Status:Active Father Comments:ME, smoker, drinker - at 51 Status:Active Mother Comments:Kidney Stones, skin [place],- age 87- old age- difficulty swallowing Status:Active Unknown Family Member Name Dates Details Brother 1 Comments:esophageal cancer Status:Active Brother 2 Comments:In good health Status:Active Father Comments:ME, smoker, drinker - at 51 Status:Active Mother Comments:Kidney Stones, skin [place],- age 87- old age- difficulty swallowing Status:Active Unknown Family Member Name Dates Details Brother 1 Comments:esophageal cancer Status:Active Brother 2 Comments:In good health Status:Active Father Comments:ME, smoker, drinker - at 51 Status:Active Mother Comments:Kidney Stones, skin [place],- age 87- old age- difficulty swallowing Status:Active Unknown Family Member Name Dates Details Brother 1 Comments:esophageal cancer Status:Active Brother 2 Comments:In good health Status:Active Father Comments:ME, smoker, drinker - at 51 Status:Active Mother Comments:Kidney Stones, skin [place],- age 87- old age- difficulty swallowing Status:Active Unknown Family Member Name Dates Details Brother 1 Comments:esophageal cancer Status:Active Brother 2 Comments:In good health Status:Active Father Comments:ME, smoker, drinker - at 51 Status:Active Mother Comments:Kidney Stones, skin [place],- age 87- old age- difficulty swallowing Status:Active Unknown Family Member Name Dates Details Brother 1 Comments:esophageal cancer Status:Active Brother 2 Comments:In good health Status:Active Father Comments:ME, smoker, drinker - at 51 Status:Active Mother Comments:Kidney Stones, skin [place],- age 87- old age- difficulty swallowing Status:Active Advance Directives No Advanced Directives Records FoundNo Advanced Directives Records FoundNo Advanced Directives Records Found Instructions Name Dates Details Head cold : How to access he alth information online Indication:Head cold Head cold : How to access he alth information online - Detail Indication:Head cold Head cold : Patient Instruct ions Indication:Head cold BMI 23.0-23.9, adult : How t o access health information online Indication:BMI 23.0-23.9, adult BMI 23.0-23.9, adult : How t o access health information online - Detail Indication:BMI 23.0-23.9, adult BMI 23.0-23.9, adult : Patie nt Instructions Indication:BMI 23.0-23.9, adult Benign essential hypertensio n : How to access health information online Indication:Benign essential hypertension Benign essential hypertensio n : How to access health information online - Detail Indication:Benign essential hypertension Benign essential hypertensio n : Patient Instructions Indication:Benign essential hypertension Vitamin D deficiency : DISCO NTINUED - PSA, TOTAL - DIAGNOSTIC (08554) Indication:Vitamin D deficiency Impaired Fasting Glucose (Re named from Elevated fasting blood sugar) : DISCONTINUED - HGB A1C (29957) Indication:Impaired Fasting Glucose (Renamed from Elevated fasting blood sugar) Impaired Fasting Glucose (Re named from Elevated fasting blood sugar) : How to access health information online Indication:Impaired Fasting Glucose (Renamed from Elevated fasting blood sugar) Impaired Fasting Glucose (Re named from Elevated fasting blood sugar) : How to access health information online - Detail Indication:Impaired Fasting Glucose (Renamed from Elevated fasting blood sugar) Encounter for screening for malignant neoplasm of prostate (Renamed from Screening for prostate cancer) : Patient Instructions Indication:Encounter for screening for malignant neoplasm of prostate (Renamed from Screening for prostate cancer) Impaired Fasting Glucose (Re named from Elevated fasting blood sugar) : Patient Instructions Indication:Impaired Fasting Glucose (Renamed from Elevated fasting blood sugar) BMI between 19-24,adult : Ho w to access health information online Indication:BMI between 19-24,adult BMI between 19-24,adult : Ho w to access health information online - Detail Indication:BMI between 19-24,adult BMI between 19-24,adult : Pa harisnt Instructions Indication:BMI between 19-24,adult Migraine : How to access hea lth information online Indication:Migraine Migraine : How to access hea lth information online - Detail Indication:Migraine Migraine : Patient Instructi ons Indication:Migraine Other abnormal glucose : Pat ient Instructions Indication:Other abnormal glucose Other and unspecified hyperl ipidemia : Patient Instructions Indication:Other and unspecified hyperlipidemia 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 : Patient Instructions 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 Name Dates Details Nonsmoker : How to access he alth information online Indication:Nonsmoker Nonsmoker : How to access he alth information online - Detail Indication:Nonsmoker Migraine : Patient Instructi ons Indication:Migraine Head cold : How to access he alth information online Indication:Head cold Head cold : How to access he alth information online - Detail Indication:Head cold Head cold : Patient Instruct ions Indication:Head cold BMI 23.0-23.9, adult : How t o access health information online Indication:BMI 23.0-23.9, adult BMI 23.0-23.9, adult : How t o access health information online - Detail Indication:BMI 23.0-23.9, adult BMI 23.0-23.9, adult : Patie nt Instructions Indication:BMI 23.0-23.9, adult Benign essential hypertensio n : How to access health information online Indication:Benign essential hypertension Benign essential hypertensio n : How to access health information online - Detail Indication:Benign essential hypertension Benign essential hypertensio n : Patient Instructions Indication:Benign essential hypertension Vitamin D deficiency : DISCO NTINUED - PSA, TOTAL - DIAGNOSTIC (46569) Indication:Vitamin D deficiency Impaired Fasting Glucose (Re named from Elevated fasting blood sugar) : DISCONTINUED - HGB A1C (96782) Indication:Impaired Fasting Glucose (Renamed from Elevated fasting blood sugar) Impaired Fasting Glucose (Re named from Elevated fasting blood sugar) : How to access health information online Indication:Impaired Fasting Glucose (Renamed from Elevated fasting blood sugar) Impaired Fasting Glucose (Re named from Elevated fasting blood sugar) : How to access health information online - Detail Indication:Impaired Fasting Glucose (Renamed from Elevated fasting blood sugar) Encounter for screening for malignant neoplasm of prostate (Renamed from Screening for prostate cancer) : Patient Instructions Indication:Encounter for screening for malignant neoplasm of prostate (Renamed from Screening for prostate cancer) Impaired Fasting Glucose (Re named from Elevated fasting blood sugar) : Patient Instructions Indication:Impaired Fasting Glucose (Renamed from Elevated fasting blood sugar) BMI between 19-24,adult : Ho w to access health information online Indication:BMI between 19-24,adult BMI between 19-24,adult : Ho w to access health information online - Detail Indication:BMI between 19-24,adult BMI between 19-24,adult : Jude naik Instructions Indication:BMI between 19-24,adult Migraine : How to access hea lth information online Indication:Migraine Migraine : How to access hea lth information online - Detail Indication:Migraine Other abnormal glucose : Pat ient Instructions Indication:Other abnormal glucose Other and unspecified hyperl ipidemia : Patient Instructions Indication:Other and unspecified hyperlipidemia 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 : Patient Instructions 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 Name Dates Details Nonsmoker : How to access he alth information online Indication:Nonsmoker Nonsmoker : How to access he alth information online - Detail Indication:Nonsmoker Migraine : Patient Instructi ons Indication:Migraine Head cold : How to access he alth information online Indication:Head cold Head cold : How to access he alth information online - Detail Indication:Head cold Head cold : Patient Instruct ions Indication:Head cold BMI 23.0-23.9, adult : How t o access health information online Indication:BMI 23.0-23.9, adult BMI 23.0-23.9, adult : How t o access health information online - Detail Indication:BMI 23.0-23.9, adult BMI 23.0-23.9, adult : Patie nt Instructions Indication:BMI 23.0-23.9, adult Benign essential hypertensio n : How to access health information online Indication:Benign essential hypertension Benign essential hypertensio n : How to access health information online - Detail Indication:Benign essential hypertension Benign essential hypertensio n : Patient Instructions Indication:Benign essential hypertension Vitamin D deficiency : DISCO NTINUED - PSA, TOTAL - DIAGNOSTIC (28908) Indication:Vitamin D deficiency Impaired Fasting Glucose (Re named from Elevated fasting blood sugar) : DISCONTINUED - HGB A1C (10135) Indication:Impaired Fasting Glucose (Renamed from Elevated fasting blood sugar) Impaired Fasting Glucose (Re named from Elevated fasting blood sugar) : How to access health information online Indication:Impaired Fasting Glucose (Renamed from Elevated fasting blood sugar) Impaired Fasting Glucose (Re named from Elevated fasting blood sugar) : How to access health information online - Detail Indication:Impaired Fasting Glucose (Renamed from Elevated fasting blood sugar) Encounter for screening for malignant neoplasm of prostate (Renamed from Screening for prostate cancer) : Patient Instructions Indication:Encounter for screening for malignant neoplasm of prostate (Renamed from Screening for prostate cancer) Impaired Fasting Glucose (Re named from Elevated fasting blood sugar) : Patient Instructions Indication:Impaired Fasting Glucose (Renamed from Elevated fasting blood sugar) BMI between 19-24,adult : Ho w to access health information online Indication:BMI between 19-24,adult BMI between 19-24,adult : Ho w to access health information online - Detail Indication:BMI between 19-24,adult BMI between 19-24,adult : Jude naik Instructions Indication:BMI between 19-24,adult Migraine : How to access hea lth information online Indication:Migraine Migraine : How to access hea lth information online - Detail Indication:Migraine Other abnormal glucose : Pat ient Instructions Indication:Other abnormal glucose Other and unspecified hyperl ipidemia : Patient Instructions Indication:Other and unspecified hyperlipidemia 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 : Patient Instructions 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 Name Dates Details Nonsmoker : How to access he alth information online Indication:Nonsmoker Nonsmoker : How to access he alth information online - Detail Indication:Nonsmoker Migraine : Patient Instructi ons Indication:Migraine Head cold : How to access he alth information online Indication:Head cold Head cold : How to access he alth information online - Detail Indication:Head cold Head cold : Patient Instruct ions Indication:Head cold BMI 23.0-23.9, adult : How t o access health information online Indication:BMI 23.0-23.9, adult BMI 23.0-23.9, adult : How t o access health information online - Detail Indication:BMI 23.0-23.9, adult BMI 23.0-23.9, adult : Patie nt Instructions Indication:BMI 23.0-23.9, adult Benign essential hypertensio n : How to access health information online Indication:Benign essential hypertension Benign essential hypertensio n : How to access health information online - Detail Indication:Benign essential hypertension Benign essential hypertensio n : Patient Instructions Indication:Benign essential hypertension Vitamin D deficiency : DISCO NTINUED - PSA, TOTAL - DIAGNOSTIC (97165) Indication:Vitamin D deficiency Impaired Fasting Glucose (Re named from Elevated fasting blood sugar) : DISCONTINUED - HGB A1C (73219) Indication:Impaired Fasting Glucose (Renamed from Elevated fasting blood sugar) Impaired Fasting Glucose (Re named from Elevated fasting blood sugar) : How to access health information online Indication:Impaired Fasting Glucose (Renamed from Elevated fasting blood sugar) Impaired Fasting Glucose (Re named from Elevated fasting blood sugar) : How to access health information online - Detail Indication:Impaired Fasting Glucose (Renamed from Elevated fasting blood sugar) Encounter for screening for malignant neoplasm of prostate (Renamed from Screening for prostate cancer) : Patient Instructions Indication:Encounter for screening for malignant neoplasm of prostate (Renamed from Screening for prostate cancer) Impaired Fasting Glucose (Re named from Elevated fasting blood sugar) : Patient Instructions Indication:Impaired Fasting Glucose (Renamed from Elevated fasting blood sugar) BMI between 19-24,adult : Ho w to access health information online Indication:BMI between 19-24,adult BMI between 19-24,adult : Ho w to access health information online - Detail Indication:BMI between 19-24,adult BMI between 19-24,adult : Pa harisnt Instructions Indication:BMI between 19-24,adult Migraine : How to access hea lth information online Indication:Migraine Migraine : How to access hea lth information online - Detail Indication:Migraine Other abnormal glucose : Pat ient Instructions Indication:Other abnormal glucose Other and unspecified hyperl ipidemia : Patient Instructions Indication:Other and unspecified hyperlipidemia 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 : Patient Instructions 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 Name Dates Details How to access health informa tion online Indication:Nonsmoker Start:19-Oct-2018 Instruction Type:Patient Education How to access health informa tion online - Detail Indication:Nonsmoker Start:19-Oct-2018 Instruction Type:Patient Education Patient Instructions Indication:Nonsmoker Start:19-Oct-2018 Instruction Type:Provider Instructions for Treatment How to access health informa tion online Indication:Nonsmoker Start:20-Apr-2018 Instruction Type:Patient Education How to access health informa tion online - Detail Indication:Nonsmoker Start:20-Apr-2018 Instruction Type:Patient Education Patient Instructions Indication:Migraine Start:20-Apr-2018 Instruction Type:Provider Instructions for Treatment How to access health informa tion online Indication:Head cold Start:13-Apr-2018 Instruction Type:Patient Education How to access health informa tion online - Detail Indication:Head cold Start:13-Apr-2018 Instruction Type:Patient Education Patient Instructions Indication:Head cold Start:13-Apr-2018 Instruction Type:Provider Instructions for Treatment How to access health informa tion online Indication:BMI 23.0-23.9, adult Start:03-Feb-2018 Instruction Type:Patient Education How to access health informa tion online - Detail Indication:BMI 23.0-23.9, adult Start:03-Feb-2018 Instruction Type:Patient Education Patient Instructions Indication:BMI 23.0-23.9, adult Start:03-Feb-2018 Instruction Type:Provider Instructions for Treatment How to access health informa tion online Indication:Benign essential hypertension Start:19-Oct-2017 Instruction Type:Patient Education How to access health informa tion online - Detail Indication:Benign essential hypertension Start:19-Oct-2017 Instruction Type:Patient Education Patient Instructions Indication:Benign essential hypertension Start:19-Oct-2017 Instruction Type:Provider Instructions for Treatment DISCONTINUED - PSA, TOTAL - DIAGNOSTIC (82424) Indication:Vitamin D deficiency Start:16-Jul-2017 Instruction Type:Patient Education DISCONTINUED - HGB A1C (8303 6) Indication:Impaired Fasting Glucose (Renamed from Elevated fasting blood sugar) Start:16-Jul-2017 Instruction Type:Patient Education How to access health informa tion online Indication:Impaired Fasting Glucose (Renamed from Elevated fasting blood sugar) Start:16-Jul-2017 Instruction Type:Patient Education How to access health informa tion online - Detail Indication:Impaired Fasting Glucose (Renamed from Elevated fasting blood sugar) Start:16-Jul-2017 Instruction Type:Patient Education Patient Instructions Indication:Encounter for screening for malignant neoplasm of prostate (Renamed from Screening for prostate cancer) Start:16-Jul-2017 Instruction Type:Provider Instructions for Treatment How to access health informa tion online Indication:Benign essential hypertension Start:05-Apr-2017 Instruction Type:Patient Education How to access health informa tion online - Detail Indication:Benign essential hypertension Start:05-Apr-2017 Instruction Type:Patient Education Patient Instructions Indication:Benign essential hypertension Start:05-Apr-2017 Instruction Type:Provider Instructions for Treatment How to access health informa tion online Indication:Impaired Fasting Glucose (Renamed from Elevated fasting blood sugar) Start:02-Mar-2017 Instruction Type:Patient Education How to access health informa tion online - Detail Indication:Impaired Fasting Glucose (Renamed from Elevated fasting blood sugar) Start:02-Mar-2017 Instruction Type:Patient Education Patient Instructions Indication:Impaired Fasting Glucose (Renamed from Elevated fasting blood sugar) Start:02-Mar-2017 Instruction Type:Provider Instructions for Treatment How to access health informa tion online Indication:BMI between 19-24,adult Start:28-Dec-2016 Instruction Type:Patient Education How to access health informa tion online - Detail Indication:BMI between 19-24,adult Start:28-Dec-2016 Instruction Type:Patient Education Patient Instructions Indication:BMI between 19-24,adult Start:28-Dec-2016 Instruction Type:Provider Instructions for Treatment How to access health informa tion online Indication:Migraine Start:01-Sep-2016 Instruction Type:Patient Education How to access health informa tion online - Detail Indication:Migraine Start:01-Sep-2016 Instruction Type:Patient Education Patient Instructions Indication:Migraine Start:01-Sep-2016 Instruction Type:Provider Instructions for Treatment How to access health informa tion online Indication:Benign essential hypertension Start:07-Apr-2016 Instruction Type:Patient Education How to access health informa tion online - Detail Indication:Benign essential hypertension Start:07-Apr-2016 Instruction Type:Patient Education Patient Instructions Indication:Benign essential hypertension Start:07-Apr-2016 Instruction Type:Provider Instructions for Treatment How to access health informa tion online Indication:Impaired Fasting Glucose (Renamed from Elevated fasting blood sugar) Start:24-Sep-2015 Instruction Type:Patient Education How to access health informa tion online - Detail Indication:Impaired Fasting Glucose (Renamed from Elevated fasting blood sugar) Start:24-Sep-2015 Instruction Type:Patient Education Patient Instructions Indication:Impaired Fasting Glucose (Renamed from Elevated fasting blood sugar) Start:24-Sep-2015 Instruction Type:Provider Instructions for Treatment How to access health informa tion online Indication:Impaired Fasting Glucose (Renamed from Elevated fasting blood sugar) Start:20-Mar-2015 Instruction Type:Patient Education How to access health informa tion online - Detail Indication:Impaired Fasting Glucose (Renamed from Elevated fasting blood sugar) Start:20-Mar-2015 Instruction Type:Patient Education Patient Instructions Indication:Impaired Fasting Glucose (Renamed from Elevated fasting blood sugar) Start:20-Mar-2015 Instruction Type:Provider Instructions for Treatment Patient Instructions Indication:Impaired Fasting Glucose (Renamed from Elevated fasting blood sugar) Start:17-Sep-2014 Instruction Type:Provider Instructions for Treatment How to access health informa tion online Indication:Benign essential hypertension Start:11-Apr-2014 Instruction Type:Patient Education How to access health informa tion online - Detail Indication:Benign essential hypertension Start:11-Apr-2014 Instruction Type:Patient Education Patient Instructions Indication:Benign essential hypertension Start:11-Apr-2014 Instruction Type:Provider Instructions for Treatment Patient Instructions Indication:Other abnormal glucose Start:15-Sep-2013 Instruction Type:Provider Instructions for Treatment Patient Instructions Indication:Other and unspecified hyperlipidemia Start:12-Apr-2013 Instruction Type:Provider Instructions for Treatment Patient Instructions 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 Start:02-Dec-2012 Instruction Type:Provider Instructions for Treatment Patient Instructions 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 Start:04-May-2012 Instruction Type:Provider Instructions for Treatment Name Dates Details How to access health informa tion online Indication:Nonsmoker Start:19-Oct-2018 Instruction Type:Patient Education How to access health informa tion online - Detail Indication:Nonsmoker Start:19-Oct-2018 Instruction Type:Patient Education Patient Instructions Indication:Impaired Fasting Glucose (Renamed from Elevated fasting blood sugar) Start:19-Oct-2018 Instruction Type:Provider Instructions for Treatment How to access health informa tion online Indication:Nonsmoker Start:20-Apr-2018 Instruction Type:Patient Education How to access health informa tion online - Detail Indication:Nonsmoker Start:20-Apr-2018 Instruction Type:Patient Education Patient Instructions Indication:Migraine Start:20-Apr-2018 Instruction Type:Provider Instructions for Treatment How to access health informa tion online Indication:Head cold Start:13-Apr-2018 Instruction Type:Patient Education How to access health informa tion online - Detail Indication:Head cold Start:13-Apr-2018 Instruction Type:Patient Education Patient Instructions Indication:Head cold Start:13-Apr-2018 Instruction Type:Provider Instructions for Treatment How to access health informa tion online Indication:BMI 23.0-23.9, adult Start:03-Feb-2018 Instruction Type:Patient Education How to access health informa tion online - Detail Indication:BMI 23.0-23.9, adult Start:03-Feb-2018 Instruction Type:Patient Education Patient Instructions Indication:BMI 23.0-23.9, adult Start:03-Feb-2018 Instruction Type:Provider Instructions for Treatment How to access health informa tion online Indication:Benign essential hypertension Start:19-Oct-2017 Instruction Type:Patient Education How to access health informa tion online - Detail Indication:Benign essential hypertension Start:19-Oct-2017 Instruction Type:Patient Education Patient Instructions Indication:Benign essential hypertension Start:19-Oct-2017 Instruction Type:Provider Instructions for Treatment DISCONTINUED - PSA, TOTAL - DIAGNOSTIC (85595) Indication:Vitamin D deficiency Start:16-Jul-2017 Instruction Type:Patient Education DISCONTINUED - HGB A1C (8303 6) Indication:Impaired Fasting Glucose (Renamed from Elevated fasting blood sugar) Start:16-Jul-2017 Instruction Type:Patient Education How to access health informa tion online Indication:Impaired Fasting Glucose (Renamed from Elevated fasting blood sugar) Start:16-Jul-2017 Instruction Type:Patient Education How to access health informa tion online - Detail Indication:Impaired Fasting Glucose (Renamed from Elevated fasting blood sugar) Start:16-Jul-2017 Instruction Type:Patient Education Patient Instructions Indication:Encounter for screening for malignant neoplasm of prostate (Renamed from Screening for prostate cancer) Start:16-Jul-2017 Instruction Type:Provider Instructions for Treatment How to access health informa tion online Indication:Benign essential hypertension Start:05-Apr-2017 Instruction Type:Patient Education How to access health informa tion online - Detail Indication:Benign essential hypertension Start:05-Apr-2017 Instruction Type:Patient Education Patient Instructions Indication:Benign essential hypertension Start:05-Apr-2017 Instruction Type:Provider Instructions for Treatment How to access health informa tion online Indication:Impaired Fasting Glucose (Renamed from Elevated fasting blood sugar) Start:02-Mar-2017 Instruction Type:Patient Education How to access health informa tion online - Detail Indication:Impaired Fasting Glucose (Renamed from Elevated fasting blood sugar) Start:02-Mar-2017 Instruction Type:Patient Education Patient Instructions Indication:Impaired Fasting Glucose (Renamed from Elevated fasting blood sugar) Start:02-Mar-2017 Instruction Type:Provider Instructions for Treatment How to access health informa tion online Indication:BMI between 19-24,adult Start:28-Dec-2016 Instruction Type:Patient Education How to access health informa tion online - Detail Indication:BMI between 19-24,adult Start:28-Dec-2016 Instruction Type:Patient Education Patient Instructions Indication:BMI between 19-24,adult Start:28-Dec-2016 Instruction Type:Provider Instructions for Treatment How to access health informa tion online Indication:Migraine Start:01-Sep-2016 Instruction Type:Patient Education How to access health informa tion online - Detail Indication:Migraine Start:01-Sep-2016 Instruction Type:Patient Education Patient Instructions Indication:Migraine Start:01-Sep-2016 Instruction Type:Provider Instructions for Treatment How to access health informa tion online Indication:Benign essential hypertension Start:07-Apr-2016 Instruction Type:Patient Education How to access health informa tion online - Detail Indication:Benign essential hypertension Start:07-Apr-2016 Instruction Type:Patient Education Patient Instructions Indication:Benign essential hypertension Start:07-Apr-2016 Instruction Type:Provider Instructions for Treatment How to access health informa tion online Indication:Impaired Fasting Glucose (Renamed from Elevated fasting blood sugar) Start:24-Sep-2015 Instruction Type:Patient Education How to access health informa tion online - Detail Indication:Impaired Fasting Glucose (Renamed from Elevated fasting blood sugar) Start:24-Sep-2015 Instruction Type:Patient Education Patient Instructions Indication:Impaired Fasting Glucose (Renamed from Elevated fasting blood sugar) Start:24-Sep-2015 Instruction Type:Provider Instructions for Treatment How to access health informa tion online Indication:Impaired Fasting Glucose (Renamed from Elevated fasting blood sugar) Start:20-Mar-2015 Instruction Type:Patient Education How to access health informa tion online - Detail Indication:Impaired Fasting Glucose (Renamed from Elevated fasting blood sugar) Start:20-Mar-2015 Instruction Type:Patient Education Patient Instructions Indication:Impaired Fasting Glucose (Renamed from Elevated fasting blood sugar) Start:20-Mar-2015 Instruction Type:Provider Instructions for Treatment Patient Instructions Indication:Impaired Fasting Glucose (Renamed from Elevated fasting blood sugar) Start:17-Sep-2014 Instruction Type:Provider Instructions for Treatment How to access health informa tion online Indication:Benign essential hypertension Start:11-Apr-2014 Instruction Type:Patient Education How to access health informa tion online - Detail Indication:Benign essential hypertension Start:11-Apr-2014 Instruction Type:Patient Education Patient Instructions Indication:Benign essential hypertension Start:11-Apr-2014 Instruction Type:Provider Instructions for Treatment Patient Instructions Indication:Other abnormal glucose Start:15-Sep-2013 Instruction Type:Provider Instructions for Treatment Patient Instructions Indication:Other and unspecified hyperlipidemia Start:12-Apr-2013 Instruction Type:Provider Instructions for Treatment Patient Instructions 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 Start:02-Dec-2012 Instruction Type:Provider Instructions for Treatment Patient Instructions 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 Start:04-May-2012 Instruction Type:Provider Instructions for Treatment Name Dates Details How to access health informa tion online Indication:Nonsmoker Start:03-Jan-2020 Instruction Type:Patient Education How to access health informa tion online - Detail Indication:Nonsmoker Start:03-Jan-2020 Instruction Type:Patient Education Patient Instructions Indication:Nonsmoker Start:03-Jan-2020 Instruction Type:Provider Instructions for Treatment How to access health informa tion online Indication:Nonsmoker Start:05-Sep-2019 Instruction Type:Patient Education How to access health informa tion online - Detail Indication:Nonsmoker Start:05-Sep-2019 Instruction Type:Patient Education Patient Instructions Indication:Vitamin D deficiency Start:05-Sep-2019 Instruction Type:Provider Instructions for Treatment How to access health informa tion online Indication:Nonsmoker Start:19-Apr-2019 Instruction Type:Patient Education How to access health informa tion online - Detail Indication:Nonsmoker Start:19-Apr-2019 Instruction Type:Patient Education Patient Instructions Indication:Nonsmoker Start:19-Apr-2019 Instruction Type:Provider Instructions for Treatment How to access health informa tion online Indication:Nonsmoker Start:19-Oct-2018 Instruction Type:Patient Education How to access health informa tion online - Detail Indication:Nonsmoker Start:19-Oct-2018 Instruction Type:Patient Education Patient Instructions Indication:Impaired Fasting Glucose (Renamed from Elevated fasting blood sugar) Start:19-Oct-2018 Instruction Type:Provider Instructions for Treatment How to access health informa tion online Indication:Nonsmoker Start:20-Apr-2018 Instruction Type:Patient Education How to access health informa tion online - Detail Indication:Nonsmoker Start:20-Apr-2018 Instruction Type:Patient Education Patient Instructions Indication:Migraine Start:20-Apr-2018 Instruction Type:Provider Instructions for Treatment How to access health informa tion online Indication:Head cold Start:13-Apr-2018 Instruction Type:Patient Education How to access health informa tion online - Detail Indication:Head cold Start:13-Apr-2018 Instruction Type:Patient Education Patient Instructions Indication:Head cold Start:13-Apr-2018 Instruction Type:Provider Instructions for Treatment How to access health informa tion online Indication:BMI 23.0-23.9, adult Start:03-Feb-2018 Instruction Type:Patient Education How to access health informa tion online - Detail Indication:BMI 23.0-23.9, adult Start:03-Feb-2018 Instruction Type:Patient Education Patient Instructions Indication:BMI 23.0-23.9, adult Start:03-Feb-2018 Instruction Type:Provider Instructions for Treatment How to access health informa tion online Indication:Benign essential hypertension Start:19-Oct-2017 Instruction Type:Patient Education How to access health informa tion online - Detail Indication:Benign essential hypertension Start:19-Oct-2017 Instruction Type:Patient Education Patient Instructions Indication:Benign essential hypertension Start:19-Oct-2017 Instruction Type:Provider Instructions for Treatment DISCONTINUED - PSA, TOTAL - DIAGNOSTIC (67505) Indication:Vitamin D deficiency Start:16-Jul-2017 Instruction Type:Patient Education DISCONTINUED - HGB A1C (8303 6) Indication:Impaired Fasting Glucose (Renamed from Elevated fasting blood sugar) Start:16-Jul-2017 Instruction Type:Patient Education How to access health informa tion online Indication:Impaired Fasting Glucose (Renamed from Elevated fasting blood sugar) Start:16-Jul-2017 Instruction Type:Patient Education How to access health informa tion online - Detail Indication:Impaired Fasting Glucose (Renamed from Elevated fasting blood sugar) Start:16-Jul-2017 Instruction Type:Patient Education Patient Instructions Indication:Encounter for screening for malignant neoplasm of prostate (Renamed from Screening for prostate cancer) Start:16-Jul-2017 Instruction Type:Provider Instructions for Treatment How to access health informa tion online Indication:Benign essential hypertension Start:05-Apr-2017 Instruction Type:Patient Education How to access health informa tion online - Detail Indication:Benign essential hypertension Start:05-Apr-2017 Instruction Type:Patient Education Patient Instructions Indication:Benign essential hypertension Start:05-Apr-2017 Instruction Type:Provider Instructions for Treatment How to access health informa tion online Indication:Impaired Fasting Glucose (Renamed from Elevated fasting blood sugar) Start:02-Mar-2017 Instruction Type:Patient Education How to access health informa tion online - Detail Indication:Impaired Fasting Glucose (Renamed from Elevated fasting blood sugar) Start:02-Mar-2017 Instruction Type:Patient Education Patient Instructions Indication:Impaired Fasting Glucose (Renamed from Elevated fasting blood sugar) Start:02-Mar-2017 Instruction Type:Provider Instructions for Treatment How to access health informa tion online Indication:BMI between 19-24,adult Start:28-Dec-2016 Instruction Type:Patient Education How to access health informa tion online - Detail Indication:BMI between 19-24,adult Start:28-Dec-2016 Instruction Type:Patient Education Patient Instructions Indication:BMI between 19-24,adult Start:28-Dec-2016 Instruction Type:Provider Instructions for Treatment How to access health informa tion online Indication:Migraine Start:01-Sep-2016 Instruction Type:Patient Education How to access health informa tion online - Detail Indication:Migraine Start:01-Sep-2016 Instruction Type:Patient Education Patient Instructions Indication:Migraine Start:01-Sep-2016 Instruction Type:Provider Instructions for Treatment How to access health informa tion online Indication:Benign essential hypertension Start:07-Apr-2016 Instruction Type:Patient Education How to access health informa tion online - Detail Indication:Benign essential hypertension Start:07-Apr-2016 Instruction Type:Patient Education Patient Instructions Indication:Benign essential hypertension Start:07-Apr-2016 Instruction Type:Provider Instructions for Treatment How to access health informa tion online Indication:Impaired Fasting Glucose (Renamed from Elevated fasting blood sugar) Start:24-Sep-2015 Instruction Type:Patient Education How to access health informa tion online - Detail Indication:Impaired Fasting Glucose (Renamed from Elevated fasting blood sugar) Start:24-Sep-2015 Instruction Type:Patient Education Patient Instructions Indication:Impaired Fasting Glucose (Renamed from Elevated fasting blood sugar) Start:24-Sep-2015 Instruction Type:Provider Instructions for Treatment How to access health informa tion online Indication:Impaired Fasting Glucose (Renamed from Elevated fasting blood sugar) Start:20-Mar-2015 Instruction Type:Patient Education How to access health informa tion online - Detail Indication:Impaired Fasting Glucose (Renamed from Elevated fasting blood sugar) Start:20-Mar-2015 Instruction Type:Patient Education Patient Instructions Indication:Impaired Fasting Glucose (Renamed from Elevated fasting blood sugar) Start:20-Mar-2015 Instruction Type:Provider Instructions for Treatment Patient Instructions Indication:Impaired Fasting Glucose (Renamed from Elevated fasting blood sugar) Start:17-Sep-2014 Instruction Type:Provider Instructions for Treatment How to access health informa tion online Indication:Benign essential hypertension Start:11-Apr-2014 Instruction Type:Patient Education How to access health informa tion online - Detail Indication:Benign essential hypertension Start:11-Apr-2014 Instruction Type:Patient Education Patient Instructions Indication:Benign essential hypertension Start:11-Apr-2014 Instruction Type:Provider Instructions for Treatment Patient Instructions Indication:Other abnormal glucose Start:15-Sep-2013 Instruction Type:Provider Instructions for Treatment Patient Instructions Indication:Other and unspecified hyperlipidemia Start:12-Apr-2013 Instruction Type:Provider Instructions for Treatment Patient Instructions 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 Start:02-Dec-2012 Instruction Type:Provider Instructions for Treatment Patient Instructions 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 Start:04-May-2012 Instruction Type:Provider Instructions for Treatment Name Dates Details How to access health informa tion online Indication:Nonsmoker Start:03-Jan-2020 Instruction Type:Patient Education How to access health informa tion online - Detail Indication:Nonsmoker Start:03-Jan-2020 Instruction Type:Patient Education Patient Instructions Indication:Nonsmoker Start:03-Jan-2020 Instruction Type:Provider Instructions for Treatment How to access health informa tion online Indication:Nonsmoker Start:05-Sep-2019 Instruction Type:Patient Education How to access health informa tion online - Detail Indication:Nonsmoker Start:05-Sep-2019 Instruction Type:Patient Education Patient Instructions Indication:Vitamin D deficiency Start:05-Sep-2019 Instruction Type:Provider Instructions for Treatment How to access health informa tion online Indication:Nonsmoker Start:19-Apr-2019 Instruction Type:Patient Education How to access health informa tion online - Detail Indication:Nonsmoker Start:19-Apr-2019 Instruction Type:Patient Education Patient Instructions Indication:Nonsmoker Start:19-Apr-2019 Instruction Type:Provider Instructions for Treatment How to access health informa tion online Indication:Nonsmoker Start:19-Oct-2018 Instruction Type:Patient Education How to access health informa tion online - Detail Indication:Nonsmoker Start:19-Oct-2018 Instruction Type:Patient Education Patient Instructions Indication:Impaired Fasting Glucose (Renamed from Elevated fasting blood sugar) Start:19-Oct-2018 Instruction Type:Provider Instructions for Treatment How to access health informa tion online Indication:Nonsmoker Start:20-Apr-2018 Instruction Type:Patient Education How to access health informa tion online - Detail Indication:Nonsmoker Start:20-Apr-2018 Instruction Type:Patient Education Patient Instructions Indication:Migraine Start:20-Apr-2018 Instruction Type:Provider Instructions for Treatment How to access health informa tion online Indication:Head cold Start:13-Apr-2018 Instruction Type:Patient Education How to access health informa tion online - Detail Indication:Head cold Start:13-Apr-2018 Instruction Type:Patient Education Patient Instructions Indication:Head cold Start:13-Apr-2018 Instruction Type:Provider Instructions for Treatment How to access health informa tion online Indication:BMI 23.0-23.9, adult Start:03-Feb-2018 Instruction Type:Patient Education How to access health informa tion online - Detail Indication:BMI 23.0-23.9, adult Start:03-Feb-2018 Instruction Type:Patient Education Patient Instructions Indication:BMI 23.0-23.9, adult Start:03-Feb-2018 Instruction Type:Provider Instructions for Treatment How to access health informa tion online Indication:Benign essential hypertension Start:19-Oct-2017 Instruction Type:Patient Education How to access health informa tion online - Detail Indication:Benign essential hypertension Start:19-Oct-2017 Instruction Type:Patient Education Patient Instructions Indication:Benign essential hypertension Start:19-Oct-2017 Instruction Type:Provider Instructions for Treatment DISCONTINUED - PSA, TOTAL - DIAGNOSTIC (27012) Indication:Vitamin D deficiency Start:16-Jul-2017 Instruction Type:Patient Education DISCONTINUED - HGB A1C (8303 6) Indication:Impaired Fasting Glucose (Renamed from Elevated fasting blood sugar) Start:16-Jul-2017 Instruction Type:Patient Education How to access health informa tion online Indication:Impaired Fasting Glucose (Renamed from Elevated fasting blood sugar) Start:16-Jul-2017 Instruction Type:Patient Education How to access health informa tion online - Detail Indication:Impaired Fasting Glucose (Renamed from Elevated fasting blood sugar) Start:16-Jul-2017 Instruction Type:Patient Education Patient Instructions Indication:Encounter for screening for malignant neoplasm of prostate (Renamed from Screening for prostate cancer) Start:16-Jul-2017 Instruction Type:Provider Instructions for Treatment How to access health informa tion online Indication:Benign essential hypertension Start:05-Apr-2017 Instruction Type:Patient Education How to access health informa tion online - Detail Indication:Benign essential hypertension Start:05-Apr-2017 Instruction Type:Patient Education Patient Instructions Indication:Benign essential hypertension Start:05-Apr-2017 Instruction Type:Provider Instructions for Treatment How to access health informa tion online Indication:Impaired Fasting Glucose (Renamed from Elevated fasting blood sugar) Start:02-Mar-2017 Instruction Type:Patient Education How to access health informa tion online - Detail Indication:Impaired Fasting Glucose (Renamed from Elevated fasting blood sugar) Start:02-Mar-2017 Instruction Type:Patient Education Patient Instructions Indication:Impaired Fasting Glucose (Renamed from Elevated fasting blood sugar) Start:02-Mar-2017 Instruction Type:Provider Instructions for Treatment How to access health informa tion online Indication:BMI between 19-24,adult Start:28-Dec-2016 Instruction Type:Patient Education How to access health informa tion online - Detail Indication:BMI between 19-24,adult Start:28-Dec-2016 Instruction Type:Patient Education Patient Instructions Indication:BMI between 19-24,adult Start:28-Dec-2016 Instruction Type:Provider Instructions for Treatment How to access health informa tion online Indication:Migraine Start:01-Sep-2016 Instruction Type:Patient Education How to access health informa tion online - Detail Indication:Migraine Start:01-Sep-2016 Instruction Type:Patient Education Patient Instructions Indication:Migraine Start:01-Sep-2016 Instruction Type:Provider Instructions for Treatment How to access health informa tion online Indication:Benign essential hypertension Start:07-Apr-2016 Instruction Type:Patient Education How to access health informa tion online - Detail Indication:Benign essential hypertension Start:07-Apr-2016 Instruction Type:Patient Education Patient Instructions Indication:Benign essential hypertension Start:07-Apr-2016 Instruction Type:Provider Instructions for Treatment How to access health informa tion online Indication:Impaired Fasting Glucose (Renamed from Elevated fasting blood sugar) Start:24-Sep-2015 Instruction Type:Patient Education How to access health informa tion online - Detail Indication:Impaired Fasting Glucose (Renamed from Elevated fasting blood sugar) Start:24-Sep-2015 Instruction Type:Patient Education Patient Instructions Indication:Impaired Fasting Glucose (Renamed from Elevated fasting blood sugar) Start:24-Sep-2015 Instruction Type:Provider Instructions for Treatment How to access health informa tion online Indication:Impaired Fasting Glucose (Renamed from Elevated fasting blood sugar) Start:20-Mar-2015 Instruction Type:Patient Education How to access health informa tion online - Detail Indication:Impaired Fasting Glucose (Renamed from Elevated fasting blood sugar) Start:20-Mar-2015 Instruction Type:Patient Education Patient Instructions Indication:Impaired Fasting Glucose (Renamed from Elevated fasting blood sugar) Start:20-Mar-2015 Instruction Type:Provider Instructions for Treatment Patient Instructions Indication:Impaired Fasting Glucose (Renamed from Elevated fasting blood sugar) Start:17-Sep-2014 Instruction Type:Provider Instructions for Treatment How to access health informa tion online Indication:Benign essential hypertension Start:11-Apr-2014 Instruction Type:Patient Education How to access health informa tion online - Detail Indication:Benign essential hypertension Start:11-Apr-2014 Instruction Type:Patient Education Patient Instructions Indication:Benign essential hypertension Start:11-Apr-2014 Instruction Type:Provider Instructions for Treatment Patient Instructions Indication:Other abnormal glucose Start:15-Sep-2013 Instruction Type:Provider Instructions for Treatment Patient Instructions Indication:Other and unspecified hyperlipidemia Start:12-Apr-2013 Instruction Type:Provider Instructions for Treatment Patient Instructions 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 Start:02-Dec-2012 Instruction Type:Provider Instructions for Treatment Patient Instructions 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 Start:04-May-2012 Instruction Type:Provider Instructions for Treatment Name Dates Details How to access health informa tion online Indication:Nonsmoker Start:05-Sep-2019 Instruction Type:Patient Education How to access health informa tion online - Detail Indication:Nonsmoker Start:05-Sep-2019 Instruction Type:Patient Education Patient Instructions Indication:Vitamin D deficiency Start:05-Sep-2019 Instruction Type:Provider Instructions for Treatment How to access health informa tion online Indication:Nonsmoker Start:19-Apr-2019 Instruction Type:Patient Education How to access health informa tion online - Detail Indication:Nonsmoker Start:19-Apr-2019 Instruction Type:Patient Education Patient Instructions Indication:Nonsmoker Start:19-Apr-2019 Instruction Type:Provider Instructions for Treatment How to access health informa tion online Indication:Nonsmoker Start:19-Oct-2018 Instruction Type:Patient Education How to access health informa tion online - Detail Indication:Nonsmoker Start:19-Oct-2018 Instruction Type:Patient Education Patient Instructions Indication:Impaired Fasting Glucose (Renamed from Elevated fasting blood sugar) Start:19-Oct-2018 Instruction Type:Provider Instructions for Treatment How to access health informa tion online Indication:Nonsmoker Start:20-Apr-2018 Instruction Type:Patient Education How to access health informa tion online - Detail Indication:Nonsmoker Start:20-Apr-2018 Instruction Type:Patient Education Patient Instructions Indication:Migraine Start:20-Apr-2018 Instruction Type:Provider Instructions for Treatment How to access health informa tion online Indication:Head cold Start:13-Apr-2018 Instruction Type:Patient Education How to access health informa tion online - Detail Indication:Head cold Start:13-Apr-2018 Instruction Type:Patient Education Patient Instructions Indication:Head cold Start:13-Apr-2018 Instruction Type:Provider Instructions for Treatment How to access health informa tion online Indication:BMI 23.0-23.9, adult Start:03-Feb-2018 Instruction Type:Patient Education How to access health informa tion online - Detail Indication:BMI 23.0-23.9, adult Start:03-Feb-2018 Instruction Type:Patient Education Patient Instructions Indication:BMI 23.0-23.9, adult Start:03-Feb-2018 Instruction Type:Provider Instructions for Treatment How to access health informa tion online Indication:Benign essential hypertension Start:19-Oct-2017 Instruction Type:Patient Education How to access health informa tion online - Detail Indication:Benign essential hypertension Start:19-Oct-2017 Instruction Type:Patient Education Patient Instructions Indication:Benign essential hypertension Start:19-Oct-2017 Instruction Type:Provider Instructions for Treatment DISCONTINUED - PSA, TOTAL - DIAGNOSTIC (89282) Indication:Vitamin D deficiency Start:16-Jul-2017 Instruction Type:Patient Education DISCONTINUED - HGB A1C (8303 6) Indication:Impaired Fasting Glucose (Renamed from Elevated fasting blood sugar) Start:16-Jul-2017 Instruction Type:Patient Education How to access health informa tion online Indication:Impaired Fasting Glucose (Renamed from Elevated fasting blood sugar) Start:16-Jul-2017 Instruction Type:Patient Education How to access health informa tion online - Detail Indication:Impaired Fasting Glucose (Renamed from Elevated fasting blood sugar) Start:16-Jul-2017 Instruction Type:Patient Education Patient Instructions Indication:Encounter for screening for malignant neoplasm of prostate (Renamed from Screening for prostate cancer) Start:16-Jul-2017 Instruction Type:Provider Instructions for Treatment How to access health informa tion online Indication:Benign essential hypertension Start:05-Apr-2017 Instruction Type:Patient Education How to access health informa tion online - Detail Indication:Benign essential hypertension Start:05-Apr-2017 Instruction Type:Patient Education Patient Instructions Indication:Benign essential hypertension Start:05-Apr-2017 Instruction Type:Provider Instructions for Treatment How to access health informa tion online Indication:Impaired Fasting Glucose (Renamed from Elevated fasting blood sugar) Start:02-Mar-2017 Instruction Type:Patient Education How to access health informa tion online - Detail Indication:Impaired Fasting Glucose (Renamed from Elevated fasting blood sugar) Start:02-Mar-2017 Instruction Type:Patient Education Patient Instructions Indication:Impaired Fasting Glucose (Renamed from Elevated fasting blood sugar) Start:02-Mar-2017 Instruction Type:Provider Instructions for Treatment How to access health informa tion online Indication:BMI between 19-24,adult Start:28-Dec-2016 Instruction Type:Patient Education How to access health informa tion online - Detail Indication:BMI between 19-24,adult Start:28-Dec-2016 Instruction Type:Patient Education Patient Instructions Indication:BMI between 19-24,adult Start:28-Dec-2016 Instruction Type:Provider Instructions for Treatment How to access health informa tion online Indication:Migraine Start:01-Sep-2016 Instruction Type:Patient Education How to access health informa tion online - Detail Indication:Migraine Start:01-Sep-2016 Instruction Type:Patient Education Patient Instructions Indication:Migraine Start:01-Sep-2016 Instruction Type:Provider Instructions for Treatment How to access health informa tion online Indication:Benign essential hypertension Start:07-Apr-2016 Instruction Type:Patient Education How to access health informa tion online - Detail Indication:Benign essential hypertension Start:07-Apr-2016 Instruction Type:Patient Education Patient Instructions Indication:Benign essential hypertension Start:07-Apr-2016 Instruction Type:Provider Instructions for Treatment How to access health informa tion online Indication:Impaired Fasting Glucose (Renamed from Elevated fasting blood sugar) Start:24-Sep-2015 Instruction Type:Patient Education How to access health informa tion online - Detail Indication:Impaired Fasting Glucose (Renamed from Elevated fasting blood sugar) Start:24-Sep-2015 Instruction Type:Patient Education Patient Instructions Indication:Impaired Fasting Glucose (Renamed from Elevated fasting blood sugar) Start:24-Sep-2015 Instruction Type:Provider Instructions for Treatment How to access health informa tion online Indication:Impaired Fasting Glucose (Renamed from Elevated fasting blood sugar) Start:20-Mar-2015 Instruction Type:Patient Education How to access health informa tion online - Detail Indication:Impaired Fasting Glucose (Renamed from Elevated fasting blood sugar) Start:20-Mar-2015 Instruction Type:Patient Education Patient Instructions Indication:Impaired Fasting Glucose (Renamed from Elevated fasting blood sugar) Start:20-Mar-2015 Instruction Type:Provider Instructions for Treatment Patient Instructions Indication:Impaired Fasting Glucose (Renamed from Elevated fasting blood sugar) Start:17-Sep-2014 Instruction Type:Provider Instructions for Treatment How to access health informa tion online Indication:Benign essential hypertension Start:11-Apr-2014 Instruction Type:Patient Education How to access health informa tion online - Detail Indication:Benign essential hypertension Start:11-Apr-2014 Instruction Type:Patient Education Patient Instructions Indication:Benign essential hypertension Start:11-Apr-2014 Instruction Type:Provider Instructions for Treatment Patient Instructions Indication:Other abnormal glucose Start:15-Sep-2013 Instruction Type:Provider Instructions for Treatment Patient Instructions Indication:Other and unspecified hyperlipidemia Start:12-Apr-2013 Instruction Type:Provider Instructions for Treatment Patient Instructions 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 Start:02-Dec-2012 Instruction Type:Provider Instructions for Treatment Patient Instructions 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 Start:04-May-2012 Instruction Type:Provider Instructions for Treatment Name Dates Details Patient Instructions Indication:Nonsmoker Start:10-Jul-2020 Instruction Type:Provider Instructions for Treatment How to Access Health Informa tion Online using Patient Portal and [employer] Apps Indication:Nonsmoker Start:10-Jul-2020 Instruction Type:Patient Education How to access health informa tion online Indication:Nonsmoker Start:03-Jan-2020 Instruction Type:Patient Education How to access health informa tion online - Detail Indication:Nonsmoker Start:03-Jan-2020 Instruction Type:Patient Education Patient Instructions Indication:Nonsmoker Start:03-Jan-2020 Instruction Type:Provider Instructions for Treatment How to access health informa tion online Indication:Nonsmoker Start:05-Sep-2019 Instruction Type:Patient Education How to access health informa tion online - Detail Indication:Nonsmoker Start:05-Sep-2019 Instruction Type:Patient Education Patient Instructions Indication:Vitamin D deficiency Start:05-Sep-2019 Instruction Type:Provider Instructions for Treatment How to access health informa tion online Indication:Nonsmoker Start:19-Apr-2019 Instruction Type:Patient Education How to access health informa tion online - Detail Indication:Nonsmoker Start:19-Apr-2019 Instruction Type:Patient Education Patient Instructions Indication:Nonsmoker Start:19-Apr-2019 Instruction Type:Provider Instructions for Treatment How to access health informa tion online Indication:Nonsmoker Start:19-Oct-2018 Instruction Type:Patient Education How to access health informa tion online - Detail Indication:Nonsmoker Start:19-Oct-2018 Instruction Type:Patient Education Patient Instructions Indication:Impaired Fasting Glucose (Renamed from Elevated fasting blood sugar) Start:19-Oct-2018 Instruction Type:Provider Instructions for Treatment How to access health informa tion online Indication:Nonsmoker Start:20-Apr-2018 Instruction Type:Patient Education How to access health informa tion online - Detail Indication:Nonsmoker Start:20-Apr-2018 Instruction Type:Patient Education Patient Instructions Indication:Migraine Start:20-Apr-2018 Instruction Type:Provider Instructions for Treatment How to access health informa tion online Indication:Head cold Start:13-Apr-2018 Instruction Type:Patient Education How to access health informa tion online - Detail Indication:Head cold Start:13-Apr-2018 Instruction Type:Patient Education Patient Instructions Indication:Head cold Start:13-Apr-2018 Instruction Type:Provider Instructions for Treatment How to access health informa tion online Indication:BMI 23.0-23.9, adult Start:03-Feb-2018 Instruction Type:Patient Education How to access health informa tion online - Detail Indication:BMI 23.0-23.9, adult Start:03-Feb-2018 Instruction Type:Patient Education Patient Instructions Indication:BMI 23.0-23.9, adult Start:03-Feb-2018 Instruction Type:Provider Instructions for Treatment How to access health informa tion online Indication:Benign essential hypertension Start:19-Oct-2017 Instruction Type:Patient Education How to access health informa tion online - Detail Indication:Benign essential hypertension Start:19-Oct-2017 Instruction Type:Patient Education Patient Instructions Indication:Benign essential hypertension Start:19-Oct-2017 Instruction Type:Provider Instructions for Treatment DISCONTINUED - PSA, TOTAL - DIAGNOSTIC (23606) Indication:Vitamin D deficiency Start:16-Jul-2017 Instruction Type:Patient Education DISCONTINUED - HGB A1C (8303 6) Indication:Impaired Fasting Glucose (Renamed from Elevated fasting blood sugar) Start:16-Jul-2017 Instruction Type:Patient Education How to access health informa tion online Indication:Impaired Fasting Glucose (Renamed from Elevated fasting blood sugar) Start:16-Jul-2017 Instruction Type:Patient Education How to access health informa tion online - Detail Indication:Impaired Fasting Glucose (Renamed from Elevated fasting blood sugar) Start:16-Jul-2017 Instruction Type:Patient Education Patient Instructions Indication:Encounter for screening for malignant neoplasm of prostate (Renamed from Screening for prostate cancer) Start:16-Jul-2017 Instruction Type:Provider Instructions for Treatment How to access health informa tion online Indication:Benign essential hypertension Start:05-Apr-2017 Instruction Type:Patient Education How to access health informa tion online - Detail Indication:Benign essential hypertension Start:05-Apr-2017 Instruction Type:Patient Education Patient Instructions Indication:Benign essential hypertension Start:05-Apr-2017 Instruction Type:Provider Instructions for Treatment How to access health informa tion online Indication:Impaired Fasting Glucose (Renamed from Elevated fasting blood sugar) Start:02-Mar-2017 Instruction Type:Patient Education How to access health informa tion online - Detail Indication:Impaired Fasting Glucose (Renamed from Elevated fasting blood sugar) Start:02-Mar-2017 Instruction Type:Patient Education Patient Instructions Indication:Impaired Fasting Glucose (Renamed from Elevated fasting blood sugar) Start:02-Mar-2017 Instruction Type:Provider Instructions for Treatment How to access health informa tion online Indication:BMI between 19-24,adult Start:28-Dec-2016 Instruction Type:Patient Education How to access health informa tion online - Detail Indication:BMI between 19-24,adult Start:28-Dec-2016 Instruction Type:Patient Education Patient Instructions Indication:BMI between 19-24,adult Start:28-Dec-2016 Instruction Type:Provider Instructions for Treatment How to access health informa tion online Indication:Migraine Start:01-Sep-2016 Instruction Type:Patient Education How to access health informa tion online - Detail Indication:Migraine Start:01-Sep-2016 Instruction Type:Patient Education Patient Instructions Indication:Migraine Start:01-Sep-2016 Instruction Type:Provider Instructions for Treatment How to access health informa tion online Indication:Benign essential hypertension Start:07-Apr-2016 Instruction Type:Patient Education How to access health informa tion online - Detail Indication:Benign essential hypertension Start:07-Apr-2016 Instruction Type:Patient Education Patient Instructions Indication:Benign essential hypertension Start:07-Apr-2016 Instruction Type:Provider Instructions for Treatment How to access health informa [employer] online Indication:Impaired Fasting Glucose (Renamed from Elevated fasting blood sugar) Start:24-Sep-2015 Instruction Type:Patient Education How to access health informa tion online - Detail Indication:Impaired Fasting Glucose (Renamed from Elevated fasting blood sugar) Start:24-Sep-2015 Instruction Type:Patient Education Patient Instructions Indication:Impaired Fasting Glucose (Renamed from Elevated fasting blood sugar) Start:24-Sep-2015 Instruction Type:Provider Instructions for Treatment How to access health informa tion online Indication:Impaired Fasting Glucose (Renamed from Elevated fasting blood sugar) Start:20-Mar-2015 Instruction Type:Patient Education How to access health informa tion online - Detail Indication:Impaired Fasting Glucose (Renamed from Elevated fasting blood sugar) Start:20-Mar-2015 Instruction Type:Patient Education Patient Instructions Indication:Impaired Fasting Glucose (Renamed from Elevated fasting blood sugar) Start:20-Mar-2015 Instruction Type:Provider Instructions for Treatment Patient Instructions Indication:Impaired Fasting Glucose (Renamed from Elevated fasting blood sugar) Start:17-Sep-2014 Instruction Type:Provider Instructions for Treatment How to access health informa [employer] online Indication:Benign essential hypertension Start:11-Apr-2014 Instruction Type:Patient Education How to access health informa tion online - Detail Indication:Benign essential hypertension Start:11-Apr-2014 Instruction Type:Patient Education Patient Instructions Indication:Benign essential hypertension Start:11-Apr-2014 Instruction Type:Provider Instructions for Treatment Patient Instructions Indication:Other abnormal glucose Start:15-Sep-2013 Instruction Type:Provider Instructions for Treatment Patient Instructions Indication:Other and unspecified hyperlipidemia Start:12-Apr-2013 Instruction Type:Provider Instructions for Treatment Patient Instructions 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 Start:02-Dec-2012 Instruction Type:Provider Instructions for Treatment Patient Instructions 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 Start:04-May-2012 Instruction Type:Provider Instructions for Treatment Name Dates Details Patient Instructions Indication:Nonsmoker Start:10-Jul-2020 Instruction Type:Provider Instructions for Treatment How to Access Health Informa tion Online using Patient Portal and [employer] Indication:Nonsmoker Start:10-Jul-2020 Instruction Type:Patient Education How to access health informa tion online Indication:Nonsmoker Start:03-Jan-2020 Instruction Type:Patient Education How to access health informa tion online - Detail Indication:Nonsmoker Start:03-Jan-2020 Instruction Type:Patient Education Patient Instructions Indication:Nonsmoker Start:03-Jan-2020 Instruction Type:Provider Instructions for Treatment How to access health informa tion online Indication:Nonsmoker Start:05-Sep-2019 Instruction Type:Patient Education How to access health informa tion online - Detail Indication:Nonsmoker Start:05-Sep-2019 Instruction Type:Patient Education Patient Instructions Indication:Vitamin D deficiency Start:05-Sep-2019 Instruction Type:Provider Instructions for Treatment How to access health informa tion online Indication:Nonsmoker Start:19-Apr-2019 Instruction Type:Patient Education How to access health informa tion online - Detail Indication:Nonsmoker Start:19-Apr-2019 Instruction Type:Patient Education Patient Instructions Indication:Nonsmoker Start:19-Apr-2019 Instruction Type:Provider Instructions for Treatment How to access health informa tion online Indication:Nonsmoker Start:19-Oct-2018 Instruction Type:Patient Education How to access health informa tion online - Detail Indication:Nonsmoker Start:19-Oct-2018 Instruction Type:Patient Education Patient Instructions Indication:Impaired Fasting Glucose (Renamed from Elevated fasting blood sugar) Start:19-Oct-2018 Instruction Type:Provider Instructions for Treatment How to access health informa tion online Indication:Nonsmoker Start:20-Apr-2018 Instruction Type:Patient Education How to access health informa tion online - Detail Indication:Nonsmoker Start:20-Apr-2018 Instruction Type:Patient Education Patient Instructions Indication:Migraine Start:20-Apr-2018 Instruction Type:Provider Instructions for Treatment How to access health informa tion online Indication:Head cold Start:13-Apr-2018 Instruction Type:Patient Education How to access health informa tion online - Detail Indication:Head cold Start:13-Apr-2018 Instruction Type:Patient Education Patient Instructions Indication:Head cold Start:13-Apr-2018 Instruction Type:Provider Instructions for Treatment How to access health informa tion online Indication:BMI 23.0-23.9, adult Start:03-Feb-2018 Instruction Type:Patient Education How to access health informa tion online - Detail Indication:BMI 23.0-23.9, adult Start:03-Feb-2018 Instruction Type:Patient Education Patient Instructions Indication:BMI 23.0-23.9, adult Start:03-Feb-2018 Instruction Type:Provider Instructions for Treatment How to access health informa tion online Indication:Benign essential hypertension Start:19-Oct-2017 Instruction Type:Patient Education How to access health informa tion online - Detail Indication:Benign essential hypertension Start:19-Oct-2017 Instruction Type:Patient Education Patient Instructions Indication:Benign essential hypertension Start:19-Oct-2017 Instruction Type:Provider Instructions for Treatment DISCONTINUED - PSA, TOTAL - DIAGNOSTIC (89551) Indication:Vitamin D deficiency Start:16-Jul-2017 Instruction Type:Patient Education DISCONTINUED - HGB A1C (8303 6) Indication:Impaired Fasting Glucose (Renamed from Elevated fasting blood sugar) Start:16-Jul-2017 Instruction Type:Patient Education How to access health informa tion online Indication:Impaired Fasting Glucose (Renamed from Elevated fasting blood sugar) Start:16-Jul-2017 Instruction Type:Patient Education How to access health informa tion online - Detail Indication:Impaired Fasting Glucose (Renamed from Elevated fasting blood sugar) Start:16-Jul-2017 Instruction Type:Patient Education Patient Instructions Indication:Encounter for screening for malignant neoplasm of prostate (Renamed from Screening for prostate cancer) Start:16-Jul-2017 Instruction Type:Provider Instructions for Treatment How to access health informa tion online Indication:Benign essential hypertension Start:05-Apr-2017 Instruction Type:Patient Education How to access health informa tion online - Detail Indication:Benign essential hypertension Start:05-Apr-2017 Instruction Type:Patient Education Patient Instructions Indication:Benign essential hypertension Start:05-Apr-2017 Instruction Type:Provider Instructions for Treatment How to access health informa tion online Indication:Impaired Fasting Glucose (Renamed from Elevated fasting blood sugar) Start:02-Mar-2017 Instruction Type:Patient Education How to access health informa tion online - Detail Indication:Impaired Fasting Glucose (Renamed from Elevated fasting blood sugar) Start:02-Mar-2017 Instruction Type:Patient Education Patient Instructions Indication:Impaired Fasting Glucose (Renamed from Elevated fasting blood sugar) Start:02-Mar-2017 Instruction Type:Provider Instructions for Treatment How to access health informa tion online Indication:BMI between 19-24,adult Start:28-Dec-2016 Instruction Type:Patient Education How to access health informa tion online - Detail Indication:BMI between 19-24,adult Start:28-Dec-2016 Instruction Type:Patient Education Patient Instructions Indication:BMI between 19-24,adult Start:28-Dec-2016 Instruction Type:Provider Instructions for Treatment How to access health informa tion online Indication:Migraine Start:01-Sep-2016 Instruction Type:Patient Education How to access health informa tion online - Detail Indication:Migraine Start:01-Sep-2016 Instruction Type:Patient Education Patient Instructions Indication:Migraine Start:01-Sep-2016 Instruction Type:Provider Instructions for Treatment How to access health informa tion online Indication:Benign essential hypertension Start:07-Apr-2016 Instruction Type:Patient Education How to access health informa tion online - Detail Indication:Benign essential hypertension Start:07-Apr-2016 Instruction Type:Patient Education Patient Instructions Indication:Benign essential hypertension Start:07-Apr-2016 Instruction Type:Provider Instructions for Treatment How to access health informa tion online Indication:Impaired Fasting Glucose (Renamed from Elevated fasting blood sugar) Start:24-Sep-2015 Instruction Type:Patient Education How to access health informa tion online - Detail Indication:Impaired Fasting Glucose (Renamed from Elevated fasting blood sugar) Start:24-Sep-2015 Instruction Type:Patient Education Patient Instructions Indication:Impaired Fasting Glucose (Renamed from Elevated fasting blood sugar) Start:24-Sep-2015 Instruction Type:Provider Instructions for Treatment How to access health informa tion online Indication:Impaired Fasting Glucose (Renamed from Elevated fasting blood sugar) Start:20-Mar-2015 Instruction Type:Patient Education How to access health informa tion online - Detail Indication:Impaired Fasting Glucose (Renamed from Elevated fasting blood sugar) Start:20-Mar-2015 Instruction Type:Patient Education Patient Instructions Indication:Impaired Fasting Glucose (Renamed from Elevated fasting blood sugar) Start:20-Mar-2015 Instruction Type:Provider Instructions for Treatment Patient Instructions Indication:Impaired Fasting Glucose (Renamed from Elevated fasting blood sugar) Start:17-Sep-2014 Instruction Type:Provider Instructions for Treatment How to access health informa tion online Indication:Benign essential hypertension Start:11-Apr-2014 Instruction Type:Patient Education How to access [employer] online - Detail Indication:Benign essential hypertension Start:11-Apr-2014 Instruction Type:Patient Education Patient Instructions Indication:Benign essential hypertension Start:11-Apr-2014 Instruction Type:Provider Instructions for Treatment Patient Instructions Indication:Other abnormal glucose Start:15-Sep-2013 Instruction Type:Provider Instructions for Treatment Patient Instructions Indication:Other and unspecified hyperlipidemia Start:12-Apr-2013 Instruction Type:Provider Instructions for Treatment Patient Instructions 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 Start:02-Dec-2012 Instruction Type:Provider Instructions for Treatment Patient Instructions 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 Start:04-May-2012 Instruction Type:Provider Instructions for Treatment Chief Complaint and Reason for Visit Chief Complaint BILATERAL CAROTID AR WM STENOSIS Additional Source Comments (unrecognized sect ion and content) No Status Records FoundNo Status Records FoundNo Status Records Found INFORMATION SOURCE (unrecogn ized section and content) DATE CREATED AUTHOR 11/09/2017 [facility] DATE CREATED AUTHOR AUTHOR'S ORGANIZ ATION 07/24/2022 [facility] DATE CREATED AUTHOR AUTHOR'S ORGANIZ ATION 03/28/2025 [facility] Goals (unrecognized section and content) Goals may be documented in a n alternate section FOR RECORDS PERTAINING TO PATIENTS WHO ARE OR HAVE BEEN ENROLLED IN A CHEMICAL DEPENDENCY/SUBSTANCEABUSE PROGRAM, SOME INFORMATION MAY BE OMITTED. This clinical summary was aggregated from multiple sources. Caution should be exercised in using it in the provision of clinical care. This summary normalizes information from multiple sources, and as a consequence, information in this document may materially change the coding, format and clinical context of patient data. In addition, data may be omitted in some cases. CLINICAL DECISIONS SHOULD BE BASED ON THE PRIMARY CLINICAL RECORDS. [email or web address] provides no warranty or guarantee of the accuracy or completeness of information in this document.
[2025-03-28] MEDS: Lactated Ringers 1,000 ML 15 ML IV (07:00)
--- NOTE | 2025-03-28 07:16 | PCM.PRE.AN2 ---
ASA Classification* ASA Classification ASA Classification: 2 (HTN, BPH) Assessment & Plan Anesthesia* Anesthesia Assessment Anesthesia Assessment: Discussed sedation and/or anesthesia options, risks, benefits, and alternatives with patient/parents/legal guardian/POA. Questions invited. The patient/parents/legal guardian/POA seems to understand and agrees to proceed with anesthesia plan. Reviewed the physical assessment, medical history, allergy history and patient home medications list prior to surgery/procedure/anesthetic and documented any changes. Performed airway and anesthesia risk assessments. Anesthesia Type Anesthesia Type: General History Source History Obtained from:: Patient and Chart Anesthesia Focused Assessment* Temperature: 97.1 F Pulse Rate: 58 Blood Pressure: 172/83 Respiratory Rate: 16 Pulse Ox: 99 Oxygen Delivery Method: Room Air Airway Assessment Mouth opens: >3 cm Mallampati Score: II Neck Range of motion (ROM): Full ROM Labs Anesthesia Preop lab: CBC WBC, (4.4-11.0) 4.9 K/mm3 03/08/25, 10: RBC, (4.6-6.2) 4.80 M/mm3 03/08/25, 10:22 Hgb, (13.0-16.5) 14.8 g/dL 03/08/25, 10: Hct, (40-54) 44.1 % 03/08/25, 10:22 Plt Count, (150-450) 246 K/mm3 03/08/25, 10:22 CHEMISTRY Potassium, (3.3-5.1) 4.4 mmol/L 03/08/25, 10: Sodium, (133-145) 141 mmol/L 03/08/25, 10: BUN, (4-19) 21 mg/dL H 03/08/25, 10:22 Creatinine, (0.70-1.20) 0.92 mg/dL 03/08/25, 10: Glucose, (70-99) 102 mg/dL H 03/08/25, 10:22 COAG Pre-Assessment Diagnosis/Proposed Procedure Planned Operative Procedure(s): (N/A) Cysto,Transurethral Resection Prostate Anesthesia History [facility] An[facility] Hx Hospitalization No 03/14/25 09:24 Any Problems With Anesthesia No 03/14/25 09:24 Cholinesterase deficiency No 03/14/25 09:24 You/Your Family Experience No 03/14/25 09:24 fever (hyperthermia) with Relationship Recent Exposure to Contagious No 03/28/25 06:48 Disease Does patient have nerve No 03/14/25 09:24 stimulator Patient instructed to have device shut off --Does patient have Pacemaker No 03/28/25 06:52 or ICD? When Was Last Pacemaker Check QUESTION #4 FULL TEXT: You/Your Family Experience fever (hyperthermia) with Anesthesia Last Oral Intake Last Oral intake: Last Oral Intake NPO since 05:00 03/28/25 06:52 Meds taken in AM with sips of No 03/28/25 06:52 water? Meds patient instructed to take am of surgery PONV PONV - [facility]: PONV - [facility] Female No 03/14/25 09:24 HX of Motion Sickness Yes 03/14/25 09:24 HX of N/V After Surgery No 03/14/25 09:24 Non-Smoker Yes 03/14/25 09:24 Duration of Surgery greater Yes 03/14/25 09:24 than 60 minutes Number of Risk Factors 3 03/14/25 09:24 PONV Score Moderate Risk 03/14/25 09:24 Height & Weight Height & Weight: Anesthesia: Height & Weight Height 5 ft 10 in 03/28/25 06:52 Weight: 75.75 kg 03/28/25 06:52 Body Mass Index (BMI) 23.9 03/28/25 06:52 Respiratory Assessment Respiratory Assessment - [facility]: Respiratory Tract Infection Hx - [facility] Hx Respiratory Tract Infection No 03/14/25 09:24 STOP Sleep Apnea STOP Sleep Apnea - [facility]: STOP Sleep Apnea - [facility] Hx Hypertension Yes: controlled with med 03/14/25 09:24 Hx Sleep Apnea No 03/14/25 09:24 CPAP BIPAP Do you snore loudly (louder No 03/14/25 09:24 than talking or can be heard Do you often feel tired/ No 03/14/25 09:24 fatigued/ sleepy during daytime? Has anyone observed you stop No 03/14/25 09:24 breathing during sleep? STOP Results Negative 03/14/25 09:24 QUESTION #5 FULL TEXT : Do you snore loudly (louder than talking or can be heard through closed doors)? 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 Specify any problems Hx of Preganancy in last 3 N/A 03/14/25 09:24 Months Nurse Filling Out Transfusion NBUCHER 03/14/25 09:24 & Questions: Date: 03/14/25 03/14/25 09:24 Time: 09:26 03/14/25 09:24 Patient unable to answer at this time (ie. confused, unrespo /Reproduction History /Reproductive History - [facility]: /Reproductive Hx- [facility] Hx Now No 03/14/25 09:24 Gestational Age (in weeks): EDC: Hx Hx Para Hx Section SAB No 03/14/25 09:24 Does the father of the baby or his family experience fever w Father of the baby Malignant Hypertension history comment Active Medications Active Medications: Current Medications Generic Name Dose Route Start Last Admin Trade Name Freq PRN Reason Stop Dose Admin Cefazolin Sodium 2 gm/ Sodium 110 mls @ 200 mls/hr 03/28/25 07:30 Chloride IV 03/28/25 08:02 INTRAOP ONE Lactated Ringer's 1,000 mls @ 15 mls/hr 03/28/25 06:30 03/28/25 07:00 IV 15 mls/hr .Q48H JUSTUS Administration PFSH Medical History (Updated 03/14/25 @ 09:33 by Idania Antonio) Wears hearing aid Loss of hearing Wears glasses Hypertension Anxiety Depression BPH (benign prostatic hyperplasia) Prostate disease High cholesterol Migraine headache Non-smoker Former smoker History of echocardiogram (~2016) Home Medications ?Medication ?Instructions ?Recorded ?Last Taken ?Type cholecalciferol (vitamin D3) 50 50 mcg PO DAILY 03/14/25 03/27/25 08:00 History mcg (2,000 unit) capsule (Vitamin D3) citalopram 20 mg tablet 20 mg PO QHS 03/14/25 03/26/25 20:00 History cyclosporine 0.05 % eye drops in a 1 drp ophthalmic (eye) DAILY 03/14/25 03/27/25 08:00 History dropperette (Restasis) finasteride 5 mg tablet 5 mg PO DAILY 03/14/25 03/25/25 History nkazxvgwkos-[id number]-hyal 1 tab PO DAILY 03/14/25 03/27/25 15:00 History 750 mg-100 mg-125 mg-1.65 mg tablet (Glucosamine Chondroit Complx Advan) lisinopril 10 mg tablet 10 mg PO DAILY 03/14/25 03/27/25 08:00 History magnesium 200 mg tablet 200 mg PO QHS 03/14/25 03/26/25 20:00 History rizatriptan 5 mg tablet 5 mg PO BID PRN headache 03/14/25 Unknown History simvastatin 20 mg tablet 20 mg PO QHS 03/14/25 03/26/25 20:00 History tamsulosin 0.4 mg capsule 0.4 mg PO DAILY 03/14/25 03/21/25 History Allergy/AdvReac Type Severity Reaction Status Date / Time No Known Allergies Allergy Verified 03/28/25 06:41 Surgical History (Updated 03/14/25 @ 09:33 by Idania Antonio) History of colonoscopy History of vasectomy History of hernia repair (~1961) History of mandibular surgery (~2004) History of cystoscopy (09/05/24) Social History Smoking Status: Former smoker Review of Systems (Anesthesia) ROS Narrative System reviewed and no additional complaints, except as documented. Physical Exam Const alert, oriented x3 and average body habitus Resp normal respiratory effort, normal air movement and clear to auscultation bilaterally Cardio regular rate, regular rhythm and no murmurs; Negative for diaphoretic
--- NOTE | 2025-03-28 07:30 | PROS_PTH ---
PATIENT: QUEENIE ESPINOZA LOC: [facility]3 U#:[id number] AGE/SX: 74/M [place] [facility] [place]: Dr. Boston Urbano MD : 1950 BED: 1 DIS: 03/29/2025 SPEC #: [id number] RECD: 03/28/25 09:03 STATUS: GAUDENCIO LMAAShai #: [id number] JOJO: 03/28/25 07:[address]: Boston Urbano DEPT: SURGICAL PATHOLOGY RECD BY: Juan José Banda ENTERED: 03/28/25 10:22 SP TYPE: TURP OTHR DR: Dr. Nori Valenzuela, DO Tissues: A - Prostate, NOS Procedures: Immunohistochemical Stains Surgery Specimen Level IV IHC Stain ADDITIONAL HEADER OPERATION: Cysto, transurethral resection of prostate PRE-OP DIAGNOSIS: Benign prostatic hyperplasia TISSUE SUBMITTED: A- Prostate tissue MICROSCOPIC DIAGNOSIS A. 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 MICROSCOPIC DESCRIPTION A microscopic examination has been conducted. All matched controls reacted appropriately. These tests were developed and their performance characteristics determined by [facility]. They may not have been cleared or approved by the U.S. Food and Drug Administration. The FDA has determined that such clearance or approval is not necessary. The above immunohistochemical markers are viewed by the Pathologist. GROSS DESCRIPTION A. Received in formalin labeled with the patient's name and date of . Designated as prostate tissue is a 16.6 g, 6.8 x 5.9 x 1.1 cm aggregate of irregular, field, rubbery, cauterized tissue fragments and clotted blood. Entirely submitted in 10 cassettes. AR 03/28/2025 CPT:14566,49767g8
[2025-03-28] MEDS: Cefazolin 1 GM/5 ML Vial 2 GM IV (07:36)
[2025-03-28] MEDS: Lidocaine 1% (5 ml sdv) 5 ML Vial IV (07:40)
--- NOTE | 2025-03-28 07:41 | DCINST_ITS ---
Discharge Instructions DC O2, CPAP, BIPAP needs Home O2 Discharge instructions: No Dressing / Incision Discharge Activity: Return to Normal Activity and May Not Drive (while taking narcotic pain medications.) Dressing / Incision Call your doctor if you observe: Fever of 101 or Higher Follow Up Care Please Follow Up With: Boston Urbano MD When: Call [phone] for an appointment Test Results: Test results from this visit will be discussed in further detail at your follow- up appointment, if applicable. Discharge Plan Admission Primary Reason for Your Visit: turp Attending Provider: Boston Urbano Primary Care Provider: Nori Valenzuela Instructions Print Language: Venezuelan Discharge Orders/Prescriptions Prescriptions: New ciprofloxacin HCl [Cipro] 500 mg tablet 500 mg PO BID Qty: 10 0RF Continued citalopram 20 mg tablet 20 mg PO QHS Glucos Chond Cplx Advanced 750 mg-100 mg- 125 mg-1.65 mg tablet 1 tab PO DAILY lisinopril 10 mg tablet 10 mg PO DAILY magnesium 200 mg tablet 200 mg PO QHS simvastatin 20 mg tablet 20 mg PO QHS rizatriptan 5 mg tablet 5 mg PO BID PRN (Reason: headache) cyclosporine [Restasis] 0.05 % dropperette 1 drp ophthalmic (eye) DAILY cholecalciferol (vitamin D3) [Vitamin D3] 50 mcg (2,000 unit) capsule 50 mcg PO DAILY Discontinued finasteride 5 mg tablet 5 mg PO DAILY tamsulosin 0.4 mg capsule 0.4 mg PO DAILY Referrals / Follow Up: Nori Valenzuela DO [Primary Care Provider, Internal Medicine] Boston Urbano MD [Med Staff - Active Staff, Urology] Disposition Disposition (needs filled in before D/C Order can be placed): Home, Self Care
[2025-03-28] MEDS: fentaNYL 100 MCG/2 ML Ampul IV (07:50)
--- NOTE | 2025-03-28 08:31 | OP.PCM_ITS ---
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 We discussed how a prostate resection is done and we discussed the risk of the surgery including, bleeding, infection, retrograde ejaculation, changes with ejaculation or intercourse,. We discussed the possibility that the resection of the prostate may not alleviate his urinary symptoms. We discussed the small risk of developing scar tissue along the urethral channel and strictures. We also discussed the chance of the prostate could grow back and he may need further surgery or treatment in the future for prostate problems. Patient was taken back to the operating room, timeout procedure was performed, he was identified and marked and placed on the operating room table. He und erwent general anesthesia. He was placed in dorsolithotomy position. Penis and testicles were prepped and draped in usual sterile fashion. Went into the bladder using the visual obturator with a resectoscope. Once inside the bladder identified the right and left ureteral orifice. I then identified the prostate and the anatomy of the prostate. I marked out the area of the sphincter and the verumontanum was identified. I then proceeded with the prostate resection first resected the median lobe. And then resected the right lobe of the prostate. Then to resect the left lobe of the prostate. I then resected the apical tissue of the prostate. This was a complete resection of all obstructive tissue to improve voiding and relieve obstruction. I then made sure that there was no injury to the sphincter or the verumontanum was still intact. At the end of the resection all the chips were Ellik out of the bladder. I then identified the left and right ureteral orifice and these were confirmed to be in good position and effluxing and not injured. The resectoscope was removed, a 22 Lao catheter was placed into the bladder on continuous irrigation. And the urine was fairly light pink color and draining normally. He was taken back to the PACU in good condition. CPT 88327 Surgical Findings: Large median lobe resected Complications Complications: No Admit VTE Documentation VTE Present on Admission: No VTE Mechan Device Prophylaxis: SCD's VTE Pharm Prophylaxis ordered?: No
--- NOTE | 2025-03-28 08:38 | PCM.POST.ANE ---
Anesthesia: Postop Eval I Current Vital Signs Temperature: 97.4 F Pulse Rate: 61 Blood Pressure: 131/84 Respiratory Rate: 16 Pulse Ox: 96 Assessment Airway patent: Yes Spontaneous unlabored respirations: Yes nausea: No Vomiting: No Anesthesia Complication: No Fluid Hydration Crystalloid volume administer (ml): 700 Total IV fluid infused: 700 Progress Note Anesthesia document: Postop Eval 1 completed: Yes
[2025-03-28] MEDS: 0.9% Normal Saline (1000mL) 1,000 ML 125 ML IV ×3 (09:21→22:19)
--- NOTE | 2025-03-28 10:27 | POSTOPAN2_ITS ---
Anesthesia Postop Eval I Sum Postop Eval Completion status Anesthesia document: Postop Eval 1 completed: Yes Anesthesia Postop Eval I Summary Anesthesia Postop Eval I Summary: Anesthesia Postop Eval I: Assessment Summary Airway patent Yes 03/28/25 08:38 MANAGER TECHNICAL.NELLIOBEstefania Spontaneous unlabored Yes 03/28/25 08:38 MANAGER TECHNICALELIZABETH respirations Mental status nausea No 03/28/25 08:38 MANAGER TECHNICAL.JAN Vomiting No 03/28/25 08:38 MANAGER TECHNICALELIZABETH Anesthesia Postop Eval I: Fluid Summary Crystalloid volume administer 700 03/28/25 08:38 MANAGER TECHNICAL.NELLIOBEstefania (ml) Colloids volume administered ( ml) Blood Product volume administered (ml) Total IV fluid infused 700 03/28/25 08:38 MANAGER TECHNICALELIZABETH Anesthesia Postop Eval I: Summary Notes Anesthesia Complication No 03/28/25 08:38 LAZARA Anesthesia Complication Comment: Post-operative progress note Anesthesia: Postop Eval II Evaluation Mental status: Awake Pain Level: 0 nausea: No Vomiting: No Complications Anesthesia Complication: No
--- NOTE | 2025-03-28 10:27 | PCM.POSTANE2 ---
Anesthesia Postop Eval I Sum Postop Eval Completion status Anesthesia document: Postop Eval 1 completed: Yes Anesthesia Postop Eval I Summary Anesthesia Postop Eval I Summary: Anesthesia Postop Eval I: Assessment Summary Airway patent Yes 03/28/25 08:38 FIELD OPERATIONS FARM MANAGER.NELLIOBEstefania Spontaneous unlabored Yes 03/28/25 08:38 FIELD OPERATIONS FARM MANAGERELIZABETH respirations Mental status nausea No 03/28/25 08:38 FIELD OPERATIONS FARM MANAGER.JAN Vomiting No 03/28/25 08:38 FIELD OPERATIONS FARM MANAGERELIZABETH Anesthesia Postop Eval I: Fluid Summary Crystalloid volume administer 700 03/28/25 08:38 FIELD OPERATIONS FARM MANAGER.NELLIOBEstefania (ml) Colloids volume administered ( ml) Blood Product volume administered (ml) Total IV fluid infused 700 03/28/25 08:38 FIELD OPERATIONS FARM MANAGERELIZABETH Anesthesia Postop Eval I: Summary Notes Anesthesia Complication No 03/28/25 08:38 LAZARA Anesthesia Complication Comment: Post-operative progress note Anesthesia: Postop Eval II Evaluation Mental status: Awake Pain Level: 0 nausea: No Vomiting: No Complications Anesthesia Complication: No
[2025-03-28] MEDS: Carboxymethylcellulose sodium gel dropperette 1 EACH EACH EYE (11:16)
[2025-03-28] MEDS: Magnesium Chloride 64 MG Delay Rel.Tablet PO (22:14)
[2025-03-29 01:24] VITALS: BP 128/88; PULSE 61; RESP 18; TEMP 36.6; O2SAT 96
[2025-03-29 05:38] VITALS: BP 142/80; PULSE 58; RESP 15; TEMP 36.4; O2SAT 97
[2025-03-29] MEDS: 0.9% Normal Saline (1000mL) 1,000 ML 125 ML IV (05:42)
--- NOTE | 2025-03-29 07:28 | PCM.PN.GU ---
Subjective Subjective Three-way Dill can come out and patient can go home today after he is able to urinate Objective Data Objective Data Vital Signs: Vital Signs Temp Pulse Resp BP Pulse Ox O2 Del Method 97.6 F L 58 L 15 142/80 H 97 Room Air 03/29/25 05:38 03/29/25 05:38 03/29/25 05:38 03/29/25 05:38 03/29/25 05:38 03/29/25 05:38 Oxygen Delivery Method Room Air Weight: 75.75 kg Body Mass Index (BMI) 23.9 Intake & Output: Intake and Output for Last 24 Hours 03/27/25 03/28/25 03/29/25 23:59 23:59 23:59 Intake Total 3020.83 / 3020.83 922.92 / 922.92 Output Total 960 / 960 Balance 2060.83 / 2060.83 922.92 / 922.92 Lab / Micro Data 03/08/25 10:22 03/08/25 10:22
--- NOTE | 2025-03-29 09:38 | CASEMGMT ---
Noted dc order placed. BELEM CM into pt room, pt sitting up in bed. Pt states he is just waiting to urinate one more time prior to dc. Pt states he is up indep at home and denies any homegoing needs.
--- NOTE | 2025-03-29 10:45 | PHA.DC_ITS ---
Pharmacy [facility] has performed discharge medication counseling for this patient. The patient was counseled on the following discharge medications and changes in medications for homegoing review. - Ciprofloxacin 500 mg tablet The Reason for Use, instructions for use, and potential side effects were reviewed for all new medications. The patient's questions regarding all of their medications were answered. The patient was able to verbally demonstrate an understanding of their discharge medications. Medications at Discharge Home Medications cholecalciferol (vitamin D3) 50 mcg (2,000 unit) capsule (Vitamin D3) 50 mcg PO DAILY 03/14/25 citalopram 20 mg tablet 20 mg PO QHS 03/14/25 cyclosporine 0.05 % eye drops in a dropperette (Restasis) 1 drp ophthalmic (eye) DAILY 03/14/25 pjfoyqwbhpf-ixrbnelxj-uzof888-hyal 750 mg-100 mg-125 mg-1.65 mg tablet (Glucosamine Chondroit Complx Advan) 1 tab PO DAILY 03/14/25 lisinopril 10 mg tablet 10 mg PO DAILY 03/14/25 magnesium 200 mg tablet 200 mg PO QHS 03/14/25 rizatriptan 5 mg tablet 5 mg PO BID PRN headache 03/14/25 simvastatin 20 mg tablet 20 mg PO QHS 03/14/25 ciprofloxacin HCl 500 mg tablet (Cipro) 500 mg PO BID #10 tabs 03/28/25
[2025-03-29 12:10] VITALS: BP 153/93; PULSE 67; RESP 18; TEMP 36.6; O2SAT 96
== END 2025-03-29 12:00 | disposition home or self-care (01) ==
LOC: SDC 09:38 → MS3 09:38
PROVIDERS: Admitting Provider Urology; PCP Internal Medicine; Referring Provider Urology; Visit Provider Urology
PROC: (CPT 52601; principal; 2025-03-28 07:20)
DX: N40.1 Benign prostatic hyperplasia with lower urinary tract symptoms (principal); N39.0 Urinary tract infection, site not specified; I10 Essential (primary) hypertension; Z87.891 Personal history of nicotine dependence; R35.0 Frequency of micturition; R39.11 Hesitancy of micturition; R35.1 Nocturia
CPT/HCPCS: 52601; 36415; 80048; 85027; 88305; 88341; 88342; 93005; 94668; 96361; 96365; 96366; 99221; G0378; J0744; J2405